=== PATIENT | female | born 1975 | race Caucasian/White ===

== ENCOUNTER 2017-03-03 15:16 | Inpatient (IN) | payer MEDICAID, OTHER ==
[~2017-03-03] VITALS: Ht 160 cm; Wt 93.0 kg
[2017-03-03 15:28] VITALS: Ht 160 cm; Wt 93.0 kg
[2017-03-03] MEDS ORDERED: ONDANSETRON (ODT) 4 MG TAB ODT STA (16:27)
--- NOTE | 2017-03-03 16:52 | ERD ---
ER Documentation Chief Complaint Date/Time DATE: 03/03/17 TIME: 16:51 Chief Complaint abdominal pain and diarrhea x 2 months HPI Patient is a 42-year-old female presents to the emergency department for concerns of intermittent abdominal pain and diarrhea 2 months. Patient states the pain is in her bilateral lower quadrants. Patient denies seeing any physicians for her pain. Patient also reports intermittent episodes of diarrhea. Patient states sometimes she has constipation however primarily she has diarrhea. Patient reports brown watery stools, no blood. Patient denies any fevers or chills. Patient denies any chest pain, shortness of breath, nausea, vomiting, loss consciousness or diaphoresis. ROS All systems reviewed and are negative except as per history of present illness. Allergies Allergies: Coded Allergies: No Known Allergy (Unverified , 03/03/17) PMhx/Soc Medical and Surgical Hx: pt denies Medical Hx, pt denies Surgical Hx Hx Alcohol Use: No Hx Substance Use: No Hx Tobacco Use: No Smoking Status: Never smoker Physical Exam Vitals Vital Signs Date Time Temp Pulse Resp B/P Pulse Ox O2 Delivery O2 Flow Rate FiO2 03/03/17 17:37 98.1 73 18 118/64 99 Room Air 03/03/17 15:28 98.6 101 18 116/59 99 Physical Exam Const: [] Head: Atraumatic Eyes: Normal Conjunctiva ENT: Normal External Ears, Nose and Mouth. Neck: Full range of motion..~ No meningismus. Resp: Clear to auscultation bilaterally Cardio: Regular rate and rhythm, no murmurs Abd: Soft, non tender, non distended. Normal bowel sounds Skin: No petechiae or rashes Back: No midline or flank tenderness Ext: No cyanosis, or edema Neur: Awake and alert Psych: Normal Mood and Affect Result Diagram: 03/03/17 1648 03/03/17 1648 Results 24 hrs Laboratory Tests Test 03/03/17 16:48 White Blood Count 10.310^3/ul Red Blood Count 3.4410^6/ul Hemoglobin 5.5g/dl Hematocrit 20.7% Mean Corpuscular Volume 60.2fl Mean Corpuscular Hemoglobin 16.0pg Mean Corpuscular Hemoglobin Concent 26.6g/dl Red Cell Distribution Width 21.9% Platelet Count 66377^3/UL Mean Platelet Volume 8.5fl Neutrophils % % Segmented Neutrophils % (Manual) 75% Lymphocytes % % Lymphocytes % (Manual) 18% Monocytes % % Monocytes % (Manual) 3% Eosinophils % % Eosinophils % (Manual) 3% Basophils % % Basophils % (Manual) 1% Nucleated Red Blood Cells % 0.4/100WBC Neutrophils # 10^3/ul Absolute Lymphocytes (Manual) 1.810^3/ul Lymphocytes # 10^3/ul Monocytes # 10^3/ul Absolute Monocytes (Manual) 0.310^3/ul Eosinophils # 10^3/ul Basophils # 10^3/ul Basophils # (Manual) 0.110^3/ul Nucleated Red Blood Cells # 10^3/ul Smudge Cells % 3% Thrombocytosis 10% Platelet Estimate INCREASED Polychromasia 1+ Hypochromasia 3+ Poikilocytosis 2+ Anisocytosis 3+ Microcytosis 3+ Urine Color YELLOW Urine Clarity CLEAR Urine pH 5.0 Urine Specific [place] 1.017 Urine Ketones NEGATIVEmg/dL Urine Nitrite NEGATIVEmg/dL Urine Bilirubin NEGATIVEmg/dL Urine Urobilinogen NEGATIVEmg/dL Urine Leukocyte Esterase TRACELeu/ul Urine Microscopic RBC 0/HPF Urine Microscopic WBC 1/HPF Urine Squamous Epithelial Cells FEW/HPF Urine Hemoglobin NEGATIVEmg/dL Urine Glucose NEGATIVEmg/dL Urine Total Protein NEGATIVEmg/dl Sodium Level 141mmol/L Potassium Level 4.5mmol/L Chloride Level 101mmol/L Carbon Dioxide Level 27mmol/L Anion Gap 18 Blood Urea Nitrogen 14mg/dl Creatinine 0.63mg/dl Glucose Level 109mg/dl Calcium Level 9.2mg/dl Total Bilirubin 0.0mg/dl Direct Bilirubin 0.00mg/dl Indirect Bilirubin 0.0mg/dl Aspartate Amino Transf (AST/SGOT) 22IU/L Alanine Aminotransferase (ALT/SGPT) 25IU/L Alkaline Phosphatase 93IU/L Total Protein 8.2g/dl Albumin 3.8g/dl Globulin 4.40g/dl Albumin/Globulin Ratio 0.86 Lipase 71U/L Current Medications Medications (Trade) Dose Ordered Sig/Reba Route PRN Reason Start Time Stop Time Status Last Admin Dose Admin Ondansetron HCl (Zofran Odt) 4 mg ONCE STAT ODT 03/03/17 16:27 03/03/17 16:29 DC 03/03/17 16:49 IV Flush 10 ml 10 ml STK-MED ONCE .ROUTE 03/03/17 17:54 03/03/17 17:55 DC 03/03/17 18:04 Sodium Chloride (NS) 100 ml @ ud STK-MED ONCE .ROUTE 03/03/17 17:54 03/03/17 17:55 DC 03/03/17 18:04 Iohexol 150 ml 150 ml STK-MED ONCE .ROUTE 03/03/17 17:54 03/03/17 17:55 DC 03/03/17 18:04 Sodium Chloride 250 ml @ 0 mls/hr Q0M ONCE IV 03/03/17 18:34 03/03/17 18:36 DC Sodium Chloride (NS) 1,000 ml @ 80 mls/hr [id number] IV 03/03/17 18:37 03/04/17 07:06 Ondansetron HCl (Zofran Inj) 4 mg BRIDGE ORDER PRN IV NAUSEA AND/OR VOMITING 03/03/17 19:00 03/04/17 18:59 Acetaminophen (Tylenol Tab) 650 mg ER BRIDGE PRN PO MILD PAIN/FEVER 03/03/17 19:00 03/04/17 18:59 Departure Patient Instructions: Treating Diarrhea Additional Instructions: Call your primary care doctor TOMORROW for an appointment during the next 1-2 days.See the doctor sooner or return here if your condition worsens before your appointment time. Follow-up with GI specialist for further management of her ongoing abdominal pain. He may need endoscopy or colonoscopy on an outpatient basis. ARNOLDO LUCAS PA-C Mar 03, 2017 16:52
[2017-03-03 16:59] LABS: ABNORMAL IP MESSAGE 1; HEMATOCRIT 20.7 % (37.0-47.0); MEAN CORPUSCULAR HGB CONC 26.6 g/dl (32.0-37.0); MEAN CORPUSCULAR VOLUME 60.2 fl (82.0-101.0); MEAN PLATELET VOLUME 8.5 fl (7.4-10.4); NUCLEATED RED BLOOD CELLS% 0.4 /100WBC (0.0-0.0); PLATELET COUNT 517 10^3/UL (140-415); RED BLOOD COUNT 3.44 10^6/ul (4.20-5.40); RED CELL DISTRIBUTION WIDTH 21.9 % (11.5-14.5)
[2017-03-03 17:11] LABS: POSITIVE DIFF @See below
[2017-03-03 17:13] LABS: WHITE BLOOD COUNT 10.3 10^3/ul (4.8-10.8)
[2017-03-03 17:19] LABS: ALBUMIN 3.8 g/dl (3.3-4.9); ALBUMIN/GLOBULIN RATIO 0.86; CALCIUM 9.2 mg/dl (8.4-10.2); CREATININE 0.63 mg/dl (0.44-1.00); POTASSIUM 4.5 mmol/L (3.5-5.1); TOTAL PROTEIN 8.2 g/dl (6.1-8.1)
[2017-03-03 17:41] LABS: ADD UMIC YES; UR ASCORBIC ACID NEGATIVE (NEGATIVE); UR BILIRUBIN (Dip) NEGATIVE (NEGATIVE); UR BLOOD (Dip) NEGATIVE (NEGATIVE); UR CLARITY CLEAR (CLEAR); UR COLOR YELLOW (YELLOW); UR GLUCOSE (Dip) NEGATIVE (NEGATIVE); UR KETONES (Dip) NEGATIVE (NEGATIVE); UR LEUKOCYTE ESTERASE (Dip) TRACE Leu/ul (NEGATIVE); UR NITRITE (Dip) NEGATIVE (NEGATIVE); UR RBC 0 /HPF (0-5); UR SPECIFIC GRAVITY (Dip) 1.017 (1.003-1.030); UR SQUAMOUS EPITHELIAL CELL FEW /HPF (FEW); UR TOTAL PROTEIN (Dip) NEGATIVE (NEGATIVE); UR UROBILINOGEN (Dip) NEGATIVE (NEGATIVE)
[2017-03-03] MEDS ORDERED: IOHEXOL 300MG/ML 150 ML BTL ONE (17:54)
[2017-03-03] MEDS ORDERED: SOD CHLORIDE 0.9% 100 ML ONE (17:54)
[2017-03-03 17:59] LABS: ANISOCYTOSIS 3+ (0-0); BASOPHILS % (M) 1 % (0-2); EOSINOPHILS % (M) 3 % (0-7); GIANT THROMBO% (M) 10 % (0-0); HYPOCHROMASIA 3+ (0-0); MICROCYTOSIS 3+ (0-0); MONOCYTES % (M) 3 % (0-11); PLATELET ESTIMATE INCREASED; POIKILOCYTOSIS 2+ (0-0); POLYCHROMASIA 1+ (0-0)
--- NOTE | 2017-03-03 18:23 | RADRPT ---
PROCEDURE: CT abdomen and pelvis with contrast. CLINICAL INDICATION: Abdominal pain and diarrhea. TECHNIQUE: CT scan of the abdomen and pelvis with contrast was performed after the uneventful intrav enous administration of 100 cc of Omnipaque-300. Coronal and sagittal reformatted images were obtain ed from the axial source images. The total exam CTDI equals 22.52 mGy and the total exam DLP equals 1221.91 mGy-cm. One or more of the following dose reduction techniques were used: - Automated exposure control. - Adjustment of the mA and/or kV according to patient size. - Use of iterative reconstruction technique. COMPARISON: None available. FINDINGS: Visualized lower thorax: The visualized lung bases are clear. The visualized heart is unremarkable. Hepatobiliary system and spleen: There is an indeterminate 3.4 cm hypodense lesion in segment 8 of the liver and 2.2 cm lesion at the junction of segment 7 and 8 within the liver. There is also an i ndeterminate 1.6 cm hypodense lesion in segment 6 of the liver. There is no intra or extrahepatic bi liary ductal dilatation. The gallbladder is unremarkable. The spleen is unremarkable. The pancreas i s unremarkable. Adrenal glands and genitourinary system: The adrenal glands are unremarkable. There are no renal ma sses or hydronephrosis. The urinary bladder is unremarkable. There is a simple appearing 5.3 cm rig ht adnexal cyst. The left adnexa and uterus are unremarkable. Gastrointestinal system: The stomach and small bowel are unremarkable. There is irregular wall thic kening of the entire rectum extending from the rectosigmoid junction to the anal verge. There is pe rirectal inflammatory change. There is a moderate of stool throughout the colon, suggestive of const ipation. The appendix is in the right lower quadrant, and is unremarkable. Peritoneum, vascular system, lymphatics: There is no free intraperitoneal air or free fluid. There is perirectal adenopathy. There is also bulky bilateral pelvic, inguinal, para-aortic, and periporta l adenopathy, consistent with metastatic disease. The aorta is nonaneurysmal. Musculoskeletal system: There is advanced facet arthropathy at L5-S1 with associated grade 1 paola listhesis of L5 on S1. There are no concerning osseous lesions. IMPRESSION: 1. Irregular wall thickening involving the entire rectum with extensive pelvic, inguinal, periaorti c, and periportal adenopathy, consistent with rectal neoplasm and metastatic disease. 2. Indeterminate hepatic lesions, the largest measuring 3.4 cm, highly concerning for metastatic di sease. these can be further characterize with multiphase CT scan or MRI with Eovist. 3. Simple appearing right ovarian cyst measuring 5.3 cm. 4. Moderate of stool throughout the colon, suggestive of constipation. These findings discussed with EARLENE Issa at 1817 hours on 03/03/2017. RPTAT: HLBP .Angelito Whatley MD, Date Time Electronically viewed and signed by .Angelito Whatley MD, on 03/03/2017 18:22 .P/
[2017-03-03] MEDS ORDERED: SOD CHLORIDE 0.9% 250 ML IV ONE (18:34)
[2017-03-03] MEDS ORDERED: SOD CHLORIDE 0.9% 1,000 ML IV SCH (18:37)
[2017-03-03] MEDS ORDERED: ONDANSETRON 4 MG INJ IV PRN ×3 (19:00→23:00)
[2017-03-03] MEDS ORDERED: ACETAMINOPHEN 325 MG TAB PO PRN (19:00)
--- NOTE | 2017-03-03 19:00 | ERA ---
ER Documentation Chief Complaint Date/Time DATE: 03/03/17 TIME: 18:58 Chief Complaint abdominal pain and diarrhea x 2 months HPI This is a 42-year-old female who presents to the emergency room for evaluation of abdominal cramping, diarrhea and generalized weakness. She states her diarrhea was bloody last month, however it has not been bloody recently. She does say she is abdominal cramping which she localizes to the lower portion of the abdomen. The patient states she is mildly nauseous but denies any active vomiting or chest pain at this time. She says she is feeling generally weak and worse with exertion. No relieving factors for her symptoms. ROS All systems reviewed and are negative except as per history of present illness. Allergies Allergies: Coded Allergies: No Known Allergy (Unverified , 03/03/17) PMhx/Soc Medical and Surgical Hx: pt denies Medical Hx, pt denies Surgical Hx Hx Alcohol Use: No Hx Substance Use: No Hx Tobacco Use: No Smoking Status: Never smoker Physical Exam Vitals Vital Signs Date Time Temp Pulse Resp B/P Pulse Ox O2 Delivery O2 Flow Rate FiO2 03/03/17 17:37 98.1 73 18 118/64 99 Room Air 03/03/17 15:28 98.6 101 18 116/59 99 Physical Exam INITIAL VITAL SIGNS: Reviewed by me GENERAL: The patient is well developed and appropriate for usual state of health in no apparent distress HEENT: Conjunctival pallor, pupils equal, round, and reactive to light. EOMI. There is no scleral icterus. NECK: C-spine is soft and supple, there is no meningismus. There is no cervical lymphadenopathy. LUNGS: Clear to auscultation bilaterally. There are no rales, wheezes or rhonchi. HEART: Regular rate and rhythm, no murmurs, clicks, rubs or gallops. ABDOMEN: Soft, non-tender, non-distended. There are bowel sounds in all four quadrants. No rebound or guarding. EXTREMITIES: There is no peripheral cyanosis or edema. No focal swelling or erythema. NEUROLOGICAL: The patient moves all four extremities with 5/5 strength. Cranial nerves II - XII are intact. Normal gait. Alert and oriented SKIN: Pale skin, there is no apparent rash or petechiae. Rectal exam: Palpable mass, brown stool, heme positive HEME/LYMPHATIC: There is no evidence of excessive bruising or lymphedema. PSYCHIATRIC: The patient does not appear anxious or depressed. Result Diagram: 03/03/17 1648 03/03/17 1648 Results 24 hrs Laboratory Tests Test 03/03/17 16:48 White Blood Count 10.310^3/ul Red Blood Count 3.4410^6/ul Hemoglobin 5.5g/dl Hematocrit 20.7% Mean Corpuscular Volume 60.2fl Mean Corpuscular Hemoglobin 16.0pg Mean Corpuscular Hemoglobin Concent 26.6g/dl Red Cell Distribution Width 21.9% Platelet Count 52715^3/UL Mean Platelet Volume 8.5fl Neutrophils % % Segmented Neutrophils % (Manual) 75% Lymphocytes % % Lymphocytes % (Manual) 18% Monocytes % % Monocytes % (Manual) 3% Eosinophils % % Eosinophils % (Manual) 3% Basophils % % Basophils % (Manual) 1% Nucleated Red Blood Cells % 0.4/100WBC Neutrophils # 10^3/ul Absolute Lymphocytes (Manual) 1.810^3/ul Lymphocytes # 10^3/ul Monocytes # 10^3/ul Absolute Monocytes (Manual) 0.310^3/ul Eosinophils # 10^3/ul Basophils # 10^3/ul Basophils # (Manual) 0.110^3/ul Nucleated Red Blood Cells # 10^3/ul Smudge Cells % 3% Thrombocytosis 10% Platelet Estimate INCREASED Polychromasia 1+ Hypochromasia 3+ Poikilocytosis 2+ Anisocytosis 3+ Microcytosis 3+ Urine Color YELLOW Urine Clarity CLEAR Urine pH 5.0 Urine Specific [place] 1.017 Urine Ketones NEGATIVEmg/dL Urine Nitrite NEGATIVEmg/dL Urine Bilirubin NEGATIVEmg/dL Urine Urobilinogen NEGATIVEmg/dL Urine Leukocyte Esterase TRACELeu/ul Urine Microscopic RBC 0/HPF Urine Microscopic WBC 1/HPF Urine Squamous Epithelial Cells FEW/HPF Urine Hemoglobin NEGATIVEmg/dL Urine Glucose NEGATIVEmg/dL Urine Total Protein NEGATIVEmg/dl Sodium Level 141mmol/L Potassium Level 4.5mmol/L Chloride Level 101mmol/L Carbon Dioxide Level 27mmol/L Anion Gap 18 Blood Urea Nitrogen 14mg/dl Creatinine 0.63mg/dl Glucose Level 109mg/dl Calcium Level 9.2mg/dl Total Bilirubin 0.0mg/dl Direct Bilirubin 0.00mg/dl Indirect Bilirubin 0.0mg/dl Aspartate Amino Transf (AST/SGOT) 22IU/L Alanine Aminotransferase (ALT/SGPT) 25IU/L Alkaline Phosphatase 93IU/L Total Protein 8.2g/dl Albumin 3.8g/dl Globulin 4.40g/dl Albumin/Globulin Ratio 0.86 Lipase 71U/L Current Medications Medications (Trade) Dose Ordered Sig/Reba Route PRN Reason Start Time Stop Time Status Last Admin Dose Admin Ondansetron HCl (Zofran Odt) 4 mg ONCE STAT ODT 03/03/17 16:27 03/03/17 16:29 DC 03/03/17 16:49 IV Flush 10 ml 10 ml STK-MED ONCE .ROUTE 03/03/17 17:54 03/03/17 17:55 DC 03/03/17 18:04 Sodium Chloride (NS) 100 ml @ ud STK-MED ONCE .ROUTE 03/03/17 17:54 03/03/17 17:55 DC 03/03/17 18:04 Iohexol 150 ml 150 ml STK-MED ONCE .ROUTE 03/03/17 17:54 03/03/17 17:55 DC 03/03/17 18:04 Sodium Chloride 250 ml @ 0 mls/hr Q0M ONCE IV 03/03/17 18:34 03/03/17 18:36 DC Sodium Chloride (NS) 1,000 ml @ 80 mls/hr [id number] IV 03/03/17 18:37 03/04/17 07:06 Ondansetron HCl (Zofran Inj) 4 mg BRIDGE ORDER PRN IV NAUSEA AND/OR VOMITING 03/03/17 19:00 03/04/17 18:59 Acetaminophen (Tylenol Tab) 650 mg ER BRIDGE PRN PO MILD PAIN/FEVER 03/03/17 19:00 03/04/17 18:59 Procedures/MDM EKG: Rate/Rhythm: [Normal Sinus Rhythm] QRS, ST, T-waves: [No changes consistent w/ acute ischemia] Impression: [No evidence of ischemia or arrhythmia] Chest X-ray 1V Interpreted by me: Soft Tissue: No acute abnormalities Bones: No acute abnormalities Mediastinum/Cardiac Silhouette/Lungs: [No acute abnormalities] CT abdomen pelvis with: 1. Irregular wall thickening involving the entire rectum with extensive pelvic, inguinal, periaortic, and periportal adenopathy, consistent with rectal neoplasm and metastatic disease. 2. Indeterminate hepatic lesions, the largest measuring 3.4 cm, highly concerning for metastatic disease. these can be further characterize with multiphase CT scan or MRI with Eovist. 3. Simple appearing right ovarian cyst measuring 5.3 cm. 4. Moderate of stool throughout the colon, suggestive of constipation. This is a 42-year-old female presents to the emergency room for evaluation of abdominal cramping and generalized weakness. When I evaluated this patient she appeared pale on my examination. I did obtain blood work and her hemoglobin came back at 5.5. She did state that she had some abdominal cramping and had diarrhea. I obtain a CT of the abdomen and pelvis to rule out any intra- peritoneal bleeding and CT of the abdomen and pelvis shows rectal neoplasm with metastatic disease. I have spoken to this patient in regards to her findings and she is aware of her CAT scan findings. She states that she has never been diagnosed with cancer. She states she has not seen a doctor in over 10 years. This patient was transfused 3 units of packed red blood cells in the emergency room. This patient had a rectal exam which showed brown stool which was speckled heme positive. I feel that she has been chronically losing blood through her GI tract. This patient will be placed in for admission at this time given her new diagnosis of metastatic cancer with GI bleed necessitating transfusion. Her blood pressure is stable with a mean arterial pressure greater than 65. No need for vasopressors or intensive care unit at this time. The patient will be placed on the telemetry floor Critical Care: Excluding all billable procedures Time: 42 minutes Treatments/Evaluations: Close monitoring and treatment of unstable vital signs, cardiorespiratory, and neurologic status, while maintaining tight balance of fluid, respiratory, and cardiac interventions. Departure Diagnosis: Primary Impression: GI bleed Additional Impressions: Severe anemia Metastatic cancer Condition: Serious DUSTIN BROWN Mar 03, 2017 19:00
[2017-03-03] MEDS: SOD CHLORIDE 0.9% 1,000 ML IV SCH (19:30)
--- NOTE | 2017-03-03 19:52 | RADRPT ---
PROCEDURE: XR Chest. CLINICAL INDICATION: Weakness. TECHNIQUE: Single frontal view of the chest was obtained COMPARISON: None FINDINGS: The heart and mediastinum are within normal limits. The lungs are clear. There is no pleural effusion or pneumothorax. IMPRESSION: No acute disease. RPTAT: UU Physician Manuel Date Time Electronically viewed and signed by Physician Manuel on 03/03/2017 19:52 RS/
[2017-03-03 20:30] VITALS: TEMP 98.5
[2017-03-03 20:50] VITALS: BP 120/88; PULSE 77; RESP 18
[2017-03-03 21:45] VITALS: BP 128/80; PULSE 79; RESP 18
[2017-03-03 22:04] VITALS: BP 127/88; RESP 22
[2017-03-03] MEDS: morphine 4 MG/ML VIAL IV PRN (22:34)
[2017-03-03 22:45] VITALS: BP 117/65; PULSE 85; RESP 19
[2017-03-03] MEDS ORDERED: morphine 4 MG/ML VIAL IV PRN (23:00)
[2017-03-03 23:45] VITALS: BP 120/57; PULSE 92; RESP 16
[2017-03-04] VITALS (11 sets, daily range): BP systolic 111–188; BP diastolic 55–69; PULSE 76–90; RESP 14–20
--- NOTE | 2017-03-04 05:19 | HP ---
Date/Time of Note Date/Time of Note DATE: 03/04/17 TIME: 04:55 Assessment/Plan VTE Prophylaxis VTE Prophylaxis Intervention: SCD's Lines/Catheters IV [facility] Assessment/Plan Assessment/Plan 1. Likely metastatic rectal/colon cancer to liver: this CT scan findings explain bloody stool, anemia and weight loss - will place a GI and an Oncology consult. - CT chest for metastatic work-up - pain mgmt 2. Lower GI Bleed and anemia: 2/2 above - cont blood transfusion - f/u Iron panel - see above for additional plan 3. Right Ovarian Cyst: 5.3 cm - need periodic surveillance ultra sound as out patient HPI/ROS Admit Date/Time Admit Date/Time Mar 03, 2017 at 18:38 Hx of Present Illness This is a 42 yo female with no significant medical hx who presented to ER c/o abd pain, bloody stool and weakness. symptoms started about 2 months ago. She lost about 30lbs, which is unintentional. When she presented to ER, she was found to be anemic with hgb of 5.5 and is receiving blood transfusion. CT abd/ pelvis showed Irregular wall thickening involving the entire rectum with extensive pelvic, inguinal, periaortic, and periportal adenopathy, consistent with rectal neoplasm and metastatic disease. Indeterminate hepatic lesions, the largest measuring 3.4 cm, highly concerning for metastatic disease. these can be further characterize with multiphase CT scan or MRI with Eovist. Simple appearing right ovarian cyst measuring 5.3 cm. Moderate of stool throughout the colon, suggestive of constipation. I have discussed with pt and her daughter about the findings and pt said she was prepared for a possibility of cancer because she was reading about her symptoms on the internet. her mother was dx'd with lymphoma in her 40s and her aunt with leukemia at age 13. Pt denied chest pain, SOB, fever or chills. . PMH/Family/Social Social History Smoking Status: Never smoker Exam/Review of Systems Vital Signs Vitals Vital Signs Date Time Temp Pulse Resp B/P Pulse Ox O2 Delivery O2 Flow Rate FiO2 03/04/17 04:07 98.5 76 14 122/68 98 Room Air Intake and Output 03/03/17 03/03/17 03/04/17 15:00 23:00 07:00 Intake Total 600 ml Balance 600 ml Exam Constitutional: alert, oriented, well developed Head: atraumatic, normocephalic Eyes: EOMI, PERRL Respiratory: clear to auscultation, normal air movement Cardiovascular: nl pulses, regular rate and rhythm, systolic murmur Gastrointestinal: soft, tender Extremities: normal pulses Labs Result Diagram: 03/03/17 1648 03/03/17 1648 Medications Medications Current Medications Sodium Chloride (NS) 1,000 ml @ 80 mls/hr [id number] IV ; Start 03/03/17 at 18:37; Stop 03/04/17 at 07:06 Ondansetron HCl (Zofran Inj) 4 mg Q6H PRN IV NAUSEA AND/OR VOMITING; Start 03/03 at 19:30 Morphine Sulfate 2 mg 2 mg Q4H PRN IV pain 7-10 Last administered on 03/03/17t 22:34; Admin Dose 2 MG; Start 03/03/17 at 19:30 Sodium Chloride 1,000 ml @ 80 mls/hr [id number] IV ; Start 03/03/17 at 19:30 Dextrose/Sodium Chloride (D5-1/2ns) 1,000 ml @ 100 mls/hr Q10H IV ; Start at 07:00 Morphine Sulfate (morphine) 3 mg Q4H PRN IV pain 7-10; Start 03/03/17 at 23:00 Ondansetron HCl (Zofran Inj) 4 mg Q6H PRN IV NAUSEA AND/OR VOMITING; Start 03/03 at 23:00 Pantoprazole (Protonix Iv) 40 mg BID@06,18 IV ; Start 03/04/17 at 06:00 ROCIO CARRIZALES MD Mar 04, 2017 05:07
[2017-03-04] MEDS: PANTOPRAZOLE 40 MG INJ IV SCH ×2 (06:10→18:11)
[2017-03-04] MEDS: DEXTROSE 5%-0.45% NACL 1,000 ML IV SCH ×3 (06:27→18:57)
[2017-03-04] MEDS: SOD CHLORIDE 0.9% 1,000 ML IV SCH ×2 (06:39→20:30)
[2017-03-04 07:40] LABS: ABNORMAL IP MESSAGE 1; BASOPHIL # 0.1 10^3/ul (0.0-0.1); BASOPHILS % 0.8 % (0.0-2.0); EOSINOPHILS # 0.6 10^3/ul (0.0-0.5); EOSINOPHILS % 6.2 % (0.0-7.0); HEMOGLOBIN 8.4 g/dl (12.0-16.0); LYMPHOCYTES # 1.7 10^3/ul (0.8-2.9); MEAN CORPUSCULAR HEMOGLOBIN 19.4 pg (29.0-33.0); MEAN PLATELET VOLUME 9.3 fl (7.4-10.4); MONOCYTES % 9.9 % (0.0-11.0); NEUTROPHIL # 6.9 10^3/ul (1.6-7.5); NEUTROPHILS % 66.8 % (39.0-77.0); NUCLEATED RED BLOOD CELLS% 0.3 /100WBC (0.0-0.0); PLATELET COUNT 465 10^3/UL (140-415); RED BLOOD COUNT 4.33 10^6/ul (4.20-5.40); RED CELL DISTRIBUTION WIDTH 26.8 % (11.5-14.5); WHITE BLOOD COUNT 10.3 10^3/ul (4.8-10.8)
[2017-03-04 07:43] LABS: POSITIVE DIFF @See below
[2017-03-04 08:09] LABS: IRON 33 ug/dl (35-150)
[2017-03-04 08:11] LABS: MAGNESIUM 1.8 mg/dl (1.7-2.5)
[2017-03-04 08:13] LABS: ALBUMIN 3.7 g/dl (3.3-4.9); ALBUMIN/GLOBULIN RATIO 0.86; BILIRUBIN,INDIRECT 0.4 mg/dl (0-1.1); BILIRUBIN,TOTAL 0.4 mg/dl (0.2-1.3); CALCIUM 9.4 mg/dl (8.4-10.2); CREATININE 0.58 mg/dl (0.44-1.00); POTASSIUM 4.3 mmol/L (3.5-5.1)
[2017-03-04 08:18] LABS: TOTAL IRON BINDING CAPACITY 452 ug/dl (241-421)
[2017-03-04 08:47] LABS: FERRITIN 3.9 ng/ml (6.2-137.0)
[2017-03-04] MEDS: morphine 4 MG/ML VIAL IV PRN ×3 (09:15→19:51)
[2017-03-04] MEDS ORDERED: IOHEXOL 300MG/ML 150 ML BTL ONE (09:25)
[2017-03-04] MEDS ORDERED: SOD CHLORIDE 0.9% 100 ML ONE (09:25)
[2017-03-04 13:15] LABS: CARCINOEMBRYONIC ANTIGEN 96.9 ng/ml (0.0-5.0)
[2017-03-04 13:24] LABS: CANCER ANTIGEN 19-9 > 1000.0 U/ml (0.0-37.0)
--- NOTE | 2017-03-04 13:24 | RADRPT ---
PROCEDURE: CT Chest with contrast. CLINICAL INDICATION: Rectal bleeding. Evaluate for metastases. TECHNIQUE: CT scan of the chest with contrast was performed following the uncomplicated intravenou s administration of 80 cc of Omnipaque-300. Coronal and sagittal reformatted images were obtained f rom the axial source images. Images were reviewed on a high-resolution PACS workstation. CTDIvol (mG y): 15.25; Total Exam DLP (mGy-cm): 606.80. One or more of the following dose reduction techniques were utilized: - Automated exposure control. - Adjustment of the mA and/or kV according to patient size. - Use of iterative reconstruction technique. COMPARISON: Chest x-ray 03/03/2017. CT abdomen/pelvis 03/03/2017. FINDINGS: Limited imaging of the lower neck is unremarkable. The heart is within the upper limits of normal in size to mildly enlarged. There is no pericardial effusion. There is no bulky mediastinal, hilar or axillary lymphadenopathy. There is a small cluste r of small AP window lymph nodes with the largest measuring 8 mm in short axis. Scattered few small mediastinal lymph nodes are present. Mild dilatation of the ascending aorta is observed measuring 4. 1 cm in greatest diameter, which is slightly accentuated by motion artifact. The pulmonary arteries are not enlarged. There is no pulmonary consolidation, pleural effusion or pulmonary nodule. The tracheobronchial yuri e is clear. Limited imaging of the upper abdomen demonstrates multiple hypo enhancing lesions throughout the demetrice er with the largest measuring approximately 3.6 cm within the medial segment of the left hepatic lob e. Enlarged retroperitoneal lymph nodes are present. Degenerative changes of the thoracic spine are present. Body wall soft tissues are unremarkable. IMPRESSION: No evidence of pulmonary metastases. No bulky intrathoracic lymphadenopathy. There is a small cluster of small AP window lymph nodes with the largest measuring approximately 8 mm in short axis. Attention on follow-up imaging. Hepatic metastases and retroperitoneal lymphadenopathy. Mild dilatation of the ascending aorta, which is mildly accentuated by motion artifact. RPTAT: HLST .Leeanna Wells MD, Date Time Electronically viewed and signed by .Leeanna Wells MD, on 03/04/2017 13:24 .T/
[2017-03-04] MEDS ORDERED: BISACODYL (EC) 5 MG TAB PO ONE (14:00)
--- NOTE | 2017-03-04 14:47 | CONS ---
Date/Time of Note Date/Time of Note DATE: 03/04/17 TIME: 14:34 Assessment/Plan Assessment/Plan Additional Assessment/Plan Assessment * Abdominal pain/hematochezia CT scan/abdomen Irregular wall thickening involving the entire rectum with extensive pelvic, inguinal, periaortic, and periportal adenopathy, consistent with rectal neoplasm and metastatic disease. Indeterminate hepatic lesions, the largest measuring 3.4 cm, highly concerning for metastatic disease. these can be further characterize with multiphase CT scan or MRI with Eovist. Simple appearing right ovarian cyst measuring 5.3 cm. Plan * Colonoscopy tomorrow risks and benefit discuss with patient and agreed with the planned procedure * pain control * monitor hemoglobin and hematocrit daily and transfuse per protocol * further orders will depend on clinical course Consultation Date/Type/Reason Admit Date/Time Mar 03, 2017 at 18:38 Date of Consultation: Mar 04, 2017 Type of Consultation: Gastroenterology Reason for Consultation hematochezia Referring Provider: DINO DAWN Hx of Present Illness 42 year old female with no known past medical history presented in the emergency room complaining of abdominal pain.Present condition apparently started 6 months ago on and off episode of diarrhea with no associated signs or symptoms.No consult done till 3 months prior to consult,she started loosing weight with associated vague abdominal pain ,with occasional hematochezia. Still no consult until 1 month prior to consult change in caliber of stool and hematochezia became frequent.1 day prior to consult ,patient experience severe lower abdominal pain with radiation to back ,hematochezia,body weakness hence consult.Workup revealed hemoglobin 5.5 transfused with 2 units of blood now 8.4 Iron 33,TIBC 452 CT scan showed . Irregular wall thickening involving the entire rectum with extensive pelvic, inguinal, periaortic, and periportal adenopathy, consistent with rectal neoplasm and metastatic disease. Indeterminate hepatic lesions, the largest measuring 3.4 cm, highly concerning for metastatic disease. these can be further characterize with multiphase CT scan or MRI with Eovist.. Simple appearing right ovarian cyst measuring 5.3 cm.. Moderate of stool throughout the colon, suggestive of constipation. Presently ,she still complains of lower abdominal pain,but passing gas and no evidenced of hematochezia. Constitutional: improved, no complaints Eyes: no complaints ENT: no complaints Respiratory: no complaints Cardiovascular: no complaints Gastrointestinal: blood, diarrhea, flatus, nausea, pain Genitourinary: no complaints Musculoskeletal: no complaints Skin: no complaints Neurologic: no complaints Endocrine: no complaints Lymphatic: no complaints Psychological: nl mood/affect, no complaints Immunologic: no complaints Past Medical History Medical History: no pertinent history Past Surgical History Past Surgical Hx: no surgical history Family History Significant Family History: no pertinent family hx Social History Smoking Status: Never smoker Exam/Review of Systems Vital Signs Vitals Vital Signs Date Time Temp Pulse Resp B/P Pulse Ox O2 Delivery O2 Flow Rate FiO2 03/04/17 08:00 98.1 80 19 131/66 99 03/04/17 04:35 Room Air Intake and Output 03/03/17 03/03/17 03/04/17 15:00 23:00 07:00 Intake Total 600 ml 1 ml Output Total 1000 ml Balance 600 ml -999 ml Exam Constitutional: alert, oriented, well developed Psych: nl mood/affect, no complaints Head: atraumatic, normocephalic Eyes: EOMI, PERRL, nl conjunctiva, nl lids, nl sclera ENMT: nl external ears & nose, nl lips & teeth, nl nasal mucosa & septum Neck: non-tender, supple Respiratory: clear to auscultation, normal air movement Cardiovascular: nl pulses, regular rate and rhythm Gastrointestinal: bowel sounds, distended, non-tender, soft Musculoskeletal: nl extremities to inspection, nl gait and stance Extremities: normal pulses Neurological: BOAT FUELER II-XII intact, nl mental status, nl speech, nl strength Skin: nl turgor, No rash or lesions Lymph: nl lymph nodes Results Result Diagram: 03/04/17 0713 03/04/17 0713 Results 24 hrs Laboratory Tests Test 03/03/17 16:48 03/04/17 07:13 03/04/17 07:14 03/04/17 11:08 White Blood Count 10.3 10.3 Red Blood Count 3.44 L 4.33 # Hemoglobin 5.5 *L 8.4 #L Hematocrit 20.7 L 29.0 #L Mean Corpuscular Volume 60.2 L 67.0 L Mean Corpuscular Hemoglobin 16.0 L 19.4 #L Mean Corpuscular Hemoglobin Concent 26.6 L 29.0 L Red Cell Distribution Width 21.9 H 26.8 #H Platelet Count 517 H 465 H Mean Platelet Volume 8.5 9.3 Neutrophils % 66.8 Segmented Neutrophils % (Manual) 75 Lymphocytes % 16.0 Lymphocytes % (Manual) 18 Monocytes % 9.9 Monocytes % (Manual) 3 Eosinophils % 6.2 Eosinophils % (Manual) 3 Basophils % 0.8 Basophils % (Manual) 1 Nucleated Red Blood Cells % 0.4 H 0.3 H Neutrophils # 6.9 Absolute Lymphocytes (Manual) 1.8 Lymphocytes # 1.7 Monocytes # 1.0 H Absolute Monocytes (Manual) 0.3 Eosinophils # 0.6 H Basophils # 0.1 Basophils # (Manual) 0.1 H Nucleated Red Blood Cells # 0.0 Smudge Cells % 3 H Thrombocytosis 10 H Platelet Estimate INCREASED Polychromasia 1+ Hypochromasia 3+ Poikilocytosis 2+ Anisocytosis 3+ Microcytosis 3+ Urine Color YELLOW Urine Clarity CLEAR Urine pH 5.0 Urine Specific [place] 1.017 Urine Ketones NEGATIVE Urine Nitrite NEGATIVE Urine Bilirubin NEGATIVE Urine Urobilinogen NEGATIVE Urine Leukocyte Esterase TRACE A Urine Microscopic RBC 0 Urine Microscopic WBC 1 Urine Squamous Epithelial Cells FEW Urine Hemoglobin NEGATIVE Urine Glucose NEGATIVE Urine Total Protein NEGATIVE Sodium Level 141 141 Potassium Level 4.5 4.3 Chloride Level 101 102 Carbon Dioxide Level 27 25 Anion Gap 18 H 18 H Blood Urea Nitrogen 14 15 Creatinine 0.63 0.58 Glucose Level 109 91 Calcium Level 9.2 9.4 Total Bilirubin 0.0 L 0.4 Direct Bilirubin 0.00 0.00 Indirect Bilirubin 0.0 0.4 Aspartate Amino Transf (AST/SGOT) 22 32 Alanine Aminotransferase (ALT/SGPT) 25 26 Alkaline Phosphatase 93 92 Total Protein 8.2 H 8.0 Albumin 3.8 3.7 Globulin 4.40 H 4.30 H Albumin/Globulin Ratio 0.86 0.86 Lipase 71 Phosphorus Level 5.0 H Magnesium Level 1.8 Iron Level 33 L Total Iron Binding Capacity 452 H Percent Iron Saturation 7 L Ferritin 3.9 L Lab Scanned Report BLOOD TRANSFUSION Alpha Fetoprotein 2.15 Carcinoembryonic Antigen 96.9 H CA 19-9 Antigen > 1000.0 H CA 125 Antigen 10.0 Medications Medications Current Medications Ondansetron HCl (Zofran Inj) 4 mg Q6H PRN IV NAUSEA AND/OR VOMITING; Start 03/03 at 19:30 Morphine Sulfate 2 mg 2 mg Q4H PRN IV pain 7-10 Last administered on 03/04/17 14:24; Admin Dose 2 MG; Start 03/03/17 at 19:30 Sodium Chloride 1,000 ml @ 80 mls/hr [id number] IV ; Start 03/03/17 at 19:30 Dextrose/Sodium Chloride (D5-1/2ns) 1,000 ml @ 100 mls/hr Q10H IV Last administered on 03/04/17 06:27; Admin Dose 100 MLS/HR; Start 03/04/17 at 07:00 Morphine Sulfate (morphine) 3 mg Q4H PRN IV pain 7-10; Start 03/03/17 at 23:00 Ondansetron HCl (Zofran Inj) 4 mg Q6H PRN IV NAUSEA AND/OR VOMITING; Start 03/03 at 23:00 Pantoprazole (Protonix Iv) 40 mg BID@06,18 IV Last administered on 03/04/17 06: 10; Admin Dose 40 MG; Start 03/04/17 at 06:00 Magnesium Citrate (Citroma) 300 ml ONCE ONCE PO ; Start 03/04/17 at 17:30; Stop 03/04/17 at 17:31 Polyethylene Glycol 119 gm 119 gm ONCE ONCE PO ; Start 03/04/17 at 18:30; Stop 03/04/17 at 18:31 Ferric Sodium Gluconate Complex/ Sodium Chloride (Ferrlecit/NS) 110 ml @ 100 mls/hr Q24H IVPB ; Start 03/04/17 at 15:30; Stop 03/06/17 at 16:35 JESSE GALAVIZ MD Mar 04, 2017 14:44
[2017-03-04] MEDS: SOD FERRIC GLUC COMPLX 125 MG in SOD CHLORIDE 0.9% 100 ML IVPB SCH (16:16)
[2017-03-04] MEDS ORDERED: MAGNESIUM CITRATE 300 ML BTL PO ONE (17:30)
[2017-03-04] MEDS ORDERED: POLYETHYLENE GLYCOL 3350 119 GM POWDER PO ONE (18:30)
--- NOTE | 2017-03-04 21:38 | RADRPT ---
Echocardiogram Report Patient Name: ANTOLIN MORELAND Gender: Female Date: 1975 Study Date: 04-Mar-2017 Heel Edge Inker Machine: Erin [facility] Location: [address] Ref. Physician: ROCIO CARRIZALES Quality: Adequate Procedures: Transthoracic echocardiogram with complete 2D, M-Mode, and doppler examination. Indications: Murmur. 2D/M Mode Doppler Measurement Value Normal Ranges Measurement Value Normal Ranges LVIDd 2D 4.7 3.5 - 5.6 cm ATTILA Vmax 1.1 cm2 LVIDs 2D 2.9 2.1 - 4.1 cm ATTILA VTI 1.0 cm2 FS 2D 38.0 % AV Mean Lex 2.9 m/sec LVPWd 2D 1.3 0.6 - 1.1 cm AV Mean PG 37.0 mmHg IVSd 2D 1.3 0.6 - 1.1 cm AV Peak Lex 3.9 m/sec IVS/LVPW 2D 1.0 AV Peak PG 61.0 mmHg AoR Diam 2D 2.9 2.0 - 3.7 cm AV VTI 100.0 cm LA/Ao 2D 1 0 - 1 AI Peak PG 29.0 mmHg EDV 2D 101.0 cm3 AI Peak Lex 2.7 m/sec ESV 2D 24.1 cm3 AI PHT 620.0 msec LA Dimen 2D 3.9 2.3 - 4.0 cm LVOT Peak Lex 1.2 m/sec LVOT Diam 2.1 cm LVOT Peak PG 6.0 mmHg LVOT Area 3.5 cm2 MV E Peak Lex 1.1 m/sec MV A Peak Lex 0.6 m/sec MV E/A 2.0 MV Decel Time 239 msec MV E/A 2.0 TR Peak Lex 3.0 m/sec TR Peak PG 35.0 mmHg RVSP 44.0 mmHg Findings Left Ventricle: Normal left ventricular systolic function. Normal left ventricular cavity size. Mild concentric left ventricular hypertrophy. Ejection fraction is visually estimated at 5560 %. Right Ventricle: Normal right ventricular size. Normal right ventricular systolic function. Left Atrium: Upper limit of normal left atrial size. Right Atrium: The right atrium is normal in size. Mitral Valve: Mitral valve leaflets appear mildly thickened. Mild mitral annular calcification. Trace mitral regurgitation. Aortic Valve: Moderate aortic stenosis. Aortic valve Max velocity 3.89 m/sec. Max PG 61.00 mmHg. Mean PG 37.00 mmHg. Aortic valve area 1.05 cm2. Aortic cusps appear moderately calcified. Mild to moderate aortic valve regurgitation. Tricuspid Valve: Normal appearance of the tricuspid valve. Estimated peak PA systolic pressure 44 mmHg. There is mild tricuspid regurgitation. Pulmonic Valve: Pulmonic valve not well visualized. There is trace pulmonic regurgitation. Pericardium: Normal pericardium with no significant pericardial effusion. Aorta: Normal aortic root. IVC: Normal size and normal respiratory collapse consistent with normal right atrial pressure. Conclusions 1.The left ventricle is normal in size and systolic function. 2.Estimated left ventricular ejection fraction of 55-60%. 3.Mild concentric left ventricular hypertrophy. 4.Moderate aortic stenosis. Mild to moderate aortic regurgitation. Electronically Signed By: Earl Hughes 04-Mar-2017 21:38:05 -0700 Patient Name: ANTOLIN MORELAND Study Date: 04-Mar-2017 [id number]
--- NOTE | 2017-03-04 22:55 | CONS ---
Date/Time of Note Date/Time of Note DATE: 03/04/17 TIME: 22:39 Assessment/Plan Assessment/Plan Chief Complaint/Hosp Course #Metastatic Ca - involving pelvic, inguinal, periaortic, and periportal adenopathy, consistent with rectal neoplasm and metastatic disease. also seen are questionable hepatic mets -f/u colonoscopy tomorrow -will need a biopsy before we can make definitive treatment decisions -if this is a primary colon or rectal malignancy, she will need 5fu based chemotherapy #Indeterminate Liver lesions -will order MRI with eovist to further evaluate these lesions #intermittent hematochezia -if the colonoscopy notes a friable or bleeding rectal lesion, will consult rad onc to evaluate role of radiation to control the bleeding #Iron deficiency anemia -will start Ferrlecit at this time #Ovarian cyst -continue to monitor. if this grows in size it can be removed at that time Problems: Consultation Date/Type/Reason Admit Date/Time Mar 03, 2017 at 18:38 Date of Consultation: Mar 04, 2017 Type of Consultation: oncology Reason for Consultation metastatic cancer, likely colon Referring Provider: STEPHANI LOPES Hx of Present Illness 42 year old female with no significant past medical history who presented in the emergency room complaining of abdominal pain that she sates started 6 months ago. This was associated with intermittent diarrhea, weight loss, weakness and occasional BRBPR. In the ER patient was found with severe microcytic anemia with a Hg 5.5 and MCV of 60. Pt has been transfused 3 units of PRBCs since admission. Pt is severely iron deficiency with a ferritin 3.4. CT A/P was done which revealed the following: Irregular wall thickening involving the entire rectum with extensive pelvic, inguinal, periaortic, and periportal adenopathy, consistent with rectal neoplasm and metastatic disease. Also seen were indeterminate hepatic lesions, the largest measuring 3.4 cm, highly concerning for metastatic disease. Given the concern for metastatic colon ca pt is scheduled for coloscopy tomorrow with GI. Constitutional: improved, no complaints Eyes: no complaints ENT: no complaints Respiratory: no complaints Cardiovascular: no complaints Gastrointestinal: blood, diarrhea, flatus, nausea, pain Genitourinary: no complaints Musculoskeletal: no complaints Skin: no complaints Neurologic: no complaints Endocrine: no complaints Lymphatic: no complaints Psychological: nl mood/affect, no complaints Immunologic: no complaints Past Medical History Medical History: no pertinent history Past Surgical History Past Surgical Hx: no surgical history Family History Significant Family History: no pertinent family hx Social History Alcohol Use: none Smoking Status: Never smoker Drug Use: none Exam/Review of Systems Vital Signs Vitals Vital Signs Date Time Temp Pulse Resp B/P Pulse Ox O2 Delivery O2 Flow Rate FiO2 03/04/17 20:11 98.1 78 18 119/58 95 03/04/17 04:35 Room Air Intake and Output 03/03/17 03/03/17 03/04/17 15:00 23:00 07:00 Intake Total 600 ml 1 ml Output Total 1000 ml Balance 600 ml -999 ml Exam Constitutional: alert Psych: nl mood/affect, no complaints Head: normocephalic Eyes: nl conjunctiva ENMT: nl external ears & nose Neck: non-tender, supple Respiratory: clear to auscultation Cardiovascular: regular rate and rhythm Gastrointestinal: soft Musculoskeletal: nl extremities to inspection Results Result Diagram: 03/04/17 0713 03/04/17 0713 Results 24 hrs Laboratory Tests Test 03/04/17 07:13 03/04/17 07:14 03/04/17 11:08 White Blood Count 10.3 Red Blood Count 4.33 # Hemoglobin 8.4 #L Hematocrit 29.0 #L Mean Corpuscular Volume 67.0 L Mean Corpuscular Hemoglobin 19.4 #L Mean Corpuscular Hemoglobin Concent 29.0 L Red Cell Distribution Width 26.8 #H Platelet Count 465 H Mean Platelet Volume 9.3 Neutrophils % 66.8 Lymphocytes % 16.0 Monocytes % 9.9 Eosinophils % 6.2 Basophils % 0.8 Nucleated Red Blood Cells % 0.3 H Neutrophils # 6.9 Lymphocytes # 1.7 Monocytes # 1.0 H Eosinophils # 0.6 H Basophils # 0.1 Nucleated Red Blood Cells # 0.0 Sodium Level 141 Potassium Level 4.3 Chloride Level 102 Carbon Dioxide Level 25 Anion Gap 18 H Blood Urea Nitrogen 15 Creatinine 0.58 Glucose Level 91 Calcium Level 9.4 Phosphorus Level 5.0 H Magnesium Level 1.8 Iron Level 33 L Total Iron Binding Capacity 452 H Percent Iron Saturation 7 L Ferritin 3.9 L Total Bilirubin 0.4 Direct Bilirubin 0.00 Indirect Bilirubin 0.4 Aspartate Amino Transf (AST/SGOT) 32 Alanine Aminotransferase (ALT/SGPT) 26 Alkaline Phosphatase 92 Total Protein 8.0 Albumin 3.7 Globulin 4.30 H Albumin/Globulin Ratio 0.86 Lab Scanned Report BLOOD TRANSFUSION Alpha Fetoprotein 2.15 Carcinoembryonic Antigen 96.9 H CA 19-9 Antigen > 1000.0 H CA 125 Antigen 10.0 Medications Medications Current Medications Ondansetron HCl (Zofran Inj) 4 mg Q6H PRN IV NAUSEA AND/OR VOMITING; Start 03/03 at 19:30 Morphine Sulfate 2 mg 2 mg Q4H PRN IV pain 7-10 Last administered on 03/04/17 19:51; Admin Dose 2 MG; Start 03/03/17 at 19:30 Sodium Chloride 1,000 ml @ 80 mls/hr [id number] IV ; Start 03/03/17 at 19:30 Dextrose/Sodium Chloride (D5-1/2ns) 1,000 ml @ 100 mls/hr Q10H IV Last administered on 03/04/17 18:57; Admin Dose 100 MLS/HR; Start 03/04/17 at 07:00 Morphine Sulfate (morphine) 3 mg Q4H PRN IV pain 7-10; Start 03/03/17 at 23:00 Ondansetron HCl (Zofran Inj) 4 mg Q6H PRN IV NAUSEA AND/OR VOMITING; Start 03/03 at 23:00 Pantoprazole 40 mg 40 mg BID@06,18 IV Last administered on 03/04/17 18:11; Admin Dose 40 MG; Start 03/04/17 at 06:00 Ferric Sodium Gluconate Complex/ Sodium Chloride (Ferrlecit/NS) 110 ml @ 100 mls/hr Q24H IVPB Last administered on 03/04/17 16:16; Admin Dose 100 MLS/HR; Start 03/04/17 at 15:30; Stop 03/06/17 at 16:35 ZHANNA LOPEZ M.D. Mar 04, 2017 22:53
[2017-03-05] VITALS (10 sets, daily range): BP systolic 98–130; BP diastolic 55–67; PULSE 74–78; RESP 14–28
[2017-03-05] MEDS: morphine 4 MG/ML VIAL IV PRN ×4 (01:59→20:01)
[2017-03-05 05:52] LABS: ABNORMAL IP MESSAGE 1; BASOPHIL # 0.1 10^3/ul (0.0-0.1); BASOPHILS % 0.5 % (0.0-2.0); EOSINOPHILS # 0.6 10^3/ul (0.0-0.5); HEMATOCRIT 28.4 % (37.0-47.0); HEMOGLOBIN 8.3 g/dl (12.0-16.0); LYMPHOCYTES # 1.4 10^3/ul (0.8-2.9); LYMPHOCYTES % 14.6 % (15.0-51.0); MEAN CORPUSCULAR HEMOGLOBIN 19.7 pg (29.0-33.0); MEAN CORPUSCULAR HGB CONC 29.2 g/dl (32.0-37.0); MEAN CORPUSCULAR VOLUME 67.3 fl (82.0-101.0); MEAN PLATELET VOLUME 9.7 fl (7.4-10.4); MONOCYTES % 10.1 % (0.0-11.0); NEUTROPHIL # 6.6 10^3/ul (1.6-7.5); NEUTROPHILS % 68.4 % (39.0-77.0); NUCLEATED RED BLOOD CELLS% 0.3 /100WBC (0.0-0.0); PLATELET COUNT 474 10^3/UL (140-415); RED BLOOD COUNT 4.22 10^6/ul (4.20-5.40); RED CELL DISTRIBUTION WIDTH 27.1 % (11.5-14.5); WHITE BLOOD COUNT 9.7 10^3/ul (4.8-10.8)
[2017-03-05] MEDS ORDERED: POLYETHYLENE GLYCOL 3350 119 GM POWDER PO ONE (06:00)
[2017-03-05 06:12] LABS: POSITIVE DIFF @See below
[2017-03-05] MEDS: PANTOPRAZOLE 40 MG INJ IV SCH ×2 (06:29→18:29)
[2017-03-05 06:33] LABS: CREATININE 0.6 mg/dl (0.44-1.00); POTASSIUM 4.3 mmol/L (3.5-5.1)
[2017-03-05] MEDS: DEXTROSE 5%-0.45% NACL 1,000 ML IV SCH ×2 (06:38→23:00)
[2017-03-05] MEDS ORDERED: BISACODYL (EC) 5 MG TAB PO ONE (08:00)
[2017-03-05] MEDS: SOD CHLORIDE 0.9% 1,000 ML IV SCH ×2 (09:00→21:30)
[2017-03-05] MEDS: SOD FERRIC GLUC COMPLX 125 MG in SOD CHLORIDE 0.9% 100 ML IVPB SCH (15:13)
--- NOTE | 2017-03-05 17:41 | OPR ---
Date/Time of Note Date/Time of Note DATE: 03/05/17 TIME: 17:37 Operative Report Preoperative Diagnosis Rectal mass Pelvic metastatic disease Postoperative Diagnosis Impression: * Large 20cm circumferential rectal mass. Biopsied * Poor preparation Plan: * Review pathology . Operation/Procedure Performed Colonoscopy + biopsies Surgeon: JESSE GALAVIZ MD Anesthesia: MAC Estimated Blood Loss: minimal Specimens Rectal mass Grafts/Implants None Complications: None JESSE GALAVIZ MD Mar 05, 2017 17:41
--- NOTE | 2017-03-05 18:04 | PN ---
Date/Time of Note Date/Time of Note DATE: 03/05/17 TIME: 18:00 Assessment/Plan VTE Prophylaxis VTE Prophylaxis Intervention: SCD's Lines/Catheters IV Catheter Type (from Nrs): Peripheral IV Assessment/Plan Chief Complaint/Hosp Course 1. Likely metastatic rectal/colon cancer to liver: this CT scan findings explain bloody stool, anemia and weight loss - GI and an Oncology consults appreciated, plan is for colonoscopy today - CT chest shows no metastases in the chest - pain mgmt 2. Lower GI Bleed and anemia: 2/2 above -Status post 3 units of blood -Iron panel suggest iron deficiency, continue Ferrlecit 3. Right Ovarian Cyst: 5.3 cm - need periodic surveillance ultra sound as out patient Prophylaxis: SCDs Problems: Subjective 24 Hr Interval Summary Constitutional: no complaints Exam/Review of Systems Vital Signs Vitals Vital Signs Date Time Temp Pulse Resp B/P Pulse Ox O2 Delivery O2 Flow Rate FiO2 03/05/17 17:45 98.2 77 14 98/55 98 Room Air Intake and Output 03/04/17 03/04/17 03/05/17 14:59 22:59 06:59 Intake Total 1510 ml 1800 ml Balance 1510 ml 1800 ml Exam Constitutional: alert, oriented Respiratory: clear to auscultation Cardiovascular: regular rate and rhythm Gastrointestinal: soft, No distended Musculoskeletal: nl extremities to inspection Results Result Diagram: 03/05/17 0455 03/05/17 0455 Results 24 hrs Laboratory Tests Test 03/05/17 04:55 White Blood Count 9.7 Red Blood Count 4.22 Hemoglobin 8.3 L Hematocrit 28.4 L Mean Corpuscular Volume 67.3 L Mean Corpuscular Hemoglobin 19.7 L Mean Corpuscular Hemoglobin Concent 29.2 L Red Cell Distribution Width 27.1 H Platelet Count 474 H Mean Platelet Volume 9.7 Neutrophils % 68.4 Lymphocytes % 14.6 L Monocytes % 10.1 Eosinophils % 6.0 Basophils % 0.5 Nucleated Red Blood Cells % 0.3 H Neutrophils # 6.6 Lymphocytes # 1.4 Monocytes # 1.0 H Eosinophils # 0.6 H Basophils # 0.1 Nucleated Red Blood Cells # 0.0 Sodium Level 141 Potassium Level 4.3 Chloride Level 102 Carbon Dioxide Level 27 Anion Gap 16 Blood Urea Nitrogen 15 Creatinine 0.60 Glucose Level 98 Calcium Level 9.0 Medications Medications Current Medications Ondansetron HCl (Zofran Inj) 4 mg Q6H PRN IV NAUSEA AND/OR VOMITING; Start 03/03 at 19:30 Morphine Sulfate 2 mg 2 mg Q4H PRN IV pain 7-10 Last administered on 03/05/17 13:02; Admin Dose 2 MG; Start 03/03/17 at 19:30 Sodium Chloride 1,000 ml @ 80 mls/hr [id number] IV ; Start 03/03/17 at 19:30 Dextrose/Sodium Chloride (D5-1/2ns) 1,000 ml @ 100 mls/hr Q10H IV Last administered on 03/05/17 06:38; Admin Dose 100 MLS/HR; Start 03/04/17 at 07:00 Morphine Sulfate (morphine) 3 mg Q4H PRN IV pain 7-10; Start 03/03/17 at 23:00 Ondansetron HCl (Zofran Inj) 4 mg Q6H PRN IV NAUSEA AND/OR VOMITING; Start 03/03 at 23:00 Pantoprazole 40 mg 40 mg BID@06,18 IV Last administered on 03/05/17 06:29; Admin Dose 40 MG; Start 03/04/17 at 06:00 Ferric Sodium Gluconate Complex/ Sodium Chloride (Ferrlecit/NS) 110 ml @ 100 mls/hr Q24H IVPB Last administered on 03/05/17 15:13; Admin Dose 100 MLS/HR; Start 03/04/17 at 15:30; Stop 03/06/17 at 16:35 STEPHANI LOPES Mar 05, 2017 18:03
[2017-03-06] MEDS: morphine 4 MG/ML VIAL IV PRN ×3 (00:22→10:00)
[2017-03-06 03:15] VITALS: BP 97/51; RESP 18
--- NOTE | 2017-03-06 04:23 | GILP ---
DATE OF PROCEDURE: 03/05/2017 ENDOSCOPIST: Amador Ferrer MD PROCEDURE: Colonoscopy with biopsy. PREMEDICATION: Monitored anesthesia care by anesthesiologist. INDICATION: A patient with evidence of metastatic pelvic disease, as well as possibly metastatic liver disease and what appears to be an infiltrative process in the rectum. TECHNIQUE: After informed consent with the patient understanding the procedure and potential risks and complications, as well as alternatives and after informed consent was obtained, the patient was placed in the left lateral decubitus position. Premedication was administered. Following this, digital rectal examination was performed, disclosing a very regular, clearly abnormal rectal exam with what appears to be a circumferential mass, which is multinodular and highly suspect for a malignancy. Following this, the Olympus colonoscope was introduced and we found the entire rectum, approximately 20 cm length, with circumferential mass, rock hard, superficially ulcerated, clearly malignant. Multiple biopsies were obtained. The instrument then went beyond 20 cm and the mucosa appears unremarkable. Unfortunately, the preparation is extremely poor and as we reached the splenic flexure and advanced the instrument in the transverse colon, we had to terminate the procedure because the preparation was severely compromised. The instrument was withdrawn. No additional abnormalities were noted. IMPRESSION: A large 20-cm of rectum involved with circumferential tumor, clearly malignant. Multiple biopsies obtained. Poor preparation precludes examination beyond the splenic flexure. PLAN: Pathology will be reviewed. The patient has already seen Oncology and will probably require neoadjuvant therapy or chemotherapy. Dictated By: Amador Ferrer MD /librado/checo /Document#: [id number]
[2017-03-06] MEDS: DEXTROSE 5%-0.45% NACL 1,000 ML IV SCH (04:28)
[2017-03-06 05:43] LABS: ABNORMAL IP MESSAGE 1; BASOPHIL # 0.1 10^3/ul (0.0-0.1); BASOPHILS % 0.5 % (0.0-2.0); EOSINOPHILS # 0.5 10^3/ul (0.0-0.5); EOSINOPHILS % 5.6 % (0.0-7.0); HEMATOCRIT 28.8 % (37.0-47.0); HEMOGLOBIN 8.3 g/dl (12.0-16.0); LYMPHOCYTES # 1.2 10^3/ul (0.8-2.9); LYMPHOCYTES % 12.6 % (15.0-51.0); MEAN CORPUSCULAR HEMOGLOBIN 19.4 pg (29.0-33.0); MEAN CORPUSCULAR HGB CONC 28.8 g/dl (32.0-37.0); MEAN CORPUSCULAR VOLUME 67.4 fl (82.0-101.0); MEAN PLATELET VOLUME 9.8 fl (7.4-10.4); MONOCYTE # 1.1 10^3/ul (0.3-0.9); MONOCYTES % 11.2 % (0.0-11.0); NEUTROPHIL # 6.6 10^3/ul (1.6-7.5); NEUTROPHILS % 69.9 % (39.0-77.0); PLATELET COUNT 474 10^3/UL (140-415); RED BLOOD COUNT 4.27 10^6/ul (4.20-5.40); RED CELL DISTRIBUTION WIDTH 27.9 % (11.5-14.5); WHITE BLOOD COUNT 9.4 10^3/ul (4.8-10.8)
[2017-03-06 05:46] LABS: POSITIVE DIFF @See below
[2017-03-06 05:56] LABS: INR 0.91; PROTIME 12.3 Sec (12.2-14.2)
[2017-03-06 05:58] LABS: CALCIUM 9.1 mg/dl (8.4-10.2); CREATININE 0.64 mg/dl (0.44-1.00); MAGNESIUM 2.2 mg/dl (1.7-2.5); POTASSIUM 4.2 mmol/L (3.5-5.1)
[2017-03-06] MEDS: PANTOPRAZOLE 40 MG INJ IV SCH (06:00)
[2017-03-06 08:28] VITALS: BP 102/55; RESP 18
[2017-03-06 09:10] LABS: URIC ACID 4.5 mg/dl (3.1-7.9)
[2017-03-06] MEDS: SOD CHLORIDE 0.9% 1,000 ML IV SCH (09:39)
[2017-03-06] MEDS ORDERED: morphine 2 MG INJ IV PRN (10:30)
--- NOTE | 2017-03-06 13:05 | PDOCDIS ---
Discharge Instructions CONDITION Patient Condition: Good HOME CARE INSTRUCTIONS: Diet Instructions: Reduced Calorie ACTIVITY: Activity Restrictions: No Restrictions FOLLOW UP/APPOINTMENTS Follow-up Plan FOLLOW UP WITH YOUR PRIMARY CARE PHYSICIAN IN 1-2 WEEKS, FOLLOW UP WITH DR ZHANNA VEGA IN 1-2 WEEKS FOR BIOPSY RESULTS STEPHANI LOPES Mar 06, 2017 13:05
[2017-03-06] MEDS ORDERED: DOCU-144 PO (13:06)
--- NOTE | 2017-03-06 13:16 | DS ---
Date/Time of Note Date/Time of Note DATE: 03/06/17 TIME: 13:07 Discharge Summary Admission/Discharge Info Admit Date/Time Mar 03, 2017 at 18:38 Discharge Date/Time March 06, 2017 Discharge Diagnosis 1. Likely metastatic rectal cancer to liver was colonoscopy that showed rectal rectal mass that appeared malignant -Biopsies been taken, patient follow-up with of oncology for review of pathology and initiation of treatment -CT abdomen showed likely rectal neoplasm and metastatic disease with hepatic lesions -CT chest shows no metastases in the chest -DC with Colace 2. Lower GI Bleed and anemia: 2/2 above -Status post 3 units of blood -Iron panel suggest iron deficiency, status post Ferrlecit 3. Right Ovarian Cyst: 5.3 cm - need periodic surveillance ultra sound as out patient Patient Condition: Good Hospital Course Patient is a 42 yo female with no significant medical hx who presented to ER c/ o abd pain, bloody stool and weakness. symptoms started about 2 months ago. She lost about 30lbs, which is unintentional. When she presented to ER, she was found to be anemic with hgb of 5.5 and is receiving blood transfusion. CT abd/ pelvis showed Irregular wall thickening involving the entire rectum with extensive pelvic, inguinal, periaortic, and periportal adenopathy, consistent with rectal neoplasm and metastatic disease. Indeterminate hepatic lesions, the largest measuring 3.4 cm, highly concerning for metastatic disease. She was seen by oncology and GI, patient had a colonoscopy that showed a mass highly suspicious for rectal cancer. Case was discussed with Dr. Sotelo of oncology patient was felt to be stable for DC the plans follow-up with Dr. Sotelo in clinic. On the day of discharge patient's vitals, labs and physical exam are stable she had no acute complaints and questions were answered. Home Meds Active Scripts Docusate Sodium* (Colace*) 100 Mg Capsule, 100 MG PO BID, #60 CAP Prov:STEPHANI LOPES 03/06/17 Primary Care Provider Care Physician No Primary Time spent on discharge: > 30 minutes STEPHANI LOPES Mar 06, 2017 13:15
[2017-03-06] MEDS ORDERED: NYST15CR28 TOP (14:12)
[2017-03-06] MEDS ORDERED: SOD FERRIC GLUC COMPLX 125 MG in SOD CHLORIDE 0.9% 100 ML IVPB SCH (16:00)
[2017-03-08 14:32] LABS: HEMOGLOBIN 5.5 g/dl (12.0-16.0)
== END 2017-03-06 15:16 | disposition home or self-care (01) | DRG 375 ==
LOC: FTE 15:16 → MS1 18:38
PROVIDERS: ADMIT Internal Medicine; ATTEND Internal Medicine
PROC: 30233N1 Transfusion of Nonautologous Red Blood Cells into Peripheral Vein, Percutaneous Approach (ICD-10-PCS; 2017-03-03)
PROC: 30233N1 Transfusion of Nonautologous Red Blood Cells into Peripheral Vein, Percutaneous Approach (ICD-10-PCS; 2017-03-04)
PROC: 0DBP8ZX Excision of Rectum, Via Natural or Artificial Opening Endoscopic, Diagnostic (ICD-10-PCS; principal; 2017-03-05 19:00)
DX: C20 Malignant neoplasm of rectum (principal); C78.7 Secondary malignant neoplasm of liver and intrahepatic bile duct; D62 Acute posthemorrhagic anemia; K92.2 Gastrointestinal hemorrhage, unspecified; N83.201 Unspecified ovarian cyst, right side; K59.00 Constipation, unspecified; D50.9 Iron deficiency anemia, unspecified
CPT/HCPCS: 36415; 36430; 71010; 71260; 74177; 80048; 80053; 81001; 82105; 82378; 82728; 83540; 83615; 83690; 83735; 84100; 84560; 85025; 85610; 86300; 86301; 86304; 86850; 86900; 86901; 86920; 88305; 93005; 93306; C9113; J2270; J2916; J7030; J7040; J7042; P9016; Q9967

== ENCOUNTER 2017-03-12 15:18 | Emergency (ER) | payer MEDICAID ==
[~2017-03-12] VITALS: Ht 165.1 cm; Wt 92.5 kg
[~2017-03-12 15:18] MED LIST: DOCU-144 PO; NYST15CR28 TOP
[2017-03-12 15:31] VITALS: Ht 165.1 cm; Wt 92.5 kg
[2017-03-12 16:28] LABS: ABNORMAL IP MESSAGE 1; BASOPHIL # 0.1 10^3/ul (0.0-0.1); BASOPHILS % 0.8 % (0.0-2.0); EOSINOPHILS # 0.8 10^3/ul (0.0-0.5); EOSINOPHILS % 8.1 % (0.0-7.0); HEMATOCRIT 30.5 % (37.0-47.0); HEMOGLOBIN 9.1 g/dl (12.0-16.0); LYMPHOCYTES # 1.2 10^3/ul (0.8-2.9); LYMPHOCYTES % 11.5 % (15.0-51.0); MEAN CORPUSCULAR HEMOGLOBIN 20.6 pg (29.0-33.0); MEAN CORPUSCULAR HGB CONC 29.8 g/dl (32.0-37.0); MEAN CORPUSCULAR VOLUME 69.2 fl (82.0-101.0); MEAN PLATELET VOLUME 9.2 fl (7.4-10.4); MONOCYTE # 0.7 10^3/ul (0.3-0.9); NEUTROPHIL # 7.4 10^3/ul (1.6-7.5); NEUTROPHILS % 72.2 % (39.0-77.0); PLATELET COUNT 459 10^3/UL (140-415); RED BLOOD COUNT 4.41 10^6/ul (4.20-5.40); WHITE BLOOD COUNT 10.3 10^3/ul (4.8-10.8)
[2017-03-12 16:29] LABS: ADD UMIC YES; UR ASCORBIC ACID 20 mg/dL (NEGATIVE); UR BILIRUBIN (Dip) NEGATIVE (NEGATIVE); UR BLOOD (Dip) 3+ mg/dL (NEGATIVE); UR CLARITY SLIGHTLY CLOUDY (CLEAR); UR COLOR YELLOW (YELLOW); UR GLUCOSE (Dip) NEGATIVE (NEGATIVE); UR KETONES (Dip) NEGATIVE (NEGATIVE); UR LEUKOCYTE ESTERASE (Dip) TRACE Leu/ul (NEGATIVE); UR NITRITE (Dip) NEGATIVE (NEGATIVE); UR RBC > 182 /HPF (0-5); UR SPECIFIC GRAVITY (Dip) 1.017 (1.003-1.030); UR TOTAL PROTEIN (Dip) 1+ mg/dl (NEGATIVE); UR UROBILINOGEN (Dip) 1+ mg/dL (NEGATIVE)
[2017-03-12 16:31] LABS: POSITIVE DIFF @See below
[2017-03-12 16:47] LABS: ALBUMIN 3.9 g/dl (3.3-4.9); ALBUMIN/GLOBULIN RATIO 0.86; BILIRUBIN,INDIRECT 0.1 mg/dl (0-1.1); BILIRUBIN,TOTAL 0.1 mg/dl (0.2-1.3); CALCIUM 9.4 mg/dl (8.4-10.2); CREATININE 0.58 mg/dl (0.44-1.00); POTASSIUM 4.9 mmol/L (3.5-5.1); TOTAL PROTEIN 8.4 g/dl (6.1-8.1)
[2017-03-12 17:36] LABS: INR 0.91; PROTIME 12.2 Sec (12.2-14.2)
[2017-03-12 17:37] LABS: PARTIAL THROMBOPLASTIN TIME 28.1 Sec (25.0-35.0)
--- NOTE | 2017-03-12 18:00 | ERD ---
ER Documentation Chief Complaint Date/Time DATE: 03/12/17 TIME: 17:58 Chief Complaint Complains of vag bleed x 3=2 days HPI This 42-year-old female presents with a significant history for recently diagnosis metastatic rectal cancer. She was transfused for hemoglobin of 9 here last week. She has had no bleeding since discharge. She has a small amount of bleeding over the last day as well as she started her menstrual period. She is concerned and was referred by her primary doctor for recheck of hemoglobin. She was transfused 3 units last week. She denies any fevers, vomiting, significant pain. She is having frequent soft bowel movements. She is using 4-7 pads per day but is on her menses as well. She is taking one iron per day ROS All systems reviewed and are negative except as per history of present illness. Medications Home Meds Active Scripts Nystatin* (Nystatin*) 15 Gm Cr, 1 APPLIC TOP BID, #1 TUB Prov:STEPHANI LOPES 03/06/17 Docusate Sodium* (Colace*) 100 Mg Capsule, 100 MG PO BID, #60 CAP Prov:STEPHANI LOPES 03/06/17 Allergies Allergies: Coded Allergies: No Known Allergy (Unverified , 03/03/17) PMhx/Soc History of Surgery: Yes (csection x24 years ago) Anesthesia Reaction: No Hx Neurological Disorder: No Hx Respiratory Disorders: No Hx Cardiac Disorders: No Hx Psychiatric Problems: No Hx Miscellaneous Medical Probl: Yes (recently diagnosed rectal cancer ) Hx Alcohol Use: No Hx Substance Use: No Hx Tobacco Use: No Smoking Status: Never smoker Physical Exam Vitals Vital Signs Date Time Temp Pulse Resp B/P Pulse Ox O2 Delivery O2 Flow Rate FiO2 03/12/17 15:31 98.3 92 20 213/63 98 Physical Exam Const: [] Letter, [id number]. Head: Atraumatic Eyes: Normal Conjunctiva ENT: Normal External Ears, Nose and Mouth. Neck: Full range of motion..~ No meningismus. Resp: Clear to auscultation bilaterally Cardio: Regular rate and rhythm, no murmurs Abd: Soft, non tender, non distended. Normal bowel sounds Skin: No petechiae or rashes Back: No midline or flank tenderness Ext: No cyanosis, or edema Neur: Awake and alert Psych: Normal Mood and Affect Result Diagram: 03/12/17 1610 03/12/17 1610 Results 24 hrs Laboratory Tests Test 03/12/17 16:10 White Blood Count 10.310^3/ul Red Blood Count 4.4110^6/ul Hemoglobin 9.1g/dl Hematocrit 30.5% Mean Corpuscular Volume 69.2fl Mean Corpuscular Hemoglobin 20.6pg Mean Corpuscular Hemoglobin Concent 29.8g/dl Red Cell Distribution Width 30.0% Platelet Count 30713^3/UL Mean Platelet Volume 9.2fl Neutrophils % 72.2% Lymphocytes % 11.5% Monocytes % 7.0% Eosinophils % 8.1% Basophils % 0.8% Nucleated Red Blood Cells % 0.0/100WBC Neutrophils # 7.410^3/ul Lymphocytes # 1.210^3/ul Monocytes # 0.710^3/ul Eosinophils # 0.810^3/ul Basophils # 0.110^3/ul Nucleated Red Blood Cells # 0.010^3/ul Prothrombin Time 12.2Sec Prothrombin Time Ratio 1.0 INR International Normalized Ratio 0.91 Activated Partial Thromboplast Time 28.1Sec Urine Color YELLOW Urine Clarity SLIGHTLY CLOUDY Urine pH 7.0 Urine Specific [place] 1.017 Urine Ketones NEGATIVEmg/dL Urine Nitrite NEGATIVEmg/dL Urine Bilirubin NEGATIVEmg/dL Urine Urobilinogen 1+mg/dL Urine Leukocyte Esterase TRACELeu/ul Urine Microscopic RBC > 182/HPF Urine Microscopic WBC 12/HPF Urine Hemoglobin 3+mg/dL Urine Glucose NEGATIVEmg/dL Urine Total Protein 1+mg/dl Sodium Level 141mmol/L Potassium Level 4.9mmol/L Chloride Level 99mmol/L Carbon Dioxide Level 29mmol/L Anion Gap 18 Blood Urea Nitrogen 15mg/dl Creatinine 0.58mg/dl Glucose Level 106mg/dl Calcium Level 9.4mg/dl Total Bilirubin 0.1mg/dl Direct Bilirubin 0.00mg/dl Indirect Bilirubin 0.1mg/dl Aspartate Amino Transf (AST/SGOT) 34IU/L Alanine Aminotransferase (ALT/SGPT) 27IU/L Alkaline Phosphatase 101IU/L Total Protein 8.4g/dl Albumin 3.9g/dl Globulin 4.50g/dl Albumin/Globulin Ratio 0.86 Procedures/MDM Hemoglobin is 9 1.1 today. Patient was stable and pleasant and amatory throughout the ED course. Patient presents with a history recently diagnosis metastatic rectal cancer without evidence of tachycardia, acute abdomen, sepsis , significant anemia requiring transfusion today or evidence of symptomatic anemia. Patient will be treated with instructions to continue iron 3 times a day and stool softeners. Patient is has follow-up with oncology should keep her appointments and recheck for any worsening symptoms or primary care doctor as directed. The patient was stable with no new complaints during the ER course. Clinically, there is no current evidence to suggest meningitis, sepsis, acute abdomen, pneumonia, acute coronary syndrome, pulmonary embolism, or any other emergent condition appearing to require further evaluation or hospitalization. The patient should certainly return for any new or worsening symptoms per the aftercare instructions. They should otherwise follow-up with her primary care doctor for reevaluation this week. Departure Diagnosis: Primary Impression: Rectal bleed Condition: Stable Patient Instructions: Rectal Bleed, Stable Additional Instructions: Hemoglobin 9 today. Continue stool softeners and iron and oncology follow-up. Recheck for new or worsening symptoms or primary care doctor. DIANA ARZATE MD Mar 12, 2017 18:00
[2017-03-12 18:07] VITALS: BP 156/67; PULSE 76; RESP 20; TEMP 97.9
== END 2017-03-12 18:08 | disposition home or self-care (01) ==
LOC: FTE 15:18
DX: K62.5 Hemorrhage of anus and rectum (principal); C21.8 Malignant neoplasm of overlapping sites of rectum, anus and anal canal
CPT/HCPCS: 36415; 80053; 81001; 85025; 85610; 85730; Z7502; 99283

== ENCOUNTER 2017-03-17 17:18 | Emergency (ER) | END 2017-03-17 18:08 | disposition home or self-care (01) | DX: C20 Malignant neoplasm of rectum (principal) ==

== ENCOUNTER 2017-03-23 22:56 | Inpatient (IN) | payer MEDICAID ==
[~2017-03-23] VITALS: Ht 162.6 cm; Wt 92.5 kg
[~2017-03-23 22:56] MED LIST changes: +HYDR-902 PO; +HYDR25SU23 PR; +HYDR26CR PR
[2017-03-23] MEDS ORDERED: morphine 4 MG/ML VIAL IV STA (23:31)
[2017-03-23] MEDS ORDERED: SOD CHLORIDE 0.9% 500 ML IV STA (23:31)
[2017-03-23] MEDS ORDERED: ONDANSETRON 4 MG INJ IV STA (23:31)
[2017-03-24 00:33] LABS: ABNORMAL IP MESSAGE 1; BASOPHIL # 0.1 10^3/ul (0.0-0.1); BASOPHILS % 0.6 % (0.0-2.0); EOSINOPHILS # 0.7 10^3/ul (0.0-0.5); EOSINOPHILS % 7.2 % (0.0-7.0); HEMATOCRIT 25.4 % (37.0-47.0); HEMOGLOBIN 7.4 g/dl (12.0-16.0); LYMPHOCYTES # 1.6 10^3/ul (0.8-2.9); LYMPHOCYTES % 15.8 % (15.0-51.0); MEAN CORPUSCULAR HEMOGLOBIN 21.3 pg (29.0-33.0); MEAN CORPUSCULAR HGB CONC 29.1 g/dl (32.0-37.0); MEAN CORPUSCULAR VOLUME 73.2 fl (82.0-101.0); MEAN PLATELET VOLUME 9.4 fl (7.4-10.4); MONOCYTE # 0.8 10^3/ul (0.3-0.9); MONOCYTES % 8.1 % (0.0-11.0); PLATELET COUNT 523 10^3/UL (140-415)
[2017-03-24 00:39] LABS: ADD UMIC YES; POSITIVE DIFF @See below; RED BLOOD COUNT 3.47 10^6/ul (4.20-5.40); UR ASCORBIC ACID 40 mg/dL (NEGATIVE); UR BILIRUBIN (Dip) NEGATIVE (NEGATIVE); UR BLOOD (Dip) NEGATIVE (NEGATIVE); UR CLARITY SLIGHTLY CLOUDY (CLEAR); UR COLOR YELLOW (YELLOW); UR GLUCOSE (Dip) NEGATIVE (NEGATIVE); UR KETONES (Dip) NEGATIVE (NEGATIVE); UR LEUKOCYTE ESTERASE (Dip) 3+ Leu/ul (NEGATIVE); UR MUCUS FEW /HPF (NONE SEEN); UR NITRITE (Dip) NEGATIVE (NEGATIVE); UR RBC 3 /HPF (0-5); UR SPECIFIC GRAVITY (Dip) 1.028 (1.003-1.030); UR SQUAMOUS EPITHELIAL CELL FEW /HPF (FEW); UR TOTAL PROTEIN (Dip) 1+ mg/dl (NEGATIVE); UR UROBILINOGEN (Dip) 1+ mg/dL (NEGATIVE)
[2017-03-24 00:49] LABS: INR 0.92; PARTIAL THROMBOPLASTIN TIME 27.6 Sec (25.0-35.0); PROTIME 12.4 Sec (12.2-14.2)
[2017-03-24 00:53] LABS: ALBUMIN 3.4 g/dl (3.3-4.9); ALBUMIN/GLOBULIN RATIO 0.85; CALCIUM 9.4 mg/dl (8.4-10.2); CREATININE 0.66 mg/dl (0.44-1.00); POTASSIUM 4.3 mmol/L (3.5-5.1); TOTAL PROTEIN 7.4 g/dl (6.1-8.1)
--- NOTE | 2017-03-24 01:22 | RADRPT ---
PROCEDURE: Portable chest x-ray. CLINICAL INDICATION: 42 years of age, female. Abdominal pain. TECHNIQUE: Portable AP view of the chest. COMPARISON: None available. FINDINGS: Cardiomediastinal contours are normal. Lungs are clear. Negative for pleural effusion or pneumothorax. No acute bony abnormality. IMPRESSION: Negative for evidence of acute chest process. RPTAT: HCTS Physician Stephanie Date Time Electronically viewed and signed by Mara Bates Physician on 03/24/2017 01:22 /
--- NOTE | 2017-03-24 01:22 | RADRPT ---
AMENDMENT: 04/03/2017 10:47:22 PM Jada Bates M.D One or more of the following dose reduction techniques were used: - Automated exposure control. - Adjustment of the mA and/or kV according to patient size. - Use of iterative reconstruction technique. PROCEDURE: CT ABDOMEN AND PELVIS WITHOUT CONTRAST: CLINICAL INDICATION: 42 years of age, female, abdominal pain . COMPARISON: None available. Previous MRI and CT scans of the abdomen are not available at this critical access hospital. TECHNIQUE: CT of the abdomen and pelvis was performed without intravenous contrast. Oral contrast wa s not administered prior to the examination. Coronal and sagittal reformatted images were obtained from the axial source images. Images were revi ewed on a high-resolution PACS workstation. Dose information: Based on a 32 cm phantom, the estimated radiation dose (CTDI vol mGy) for each ser ies in this exam is 21.6. The estimated cumulative dose (DLP mGy-cm) is 1400. FINDINGS: In the absence of intravenous contrast, the study constitutes a limited assessment of the solid orga ns, bowel and vessels. LUNG BASES: Calcifications of the aortic valve annulus. ABDOMEN/PELVIS: Liver: There are least of 3 masses in the right hepatic lobe that cannot be characterized without in travenous contrast. In this clinical setting they are concerning for metastases. The largest is in segment 8 and measures 4.4 cm (3/41). Gallbladder: Normal noncontrast appearance. Bile ducts: No intrahepatic or extrahepatic biliary duct dilatation. Spleen: Normal noncontrast appearance. Pancreas: Normal noncontrast appearance. Adrenal glands: Thickening of left adrenal gland without a discrete nodule. Right adrenal gland is normal. Kidneys and ureters: There is mild bilateral hydronephrosis and hydroureter. Zone of transition fro m dilated ureters to collapsed ureters is massive pelvic sidewall lymphadenopathy. Renal parenchyma is otherwise unremarkable. Negative for urinary calculi. Aorta and IVC: Aorta is normal caliber. Evaluation of patency of the veins is not possible. There is likely venous compression by the lymphadenopathy in the retroperitoneum and pelvis. Negative for evidence of lower leg edema Lymph nodes: There is massive lymphadenopathy in the retroperitoneum, bilateral pelvic sidewalls and bilateral groins in keeping with solange metastases. Sample lymph nodes are as follows: Aortocaval (/88): 4.6 cm AP diameter Right pelvic sidewall (3/138): 3.5 x 6.2 cm Left pelvic sidewall (3/141): 4.5 x 6.4 cm. Gastrointestinal tract: There is abnormal nodular circumferential mural thickening of the distal sig moid colon and rectum extending to the anus over a distance of 19 cm in keeping with colorectal canc er. There are numerous enlarged perirectal lymph nodes. Uterus is displaced anterior by the thick-w alled rectum with intervening fluid between the posterior wall of the uterus and the thick-walled re mine inspector-sigmoid colon. Moderate stool in the upstream colon. Stomach, small bowel and upstream colon ar e decompressed. Appendix: Normal Bladder: Bladder is displaced anterior and is contracted. Pelvic Organs: The uterus is a displaced anterior by the thick-walled rectosigmoid colon with fluid between the thickened bowel and posterior wall of the uterus. Peritoneal cavity: No free fluid or free intraperitoneal air. Abdominal wall: 1.2 cm nodule anterior abdominal wall above the umbilicus may represent a tumor impl ant () BONES: Musculoskeletal: Facet joint arthritis in lower lumbar spine and sacroiliac arthritis No suspicious bone lesions. IMPRESSION: Extensive nodular circumferential mural thickening of the distal sigmoid colon and rectum extending to the anus is in keeping with known colorectal cancer. There is anterior displacement of the uterus and bladder. Enlarged perirectal lymph nodes and massive retroperitoneal, pelvic sidewall and inguinal lymph node s are in keeping with solnage metastases. Liver masses are concerning for liver metastases. They are incompletely characterized on this nonco ntrast scan. 1.2 cm nodule anterior abdominal wall is concerning for a tumor implant. Bilateral ureteral obstruction with mild bilateral hydronephrosis and hydroureter due to mass effect by pelvic sidewall lymphadenopathy. Recommend correlation with renal function. The patient may be nefit from ureteral stent placement. Moderate colonic stool in keeping with constipation. Negative for evidence of mechanical bowel obst ruction. Evaluation of vein patency is not possible without intravenous contrast. Massive retroperitoneal an d pelvic sidewall lymphadenopathy potentially exerts mass effect upon the veins. If there is clinic al concern for DVT, recommend venous ultrasound. Negative for evidence of lower leg edema on CT. Critical results were discussed with Dr. Juarez by Dr. Jada Bates on March 24, 2017 at 1:15 A M. RPTAT: HCTS Mara Bates, Physician Date Time Electronically viewed and signed by Mara Bates, Physician on 04/03/2017 22:48 CS/
--- NOTE | 2017-03-24 02:42 | ERA ---
ER Documentation Chief Complaint Date/Time DATE: 03/24/17 TIME: 02:41 Chief Complaint mid abd pain x 2 days hx- colorectal cancer HPI 41-year-old female mid abdominal pain for 2 days. Patient has history of colorectal cancer. Patient comes in with increased abdominal pain and difficulty swallowing. Denies any fevers or chills. Denies any other current complaints. ROS All systems reviewed and are negative except as per history of present illness. Medications Home Meds Active Scripts Hydrocortisone* Rectal (Preparation H* Cream) 1% - 26 Gm Cream.gm., 1 APPLIC MN BID, #1 TUB Prov:KEMAL DAWN PA-C 03/17/17 Hydrocortisone Acetate (Anusol-Hc) 25 Mg Supp.rect, 1 SUPP MN BID Y for HEMORROID PAIN/ITCHING, #12 SUPP.RECT Prov:KEMAL DAWN PA-C 03/17/17 Hydrocodone/Acetaminophen ([place] 10-325 Tablet) 1 Each Tablet, 1 TAB PO Q6H Y for PAIN, #20 TAB Prov:KEMAL DAWN PA-C 03/17/17 Nystatin* (Nystatin*) 15 Gm Cr, 1 APPLIC TOP BID, #1 TUB Prov:STEPHANI LOPES 03/06/17 Docusate Sodium* (Colace*) 100 Mg Capsule, 100 MG PO BID, #60 CAP Prov:STEPHANI LOPES 03/06/17 Allergies Allergies: Coded Allergies: No Known Allergy (Unverified , 03/17/17) PMhx/Soc History of Surgery: Yes (csection x24 years ago) Anesthesia Reaction: No Hx Neurological Disorder: No Hx Respiratory Disorders: No Hx Cardiac Disorders: No Hx Psychiatric Problems: No Hx Miscellaneous Medical Probl: Yes (recently diagnosed rectal cancer ) Hx Alcohol Use: No Hx Substance Use: No Hx Tobacco Use: No Smoking Status: Never smoker Physical Exam Vitals Vital Signs Date Time Temp Pulse Resp B/P Pulse Ox O2 Delivery O2 Flow Rate FiO2 03/23/17 23:01 99.0 96 20 143/79 99 Physical Exam Const: [] Head: Atraumatic Eyes: Normal Conjunctiva ENT: Normal External Ears, Nose and Mouth. Neck: Full range of motion..~ No meningismus. Resp: Clear to auscultation bilaterally Cardio: Regular rate and rhythm, no murmurs Abd: Soft, non tender, non distended. Normal bowel sounds Skin: No petechiae or rashes Back: No midline or flank tenderness Ext: No cyanosis, or edema Neur: Awake and alert Psych: Normal Mood and Affect Result Diagram: 03/23/178 03/23/178 Results 24 hrs Laboratory Tests Test 03/23/17 23:48 White Blood Count 10.010^3/ul Red Blood Count 3.4710^6/ul Hemoglobin 7.4g/dl Hematocrit 25.4% Mean Corpuscular Volume 73.2fl Mean Corpuscular Hemoglobin 21.3pg Mean Corpuscular Hemoglobin Concent 29.1g/dl Red Cell Distribution Width % Platelet Count 53448^3/UL Mean Platelet Volume 9.4fl Neutrophils % 68.0% Lymphocytes % 15.8% Monocytes % 8.1% Eosinophils % 7.2% Basophils % 0.6% Nucleated Red Blood Cells % 0.0/100WBC Neutrophils # (Manual) 710^3/ul Lymphocytes # 1.610^3/ul Monocytes # 0.810^3/ul Eosinophils # 0.710^3/ul Basophils # 0.110^3/ul Nucleated Red Blood Cells # 0.010^3/ul Prothrombin Time 12.4Sec Prothrombin Time Ratio 1.0 INR International Normalized Ratio 0.92 Activated Partial Thromboplast Time 27.6Sec Urine Color YELLOW Urine Clarity SLIGHTLY CLOUDY Urine pH 5.0 Urine Specific [place] 1.028 Urine Ketones NEGATIVEmg/dL Urine Nitrite NEGATIVEmg/dL Urine Bilirubin NEGATIVEmg/dL Urine Urobilinogen 1+mg/dL Urine Leukocyte Esterase 3+[place]/ul Urine Microscopic RBC 3/HPF Urine Microscopic WBC 109/HPF Urine Squamous Epithelial Cells FEW/HPF Urine Mucus FEW/HPF Urine Hemoglobin NEGATIVEmg/dL Urine Glucose NEGATIVEmg/dL Urine Total Protein 1+mg/dl Sodium Level 141mmol/L Potassium Level 4.3mmol/L Chloride Level 99mmol/L Carbon Dioxide Level 28mmol/L Anion Gap 18 Blood Urea Nitrogen 19mg/dl Creatinine 0.66mg/dl Glucose Level 89mg/dl Calcium Level 9.4mg/dl Total Bilirubin 0.0mg/dl Direct Bilirubin 0.00mg/dl Indirect Bilirubin 0.0mg/dl Aspartate Amino Transf (AST/SGOT) 31IU/L Alanine Aminotransferase (ALT/SGPT) 21IU/L Alkaline Phosphatase 93IU/L Total Protein 7.4g/dl Albumin 3.4g/dl Globulin 4.00g/dl Albumin/Globulin Ratio 0.85 Lipase 70U/L Current Medications Medications (Trade) Dose Ordered Sig/Reba Route PRN Reason Start Time Stop Time Status Last Admin Dose Admin Sodium Chloride (NS) 500 ml @ 500 mls/hr Q1H STAT IV 03/23/17 23:31 03/24/17 00:30 DC 03/23/17 23:58 Morphine Sulfate (morphine) 4 mg ONCE STAT IV 03/23/17 23:31 03/23/17 23:36 DC 03/23/17 23:58 Ondansetron HCl (Zofran Inj) 4 mg ONCE STAT IV 03/23/17 23:31 03/23/17 23:36 DC 03/23/17 23:58 Procedures/MDM Medical decision-makin-year-old who comes in essentially for complaint of increased abdominal pain. Given history of cancer patient will be admitted for the evaluation and management to hospitalist Departure Diagnosis: Primary Impression: Abdominal pain Qualified Code: R10.84 - Generalized abdominal pain Condition: Stable ROCIO WALLACE Mar 24, 2017 02:42
[2017-03-24] MEDS ORDERED: HYDROmorphONE 1 MG/ML SYG IV STA (02:50)
[2017-03-24 03:41] VITALS: TEMP 98.6
--- NOTE | 2017-03-24 04:15 | HP ---
Date/Time of Note Date/Time of Note DATE: 03/24/17 TIME: 04:08 Assessment/Plan VTE Prophylaxis VTE Prophylaxis Intervention: SCD's (2/2 chronic rectal bleeding ) Assessment/Plan Assessment/Plan 1. intractable rectal pain 2/2 #2 2. 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 Anemia 2/2 chronic blood loss from #2 4. Bilateral obstructive hydronephrosis PLAN: admit for pain control Oncology review to plan for treatment and answer questions Urology consult for recommendations, radiology recommends possible stents Possible blood transfusion Supportive care and stool softeners Plan of care discussed in detail with patient Prophylaxis: PPI / SCDs HPI/ROS Admit Date/Time Admit Date/Time 03/24/17 Hx of Present Illness Ms. Guadalupe is a 42-year-old female who was recently diagnosed at this facility with metastatic rectal cancer and is scheduled to see an oncologist next week to begin treatment. She had about came to the emergency room today because since she was discharged has been having on ending rectal pain. She has been seeing the emergency room once and sent back home on pain medicine but the pain continues to require despite using pain medicine at home. Also concerning is extremely foul-smelling that is coming from her rectum and the patient would really prefer to begin treatment sooner than later. She had pain is currently relieved by medications given in the ER as well as Upon the floor, but she also has a lot of questions about her diagnosis and what to expect during treatment she denies fever, denies shortness of breath. She has been having some lethargy, and she has been having occasional bleeding from her stool. She has had no constipation and she reports that her stool has remained soft. ROS 12 point review if systems was done and pertinent findings are as noted. PMH/Family/Social Past Surgical History Past Surgical Hx: no surgical history Social History Smoking Status: Never smoker Exam/Review of Systems Vital Signs Vitals Vital Signs Date Time Temp Pulse Resp B/P Pulse Ox O2 Delivery O2 Flow Rate FiO2 03/24/17 03:41 98.6 81 14 127/63 99 Room Air Exam Exam GENERAL: Patient is alert, oriented x 3, Currently in no apparent distress 2/2 medication; does not appear acutely or chronically ill. Patient is able to sit up unassisted.Patient makes good eye contact, is conversant, interactive, coherent. Patient appears calm and comfortable and is able to follow commands. HEENT: Oropharynx is clear. There is no carotid bruit, no masses. Patient's pupils are equal, round and reactive to light bilaterally. Extraocular motions are intact. There is no scleral icterus. There is no facial asymmetry. NECK: Supple. LUNGS: Clear to auscultation bilaterally with good air entry. No Wheezes or crackles. HEART: S1, S2. No murmur, gallops or rubs. Regular rate and rhythm. ABDOMEN: Soft, nontender. Normoactive bowel sounds. There are no stigmata of chronic liver disease. BACK: no costovertebral angle tenderness. GENITOURINARY: Deferred. EXTREMITIES: No edema. There is no cyanosis, clubbing. There are 2+ pulses bilaterally distally. NEUROLOGIC: The patient has no lateralizing signs. Cranial nerves II-XII are intact. SKIN: Otherwise, unremarkable. Labs Result Diagram: 03/23/17 2348 03/23/17 2348 Procedures Procedures Laboratory Tests Test 03/23/17 23:48 White Blood Count 10.010^3/ul Red Blood Count 3.4710^6/ul Hemoglobin 7.4g/dl Hematocrit 25.4% Mean Corpuscular Volume 73.2fl Mean Corpuscular Hemoglobin 21.3pg Mean Corpuscular Hemoglobin Concent 29.1g/dl Red Cell Distribution Width % Platelet Count 77781^3/UL Mean Platelet Volume 9.4fl Neutrophils % 68.0% Lymphocytes % 15.8% Monocytes % 8.1% Eosinophils % 7.2% Basophils % 0.6% Nucleated Red Blood Cells % 0.0/100WBC Neutrophils # (Manual) 710^3/ul Lymphocytes # 1.610^3/ul Monocytes # 0.810^3/ul Eosinophils # 0.710^3/ul Basophils # 0.110^3/ul Nucleated Red Blood Cells # 0.010^3/ul Prothrombin Time 12.4Sec Prothrombin Time Ratio 1.0 INR International Normalized Ratio 0.92 Activated Partial Thromboplast Time 27.6Sec Urine Color YELLOW Urine Clarity SLIGHTLY CLOUDY Urine pH 5.0 Urine Specific [place] 1.028 Urine Ketones NEGATIVEmg/dL Urine Nitrite NEGATIVEmg/dL Urine Bilirubin NEGATIVEmg/dL Urine Urobilinogen 1+mg/dL Urine Leukocyte Esterase 3+Yuniel/ul Urine Microscopic RBC 3/HPF Urine Microscopic WBC 109/HPF Urine Squamous Epithelial Cells FEW/HPF Urine Mucus FEW/HPF Urine Hemoglobin NEGATIVEmg/dL Urine Glucose NEGATIVEmg/dL Urine Total Protein 1+mg/dl Sodium Level 141mmol/L Potassium Level 4.3mmol/L Chloride Level 99mmol/L Carbon Dioxide Level 28mmol/L Anion Gap 18 Blood Urea Nitrogen 19mg/dl Creatinine 0.66mg/dl Glucose Level 89mg/dl Calcium Level 9.4mg/dl Total Bilirubin 0.0mg/dl Direct Bilirubin 0.00mg/dl Indirect Bilirubin 0.0mg/dl Aspartate Amino Transf (AST/SGOT) 31IU/L Alanine Aminotransferase (ALT/SGPT) 21IU/L Alkaline Phosphatase 93IU/L Total Protein 7.4g/dl Albumin 3.4g/dl Globulin 4.00g/dl Albumin/Globulin Ratio 0.85 Lipase 70U/L Current Medications Medications (Trade) Dose Ordered Sig/Reba Route PRN Reason Start Time Stop Time Status Last Admin Dose Admin Sodium Chloride (NS) 500 ml @ 500 mls/hr Q1H STAT IV 03/23/17 23:31 03/24/17 00:30 DC 03/23/17 23:58 500 MLS/HR Morphine Sulfate (morphine) 4 mg ONCE STAT IV 03/23/17 23:31 03/23/17 23:36 DC 03/23/17 23:58 4 MG Ondansetron HCl (Zofran Inj) 4 mg ONCE STAT IV 03/23/17 23:31 03/23/17 23:36 DC 03/23/17 23:58 4 MG Hydromorphone HCl (Dilaudid) 1 mg ONCE STAT IV 03/24/17 02:50 03/24/17 02:51 DC 03/24/17 02:55 1 MG PROCEDURE: CT ABDOMEN AND PELVIS WITHOUT CONTRAST: CLINICAL INDICATION: 42 years of age, female, abdominal pain . COMPARISON: None available. Previous MRI and CT scans of the abdomen are not available at this time. TECHNIQUE: CT of the abdomen and pelvis was performed without intravenous contrast. Oral contrast was not administered prior to the examination. Coronal and sagittal reformatted images were obtained from the axial source images. Images were reviewed on a high-resolution PACS workstation. Dose information: Based on a 32 cm phantom, the estimated radiation dose (CTDI vol mGy) for each series in this exam is 21.6. The estimated cumulative dose ( DLP mGy-cm) is 1400. FINDINGS: In the absence of intravenous contrast, the study constitutes a limited assessment of the solid organs, bowel and vessels. LUNG BASES: Calcifications of the aortic valve annulus. ABDOMEN/PELVIS: Liver: There are least of 3 masses in the right hepatic lobe that cannot be characterized without intravenous contrast. In this clinical setting they are concerning for metastases. The largest is in segment 8 and measures 4.4 cm (3/ 41). Gallbladder: Normal noncontrast appearance. Bile ducts: No intrahepatic or extrahepatic biliary duct dilatation. Spleen: Normal noncontrast appearance. Pancreas: Normal noncontrast appearance. Adrenal glands: Thickening of left adrenal gland without a discrete nodule. Right adrenal gland is normal. Kidneys and ureters: There is mild bilateral hydronephrosis and hydroureter. Zone of transition from dilated ureters to collapsed ureters is massive pelvic sidewall lymphadenopathy. Renal parenchyma is otherwise unremarkable. Negative for urinary calculi. Aorta and IVC: Aorta is normal caliber. Evaluation of patency of the veins is not possible. There is likely venous compression by the lymphadenopathy in the retroperitoneum and pelvis. Negative for evidence of lower leg edema Lymph nodes: There is massive lymphadenopathy in the retroperitoneum, bilateral pelvic sidewalls and bilateral groins in keeping with solange metastases. Sample lymph nodes are as follows: Aortocaval (): 4.6 cm AP diameter Right pelvic sidewall (3/138): 3.5 x 6.2 cm Left pelvic sidewall (3/141): 4.5 x 6.4 cm. Gastrointestinal tract: There is abnormal nodular circumferential mural thickening of the distal sigmoid colon and rectum extending to the anus over a distance of 19 cm in keeping with colorectal cancer. There are numerous enlarged perirectal lymph nodes. Uterus is displaced anterior by the thick- walled rectum with intervening fluid between the posterior wall of the uterus and the thick-walled recto-sigmoid colon. Moderate stool in the upstream colon. Stomach, small bowel and upstream colon are decompressed. Appendix: Normal Bladder: Bladder is displaced anterior and is contracted. Pelvic Organs: The uterus is a displaced anterior by the thick-walled rectosigmoid colon with fluid between the thickened bowel and posterior wall of the uterus. Peritoneal cavity: No free fluid or free intraperitoneal air. Abdominal wall: 1.2 cm nodule anterior abdominal wall above the umbilicus may represent a tumor implant (3/103) BONES: Musculoskeletal: Facet joint arthritis in lower lumbar spine and sacroiliac arthritis No suspicious bone lesions. IMPRESSION: Extensive nodular circumferential mural thickening of the distal sigmoid colon and rectum extending to the anus is in keeping with known colorectal cancer. There is anterior displacement of the uterus and bladder. Enlarged perirectal lymph nodes and massive retroperitoneal, pelvic sidewall and inguinal lymph nodes are in keeping with solange metastases. Liver masses are concerning for liver metastases. They are incompletely characterized on this noncontrast scan. 1.2 cm nodule anterior abdominal wall is concerning for a tumor implant. Bilateral ureteral obstruction with mild bilateral hydronephrosis and hydroureter due to mass effect by pelvic sidewall lymphadenopathy. Recommend correlation with renal function. The patient may benefit from ureteral stent placement. Moderate colonic stool in keeping with constipation. Negative for evidence of mechanical bowel obstruction. Evaluation of vein patency is not possible without intravenous contrast. Massive retroperitoneal and pelvic sidewall lymphadenopathy potentially exerts mass effect upon the veins. If there is clinical concern for DVT, recommend venous ultrasound. Negative for evidence of lower leg edema on CT. RPTAT: HCTS Physician Stephanie Date Time Electronically viewed and signed by Physician Stephanie on 03/24/2017 01: 21 PAULINE VAUGHN Mar 24, 2017 04:15
[2017-03-24 04:37] VITALS: Ht 162.6 cm; Wt 92.5 kg
[2017-03-24 04:38] VITALS: BP 91/46; PULSE 86; RESP 19
[2017-03-24] MEDS: HYDROCODONE/APAP (10/325) TAB PO PRN ×3 (05:17→20:36)
[2017-03-24] MEDS ORDERED: SOD CHLORIDE 0.9% 1,000 ML IV SCH (07:00)
[2017-03-24 08:08] VITALS: BP 99/55; RESP 18
[2017-03-24] MEDS: HYDROCORTISONE PR SCH ×2 (09:00→13:37)
[2017-03-24] MEDS: DOCUSATE SODIUM 100 MG CAP PO SCH ×2 (09:42→21:55)
[2017-03-24] MEDS: PANTOPRAZOLE (EC) 40 MG TAB PO SCH (09:42)
[2017-03-24] MEDS: CAPECITABINE 500 MG TAB PO SCH ×2 (12:54→21:55)
[2017-03-24] MEDS: SOD FERRIC GLUC COMPLX 125 MG in SOD CHLORIDE 0.9% 100 ML IVPB SCH (12:55)
[2017-03-24] MEDS: HYDROmorphONE 0.2 MG/ML PCA IV SCH (12:57)
[2017-03-24 13:37] VITALS: BP 110/55; RESP 18
--- NOTE | 2017-03-24 14:06 | RADRPT ---
PROCEDURE: MRI Abdomen without and with contrast. CLINICAL INDICATION: Liver lesions on CT TECHNIQUE: MRI of the abdomen was performed. Patient was examined both before and following the u ncomplicated intravenous injection of 10 cc of Eovist IV contrast. Images were reviewed on a [employer] PACS workstation. COMPARISON: CT, 03/24/2017 FINDINGS: At least 3 liver lesions are identified, with largest measuring 4.0 cm, similar in appearance to rec ent prior CT - these demonstrate restricted diffusion, as well as non-enhancement with Eovist contra st, and are compatible with hepatic metastases. Portal and hepatic veins remain patent. Gallbladde r and biliary tree are unremarkable. No gallstone or choledocholithiasis is identified. Pancreas, spleen and adrenal glands are unremarkable. There is mild bilateral hydroureteronephrosis. The stom ach is grossly unremarkable. Diffusion restricted lymphadenopathy is identified in the periaortic retroperitoneum and vanna hepat is, further consistent with metastatic disease - largest lymph node measures 3.7 x 3.0 cm in the aor tocaval region. There is no abdominal aortic aneurysm or dissection. No bowel obstruction, abscess or ascites is seen. Urinary bladder is partially visualized, and appears significantly distended, concerning for urinary retention. The surrounding osseous structures are grossly unremarkable. IMPRESSION: 1. Multiple hepatic metastases are noted, corresponding to abnormality described on prior CT, as di scussed above. 2. Metastatic lymphadenopathy is identified within the periaortic retroperitoneum and vanna hepatis . 3. There is mild bilateral hydroureteronephrosis - obstructive pelvic mass is not excluded. 4. Urinary bladder is partially visualized and grossly appears distended, concerning for urinary re tention. RPTAT: EE .Donnell Drake MD, Date Time Electronically viewed and signed by .Donnell Drake MD, on 03/24/2017 14:06 .R/
[2017-03-24] MEDS: METHADONE (1 MG/ML 5 ML PO UD SYG) PO SCH ×2 (15:00→22:12)
[2017-03-24 20:13] VITALS: BP 97/57; RESP 20
--- NOTE | 2017-03-24 23:51 | CONS ---
Date/Time of Note Date/Time of Note DATE: 03/24/17 TIME: 23:48 Assessment/Plan Assessment/Plan Chief Complaint/Hosp Course #Metastatic rectal ca Ca - - CT reveals: 1.Extensive nodular circumferential mural thickening of the distal sigmoid colon and rectum extending to the anus is in keeping with known colorectal cancer. There is anterior displacement of the uterus and bladder. 2.Enlarged perirectal lymph nodes and massive retroperitoneal, pelvic sidewall and inguinal lymph nodes are in keeping with solange metastases. 3.Liver masses 4.1.2 cm nodule anterior abdominal wall is concerning for a tumor implant. 5. Bilateral ureteral obstruction with mild bilateral hydronephrosis and hydroureter due to mass effect by pelvic sidewall lymphadenopathy. -given large extent of disease, will start chemotherapy in the hospital with Xeloda 1500mg BID. order has been written -pt understands that her disease is stage 4 and although not curable , controllable at this time with chemotherapy #Rectal mass causing pain and bleeding -consult placed for radiation oncology -plan for concurrent chemotherapy and radiation to help shrink the symptomatic tumor # Hydronephrosis -at this time, Creatinine is normal and patient is urinating. -if there are any signs of renal dysfunction , will consult urology for stent placement #Indeterminate Liver lesions -MRI with eovist was done which confirms liver metastasis #iron deficiency anemia - 2/2 GI bleed -cont IV iron at this time #Ovarian cyst -continue to monitor. if this grows in size it can be removed at that time Problems: (1) Iron deficiency anemia Qualifiers: Qualified Code: D50.0 - Iron deficiency anemia due to chronic blood loss (2) Rectal pain Status: Chronic (3) Hydronephrosis Status: Chronic Qualifiers: Qualified Code: Q62.0 - Hydronephrosis with ureteropelvic junction (UPJ) obstruction (4) Rectal bleed Status: Chronic (5) Rectal cancer Status: Acute Consultation Date/Type/Reason Admit Date/Time 03/24/17 Date of Consultation: Mar 24, 2017 Type of Consultation: Oncology Reason for Consultation metastatic rectal cancer Referring Provider: PAULINE VAUGHN Hx of Present Illness 42 year old female with no significant past medical history who originally presented to [facility] at the beginning of the month with abdominal pain that she sates started 6 months ago. This was associated with intermittent diarrhea, weight loss, weakness and occasional BRBPR. In the ER patient was found with severe microcytic anemia with a Hg 5.5 and MCV of 60. Pt has been transfused 3 units of PRBCs since admission. Pt is severely iron deficiency with a ferritin 3.4. CT A/P was done which revealed the following: Irregular wall thickening involving the entire rectum with extensive pelvic, inguinal, periaortic, and periportal adenopathy, consistent with rectal neoplasm and metastatic disease. Also seen were indeterminate hepatic lesions, the largest measuring 3.4 cm, highly concerning for metastatic disease. Pt underwent Colonoscopy that revealed : Rectal mass, biopsies: -- Poorly-differentiated adenocarcinoma with ulceration associated and acute fibrinoneutrophilic exudate. Patient was to follow up as an out patient to initiate chmeotherapy, but she presents with intractable abdominal pain and bleeding from the rectum. She states she is having anal discharge. Constitutional: poor po ENT: no complaints Respiratory: no complaints Cardiovascular: no complaints Gastrointestinal: blood, decreased appetite, pain, passing stool Genitourinary: no complaints Musculoskeletal: back pain, bone/joint pain Psychological: anxiety, depression Past Medical History none Past Surgical History recent colonoscopy with bx Family History Significant Family History: no pertinent family hx, other (mother with lymphoma , grandmother with cervical cancer) Social History Alcohol Use: none Smoking Status: Former smoker Exam/Review of Systems Vital Signs Vitals Vital Signs Date Time Temp Pulse Resp B/P Pulse Ox O2 Delivery O2 Flow Rate FiO2 03/24/17 21:00 18 03/24/17 20:13 98.3 61 97/57 98 03/24/17 04:38 Room Air Exam Constitutional: alert, oriented Psych: no complaints Head: normocephalic ENMT: nl external ears & nose Neck: non-tender, supple Respiratory: clear to auscultation Cardiovascular: regular rate and rhythm Musculoskeletal: nl extremities to inspection Results Result Diagram: 03/23/17 2348 03/23/17 2348 Medications Medications Current Medications Acetaminophen/ Hydrocodone Bitart ([place] (10/325)) 1 tab Q6H PRN PO PAIN LEVEL 7-10 Last administered on 03/24/17 20:36; Admin Dose 1 TAB; Start 03/24/17 at 04:30 Hydrocortisone (Procto-Ahmet) 1 applic BID CO Last administered on 03/24/17 13: 37; Admin Dose 1 APPLIC; Start 03/24/17 at 09:00 Docusate Sodium (Colace) 100 mg BID PO Last administered on 03/24/17 21:55; Admin Dose 100 MG; Start 03/24/17 at 09:00 Pantoprazole 40 mg 40 mg DAILY@06 PO Last administered on 03/24/17 09:42; Admin Dose 40 MG; Start 03/24/17 at 06:45 Ferric Sodium Gluconate Complex/ Sodium Chloride (Ferrlecit/NS) 110 ml @ 110 mls/hr Q24H IVPB Last administered on 03/24/17 12:55; Admin Dose 110 MLS/HR; Start 03/24/17 at 11:00; Stop 03/28/17 at 11:59 Capecitabine (Xeloda) 1,500 mg BID PO Last administered on 03/24/17 21:55; Admin Dose 1,500 MG; Start 03/24/17 at 11:00 Hydromorphone HCl (Dilaudid SALESMAN/OWNER) 0.2 MG/HR CONTINUOUS RATE ... Q4PCA IV Last administered on 03/24/17 12:57; Admin Dose 6 MG; Start 03/24/17 at 11:00 Methadone HCl (Methadone Liq) 1 mg Q8 PO Last administered on 03/24/17 22:12; Admin Dose 1 MG; Start 03/24/17 at 14:00 ZHANNA LOPEZ M.D. Mar 24, 2017 23:50
[2017-03-25] MEDS: HYDROCODONE/APAP (10/325) TAB PO PRN ×2 (03:15→09:03)
[2017-03-25 05:37] LABS: ABNORMAL IP MESSAGE 1; BASOPHIL # 0.1 10^3/ul (0.0-0.1); BASOPHILS % 0.8 % (0.0-2.0); EOSINOPHILS # 0.7 10^3/ul (0.0-0.5); EOSINOPHILS % 8.4 % (0.0-7.0); HEMATOCRIT 24.9 % (37.0-47.0); LYMPHOCYTES # 1.2 10^3/ul (0.8-2.9); LYMPHOCYTES % 14.2 % (15.0-51.0); MEAN CORPUSCULAR HGB CONC 29.7 g/dl (32.0-37.0); MEAN CORPUSCULAR VOLUME 74.1 fl (82.0-101.0); MEAN PLATELET VOLUME 9.1 fl (7.4-10.4); MONOCYTE # 0.8 10^3/ul (0.3-0.9); MONOCYTES % 9.6 % (0.0-11.0); NEUTROPHILS % 66.7 % (39.0-77.0); PLATELET COUNT 457 10^3/UL (140-415); RED BLOOD COUNT 3.36 10^6/ul (4.20-5.40); WHITE BLOOD COUNT 8.6 10^3/ul (4.8-10.8)
[2017-03-25] MEDS: METHADONE (1 MG/ML 5 ML PO UD SYG) PO SCH ×3 (05:50→21:53)
[2017-03-25] MEDS: PANTOPRAZOLE (EC) 40 MG TAB PO SCH (05:50)
[2017-03-25 05:57] LABS: HEMOGLOBIN 7.4 g/dl (12.0-16.0); POSITIVE DIFF @See below
[2017-03-25 06:06] LABS: CALCIUM 9.2 mg/dl (8.4-10.2); CREATININE 0.63 mg/dl (0.44-1.00); MAGNESIUM 1.8 mg/dl (1.7-2.5); POTASSIUM 4.3 mmol/L (3.5-5.1)
[2017-03-25 07:37] VITALS: BP 112/64; RESP 17
[2017-03-25] MEDS: DOCUSATE SODIUM 100 MG CAP PO SCH ×2 (09:00→21:00)
[2017-03-25] MEDS: CAPECITABINE 500 MG TAB PO SCH ×2 (09:02→21:47)
[2017-03-25] MEDS: HYDROCORTISONE PR SCH ×2 (09:03→21:55)
[2017-03-25] MEDS: SOD FERRIC GLUC COMPLX 125 MG in SOD CHLORIDE 0.9% 100 ML IVPB SCH (12:05)
--- NOTE | 2017-03-25 13:25 | PN ---
Date/Time of Note Date/Time of Note DATE: 03/25/17 TIME: 13:17 Assessment/Plan VTE Prophylaxis VTE Prophylaxis Intervention: SCD's Lines/Catheters IV Catheter Type (from Nrsg): Peripheral IV Urinary Cath still in place: No Assessment/Plan Assessment/Plan 1. intractable rectal pain due to rectal cancer, pain management 2. Metastatic rectal adenocarcinoma with hepatic and lymphatic mets, on Xeloda , follow up with oncology and radiation oncology 3. Anemia 2/2 chronic blood loss from #2, on iv iron, follow up with H/H 4. Bilateral obstructive hydronephrosis, follow up with urology 5. UTI, rocephin 6. DVT prophylaxis: SCD's Subjective 24 Hr Interval Summary Free Text/Dictation pain is better controlled no fever, no urinary symptoms, no nausea or vomiting Exam/Review of Systems Vital Signs Vitals Vital Signs Date Time Temp Pulse Resp B/P Pulse Ox O2 Delivery O2 Flow Rate FiO2 03/25/17 07:37 98.1 90 17 112/64 98 03/24/17 04:38 Room Air Intake and Output 03/24/17 03/24/17 03/25/17 14:59 22:59 06:59 Intake Total 1800 ml 620 ml Balance 1800 ml 620 ml Exam Constitutional: alert, oriented, well developed Psych: nl mood/affect, no complaints Head: atraumatic, normocephalic Eyes: EOMI, nl conjunctiva, nl lids ENMT: nl external ears & nose, nl lips & teeth, nl nasal mucosa & septum Neck: non-tender, supple Respiratory: clear to auscultation, normal air movement, No congested cough, No crackles/rales, No diminished breath sounds, No intercostal retraction, No labored breathing, No other, No respirations, No tactile fremitus, No wheezing Cardiovascular: nl pulses, regular rate and rhythm, No S3, No S4, No bruits, No diastolic murmur, No edema, No gallop, No irregular rhythm, No jugular venous distention (JVD), No murmurs/extra sounds, No other, No rub, No systolic murmur Gastrointestinal: nl liver, spleen, non-tender, soft, No ascites, No bowel sounds, No distended, No firm, No hepatomegaly, No mass , No other, No rebound or guarding, No splenomegaly, No surgical scars, No tender Musculoskeletal: nl extremities to inspection Extremities: normal pulses, No calf tenderness, No clubbing, No cyanosis, No edema, No other, No palpable cord, No pitting pedal edema, No tenderness Neurological: 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, nl mental status, nl speech, nl strength Skin: nl turgor Results Result Diagram: 03/25/17 0452 03/25/17 0452 Results 24 hrs Laboratory Tests Test 03/25/17 04:52 White Blood Count 8.6 Red Blood Count 3.36 L Hemoglobin 7.4 L Hematocrit 24.9 L Mean Corpuscular Volume 74.1 L Mean Corpuscular Hemoglobin 22.0 L Mean Corpuscular Hemoglobin Concent 29.7 L Red Cell Distribution Width Platelet Count 457 H Mean Platelet Volume 9.1 Neutrophils % 66.7 Lymphocytes % 14.2 L Monocytes % 9.6 Eosinophils % 8.4 H Basophils % 0.8 Nucleated Red Blood Cells % 0.0 Neutrophils # (Manual) 6 Lymphocytes # 1.2 Monocytes # 0.8 Eosinophils # 0.7 H Basophils # 0.1 Nucleated Red Blood Cells # 0.0 Sodium Level 137 Potassium Level 4.3 Chloride Level 103 Carbon Dioxide Level 28 Anion Gap 10 # Blood Urea Nitrogen 14 Creatinine 0.63 Glucose Level 82 Calcium Level 9.2 Magnesium Level 1.8 Medications Medications Current Medications Acetaminophen/ Hydrocodone Bitart ([place] (10/325)) 1 tab Q6H PRN PO PAIN LEVEL 7-10 Last administered on 03/25/17 09:03; Admin Dose 1 TAB; Start 03/24/17 at 04:30 Hydrocortisone (Procto-Ahmet) 1 applic BID NH Last administered on 03/25/17 09: 03; Admin Dose 1 APPLIC; Start 03/24/17 at 09:00 Docusate Sodium (Colace) 100 mg BID PO Last administered on 03/24/17 21:55; Admin Dose 100 MG; Start 03/24/17 at 09:00 Pantoprazole 40 mg 40 mg DAILY@06 PO Last administered on 03/25/17 05:50; Admin Dose 40 MG; Start 03/24/17 at 06:45 Ferric Sodium Gluconate Complex/ Sodium Chloride (Ferrlecit/NS) 110 ml @ 110 mls/hr Q24H IVPB Last administered on 03/25/17 12:05; Admin Dose 110 MLS/HR; Start 03/24/17 at 11:00; Stop 03/28/17 at 11:59 Capecitabine (Xeloda) 1,500 mg BID PO Last administered on 03/25/17 09:02; Admin Dose 1,500 MG; Start 03/24/17 at 11:00 Hydromorphone HCl (Dilaudid HR BUSINESS PARTNER) 0.2 MG/HR CONTINUOUS RATE ... Q4PCA IV Last administered on 03/24/17 12:57; Admin Dose 6 MG; Start 03/24/17 at 11:00 Methadone HCl (Methadone Liq) 1 mg Q8 PO Last administered on 03/25/17 05:50; Admin Dose 1 MG; Start 03/24/17 at 14:00 PRISCILLA SANTOS MD Mar 25, 2017 13:25
[2017-03-25 14:00] VITALS: BP 119/72; RESP 18
[2017-03-25] MEDS: CEFTRIAXONE 1 GM/50 ML (PMX) 50 ML IVPB SCH (15:02)
--- NOTE | 2017-03-25 20:06 | CONS ---
Date/Time of Note Date/Time of Note DATE: 03/25/17 TIME: 20:00 Assessment/Plan Assessment/Plan Additional Assessment/Plan Assessment/Plan Patient has severe lower pelvic pain bilaterally. She is extremely uncomfortable at this time writhing in bed. I reassured her that we will control her pain I will start her off the DIE CAST PATTERNMAKER which was begun on March 24 after my initial evaluation of her. As an outpatient she was only taking Vicodin and was admitted with pain [id number]. DIE CAST PATTERNMAKER will be begun tonight I will withhold the use of methadone although patient may require that prior to discharge secondary to severity of her pain. Consultation Date/Type/Reason Admit Date/Time 03/24/17 Hx of Present Illness 42-year-old female with history of rectal cancer scheduled to have chemotherapy and radiation treatments by Dr. Sotelo. I was asked to evaluate patient for pain [id number]. As an outpatient she was taking Vicodin without control of her pain. Denies any other history of opioid use. States her pain is always in her pelvis she does not have peaks and troughs it is continual pain, does not radiate to bilateral lower extremities or back. A gnawing type of discomfort which is rated 10/10 not alleviated with current pain control medication. Denies systemic symptoms only pain [id number]. Other diagnosis bilateral obstructive hydronephrosis secondary to tumor anemia secondary to underlying diagnosis. Psychological: nl mood/affect, no complaints Past Surgical History Past Surgical Hx: no surgical history Social History Smoking Status: Former smoker Exam/Review of Systems Vital Signs Vitals Vital Signs Date Time Temp Pulse Resp B/P Pulse Ox O2 Delivery O2 Flow Rate FiO2 03/25/17 14:00 98.4 91 18 119/72 91 03/24/17 04:38 Room Air Intake and Output 03/24/17 03/24/17 03/25/17 15:00 23:00 07:00 Intake Total 1800 ml 620 ml Balance 1800 ml 620 ml Exam Constitutional: alert, distress, oriented, well developed Psych: anxiety ENMT: nl external ears & nose, nl lips & teeth, nl nasal mucosa & septum Neck: non-tender, supple Respiratory: clear to auscultation, normal air movement Cardiovascular: nl pulses, regular rate and rhythm, No S3, No S4, No bruits, No diastolic murmur, No edema, No gallop, No irregular rhythm, No jugular venous distention (JVD), No murmurs/extra sounds, No other, No rub, No systolic murmur Gastrointestinal: tender (Bilateral lower quadrant pain without rebound or peritoneal signs) Neurological: DISPATCHER ELECTRIC POWER II-XII intact, nl mental status, nl speech, nl strength, No DTR's symmetric, No confused, No focal weakness, No lethargic, No numbness , No other, No reflexes, No unresponsive Results Result Diagram: 03/25/1745103/25/17451 Results 24 hrs Laboratory Tests Test 03/25/17 04:52 White Blood Count 8.6 Red Blood Count 3.36 L Hemoglobin 7.4 L Hematocrit 24.9 L Mean Corpuscular Volume 74.1 L Mean Corpuscular Hemoglobin 22.0 L Mean Corpuscular Hemoglobin Concent 29.7 L Red Cell Distribution Width Platelet Count 457 H Mean Platelet Volume 9.1 Neutrophils % 66.7 Lymphocytes % 14.2 L Monocytes % 9.6 Eosinophils % 8.4 H Basophils % 0.8 Nucleated Red Blood Cells % 0.0 Neutrophils # (Manual) 6 Lymphocytes # 1.2 Monocytes # 0.8 Eosinophils # 0.7 H Basophils # 0.1 Nucleated Red Blood Cells # 0.0 Sodium Level 137 Potassium Level 4.3 Chloride Level 103 Carbon Dioxide Level 28 Anion Gap 10 # Blood Urea Nitrogen 14 Creatinine 0.63 Glucose Level 82 Calcium Level 9.2 Magnesium Level 1.8 Medications Medications Current Medications Acetaminophen/ Hydrocodone Bitart ([place] (10/325)) 1 tab Q6H PRN PO PAIN LEVEL 7-10 Last administered on 03/25/17 09:03; Admin Dose 1 TAB; Start 03/24/17 at 04:30 Hydrocortisone (Procto-Ahmet) 1 applic BID [place] Last administered on 03/25/17 09: 03; Admin Dose 1 APPLIC; Start 03/24/17 at 09:00 Docusate Sodium (Colace) 100 mg BID PO Last administered on 03/24/17 21:55; Admin Dose 100 MG; Start 03/24/17 at 09:00 Pantoprazole 40 mg 40 mg DAILY@06 PO Last administered on 03/25/17 05:50; Admin Dose 40 MG; Start 03/24/17 at 06:45 Ferric Sodium Gluconate Complex/ Sodium Chloride (Ferrlecit/NS) 110 ml @ 110 mls/hr Q24H IVPB Last administered on 03/25/17 12:05; Admin Dose 110 MLS/HR; Start 03/24/17 at 11:00; Stop 03/28/17 at 11:59 Capecitabine (Xeloda) 1,500 mg BID PO Last administered on 03/25/17 09:02; Admin Dose 1,500 MG; Start 03/24/17 at 11:00 Hydromorphone HCl (Dilaudid DIE CAST PATTERNMAKER) 0.2 MG/HR CONTINUOUS RATE ... Q4PCA IV Last administered on 03/24/17 12:57; Admin Dose 6 MG; Start 03/24/17 at 11:00 Methadone HCl 1 mg 1 mg Q8 PO Last administered on 03/25/17 15:02; Admin Dose 1 MG; Start 03/24/17 at 14:00 Ceftriaxone Sodium (Rocephin) 50 ml @ 100 mls/hr Q24H IVPB Last administered on 03/25/17 15:02; Admin Dose 100 MLS/HR; Start 03/25/17 at 14:00 TREVOR CHIRINOS Mar 25, 2017 20:06
[2017-03-25 21:17] VITALS: BP 99/49; RESP 20
--- NOTE | 2017-03-25 22:37 | CONS ---
Date/Time of Note Date/Time of Note DATE: 03/25/17 TIME: 22:35 Assessment/Plan Assessment/Plan Chief Complaint/Hosp Course #Metastatic rectal ca Ca - - CT reveals: 1.Extensive nodular circumferential mural thickening of the distal sigmoid colon and rectum extending to the anus is in keeping with known colorectal cancer. There is anterior displacement of the uterus and bladder. 2.Enlarged perirectal lymph nodes and massive retroperitoneal, pelvic sidewall and inguinal lymph nodes are in keeping with solange metastases. 3.Liver masses 4.1.2 cm nodule anterior abdominal wall is concerning for a tumor implant. 5. Bilateral ureteral obstruction with mild bilateral hydronephrosis and hydroureter due to mass effect by pelvic sidewall lymphadenopathy. -given large extent of disease, will start chemotherapy in the hospital with Xeloda 1500mg BID. pt has started the medication -pt understands that her disease is stage 4 and although not curable , controllable at this time with chemotherapy #Rectal mass causing pain and bleeding -pt to get simulated and planned to start XRT. she will be transferred as an inpatient to start treatment -she is to continue Xeloda on days of radiation -plan for concurrent chemotherapy and radiation to help shrink the symptomatic tumor # Hydronephrosis -at this time, Creatinine is normal and patient is urinating. -if there are any signs of renal dysfunction , will consult urology for stent placement #Indeterminate Liver lesions -MRI with eovist was done which confirms liver metastasis #iron deficiency anemia - 2/2 GI bleed -cont IV iron at this time #Ovarian cyst -continue to monitor. if this grows in size it can be removed at that time Problems: Consultation Date/Type/Reason Admit Date/Time Mar 24, 2017 at 04:09 Initial Consult Date 03/24/17 Type of Consultation: Oncology Reason for Consultation metastatic rectal cancer Referring Provider: PAULINE VAUGHN 24 HR Interval Summary Free Text/Dictation pt started Xeloda yesterday and thus far is tolerating her medication well Exam/Review of Systems Vital Signs Vitals Vital Signs Date Time Temp Pulse Resp B/P Pulse Ox O2 Delivery O2 Flow Rate FiO2 03/25/17 21:17 98.6 94 20 99/49 99 03/24/17 04:38 Room Air Intake and Output 03/24/17 03/24/17 03/25/17 15:00 23:00 07:00 Intake Total 1800 ml 620 ml Balance 1800 ml 620 ml Exam Constitutional: alert, oriented Psych: no complaints Head: normocephalic Eyes: nl conjunctiva ENMT: nl external ears & nose Neck: non-tender, supple Respiratory: clear to auscultation Cardiovascular: regular rate and rhythm Gastrointestinal: soft Results Result Diagram: 03/25/17 0452 03/25/17 0452 Results 24 hrs Laboratory Tests Test 03/25/17 04:52 White Blood Count 8.6 Red Blood Count 3.36 L Hemoglobin 7.4 L Hematocrit 24.9 L Mean Corpuscular Volume 74.1 L Mean Corpuscular Hemoglobin 22.0 L Mean Corpuscular Hemoglobin Concent 29.7 L Red Cell Distribution Width Platelet Count 457 H Mean Platelet Volume 9.1 Neutrophils % 66.7 Lymphocytes % 14.2 L Monocytes % 9.6 Eosinophils % 8.4 H Basophils % 0.8 Nucleated Red Blood Cells % 0.0 Neutrophils # (Manual) 6 Lymphocytes # 1.2 Monocytes # 0.8 Eosinophils # 0.7 H Basophils # 0.1 Nucleated Red Blood Cells # 0.0 Sodium Level 137 Potassium Level 4.3 Chloride Level 103 Carbon Dioxide Level 28 Anion Gap 10 # Blood Urea Nitrogen 14 Creatinine 0.63 Glucose Level 82 Calcium Level 9.2 Magnesium Level 1.8 Medications Medications Current Medications Hydrocortisone (Procto-Ahmet) 1 applic BID [place] Last administered on 03/25/17 21: 55; Admin Dose 1 APPLIC; Start 03/24/17 at 09:00 Docusate Sodium (Colace) 100 mg BID PO Last administered on 03/24/17 21:55; Admin Dose 100 MG; Start 03/24/17 at 09:00 Pantoprazole 40 mg 40 mg DAILY@06 PO Last administered on 03/25/17 05:50; Admin Dose 40 MG; Start 03/24/17 at 06:45 Ferric Sodium Gluconate Complex/ Sodium Chloride (Ferrlecit/NS) 110 ml @ 110 mls/hr Q24H IVPB Last administered on 03/25/17 12:05; Admin Dose 110 MLS/HR; Start 03/24/17 at 11:00; Stop 03/28/17 at 11:59 Capecitabine (Xeloda) 1,500 mg BID PO Last administered on 03/25/17 21:47; Admin Dose 1,500 MG; Start 03/24/17 at 11:00 Hydromorphone HCl (Dilaudid LOGISTICS INTERN) 0.2 MG/HR CONTINUOUS RATE ... Q4PCA IV Last administered on 03/24/17 12:57; Admin Dose 6 MG; Start 03/24/17 at 11:00 Methadone HCl 1 mg 1 mg Q8 PO Last administered on 03/25/17 21:53; Admin Dose 1 MG; Start 03/24/17 at 14:00 Ceftriaxone Sodium (Rocephin) 50 ml @ 100 mls/hr Q24H IVPB Last administered on 03/25/17 15:02; Admin Dose 100 MLS/HR; Start 03/25/17 at 14:00 ZHANNA LOPEZ M.D. Mar 25, 2017 22:37
[2017-03-26] MEDS: HYDROmorphONE 0.2 MG/ML PCA IV SCH (02:45)
[2017-03-26 04:19] VITALS: BP 97/53; RESP 20
[2017-03-26 05:39] LABS: CALCIUM 9.3 mg/dl (8.4-10.2); CREATININE 0.64 mg/dl (0.44-1.00)
[2017-03-26] MEDS: PANTOPRAZOLE (EC) 40 MG TAB PO SCH (06:28)
[2017-03-26] MEDS: METHADONE (1 MG/ML 5 ML PO UD SYG) PO SCH ×3 (06:29→21:17)
[2017-03-26] MEDS: DOCUSATE SODIUM 100 MG CAP PO SCH ×2 (09:00→21:00)
[2017-03-26 09:40] LABS: ABNORMAL IP MESSAGE 1; BASOPHIL # 0.1 10^3/ul (0.0-0.1); BASOPHILS % 0.5 % (0.0-2.0); EOSINOPHILS # 0.7 10^3/ul (0.0-0.5); HEMATOCRIT 27.2 % (37.0-47.0); HEMOGLOBIN 7.6 g/dl (12.0-16.0); MEAN CORPUSCULAR HEMOGLOBIN 22.1 pg (29.0-33.0); MEAN CORPUSCULAR HGB CONC 27.9 g/dl (32.0-37.0); MEAN CORPUSCULAR VOLUME 79.1 fl (82.0-101.0); MEAN PLATELET VOLUME 8.5 fl (7.4-10.4); MONOCYTE # 0.8 10^3/ul (0.3-0.9); MONOCYTES % 8.2 % (0.0-11.0); NEUTROPHILS % 73.1 % (39.0-77.0); PLATELET COUNT 434 10^3/UL (140-415); RED BLOOD COUNT 3.44 10^6/ul (4.20-5.40); WHITE BLOOD COUNT 9.4 10^3/ul (4.8-10.8)
--- NOTE | 2017-03-26 10:07 | CONS ---
Date/Time of Note Date/Time of Note DATE: 03/26/17 TIME: 10:05 Assessment/Plan Assessment/Plan Chief Complaint/Hosp Course #Metastatic rectal ca Ca - - CT reveals: 1.Extensive nodular circumferential mural thickening of the distal sigmoid colon and rectum extending to the anus is in keeping with known colorectal cancer. There is anterior displacement of the uterus and bladder. 2.Enlarged perirectal lymph nodes and massive retroperitoneal, pelvic sidewall and inguinal lymph nodes are in keeping with solange metastases. 3.Liver masses 4.1.2 cm nodule anterior abdominal wall is concerning for a tumor implant. 5. Bilateral ureteral obstruction with mild bilateral hydronephrosis and hydroureter due to mass effect by pelvic sidewall lymphadenopathy. -given large extent of disease, pt was started on chemotherapy in the hospital with Xeloda 1500mg BID. pt is tolerating medication well -pt understands that her disease is stage 4 and although not curable , controllable at this time with chemotherapy #Rectal mass causing pain and bleeding -pt got simulated and planned to start XRT. to start today -she is to continue Xeloda on days of radiation -plan for concurrent chemotherapy and radiation to help shrink the symptomatic tumor # Hydronephrosis -at this time, Creatinine is normal and patient is urinating. -if there are any signs of renal dysfunction , will consult urology for stent placement #Indeterminate Liver lesions -MRI with eovist was done which confirms liver metastasis #iron deficiency anemia - 2/2 GI bleed -cont IV iron at this time #Ovarian cyst -continue to monitor. if this grows in size it can be removed at that time Problems: Consultation Date/Type/Reason Admit Date/Time Mar 24, 2017 at 04:09 Initial Consult Date 03/24/17 Type of Consultation: Oncology Reason for Consultation rectal ca Referring Provider: PAULINE VAUGHN 24 HR Interval Summary Free Text/Dictation states pain and bleeding have improved Exam/Review of Systems Vital Signs Vitals Vital Signs Date Time Temp Pulse Resp B/P Pulse Ox O2 Delivery O2 Flow Rate FiO2 03/26/17 04:19 98.9 72 20 97/53 94 03/24/17 04:38 Room Air Intake and Output 03/25/17 03/25/17 03/26/17 15:00 23:00 07:00 Intake Total 1150 ml 400 ml Balance 1150 ml 400 ml Exam Constitutional: alert, oriented Psych: no complaints Head: atraumatic, normocephalic Eyes: nl conjunctiva ENMT: nl external ears & nose Neck: non-tender, supple Respiratory: clear to auscultation Cardiovascular: regular rate and rhythm Gastrointestinal: soft Musculoskeletal: nl extremities to inspection, nl gait and stance Extremities: normal pulses Results Result Diagram: 03/26/17 0439 03/26/17 0439 Results 24 hrs Laboratory Tests Test 03/26/17 04:39 White Blood Count 9.4 Red Blood Count 3.44 L Hemoglobin 7.6 L Hematocrit 27.2 L Mean Corpuscular Volume 79.1 L Mean Corpuscular Hemoglobin 22.1 L Mean Corpuscular Hemoglobin Concent 27.9 L Red Cell Distribution Width Platelet Count 434 H Mean Platelet Volume 8.5 Neutrophils % 73.1 Lymphocytes % 11.0 L Monocytes % 8.2 Eosinophils % 7.0 Basophils % 0.5 Nucleated Red Blood Cells % 0.0 Neutrophils # (Manual) 6.9 Lymphocytes # 1.0 Monocytes # 0.8 Eosinophils # 0.7 H Basophils # 0.1 Nucleated Red Blood Cells # 0.0 Sodium Level 136 Potassium Level 4.0 Chloride Level 98 Carbon Dioxide Level 26 Anion Gap 16 Blood Urea Nitrogen 13 Creatinine 0.64 Glucose Level 136 # Calcium Level 9.3 Medications Medications Current Medications Hydrocortisone (Procto-Ahmet) 1 applic BID [place] Last administered on 03/25/17 21: 55; Admin Dose 1 APPLIC; Start 03/24/17 at 09:00 Docusate Sodium (Colace) 100 mg BID PO Last administered on 03/24/17 21:55; Admin Dose 100 MG; Start 03/24/17 at 09:00 Pantoprazole 40 mg 40 mg DAILY@06 PO Last administered on 03/26/17 06:28; Admin Dose 40 MG; Start 03/24/17 at 06:45 Ferric Sodium Gluconate Complex/ Sodium Chloride (Ferrlecit/NS) 110 ml @ 110 mls/hr Q24H IVPB Last administered on 03/25/17 12:05; Admin Dose 110 MLS/HR; Start 03/24/17 at 11:00; Stop 03/28/17 at 11:59 Capecitabine (Xeloda) 1,500 mg BID PO Last administered on 03/25/17 21:47; Admin Dose 1,500 MG; Start 03/24/17 at 11:00 Hydromorphone HCl (Dilaudid DIRECTOR VETERINARY) 0.2 MG/HR CONTINUOUS RATE ... Q4PCA IV Last administered on 03/26/17 02:45; Admin Dose 6 MG; Start 03/24/17 at 11:00 Methadone HCl 1 mg 1 mg Q8 PO Last administered on 03/26/17 06:29; Admin Dose 1 MG; Start 03/24/17 at 14:00 Ceftriaxone Sodium (Rocephin) 50 ml @ 100 mls/hr Q24H IVPB Last administered on 03/25/17 15:02; Admin Dose 100 MLS/HR; Start 03/25/17 at 14:00 ZHANNA LOPEZ M.D. Mar 26, 2017 10:06
[2017-03-26] MEDS: CAPECITABINE 500 MG TAB PO SCH ×2 (10:51→20:34)
[2017-03-26] MEDS: SOD FERRIC GLUC COMPLX 125 MG in SOD CHLORIDE 0.9% 100 ML IVPB SCH (13:30)
[2017-03-26] MEDS: HYDROCORTISONE PR SCH ×2 (13:43→21:17)
[2017-03-26 14:00] VITALS: BP 101/54; RESP 19
--- NOTE | 2017-03-26 15:06 | PN ---
Date/Time of Note Date/Time of Note DATE: 03/26/17 TIME: 15:05 Assessment/Plan VTE Prophylaxis VTE Prophylaxis Intervention: SCD's Lines/Catheters IV Catheter Type (from Nrsg): Peripheral IV Urinary Cath still in place: No Assessment/Plan Assessment/Plan 1. intractable rectal pain due to rectal cancer, pain management 2. Metastatic rectal adenocarcinoma with hepatic and lymphatic mets, on Xeloda , follow up with oncology and radiation oncology 3. Anemia 2/2 chronic blood loss from #2, on iv iron, follow up with H/H 4. Bilateral obstructive hydronephrosis, follow up with urology 5. UTI, rocephin 6. DVT prophylaxis: SCD's Subjective 24 Hr Interval Summary Free Text/Dictation pain is controlled with GAS STATION MANAGER Exam/Review of Systems Vital Signs Vitals Vital Signs Date Time Temp Pulse Resp B/P Pulse Ox O2 Delivery O2 Flow Rate FiO2 03/26/17 04:19 98.9 72 20 97/53 94 03/24/17 04:38 Room Air Intake and Output 03/25/17 03/25/17 03/26/17 15:00 23:00 07:00 Intake Total 1150 ml 400 ml Balance 1150 ml 400 ml Exam Constitutional: alert, oriented, well developed Psych: nl mood/affect, no complaints Head: atraumatic, normocephalic Eyes: EOMI, nl conjunctiva, nl lids ENMT: nl external ears & nose, nl lips & teeth, nl nasal mucosa & septum Neck: non-tender, supple Respiratory: clear to auscultation, normal air movement, No congested cough, No crackles/rales, No diminished breath sounds, No intercostal retraction, No labored breathing, No other, No respirations, No tactile fremitus, No wheezing Cardiovascular: nl pulses, regular rate and rhythm, No S3, No S4, No bruits, No diastolic murmur, No edema, No gallop, No irregular rhythm, No jugular venous distention (JVD), No murmurs/extra sounds, No other, No rub, No systolic murmur Gastrointestinal: nl liver, spleen, non-tender, soft, No ascites, No bowel sounds, No distended, No firm, No hepatomegaly, No mass , No other, No rebound or guarding, No splenomegaly, No surgical scars, No tender Musculoskeletal: nl extremities to inspection Extremities: normal pulses, No calf tenderness, No clubbing, No cyanosis, No edema, No other, No palpable cord, No pitting pedal edema, No tenderness Neurological: AIRCRAFT INSTRUMENT REPAIRER II-XII intact, nl mental status, nl speech, nl strength Skin: nl turgor Lymph: nl lymph nodes Results Result Diagram: 03/26/17 0439 03/26/179 Results 24 hrs Laboratory Tests Test 03/26/17 04:39 White Blood Count 9.4 Red Blood Count 3.44 L Hemoglobin 7.6 L Hematocrit 27.2 L Mean Corpuscular Volume 79.1 L Mean Corpuscular Hemoglobin 22.1 L Mean Corpuscular Hemoglobin Concent 27.9 L Red Cell Distribution Width Platelet Count 434 H Mean Platelet Volume 8.5 Neutrophils % 73.1 Lymphocytes % 11.0 L Monocytes % 8.2 Eosinophils % 7.0 Basophils % 0.5 Nucleated Red Blood Cells % 0.0 Neutrophils # (Manual) 6.9 Lymphocytes # 1.0 Monocytes # 0.8 Eosinophils # 0.7 H Basophils # 0.1 Nucleated Red Blood Cells # 0.0 Sodium Level 136 Potassium Level 4.0 Chloride Level 98 Carbon Dioxide Level 26 Anion Gap 16 Blood Urea Nitrogen 13 Creatinine 0.64 Glucose Level 136 # Calcium Level 9.3 Medications Medications Current Medications Hydrocortisone (Procto-Ahmet) 1 applic BID [place] Last administered on 03/26/17 13: 43; Admin Dose 1 APPLIC; Start 03/24/17 at 09:00 Docusate Sodium (Colace) 100 mg BID PO Last administered on 03/24/17 21:55; Admin Dose 100 MG; Start 03/24/17 at 09:00 Pantoprazole 40 mg 40 mg DAILY@06 PO Last administered on 03/26/17 06:28; Admin Dose 40 MG; Start 03/24/17 at 06:45 Ferric Sodium Gluconate Complex/ Sodium Chloride (Ferrlecit/NS) 110 ml @ 110 mls/hr Q24H IVPB Last administered on 03/26/17 13:30; Admin Dose 110 MLS/HR; Start 03/24/17 at 11:00; Stop 03/28/17 at 11:59 Capecitabine (Xeloda) 1,500 mg BID PO Last administered on 03/26/17 10:51; Admin Dose 1,500 MG; Start 03/24/17 at 11:00 Hydromorphone HCl (Dilaudid GAS STATION MANAGER) 0.2 MG/HR CONTINUOUS RATE ... Q4PCA IV Last administered on 03/26/17 02:45; Admin Dose 6 MG; Start 03/24/17 at 11:00 Methadone HCl 1 mg 1 mg Q8 PO Last administered on 03/26/17 06:29; Admin Dose 1 MG; Start 03/24/17 at 14:00 Ceftriaxone Sodium (Rocephin) 50 ml @ 100 mls/hr Q24H IVPB Last administered on 03/25/17 15:02; Admin Dose 100 MLS/HR; Start 03/25/17 at 14:00 PRISCILLA SANTOS MD Mar 26, 2017 15:06
[2017-03-26] MEDS: CEFTRIAXONE 1 GM/50 ML (PMX) 50 ML IVPB SCH (16:55)
[2017-03-26] MEDS ORDERED: HYDROCODONE/APAP (10/325) TAB PO ONE (20:30)
[2017-03-26 21:32] VITALS: BP 102/66; PULSE 92; RESP 18
[2017-03-27 02:00] VITALS: BP 97/51; PULSE 80; RESP 18
[2017-03-27] MEDS: HYDROmorphONE 0.2 MG/ML PCA IV SCH ×2 (03:45→23:45)
[2017-03-27] MEDS: PANTOPRAZOLE (EC) 40 MG TAB PO SCH (06:00)
[2017-03-27] MEDS: METHADONE (1 MG/ML 5 ML PO UD SYG) PO SCH ×3 (06:00→21:22)
[2017-03-27 07:00] VITALS: BP 112/59; RESP 18
[2017-03-27] MEDS: CAPECITABINE 500 MG TAB PO SCH ×2 (08:40→20:31)
[2017-03-27] MEDS: DOCUSATE SODIUM 100 MG CAP PO SCH ×2 (08:41→20:31)
[2017-03-27] MEDS: HYDROCORTISONE PR SCH ×2 (08:42→20:28)
[2017-03-27] MEDS ORDERED: POLYETHYLENE GLYCOL 17 GM PACKET PO SCH (09:00)
--- NOTE | 2017-03-27 09:00 | PN ---
Date/Time of Note Date/Time of Note DATE: 03/27/17 TIME: 08:55 Assessment/Plan VTE Prophylaxis VTE Prophylaxis Intervention: SCD's Lines/Catheters [facility] Peripheral IV Urinary Cath still in place: No Assessment/Plan Problems: (1) Abnormal finding on urinalysis Status: Acute Comment: She was placed on antibiotics although we do not have cultures. If need to go ahead and repeat the urine analysis and urine culture to make sure we do not have any surprises. (2) Iron deficiency anemia Status: Chronic Comment: She is receiving iron parenterally to reconstitute. I expect that this will actually do relatively well. Qualifiers: Iron deficiency anemia type: chronic blood loss Qualified Code: D50.0 - Iron deficiency anemia due to chronic blood loss (3) Rectal adenocarcinoma metastatic to intra-abdominal lymph node Status: Chronic Comment: In diagnosis she is on chemotherapy will start radiation therapy shortly. This is a somewhat poor prognosis but hopefully we can give her some palliation relief of her symptoms. Please note she is at risk for multiple complications. Please note that given the rectal bleeding I am not using anticoagulant therapy in her yet (4) Rectal adenocarcinoma metastatic to intrapelvic lymph node Status: Chronic Comment: As above (5) Rectal adenocarcinoma metastatic to liver Status: Chronic Comment: As above (6) Hydronephrosis Status: Chronic Comment: Hopefully with the treatment this will self resolve otherwise we can have to do interventions Qualifiers: Hydronephrosis type: with ureteropelvic junction obstruction Qualified Code : Q62.0 - Hydronephrosis with ureteropelvic junction (UPJ) obstruction (7) Rectal bleed Status: Chronic Comment: As noted above. Subjective 24 Hr Interval Summary Free Text/Dictation Unfortunate 42-year-old female with widely metastatic bulky rectal adenocarcinoma. She reports that her pain control is at roughly 6 out of 10 with oral methadone a very low-dose; continuous COMPLIANCE MGR with bolus. Chemotherapy has been started oral Xeloda and she will start on radiation therapy in 48 hours. I have an expectation that with the radiation therapy she will have improvement but will take many weeks to achieve. In the meantime she has local obstruction and is at risk for blood clots. We will just our therapeutics to try and protect. In addition I am going to minimally raise the dosage on the methadone to see if it will assist her. Respiratory: no complaints Cardiovascular: no complaints Gastrointestinal: pain Exam/Review of Systems Vital Signs Vitals Vital Signs Date Time Temp Pulse Resp B/P Pulse Ox O2 Delivery O2 Flow Rate FiO2 03/27/17 07:00 98.4 80 18 112/59 99 03/27/17 02:00 Room Air Intake and Output 03/26/17 03/26/17 03/27/17 15:00 23:00 07:00 Intake Total 1440 ml 50 ml 500 ml Output Total 1100 ml Balance 340 ml 50 ml 500 ml Exam Constitutional: alert, oriented Neck: non-tender, supple Respiratory: clear to auscultation, normal air movement Cardiovascular: nl pulses, regular rate and rhythm Gastrointestinal: other (Liver is modestly enlarged with a modestly irregular texture there is a lymph node near the umbilicus), soft Results Result Diagram: 03/26/179 03/26/179 Medications Medications Current Medications Hydrocortisone (Procto-Ahmet) 1 applic BID [place] Last administered on 03/27/17 08: 42; Admin Dose 1 APPLIC; Start 03/24/17 at 09:00 Docusate Sodium (Colace) 100 mg BID PO Last administered on 03/24/17 21:55; Admin Dose 100 MG; Start 03/24/17 at 09:00 Pantoprazole 40 mg 40 mg DAILY@06 PO Last administered on 03/27/17 06:00; Admin Dose 40 MG; Start 03/24/17 at 06:45 Ferric Sodium Gluconate Complex/ Sodium Chloride (Ferrlecit/NS) 110 ml @ 110 mls/hr Q24H IVPB Last administered on 03/26/17 13:30; Admin Dose 110 MLS/HR; Start 03/24/17 at 11:00; Stop 03/28/17 at 11:59 Capecitabine (Xeloda) 1,500 mg BID PO Last administered on 03/27/17 08:40; Admin Dose 1,500 MG; Start 03/24/17 at 11:00 Hydromorphone HCl (Dilaudid COMPLIANCE MGR) 0.2 MG/HR CONTINUOUS RATE ... Q4PCA IV Last administered on 03/27/17 03:45; Admin Dose 6 MG; Start 03/24/17 at 11:00 Methadone HCl 1 mg 1 mg Q8 PO Last administered on 8/26/17at 06:00; Admin Dose 1 MG; Start 03/24/17 at 14:00 Ceftriaxone Sodium (Rocephin) 50 ml @ 100 mls/hr Q24H IVPB Last administered on 03/26/17t 16:55; Admin Dose 100 MLS/HR; Start 03/25/17 at 14:00 Simethicone (Mylicon) 80 mg Q6H PRN PO DISTENSION/GAS/BLOATING; Start 03/27/17 at 06:00 CLEMENTE DANIELS MD Mar 27, 2017 09:00
[2017-03-27] MEDS ORDERED: POLYETHYLENE GLYCOL 17 GM PACKET PO PRN (10:00)
[2017-03-27 10:41] LABS: ABNORMAL IP MESSAGE 1; BASOPHIL # 0.1 10^3/ul (0.0-0.1); BASOPHILS % 0.9 % (0.0-2.0); EOSINOPHILS # 0.8 10^3/ul (0.0-0.5); EOSINOPHILS % 7.9 % (0.0-7.0); HEMATOCRIT 27.3 % (37.0-47.0); HEMOGLOBIN 7.8 g/dl (12.0-16.0); LYMPHOCYTES # 1.2 10^3/ul (0.8-2.9); LYMPHOCYTES % 11.2 % (15.0-51.0); MEAN CORPUSCULAR HEMOGLOBIN 21.7 pg (29.0-33.0); MEAN CORPUSCULAR HGB CONC 28.6 g/dl (32.0-37.0); MEAN CORPUSCULAR VOLUME 75.8 fl (82.0-101.0); MONOCYTES % 9.1 % (0.0-11.0); NEUTROPHILS % 70.2 % (39.0-77.0); PLATELET COUNT 464 10^3/UL (140-415); WHITE BLOOD COUNT 10.6 10^3/ul (4.8-10.8)
[2017-03-27] MEDS: SOD FERRIC GLUC COMPLX 125 MG in SOD CHLORIDE 0.9% 100 ML IVPB SCH (10:57)
[2017-03-27 11:05] LABS: CALCIUM 9.4 mg/dl (8.4-10.2); CREATININE 0.71 mg/dl (0.44-1.00); POTASSIUM 4.3 mmol/L (3.5-5.1)
[2017-03-27 12:37] LABS: ADD UMIC YES; UR ASCORBIC ACID NEGATIVE (NEGATIVE); UR BACTERIA FEW /HPF (NONE SEEN); UR BILIRUBIN (Dip) NEGATIVE (NEGATIVE); UR BLOOD (Dip) NEGATIVE (NEGATIVE); UR CLARITY SLIGHTLY CLOUDY (CLEAR); UR COLOR YELLOW (YELLOW); UR GLUCOSE (Dip) NEGATIVE (NEGATIVE); UR KETONES (Dip) NEGATIVE (NEGATIVE); UR LEUKOCYTE ESTERASE (Dip) 2+ Leu/ul (NEGATIVE); UR NITRITE (Dip) NEGATIVE (NEGATIVE); UR RBC 2 /HPF (0-5); UR SPECIFIC GRAVITY (Dip) 1.009 (1.003-1.030); UR SQUAMOUS EPITHELIAL CELL FEW /HPF (FEW); UR TOTAL PROTEIN (Dip) NEGATIVE (NEGATIVE); UR UROBILINOGEN (Dip) NEGATIVE (NEGATIVE)
[2017-03-27] MEDS: CEFTRIAXONE 1 GM/50 ML (PMX) 50 ML IVPB SCH (13:23)
[2017-03-27 14:00] VITALS: BP 112/59; RESP 20
--- NOTE | 2017-03-27 14:10 | CONS ---
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 NARRATIVE: The patient is a 42-year-old woman, who presented to medical attention with a 6-month history of progressive abdominal and pelvic pain. This was associated with intermittent diarrhea, weight loss, generalized weakness and occasional hematochezia. She also has since developed severe, intractable rectal pain and tenderness with changes in stool caliber. She was initially evaluated in the emergency department at [facility] in early March and was noted to have a severe microcytic anemia with a hemoglobin of 5.5. She was transfused with 3 units of packed red blood cells. A CT abdomen and pelvis was performed on March 03, 2017, which described irregular wall thickening involving the entire rectum from the rectosigmoid junction to the anal verge. There was perirectal inflammatory change. There was perirectal adenopathy and bulky bilateral pelvic, inguinal, periaortic and periportal adenopathy. There was an indeterminate 3.5-cm lesion in segment 8 of the liver and a 2.2-cm lesion at the junction of segment 7 and 8 within the liver. A third indeterminate 16-mm lesion was observed in segment 6. There were no adrenal or lung lesions. A CT of the chest was performed on 03/04/2017 and showed no evidence to suggest intrathoracic lymphadenopathy or pulmonary metastases. On March 05, 2017, performed a colonoscopy with biopsy. JARRELL at the time disclosed an abnormal rectal exam with a circumferential mass, which was multinodular. Endoscopic examination found the entire rectum, approximately 20 cm in length, with circumferential mass, rock-like superficial ulceration. Biopsies were taken and pathology consistent with poorly differentiated adenocarcinoma. The patient was initially discharged home but has since been admitted repeatedly with complaints of progressive pelvic and anorectal pain. On her most recent admission, repeat CT imaging of the abdomen and pelvis without contrast describes 3 masses in the right hepatic lobe, the largest now measuring 4.5 cm in segment 8. There was thickening of the left adrenal gland. There was mild bilateral hydronephrosis and hydroureter with a zone of transition from dilated ureters to collapsed ureters located in massive pelvic sidewall lymphadenopathy. There was likely venous compression by the lymphadenopathy in the retroperitoneum and pelvis. There was massive lymphadenopathy in the retroperitoneum, bilateral pelvic sidewalls and bilateral groins with index lesions, including a 4.5-cm aortocaval node, a 3.5 x 6-cm right pelvic sidewall, lymph node aggregate in a 4.5 x 6.5-cm left pelvic sidewall aggregate. There was abnormal nodular circumferential mural thickening in the distal sigmoid colon and rectum extending to the anus over a distance of nearly 20 cm along with numerous enlarged perirectal lymph nodes. The uterus was displaced anterior by the thick-walled rectum. The bladder was displaced anteriorly and was contracted. There was a 12-mm nodule along the anterior abdominal wall above the umbilicus, possibly representing a tumor implant as well. An MRI of the abdomen on March 24 confirmed multiple hepatic metastases with the largest lesion measuring 4 cm. This study confirmed mild bilateral hydroureteronephrosis as well as diffusion- restricted lymphadenopathy in the periaortic, retroperitoneal and vanna hepatis regions. The patient has noticed some changes to her urination with some hesitancy and needing to strain. There is no dysuria, hematuria or incontinence. She denies any new vaginal bleeding or discharge. PAST MEDICAL HISTORY: Anemia, bilateral hydronephrosis, ovarian cyst. SURGICAL HISTORY: Noncontributory. ALLERGIES TO MEDICATIONS: None. CURRENT MEDICATIONS: Morphine sulfate and Dilaudid p.r.n. SOCIAL HISTORY: She denies any significant tobacco or alcohol use. FAMILY HISTORY: No family history of colorectal cancer. REVIEW OF SYSTEMS: GENERAL: Denies fevers, chills or sweats but does admit to fatigue and anorexia. NEUROLOGIC: No headache, seizure, syncope, extremity weakness or numbness. EARS, NOSE AND THROAT: No unconscious seizure, hoarseness or xerostomia. RESPIRATORY: No shortness of breath, cough, hemoptysis or wheezing. CARDIOVASCULAR: No chest pain, palpitations, heart attacks or strokes or extremity swelling. GASTROINTESTINAL: Anorexia, nausea. No vomiting. Abdominopelvic pain. Change in bowel habits and rectal bleeding. GENITOURINARY: No dysuria, hematuria or incontinent. ENDOCRINE: No diabetes or thyroid disease. SKIN: No history of lupus, scleroderma or shingles. MUSCULOSKELETAL: No new back, rib or shoulder pain. PHYSICAL EXAMINATION: GENERAL: A well-developed female in some mild discomfort, especially when seated. HEENT: Normocephalic, atraumatic. Sclerae anicteric. NODES: No palpable cervical or supraclavicular or axillary adenopathy. Fullness of the bilateral groins identified. LUNGS: Clear without wheezes. ABDOMEN: Soft and with vague mild generalized tenderness. No rebound, guarding, rigidity. EXTREMITIES: No cyanosis or edema. GYNECOLOGICAL AND RECTAL: Examination deferred. IMPRESSION: The patient is a 42-year-old female, who has been diagnosed with extensive colorectal carcinoma with radiographic evidence of extensive lymphadenopathy and metastatic disease to the liver, underwent biopsy. PLAN: The patient is going to be started on Xeloda while an inpatient. She is referred by Dr. Marshall to get to the radiation therapy for palliative purposes and in hopes of establishing control of pelvic disease. I agree that the radiation therapy could be utilized to help with local regional control. Goals of therapy would be to decrease bleeding, pelvic pain and perhaps even compression on the ureters and resulting hydronephrosis. At the same time, care must be taken to respect the volume of tissue irradiated as I do not want to significantly affect the patient's bone marrow and impact the delivery of the necessary systemic therapy in the future. Thus, I anticipate treating the pelvis and the bilateral groins over 4 weeks with some hypofractionation. I would anticipate a biologic of 50 to 55 Gy to maximize control in a patient, who may or may not be a surgical candidate in the future. The nature, risks and benefits of treatment were reviewed. Side effects were discussed. Questions were answered. This included but was not limited to a discussion of potential for fatigue, skin reaction, nausea, vomiting, cramping, diarrhea, irritative voiding symptoms, dysuria, hematuria, urinary incontinence, ovarian failure, vaginal dryness, fibrosis and stenosis and lymphedema. All questions were answered. She does wish to proceed. She will be scheduled for a CT simulation with treatment to start next week concurrent with oral chemotherapy. Dictated By: Sj Jeffery MD /librado/catia /Document#: [id number]
[2017-03-27 20:18] VITALS: BP 110/57; RESP 20
[2017-03-28 02:56] VITALS: BP 109/61; RESP 19
[2017-03-28] MEDS: HYDROCORTISONE PR SCH ×2 (05:42→21:42)
[2017-03-28] MEDS: PANTOPRAZOLE (EC) 40 MG TAB PO SCH (06:04)
[2017-03-28] MEDS: METHADONE (1 MG/ML 5 ML PO UD SYG) PO SCH ×3 (06:05→21:42)
[2017-03-28 07:59] VITALS: BP 107/60; RESP 20
--- NOTE | 2017-03-28 08:51 | PN ---
Date/Time of Note Date/Time of Note DATE: 03/28/17 TIME: 08:48 Assessment/Plan VTE Prophylaxis VTE Prophylaxis Intervention: SCD's Lines/Catheters IV [facility]ter Type (from [facility]): Peripheral IV Urinary Cath still in place: No Assessment/Plan Problems: (1) Abnormal finding on urinalysis Status: Acute Comment: With antibiotics she is received her urinalysis is normalized nicely. Final culture is pending. This should do well and should not pose an impediment for discharge planning (2) Rectal adenocarcinoma metastatic to liver Status: Chronic Comment: She is tolerating the Xeloda. She is scheduled to start her radiation therapy tomorrow. These see the consultation from the radiation oncologist. We need to start making plans for her disposition to either home receiving therapeutics or to an ECF receiving therapeutics. (3) Rectal adenocarcinoma metastatic to intrapelvic lymph node Status: Chronic Comment: As above (4) Rectal adenocarcinoma metastatic to intra-abdominal lymph node Status: Chronic Comment: As above. (5) Iron deficiency anemia Status: Chronic Comment: Anemia is improving with the usage of the parenteral iron. Please note while she is receiving radiation therapy she might need Epogen. I will defer this off to the oncologist Qualifiers: Iron deficiency anemia type: chronic blood loss Qualified Code: D50.0 - Iron deficiency anemia due to chronic blood loss (6) Abdominal pain Status: Acute Comment: Good response the usage of the oral methadone. Dosage has been adjusted so this should be an easy transition to outpatient Qualifiers: Abdominal location: generalized Qualified Code: R10.84 - Generalized abdominal pain Subjective 24 Hr Interval Summary Free Text/Dictation She reports that she is doing okay. She reports her pain is under better control than yesterday. He is gone from a 6 out of 10 for pain to 3 out of 10 for pain Constitutional: no complaints (No fever chills or sweats) Respiratory: no complaints Cardiovascular: no complaints Gastrointestinal: pain Genitourinary: no complaints Exam/Review of Systems Vital Signs Vitals Vital Signs Date Time Temp Pulse Resp B/P Pulse Ox O2 Delivery O2 Flow Rate FiO2 03/28/17 07:59 98.4 89 20 107/60 98 03/27/17 02:00 Room Air Intake and Output 03/27/17 03/27/17 03/28/17 15:00 23:00 07:00 Intake Total 160 ml 1300 ml Balance 160 ml 1300 ml Exam Ambulating in room with IV pole Constitutional: alert, oriented Neck: non-tender, supple Respiratory: clear to auscultation, normal air movement Cardiovascular: nl pulses, regular rate and rhythm Gastrointestinal: soft, tender (Tenderness) Results Result Diagram: 03/27/17 1015 03/27/17 1015 Results 24 hrs Laboratory Tests Test 03/27/17 10:15 03/27/17 10:30 White Blood Count 10.6 Red Blood Count 3.60 L Hemoglobin 7.8 L Hematocrit 27.3 L Mean Corpuscular Volume 75.8 L Mean Corpuscular Hemoglobin 21.7 L Mean Corpuscular Hemoglobin Concent 28.6 L Red Cell Distribution Width Platelet Count 464 H Mean Platelet Volume 9.0 Neutrophils % 70.2 Lymphocytes % 11.2 L Monocytes % 9.1 Eosinophils % 7.9 H Basophils % 0.9 Nucleated Red Blood Cells % 0.0 Neutrophils # (Manual) 7.4 Lymphocytes # 1.2 Monocytes # 1.0 H Eosinophils # 0.8 H Basophils # 0.1 Nucleated Red Blood Cells # 0.0 Sodium Level 141 Potassium Level 4.3 Chloride Level 99 Carbon Dioxide Level 29 Anion Gap 17 H Blood Urea Nitrogen 12 Creatinine 0.71 Glucose Level 140 Calcium Level 9.4 Urine Color YELLOW Urine Clarity SLIGHTLY CLOUDY A Urine pH 5.0 Urine Specific [place] 1.009 Urine Ketones NEGATIVE Urine Nitrite NEGATIVE Urine Bilirubin NEGATIVE Urine Urobilinogen NEGATIVE Urine Leukocyte Esterase 2+ H Urine Microscopic RBC 2 Urine Microscopic WBC 6 H Urine Squamous Epithelial Cells FEW Urine Bacteria FEW A Urine Hemoglobin NEGATIVE Urine Glucose NEGATIVE Urine Total Protein NEGATIVE Medications Medications Current Medications Hydrocortisone (Procto-Ahmet) 1 applic BID [place] Last administered on 03/28/17 05: 42; Admin Dose 1 APPLIC; Start 03/24/17 at 09:00 Docusate Sodium (Colace) 100 mg BID PO Last administered on 03/24/17 21:55; Admin Dose 100 MG; Start 03/24/17 at 09:00 Pantoprazole 40 mg 40 mg DAILY@06 PO Last administered on 03/28/17 06:04; Admin Dose 40 MG; Start 03/24/17 at 06:45 Ferric Sodium Gluconate Complex/ Sodium Chloride (Ferrlecit/NS) 110 ml @ 110 mls/hr Q24H IVPB Last administered on 03/27/17 10:57; Admin Dose 110 MLS/HR; Start 03/24/17 at 11:00; Stop 03/28/17 at 11:59 Capecitabine (Xeloda) 1,500 mg BID PO Last administered on 03/27/17 20:31; Admin Dose 1,500 MG; Start 03/24/17 at 11:00 Hydromorphone HCl 0.2 MG/HR CONTINUOUS RATE ... Q4PCA IV Last administered on 23:45; Admin Dose 6 MG; Start 03/24/17 at 11:00 Ceftriaxone Sodium (Rocephin) 50 ml @ 100 mls/hr Q24H IVPB Last administered on 03/27/17 13:23; Admin Dose 100 MLS/HR; Start 03/25/17 at 14:00 Simethicone (Mylicon) 80 mg Q6H PRN PO DISTENSION/GAS/BLOATING; Start 03/27/17 at 06:00 Methadone HCl (Methadone Liq) 3 mg Q8 PO Last administered on 03/28/17 06:05; Admin Dose 3 MG; Start 03/27/17 at 14:00 Polyethylene Glycol (Miralax) 17 gm DAILY PRN PO CONSTIPATION; Start 03/27/17 at 10:00 CLEMENTE DANIELS MD Mar 28, 2017 08:51
[2017-03-28] MEDS: DOCUSATE SODIUM 100 MG CAP PO SCH ×2 (09:00→21:00)
[2017-03-28] MEDS: CAPECITABINE 500 MG TAB PO SCH ×2 (09:15→20:50)
[2017-03-28] MEDS: SOD FERRIC GLUC COMPLX 125 MG in SOD CHLORIDE 0.9% 100 ML IVPB SCH (12:26)
[2017-03-28] MEDS: CEFTRIAXONE 1 GM/50 ML (PMX) 50 ML IVPB SCH (14:51)
[2017-03-28 15:27] VITALS: BP 100/56; RESP 20
[2017-03-28 19:10] VITALS: BP 114/55; RESP 18
[2017-03-28] MEDS: HYDROmorphONE 0.2 MG/ML PCA IV SCH (20:50)
[2017-03-29 02:10] VITALS: BP 102/56; RESP 17
[2017-03-29] MEDS: METHADONE (1 MG/ML 5 ML PO UD SYG) PO SCH ×3 (05:14→21:15)
[2017-03-29] MEDS: PANTOPRAZOLE (EC) 40 MG TAB PO SCH (05:14)
[2017-03-29 07:57] VITALS: BP 97/49; RESP 19
[2017-03-29] MEDS: DOCUSATE SODIUM 100 MG CAP PO SCH ×2 (08:05→21:00)
[2017-03-29 10:42] LABS: ADD UMIC NO; UR ASCORBIC ACID NEGATIVE (NEGATIVE); UR BILIRUBIN (Dip) NEGATIVE (NEGATIVE); UR BLOOD (Dip) NEGATIVE (NEGATIVE); UR CLARITY CLEAR (CLEAR); UR COLOR YELLOW (YELLOW); UR GLUCOSE (Dip) NEGATIVE (NEGATIVE); UR KETONES (Dip) NEGATIVE (NEGATIVE); UR LEUKOCYTE ESTERASE (Dip) NEGATIVE Leu/ul (NEGATIVE); UR NITRITE (Dip) NEGATIVE (NEGATIVE); UR SPECIFIC GRAVITY (Dip) 1.009 (1.003-1.030); UR TOTAL PROTEIN (Dip) NEGATIVE (NEGATIVE); UR UROBILINOGEN (Dip) NEGATIVE (NEGATIVE)
[2017-03-29] MEDS: HYDROCORTISONE PR SCH ×2 (11:23→21:15)
[2017-03-29] MEDS: CAPECITABINE 500 MG TAB PO SCH ×3 (11:23→22:12)
--- NOTE | 2017-03-29 13:31 | PN ---
Date/Time of Note Date/Time of Note DATE: 03/29/17 TIME: 13:27 Assessment/Plan VTE Prophylaxis VTE Prophylaxis Intervention: SCD's Lines/Catheters IV C[facility]ter Type (from [facility] Peripheral IV Urinary Cath still in place: No Assessment/Plan Chief Complaint/Hosp Course Assessment and plan 1. Rectal adenocarcinoma with metastasis to liver/intrapelvic lymph node/intra- abdominal lymph node. Patient followed by oncologist. On Xeloda medication. Tentative plan for radiation therapy today. Continue with pain management. 2. Suspect UTI. Improving on antibiotics. Monitor for now. 3. Iron deficiency anemia. Continue with iron supplement. 4. Abdominal pain secondary to #1. Pain management physician following. Continue with analgesics. 5. Bilateral hydronephrosis. Renal function appears stabilized at this time. Plan for urology consultation should renal function worsen and patient unable to void 6. Liver mass. Continuing chemotherapy. Continue with oncologist recommendations Disposition and plan: Tentative plan for radiation therapy today. We will follow-up. Anticipate discharge within the next 24 hours medically stable and cleared by consultants Discussed plan of care with Dr. Martinez Problems: Subjective 24 Hr Interval Summary Free Text/Dictation Patient resting at this time. With this reported abdominal pain. Exam/Review of Systems Vital Signs Vitals Vital Signs Date Time Temp Pulse Resp B/P Pulse Ox O2 Delivery O2 Flow Rate FiO2 03/29/17 07:57 98.0 72 19 97/49 98 03/27/17 02:00 Room Air Intake and Output 03/28/17 03/28/17 03/29/17 15:00 23:00 07:00 Intake Total 850 ml 950 ml Output Total 650 ml Balance 850 ml 300 ml Exam Constitutional: alert, obese, oriented Psych: nl mood/affect Head: normocephalic Eyes: nl conjunctiva Respiratory: clear to auscultation, normal air movement Cardiovascular: regular rate and rhythm Gastrointestinal: soft, tender Musculoskeletal: nl extremities to inspection (Minimally) Extremities: normal pulses Neurological: PLUMBING INSTALLER II-XII intact, nl mental status, nl speech Results Result Diagram: 03/27/17 1015 03/27/17 1015 Results 24 hrs Laboratory Tests Test 03/29/17 09:15 Urine Color YELLOW Urine Clarity CLEAR Urine pH 6.0 Urine Specific [place] 1.009 Urine Ketones NEGATIVE Urine Nitrite NEGATIVE Urine Bilirubin NEGATIVE Urine Urobilinogen NEGATIVE Urine Leukocyte Esterase NEGATIVE Urine Hemoglobin NEGATIVE Urine Glucose NEGATIVE Urine Total Protein NEGATIVE Medications Medications Current Medications Hydrocortisone (Procto-Ahmet) 1 applic BID [place] Last administered on 03/29/17 11: 23; Admin Dose 1 APPLIC; Start 03/24/17 at 09:00 Docusate Sodium (Colace) 100 mg BID PO Last administered on 03/24/17 21:55; Admin Dose 100 MG; Start 03/24/17 at 09:00 Pantoprazole (Protonix Tab) 40 mg DAILY@06 PO Last administered on 03/29/17 05 :14; Admin Dose 40 MG; Start 03/24/17 at 06:45 Capecitabine (Xeloda) 1,500 mg BID PO Last administered on 03/29/17 11:23; Admin Dose 1,500 MG; Start 03/24/17 at 11:00 Hydromorphone HCl 0.2 MG/HR CONTINUOUS RATE ... Q4PCA IV Last administered on 20:50; Admin Dose 6 MG; Start 03/24/17 at 11:00 Ceftriaxone Sodium (Rocephin) 50 ml @ 100 mls/hr Q24H IVPB Last administered on 03/28/17 14:51; Admin Dose 100 MLS/HR; Start 03/25/17 at 14:00 Simethicone (Mylicon) 80 mg Q6H PRN PO DISTENSION/GAS/BLOATING; Start 03/27/17 at 06:00 Polyethylene Glycol (Miralax) 17 gm DAILY PRN PO CONSTIPATION; Start 03/27/17 at 10:00 Methadone HCl (Methadone Liq) 5 mg Q8 PO Last administered on 03/29/17 05:14; Admin Dose 5 MG; Start 03/28/17 at 14:00 MASTER CARY Mar 29, 2017 13:31
[2017-03-29] MEDS: CEFTRIAXONE 1 GM/50 ML (PMX) 50 ML IVPB SCH (14:31)
[2017-03-29 15:14] VITALS: BP 105/61; RESP 16
[2017-03-29] MEDS: HYDROmorphONE 0.2 MG/ML PCA IV SCH (17:50)
--- NOTE | 2017-03-29 22:25 | CONS ---
Date/Time of Note Date/Time of Note DATE: 03/29/17 TIME: 22:21 Assessment/Plan Assessment/Plan Chief Complaint/Hosp Course #Metastatic rectal ca Ca - - CT reveals: 1.Extensive nodular circumferential mural thickening of the distal sigmoid colon and rectum extending to the anus is in keeping with known colorectal cancer. There is anterior displacement of the uterus and bladder. 2.Enlarged perirectal lymph nodes and massive retroperitoneal, pelvic sidewall and inguinal lymph nodes are in keeping with solange metastases. 3.Liver masses 4.1.2 cm nodule anterior abdominal wall is concerning for a tumor implant. 5. Bilateral ureteral obstruction with mild bilateral hydronephrosis and hydroureter due to mass effect by pelvic sidewall lymphadenopathy. -given large extent of disease, pt was started on chemotherapy in the hospital with Xeloda 1500mg BID. pt is tolerating medication well -pt understands that her disease is stage 4 and although not curable , controllable at this time with chemotherapy -appreciate rad onc recs to deliver 50 to 55 Gy over a 4 week period to treat the pelvis and bilateral groin lymph nodes #Rectal mass causing pain and bleeding -pt got simulated and has started XRT. will continue -she is to continue Xeloda on days of radiation -plan for concurrent chemotherapy and radiation to help shrink the symptomatic tumor # Hydronephrosis -at this time, Creatinine is normal and patient is urinating. -if there are any signs of renal dysfunction , will consult urology for stent placement #Indeterminate Liver lesions -MRI with eovist was done which confirms liver metastasis #iron deficiency anemia - 2/2 GI bleed -cont IV iron at this time #Ovarian cyst -continue to monitor. if this grows in size it can be removed at that time Problems: (1) Rectal cancer Status: Acute (2) Hydronephrosis Status: Chronic Qualifiers: Hydronephrosis type: with ureteropelvic junction obstruction Qualified Code : Q62.0 - Hydronephrosis with ureteropelvic junction (UPJ) obstruction (3) Iron deficiency anemia Status: Chronic Qualifiers: Iron deficiency anemia type: chronic blood loss Qualified Code: D50.0 - Iron deficiency anemia due to chronic blood loss (4) Rectal adenocarcinoma metastatic to intra-abdominal lymph node Status: Chronic (5) Rectal adenocarcinoma metastatic to liver Status: Chronic Consultation Date/Type/Reason Admit Date/Time Mar 24, 2017 at 04:09 Initial Consult Date 03/24/17 Type of Consultation: Oncology Referring Provider: PAULINE VAUGHN 24 HR Interval Summary Free Text/Dictation pt continues to tolerate chemotherapy and radiation. Her methadone was increased to 5 mg TID. pt was feeling bladder pain which she says has since improved Exam/Review of Systems Vital Signs Vitals Vital Signs Date Time Temp Pulse Resp B/P Pulse Ox O2 Delivery O2 Flow Rate FiO2 03/29/17 15:14 98.0 91 16 105/61 99 03/27/17 02:00 Room Air Intake and Output 03/28/17 03/28/17 03/29/17 15:00 23:00 07:00 Intake Total 850 ml 950 ml Output Total 650 ml Balance 850 ml 300 ml Exam Constitutional: alert, oriented Psych: no complaints Head: normocephalic Eyes: nl conjunctiva ENMT: nl external ears & nose Neck: supple Respiratory: clear to auscultation Cardiovascular: regular rate and rhythm Gastrointestinal: soft Musculoskeletal: nl extremities to inspection, nl gait and stance Extremities: normal pulses Skin: nl turgor Results Result Diagram: 03/27/17 1015 03/27/17 1015 Results 24 hrs Laboratory Tests Test 03/29/17 09:15 Urine Color YELLOW Urine Clarity CLEAR Urine pH 6.0 Urine Specific [place] 1.009 Urine Ketones NEGATIVE Urine Nitrite NEGATIVE Urine Bilirubin NEGATIVE Urine Urobilinogen NEGATIVE Urine Leukocyte Esterase NEGATIVE Urine Hemoglobin NEGATIVE Urine Glucose NEGATIVE Urine Total Protein NEGATIVE Medications Medications Current Medications Hydrocortisone (Procto-Ahmet) [address] Last administered on 03/29/17 21: 15; Admin Dose 1 APPLIC; Start 03/24/17 at 09:00 Docusate Sodium (Colace) 100 mg BID PO Last administered on 03/24/17 21:55; Admin Dose 100 MG; Start 03/24/17 at 09:00 Pantoprazole (Protonix Tab) 40 mg DAILY@06 PO Last administered on 03/29/17 05 :14; Admin Dose 40 MG; Start 03/24/17 at 06:45 Capecitabine (Xeloda) 1,500 mg BID PO Last administered on 03/29/17 22:12; Admin Dose 1,500 MG; Start 03/24/17 at 11:00 Hydromorphone HCl 0.2 MG/HR CONTINUOUS RATE ... Q4PCA IV Last administered on 17:50; Admin Dose 6 MG; Start 03/24/17 at 11:00 Ceftriaxone Sodium (Rocephin) 50 ml @ 100 mls/hr Q24H IVPB Last administered on 03/29/17 14:31; Admin Dose 100 MLS/HR; Start 03/25/17 at 14:00 Simethicone (Mylicon) 80 mg Q6H PRN PO DISTENSION/GAS/BLOATING; Start 03/27/17 at 06:00 Polyethylene Glycol (Miralax) 17 gm DAILY PRN PO CONSTIPATION; Start 03/27/17 at 10:00 Methadone HCl (Methadone Liq) 5 mg Q8 PO Last administered on 03/29/17 21:15; Admin Dose 5 MG; Start 03/28/17 at 14:00 ZHANNA LOPEZ M.D. Mar 29, 2017 22:25
[2017-03-30] MEDS: PANTOPRAZOLE (EC) 40 MG TAB PO SCH (05:25)
[2017-03-30] MEDS: METHADONE (1 MG/ML 5 ML PO UD SYG) PO SCH ×3 (05:25→22:59)
[2017-03-30] MEDS: DOCUSATE SODIUM 100 MG CAP PO SCH ×3 (08:08→21:24)
[2017-03-30] MEDS: HYDROCORTISONE PR SCH (08:09)
[2017-03-30] MEDS: CAPECITABINE 500 MG TAB PO SCH ×2 (08:14→21:33)
[2017-03-30 08:23] VITALS: BP 108/62; PULSE 88; RESP 20
[2017-03-30 13:00] VITALS: BP 132/75; RESP 20
--- NOTE | 2017-03-30 14:47 | PN ---
Date/Time of Note Date/Time of Note DATE: 03/30/17 TIME: 14:45 Assessment/Plan VTE Prophylaxis VTE Prophylaxis Intervention: SCD's Lines/Catheters IV Catheter Type (from [facility]): Peripheral IV Urinary Cath still in place: No Assessment/Plan Chief Complaint/Hosp Course Assessment and plan 1. Rectal adenocarcinoma with metastasis to liver/intrapelvic lymph node/intra- abdominal lymph node. Patient followed by oncologist. On Xeloda medication. Plan for radiation therapy today 2. Suspect UTI. Improving on antibiotics. Monitor for now. 3. Iron deficiency anemia. Continue with iron supplement. stable 4. Abdominal pain secondary to #1. Pain management physician following. Continue with analgesics. 5. Bilateral hydronephrosis. Renal function appears stabilized at this time. Plan for urology consultation should renal function worsen and patient unable to void. stable 6. Liver mass. Continuing chemotherapy. Continue with oncologist recommendations Disposition and plan: continue with radiation therapy. d/c when cleared by consultants Discussed plan of care with Dr. Martinez Problems: Subjective 24 Hr Interval Summary Free Text/Dictation Patient for radiation therapy Exam/Review of Systems Vital Signs Vitals Vital Signs Date Time Temp Pulse Resp B/P Pulse Ox O2 Delivery O2 Flow Rate FiO2 03/30/17 13:00 97.4 97 20 132/75 100 03/30/17 08:23 Room Air Intake and Output 03/29/17 03/29/17 03/30/17 15:00 23:00 07:00 Intake Total 750 ml 900 ml Output Total 850 ml Balance 750 ml 50 ml Exam Patient for radiation therapy Results Result Diagram: 03/27/17 1015 03/27/17 1015 Medications Medications Current Medications Hydrocortisone (Procto-Ahmet) 1 applic BID [place] Last administered on 03/30/17 08: 09; Admin Dose 1 APPLIC; Start 03/24/17 at 09:00 Docusate Sodium (Colace) 100 mg BID PO Last administered on 03/30/17 08:08; Admin Dose 100 MG; Start 03/24/17 at 09:00 Pantoprazole (Protonix Tab) 40 mg DAILY@06 PO Last administered on 03/30/17 05 :25; Admin Dose 40 MG; Start 03/24/17 at 06:45 Capecitabine (Xeloda) 1,500 mg BID PO Last administered on 03/30/17 08:14; Admin Dose 1,500 MG; Start 03/24/17 at 11:00 Hydromorphone HCl 0.2 MG/HR CONTINUOUS RATE ... Q4PCA IV Last administered on 17:50; Admin Dose 6 MG; Start 03/24/17 at 11:00 Ceftriaxone Sodium (Rocephin) 50 ml @ 100 mls/hr Q24H IVPB Last administered on 03/29/17 14:31; Admin Dose 100 MLS/HR; Start 03/25/17 at 14:00 Simethicone (Mylicon) 80 mg Q6H PRN PO DISTENSION/GAS/BLOATING; Start 03/27/17 at 06:00 Polyethylene Glycol (Miralax) 17 gm DAILY PRN PO CONSTIPATION; Start 03/27/17 at 10:00 Methadone HCl (Methadone Liq) 5 mg Q8 PO Last administered on 03/30/17 05:25; Admin Dose 5 MG; Start 03/28/17 at 14:00 MASTER CARY Mar 30, 2017 14:47
[2017-03-30] MEDS: CEFTRIAXONE 1 GM/50 ML (PMX) 50 ML IVPB SCH (15:46)
[2017-03-30] MEDS ORDERED: CAPE500T13 PO (16:41)
[2017-03-30] MEDS ORDERED: METH5SOL3 PO (16:41)
[2017-03-30] MEDS ORDERED: FER325 PO (16:42)
--- NOTE | 2017-03-30 16:45 | PDOCDIS ---
Discharge Instructions DIAGNOSIS Discharge Diagnosis 1. Rectal adenocarcinoma with metastasis to liver/intrapelvic lymph node/intra- abdominal lymph node. 2. Suspect UTI. 3. Iron deficiency anemia. 4. Abdominal pain secondary to #1. 5. Bilateral hydronephrosis. 6. Liver mass. Continuing CONDITION Patient Condition: Stable FOLLOW UP/APPOINTMENTS Follow-up Plan 1. follow up with Dr. Nay Marshall in one week 2. Follow up with Sj George in one week MASTER CARY Mar 30, 2017 16:45 2. Follow up with Sj George in one week MASTER CARY Mar 30, 2017 16:45
[2017-03-30 19:30] VITALS: BP 110/58; RESP 19
[2017-03-30] MEDS: HYDROCORTISONE 2.5% 30 GM RECT CR PR SCH (21:00)
[2017-03-31] MEDS: PANTOPRAZOLE (EC) 40 MG TAB PO SCH (05:41)
[2017-03-31] MEDS: METHADONE (1 MG/ML 5 ML PO UD SYG) PO SCH ×2 (05:42→14:20)
[2017-03-31] MEDS: DOCUSATE SODIUM 100 MG CAP PO SCH ×3 (08:08→20:43)
[2017-03-31] MEDS: CAPECITABINE 500 MG TAB PO SCH ×2 (08:12→20:37)
[2017-03-31 08:19] VITALS: BP 99/57; RESP 18
[2017-03-31] MEDS: HYDROmorphONE 2 MG TAB PO PRN ×2 (09:18→20:41)
[2017-03-31] MEDS: HYDROCORTISONE 2.5% 30 GM RECT CR PR SCH (09:51)
[2017-03-31] MEDS: CEFTRIAXONE 1 GM/50 ML (PMX) 50 ML IVPB SCH (13:19)
[2017-03-31 14:00] VITALS: BP 120/70; RESP 18
--- NOTE | 2017-03-31 16:47 | DS ---
Date/Time of Note Date/Time of Note DATE: 03/31/17 TIME: 16:42 Discharge Summary Admission/Discharge Info Admit Date/Time Mar 24, 2017 at 04:09 Discharge Date/Time Discharge Diagnosis 1. Rectal adenocarcinoma with metastasis to liver/intrapelvic lymph node/intra- abdominal lymph node. 2. Suspect UTI. 3. Iron deficiency anemia. 4. Abdominal pain secondary to #1. 5. Bilateral hydronephrosis. 6. Liver mass. Continuing Patient Condition: Stable Consults 1. Dr. Nay Marshall 2. Dr. Sj George 3. Dr. Marcus [facility] Course This is a 42-year-old female with recent history of metastatic rectal cancer who came to [facility] due to reports of rectal pain. Patient was initially seen in the emergency room and sent home on pain medications but despite use of analgesics she persisted with pain. She was admitted to [facility] for further evaluation. Patient was again seen by oncologist for further management of this issue. She was noted with adenocarcinoma from the rectum with metastasis to the liver/intrapelvic lymph node/intra-abdominal lymph node. She was started on Xeloda medication and provided with appropriate analgesics per painter and grader cork. She was also seen by radiation oncologist and did have radiation therapy as well. During the course of stay she did improve. We did get better pain management as well with the help of pain industrial management teacher. She was otherwise optimized medically with antibiotics for her UTI and iron supplement for iron deficiency. She was noted with bilateral hydronephrosis from CT imaging but her renal function did appear normalized and she was able to void. There was plan for a urologist consultation should patient have issue with this. She did also have noted liver mass and for this she was provided with chemotherapy. During the course of stay she did improve. The plan of care was discussed with the patient and patient did verbalize her understanding. On the day of discharge patient was in stable condition Discussed plan of care with Dr. Martinez [facility] Active Scripts Ferrous Sulfate* (Ferrous Sulfate*) 325 Mg Tabec, 325 MG PO BID for 30 Days, TAB Prov:MASTER CARY 03/30/17 Methadone Hcl* (Methadone*) 5 Mg/5 Ml Solution, 5 MG PO Q8, #50 Prov:MASTER CARY 03/30/17 Capecitabine (Capecitabine) 500 Mg Tablet, 1500 MG PO BID for 30 Days, TAB Prov:MASTER CARY 03/30/17 Hydrocortisone Acetate (Anusol-Hc) 25 Mg Supp.rect, 1 SUPP IN BID Y for HEMORROID PAIN/ITCHING, #12 SUPP.RECT Prov:KEMAL DAWN PA-C 03/17/17 Docusate Sodium* (Colace*) 100 Mg Capsule, 100 MG PO BID, #60 CAP Prov:STEPHANI MARTINEZ 03/06/17 Discontinued Scripts Hydrocortisone* Rectal (Preparation H* Cream) 1% - 26 Gm Cream.gm., 1 APPLIC IN BID, #1 TUB Prov:KEMAL DAWN PA-C 03/17/17 Hydrocodone/Acetaminophen ([place] 10-325 Tablet) 1 Each Tablet, 1 TAB PO Q6H Y for PAIN, #20 TAB Prov:KEMAL DAWN PA-C 03/17/17 Nystatin* (Nystatin*) 15 Gm Cr, 1 APPLIC TOP BID, #1 TUB Prov:STEPHANI MARTINEZ 03/06/17 Follow-up Plan CONDITION Patient Condition: Stable FOLLOW UP/APPOINTMENTS Follow-up Plan 1. follow up with Dr. Nay Marshall in one week 2. Follow up with Sj George in one week Primary Care Provider Care Physician No Primary Time spent on discharge: > 30 minutes MASTER CARY Mar 31, 2017 16:47
--- NOTE | 2017-03-31 17:01 | CONS ---
Date/Time of Note Date/Time of Note DATE: 03/31/17 TIME: 17:00 Assessment/Plan Assessment/Plan Additional Assessment/Plan She is scheduled to go home today on methadone and Dilaudid. Follow-up with oncology. Consultation Date/Type/Reason Admit Date/Time Mar 24, 2017 at 04:09 Initial Consult Date 03/24/17 Type of Consultation: Pain management Referring Provider: PAULINE VAUGHN 24 HR Interval Summary Free Text/Dictation Assessment/Plan Patient has severe lower pelvic pain bilaterally. She is extremely uncomfortable at this time writhing in bed. I reassured her that we will control her pain I will start her off the RACING BOARD MARKER which was begun on March 24 after my initial evaluation of her. As an outpatient she was only taking Vicodin and was admitted with pain [id number]. RACING BOARD MARKER will be begun tonight I will withhold the use of methadone although patient may require that prior to discharge secondary to severity of her pain. Exam/Review of Systems Vital Signs Vitals Vital Signs Date Time Temp Pulse Resp B/P Pulse Ox O2 Delivery O2 Flow Rate FiO2 03/31/17 08:19 97.8 72 18 99/57 98 03/30/17 08:23 Room Air Intake and Output 03/30/17 03/30/17 03/31/17 15:00 23:00 07:00 Intake Total 2450 ml 480 ml Balance 2450 ml 480 ml Results Result Diagram: 03/27/17 1015 03/27/17 1015 Medications Medications Current Medications Docusate Sodium (Colace) 100 mg BID PO Last administered on 03/30/17 08:08; Admin Dose 100 MG; Start 03/24/17 at 09:00 Pantoprazole (Protonix Tab) 40 mg DAILY@06 PO Last administered on 03/31/17 05 :41; Admin Dose 40 MG; Start 03/24/17 at 06:45 Capecitabine (Xeloda) 1,500 mg BID PO Last administered on 03/31/17 08:12; Admin Dose 1,500 MG; Start 03/24/17 at 11:00 Hydromorphone HCl 0.2 MG/HR CONTINUOUS RATE ... Q4PCA IV Last administered on 17:50; Admin Dose 6 MG; Start 03/24/17 at 11:00; Status Future Hold Ceftriaxone Sodium (Rocephin) 50 ml @ 100 mls/hr Q24H IVPB Last administered on 03/30/17 15:46; Admin Dose 100 MLS/HR; Start 03/25/17 at 14:00 Simethicone (Mylicon) 80 mg Q6H PRN PO DISTENSION/GAS/BLOATING Last administered on 03/31/17 14:24; Admin Dose 80 MG; Start 03/27/17 at 06:00 Polyethylene Glycol (Miralax) 17 gm DAILY PRN PO CONSTIPATION; Start 03/27/17 at 10:00 Methadone HCl (Methadone Liq) 5 mg Q8 PO Last administered on 03/31/17 14:20; Admin Dose 5 MG; Start 03/28/17 at 14:00 Hydrocortisone (Proctozone-Hc) 1 applic BID MI Last administered on 03/31/17 09:51; Admin Dose 1 APPLIC; Start 03/30/17 at 21:00 Hydromorphone HCl (Dilaudid) 2 mg Q4H PRN PO PAIN Last administered on 09:18; Admin Dose 2 MG; Start 03/31/17 at 09:00 TREVOR CHIRINOS Mar 31, 2017 17:01
[2017-03-31 20:25] VITALS: BP 136/61; RESP 18
== END 2017-03-31 21:45 | disposition home or self-care (01) | DRG 375 ==
LOC: E/R 22:56 → MS1 03-24 04:09
PROVIDERS: ADMIT Family Medicine; ATTEND Family Medicine
DX: C19 Malignant neoplasm of rectosigmoid junction (principal); C78.7 Secondary malignant neoplasm of liver and intrahepatic bile duct; C77.2 Secondary and unspecified malignant neoplasm of intra-abdominal lymph nodes; C79.89 Secondary malignant neoplasm of other specified sites; N13.0 Hydronephrosis with ureteropelvic junction obstruction; R13.10 Dysphagia, unspecified; K62.5 Hemorrhage of anus and rectum; N39.0 Urinary tract infection, site not specified; G89.3 Neoplasm related pain (acute) (chronic); D50.0 Iron deficiency anemia secondary to blood loss (chronic); K59.00 Constipation, unspecified; N83.209 Unspecified ovarian cyst, unspecified side; Z51.5 Encounter for palliative care
CPT/HCPCS: 36415; 71010; 74176; 74182; 77014; 77334; 77412; 80048; 80053; 81001; 81003; 83690; 83735; 85025; 85610; 85730; 87081; 87086; 96374; 96375; J0696; J1170; J2916; J7030; J7040

== ENCOUNTER 2017-04-25 22:42 | Emergency (ER) | payer MEDICAID ==
[~2017-04-25] VITALS: Ht 157.5 cm; Wt 91.5 kg
[~2017-04-25 22:42] MED LIST changes: +CAPE500T13 PO; +FER325 PO; -HYDR-902 PO; -HYDR26CR PR; +METH5SOL3 PO; -NYST15CR28 TOP
[2017-04-25 22:52] VITALS: Ht 157.5 cm; Wt 91.5 kg
[2017-04-26] MEDS ORDERED: FLUC150T17 PO (01:55)
[2017-04-26] MEDS ORDERED: CLOT30CR24 TOP (01:55)
--- NOTE | 2017-04-26 02:33 | ERD ---
ER Documentation Chief Complaint Date/Time DATE: 04/26/17 TIME: 02:30 Chief Complaint irritation/swelling rectal area x 2 days HPI 42-year-old female presents here in emergency department for skin irritation redness and some swelling noted in the rectal area and the lower abdominal folds. Patient has been complaining of itching. Patient noticed some serous fluid coming out from it. Patient denies any fever or chills. Patient denies any open wounds. ROS All systems reviewed and are negative except as per history of present illness. Medications Home Meds Active Scripts Fluconazole* (Diflucan*) 150 Mg Tablet, 150 MG PO ONCE, #1 TAB Prov:PARESH HERNANDEZ OFFSET PRESS OPERATOR 04/26/17 Clotrimazole* (Clotrimazole* AF) 1% - 30 Gm Cream.gm., 1 APPLIC TOP BID for 7 Days, TUB Prov:PARESH HERNANDEZ OFFSET PRESS OPERATOR 04/26/17 Ferrous Sulfate* (Ferrous Sulfate*) 325 Mg Tabec, 325 MG PO BID for 30 Days, TAB Prov:MASTER CARY 03/30/17 Methadone Hcl* (Methadone*) 5 Mg/5 Ml Solution, 5 MG PO Q8, #50 Prov:MASTER CARY 03/30/17 Capecitabine (Capecitabine) 500 Mg Tablet, 1500 MG PO BID for 30 Days, TAB Prov:MASTER CARY 03/30/17 Hydrocortisone Acetate (Anusol-Hc) 25 Mg Supp.rect, 1 SUPP SD BID Y for HEMORROID PAIN/ITCHING, #12 SUPP.RECT Prov:KEMAL DAWN PA-C 03/17/17 Docusate Sodium* (Colace*) 100 Mg Capsule, 100 MG PO BID, #60 CAP Prov:STEPHANI LOPES 03/06/17 Allergies Allergies: Coded Allergies: No Known Allergy (Unverified , 04/25/17) PMhx/Soc History of Surgery: Yes ( (24 years ago)) Anesthesia Reaction: No Hx Neurological Disorder: No Hx Respiratory Disorders: No Hx Cardiac Disorders: No Hx Psychiatric Problems: No Hx Miscellaneous Medical Probl: Yes (Rectal cancer) Hx Alcohol Use: No Hx Substance Use: Yes Hx Tobacco Use: No Smoking Status: Never smoker FmHx Family History: No coronary disease, No diabetes, No other Physical Exam Vitals Vital Signs Date Time Temp Pulse Resp B/P Pulse Ox O2 Delivery O2 Flow Rate FiO2 04/25/17 22:52 99.1 95 20 113/65 100 Physical Exam GENERAL: The patient is well developed and appropriate for usual state of health, in no apparent distress. CHEST: Clear to auscultation bilaterally. There are no rales, wheezes or rhonchi. HEART: Regular rate and rhythm. No murmurs, clicks, rubs or gallops. No S3 or S4. ABDOMEN: Soft, nontender and nondistended. Good bowel sounds. No rebound or guarding. No gross peritonitis. No gross organomegaly or masses. No Ng sign or McBurney point tenderness. BACK: No midline or flank tenderness. EXTREMITIES: Equal pulses bilaterally. There is no peripheral clubbing, cyanosis or edema. No focal swelling or erythema. Full range of motion. Grossly neurovascularly intact. NEURO: Alert and oriented. Cranial nerves 2-12 intact. Motor strength in all 4 extremities with 5/5 strength. Sensation grossly intact. Normal speech and gait. SKIN: Noted erythema with macerated skin noted in the skin folds of the lower abdominal area and the bev-anal area, fluctuance noted, no induration noted, no discharge noted. There is no apparent petechia. The skin is warm and dry. HEMATOLOGIC AND LYMPHATIC: There is no evidence of excessive bruising or lymphedema. No gross cervical, axillary, or inguinal lymphadenopathy. Procedures/MDM Medical decision making: Patient symptoms most likely with Tessa intertrigo. No symptoms of any cellulitis, abscess. No purulent discharge noted. No rectal abscesses noted. No pilonidal cyst abscess noted. No symptoms of any sepsis at this time. Patient appears once hemodynamically stable. Prescription was given for Diflucan, clotrimazole 1% cream, is advised to follow -up with primary care doctor in 2 days for recheck, patient was advised to return to emergency department for any worsening symptoms. Disposition: Home. Stable Departure Diagnosis: Primary Impression: Candidal intertrigo Condition: Stable Patient Instructions: Tessa Skin Infection (Adult) PARESH HERNANDEZ NP Apr 26, 2017 02:33
== END 2017-04-26 02:28 | disposition home or self-care (01) ==
LOC: FTE 22:42
DX: B37.2 Candidiasis of skin and nail (principal); Z85.048 Personal history of other malignant neoplasm of rectum, rectosigmoid junction, and anus
CPT/HCPCS: 99283

== ENCOUNTER 2017-05-05 15:35 | Emergency (ER) | END 2017-05-05 20:01 | disposition home or self-care (01) | DX: L03.317 Cellulitis of buttock (principal); T21.05XA Burn of unspecified degree of buttock, initial encounter; X19.XXXA Contact with other heat and hot substances, initial encounter; Y92.9 Unspecified place or not applicable; Z85.048 Personal history of other malignant neoplasm of rectum, rectosigmoid junction, and anus | CPT/HCPCS: 81003; 87086; Z7502; Z7610 ==

== ENCOUNTER 2017-05-13 15:16 | Emergency (ER) | payer MEDICAID ==
[~2017-05-13] VITALS: Ht 157.5 cm; Wt 92.0 kg
[~2017-05-13 15:16] MED LIST changes: +CEPH-443 PO; +CLOT30CR24 TOP; +FLUC150T17 PO; +LIDO40SO8 MM; +TRAM50TA2 PO
[2017-05-13 15:19] VITALS: Ht 157.5 cm; Wt 92.0 kg
[2017-05-13 16:18] LABS: URINE BLOOD (Dip) POC 2+ (NEGATIVE)
[2017-05-13] MEDS ORDERED: KETOROLAC 30 MG INJ IV STA (16:31)
[2017-05-13] MEDS ORDERED: SOD CHLORIDE 0.9% 1,000 ML IV ONE (16:34)
[2017-05-13 16:58] LABS: ADD UMIC YES; UR ASCORBIC ACID NEGATIVE (NEGATIVE); UR BACTERIA FEW /HPF (NONE SEEN); UR BILIRUBIN (Dip) NEGATIVE (NEGATIVE); UR BLOOD (Dip) 3+ mg/dL (NEGATIVE); UR CLARITY SLIGHTLY CLOUDY (CLEAR); UR COLOR YELLOW (YELLOW); UR GLUCOSE (Dip) NEGATIVE (NEGATIVE); UR KETONES (Dip) NEGATIVE (NEGATIVE); UR LEUKOCYTE ESTERASE (Dip) 2+ Leu/ul (NEGATIVE); UR NITRITE (Dip) NEGATIVE (NEGATIVE); UR RBC > 182 /HPF (0-5); UR SQUAMOUS EPITHELIAL CELL FEW /HPF (FEW); UR TOTAL PROTEIN (Dip) 1+ mg/dl (NEGATIVE); UR UROBILINOGEN (Dip) NEGATIVE (NEGATIVE)
[2017-05-13] MEDS ORDERED: VANCOMYCIN 1 GM (PMX) 250 ML IVPB SCH (17:00)
[2017-05-13 17:16] LABS: ABNORMAL IP MESSAGE 1; BASOPHILS % 0.5 % (0.0-2.0); EOSINOPHILS # 0.2 10^3/ul (0.0-0.5); EOSINOPHILS % 2.6 % (0.0-7.0); HEMATOCRIT 31.1 % (37.0-47.0); HEMOGLOBIN 10.2 g/dl (12.0-16.0); LYMPHOCYTES # 0.4 10^3/ul (0.8-2.9); LYMPHOCYTES % 6.6 % (15.0-51.0); MEAN CORPUSCULAR HEMOGLOBIN 29.9 pg (29.0-33.0); MEAN CORPUSCULAR HGB CONC 32.8 g/dl (32.0-37.0); MEAN CORPUSCULAR VOLUME 91.2 fl (82.0-101.0); MEAN PLATELET VOLUME 8.9 fl (7.4-10.4); MONOCYTE # 0.7 10^3/ul (0.3-0.9); MONOCYTES % 11.7 % (0.0-11.0); NEUTROPHIL # 4.5 10^3/ul (1.6-7.5); NEUTROPHILS % 78.3 % (39.0-77.0); PLATELET COUNT 258 10^3/UL (140-415); RED BLOOD COUNT 3.41 10^6/ul (4.20-5.40); RED CELL DISTRIBUTION WIDTH 25.5 % (11.5-14.5); WHITE BLOOD COUNT 5.8 10^3/ul (4.8-10.8)
[2017-05-13 17:25] LABS: POSITIVE DIFF @See below
[2017-05-13 17:45] LABS: ALBUMIN 3.7 g/dl (3.3-4.9); ALBUMIN/GLOBULIN RATIO 0.86; CALCIUM 9.7 mg/dl (8.4-10.2); CREATININE 0.61 mg/dl (0.44-1.00); POTASSIUM 4.1 mmol/L (3.5-5.1)
[2017-05-13] MEDS ORDERED: PHEN-538 PO (18:35)
[2017-05-13] MEDS ORDERED: LEVO500T72 PO (18:35)
--- NOTE | 2017-05-13 18:40 | ERD ---
ER Documentation Chief Complaint Date/Time DATE: 05/13/17 TIME: 18:36 Chief Complaint painful urination, rectal pain HPI This 42-year-old female presents with dysuria intermittently for the last 2 weeks. She was seen by me approximately 1 week ago and diagnosed with UTI. Urine cultures grew out corynebacterium species colony count 50-60,000. With multidrug resistance. Patient complains of persistent dysuria. Patient also has rectal burning. History is significant for radiation treatment for rectal cancer approximately 2 weeks ago. She denies fevers, vomiting or abdominal pain , patient recently saw her oncologist who confirms many of her symptoms likely due to radiation burn. Patient remains with dysuria despite antibiotics primary reason for her visit. ROS All systems reviewed and are negative except as per history of present illness. Medications Home Meds Active Scripts Phenazopyridine Hcl* (Pyridium*) 200 Mg Tab, 200 MG PO TID Y for URINARY PAIN, # 15 TAB Prov:DIANA ARZATE MD 05/13/17 Levofloxacin* (Levaquin*) 500 Mg Tablet, 500 MG PO DAILY for 7 Days, TAB Prov:DIANA ARZATE MD 05/13/17 Lidocaine 4% Topical (Lidocaine HCl) 4%-50 Ml Soln, 1 APPLIC MM QID for PAIN for 7 Days, BOT Prov:DIANA ARZATE MD 05/05/17 Tramadol HCl (Tramadol HCl) 50 Mg Tablet, 50 MG PO Q4 Y for PAIN, #18 TAB Prov:DIANA ARZATE MD 05/05/17 Cephalexin* (Keflex*) 500 Mg Capsule, 500 MG PO QID for 7 Days, CAP Prov:DIANA ARZATE MD 05/05/17 Fluconazole* (Diflucan*) 150 Mg Tablet, 150 MG PO ONCE, #1 TAB Prov:PARESH HERNANDEZ NP 04/26/17 Clotrimazole* (Clotrimazole* AF) 1% - 30 Gm Cream.gm., 1 APPLIC TOP BID for 7 Days, TUB Prov:PARESH HERNANDEZ NP 04/26/17 Ferrous Sulfate* (Ferrous Sulfate*) 325 Mg Tabec, 325 MG PO BID for 30 Days, TAB Prov:MASTER CARY 03/30/17 Methadone Hcl* (Methadone*) 5 Mg/5 Ml Solution, 5 MG PO Q8, #50 Prov:MASTER CARY 03/30/17 Capecitabine (Capecitabine) 500 Mg Tablet, 1500 MG PO BID for 30 Days, TAB Prov:MASTER CARY 03/30/17 Hydrocortisone Acetate (Anusol-Hc) 25 Mg Supp.rect, 1 SUPP OR BID Y for HEMORROID PAIN/ITCHING, #12 SUPP.RECT Prov:KEMAL DAWN PA-C 03/17/17 Docusate Sodium* (Colace*) 100 Mg Capsule, 100 MG PO BID, #60 CAP Prov:STEPHANI LOPES 03/06/17 Allergies Allergies: Coded Allergies: No Known Allergy (Unverified , 04/25/17) PMhx/Soc History of Surgery: Yes ( (24 years ago)) Anesthesia Reaction: No Hx Neurological Disorder: No Hx Respiratory Disorders: No Hx Cardiac Disorders: No Hx Psychiatric Problems: No Hx Miscellaneous Medical Probl: Yes (Rectal cancer) Hx Alcohol Use: No Hx Substance Use: No Hx Tobacco Use: No Smoking Status: Never smoker Physical Exam Vitals Vital Signs Date Time Temp Pulse Resp B/P Pulse Ox O2 Delivery O2 Flow Rate FiO2 05/13/17 15:19 98.6 80 19 118/69 100 Physical Exam Const: [], [id number]. Head: Atraumatic Eyes: Normal Conjunctiva ENT: Normal External Ears, Nose and Mouth. Neck: Full range of motion..~ No meningismus. Resp: Clear to auscultation bilaterally Cardio: Regular rate and rhythm, no murmurs Abd: Soft, non tender, non distended. Normal bowel sounds Skin: No petechiae or rashes. Radiation marie in the pelvic area improved from previous visit without Back: No midline or flank tenderness Ext: No cyanosis, or edema Neur: Awake and alert Psych: Normal Mood and Affect Result Diagram: 05/13/17 1655 05/13/17 1655 Results 24 hrs Laboratory Tests Test 05/13/17 16:18 05/13/17 16:26 05/13/17 16:55 Urine Color YELLOW Urine Clarity SLIGHTLY CLOUDY Urine pH 7.0 Urine Specific Bertrand 1.020 Urine Ketones NEGATIVEmg/dL Urine Nitrite NEGATIVEmg/dL Urine Bilirubin NEGATIVEmg/dL Urine Urobilinogen NEGATIVEmg/dL Urine Leukocyte Esterase 2+Yuniel/ul Urine Microscopic RBC > 182/HPF Urine Microscopic WBC 56/HPF Urine Squamous Epithelial Cells FEW/HPF Urine Bacteria FEW/HPF Urine Hemoglobin 3+mg/dL Urine Glucose NEGATIVEmg/dL Urine Total Protein 1+mg/dl Bedside Urine pH (LAB) 7.0 Bedside Urine Protein (LAB) 1+ Bedside Urine Glucose (UA) Negative Bedside Urine Ketones (LAB) Negative Bedside Urine Blood 2+ Bedside Urine Nitrite (LAB) Negative Bedside Urine Leukocyte Esterase (L 2+ White Blood Count 5.810^3/ul Red Blood Count 3.4110^6/ul Hemoglobin 10.2g/dl Hematocrit 31.1% Mean Corpuscular Volume 91.2fl Mean Corpuscular Hemoglobin 29.9pg Mean Corpuscular Hemoglobin Concent 32.8g/dl Red Cell Distribution Width 25.5% Platelet Count 57099^3/UL Mean Platelet Volume 8.9fl Neutrophils % 78.3% Lymphocytes % 6.6% Monocytes % 11.7% Eosinophils % 2.6% Basophils % 0.5% Nucleated Red Blood Cells % 0.0/100WBC Neutrophils # 4.510^3/ul Lymphocytes # 0.410^3/ul Monocytes # 0.710^3/ul Eosinophils # 0.210^3/ul Basophils # 0.010^3/ul Nucleated Red Blood Cells # 0.010^3/ul Sodium Level 138mmol/L Potassium Level 4.1mmol/L Chloride Level 105mmol/L Carbon Dioxide Level 27mmol/L Anion Gap 10 Blood Urea Nitrogen 18mg/dl Creatinine 0.61mg/dl Glucose Level 85mg/dl Calcium Level 9.7mg/dl Total Bilirubin 0.0mg/dl Direct Bilirubin 0.00mg/dl Indirect Bilirubin 0.0mg/dl Aspartate Amino Transf (AST/SGOT) 23IU/L Alanine Aminotransferase (ALT/SGPT) 22IU/L Alkaline Phosphatase 86IU/L Total Protein 8.0g/dl Albumin 3.7g/dl Globulin 4.30g/dl Albumin/Globulin Ratio 0.86 Lipase 62U/L Current Medications Medications (Trade) Dose Ordered Sig/Reba Route PRN Reason Start Time Stop Time Status Last Admin Dose Admin Ketorolac Tromethamine 30 mg 30 mg ONCE STAT IV 05/13/17 16:31 05/13/17 16:34 DC 10/12/17 17:11 Sodium Chloride 1,000 ml @ 0 mls/hr Q0M ONCE IV 05/13/17 16:34 05/13/17 16:36 DC 05/13/17 17:11 Vancomycin HCl (Vancocin) 250 ml @ 125 mls/hr ONCE IVPB 05/13/17 17:00 05/13/17 18:59 05/13/17 17:11 Procedures/MDM CBC shows normal white blood count. Hemoglobin is 10. CMP showed no acute abnormalities. Urine shows mostly red blood cells with less white blood cells. She was given vancomycin 1 g IV as the only medication to which the most recent culture is sensitive. Patient presents with dysuria of uncertain etiology. Patient presents with radiation marie to her genital rectal area. The marie are improving. She may have contamination of her recent culture as corynebacterium is an unusual bacteria FOR urinary tract infection.. Patient will be treated with Levaquin, urology follow-up for persistent symptoms. She was given Pyridium as well. There is no signs or symptoms of sepsis, pyelonephritis, abdominal pain. The patient was stable with no new complaints during the ER course. Clinically, there is no current evidence to suggest meningitis, sepsis, acute abdomen, pneumonia, acute coronary syndrome, pulmonary embolism, or any other emergent condition appearing to require further evaluation or hospitalization. The patient should certainly return for any new or worsening symptoms per the aftercare instructions. They should otherwise follow-up with her primary care doctor for reevaluation this week. Departure Diagnosis: Primary Impression: Genitourinary symptoms Condition: Stable Patient Instructions: Dysuria, Uncertain Cause (Adult), Urinary Retention, Female Referrals: JONATHAN MACHADO MDF,PREMA Headley MD Additional Instructions: We will retreat for urine infection. Pain may be from radiation of vaginal area. Additional urine culture pending. Recommend follow-up with urologist for persistent recurrent symptoms. Fevers, vomiting, new or worsening symptoms. Laboratory work blood work normal today. No significant findings of infection on urine but urine for sent for culture. DIANA ARZATE MD May 13, 2017 18:40
[2017-05-13] MEDS ORDERED: HYDR-906 PO (18:57)
[2017-05-13] MEDS ORDERED: LIDO40SO8 MM (18:57)
[2017-05-13 19:30] VITALS: BP 101/57; PULSE 97; RESP 20
== END 2017-05-13 19:32 | disposition home or self-care (01) ==
LOC: FTE 15:16
DX: R30.0 Dysuria (principal); K62.89 Other specified diseases of anus and rectum; C20 Malignant neoplasm of rectum
CPT/HCPCS: 36415; 80053; 81001; 83690; 85025; 87086; 96374; 96375; J1885; J3370; J7030; Z7502; 81003

== ENCOUNTER 2017-05-28 13:23 | Emergency (ER) | payer MEDICAID ==
[~2017-05-28] VITALS: Wt 91.5 kg
[~2017-05-28 13:23] MED LIST changes: +HYDR-906 PO; +LEVO500T72 PO; +PHEN-538 PO
[2017-05-28] MEDS ORDERED: CAPE500T11 PO (19:15)
[2017-05-28] MEDS ORDERED: HYDR-906 PO (19:15)
[2017-05-28] MEDS ORDERED: IBUP200C11 PO (19:18)
[2017-05-28] MEDS ORDERED: morphine 10 MG INJ IV ONE (19:30)
--- NOTE | 2017-05-28 20:56 | RADRPT ---
PROCEDURE: XR Ankle. CLINICAL INDICATION: Right ankle pain TECHNIQUE: 3 views of the right ankle were performed. COMPARISON: None. FINDINGS: There is an acute obliquely oriented moderately displaced distal fibular fracture at the level of th e mortise. There is a small fracture at the tip of the medial malleolus. There is also a small proba ble acute avulsion fracture at the posterior malleolus. There are large posterior plantar calcaneal enthesophyte. There is significant bimalleolar soft tissue swelling, greatest laterally. IMPRESSION: 1. Acute mild to moderately displaced obliquely oriented distal fibular fracture extending to the le demian of the mortise. 2. Small likely acute fracture fragments at the tip of the medial malleolus and posterior malleolus. 3. Extensive calcaneal enthesopathy. 4. Significant bimalleolar soft tissue swelling, greatest laterally. RPTAT: UU .Amrit Arreguin MD, MD Date Time Electronically viewed and signed by .Amrit Arreguin MD, on 05/28/2017 20:56 .K/
[2017-05-28] MEDS ORDERED: LIDOCAINE 2% JELLY 30 ML TOP SCH (21:00)
--- NOTE | 2017-05-28 21:41 | ERD ---
ER Documentation Chief Complaint Chief Complaint rectal pain x3 days, hx rectal ca HPI This 42-year-old female presents for rectal and lower posterior abdominal pain for the last 3 days. Has rectal bleeding which is described as moderate. She has a history of colorectal cancer. Occasional sharp chest pain in midsternum. Denies shortness of breath. Denies nausea ROS All systems reviewed and are negative except as per history of present illness. Medications Home Meds Active Scripts Levofloxacin* (Levaquin*) 750 Mg Tablet, 750 MG PO DAILY for 5 Days, TAB Prov:CLEMENTE DOMINGUEZ DO 05/29/17 Naproxen* (Naproxen*) 500 Mg Tablet, 500 MG PO BID Y for PAIN, #20 TAB Prov:CLEMENTE DOMINGUEZ DO 05/29/17 Hydrocodone/Acetaminophen ([place] 10-325 Tablet) 1 Each Tablet, 1 EACH PO Q6, # 35 TAB Prov:CLEMENTE DOMINGUEZ DO 05/29/17 Reported Medications Ibuprofen* (Advil*) 200 Mg Capsule, 600 MG PO Q6H Y for PAIN, CAP 05/28/17 Hydrocodone/Acetaminophen ([place] 5-325 Tablet) 1 Each Tablet, 1 EACH PO Q6H, TAB 05/28/17 Capecitabine* (Xeloda*) 500 Mg Tablet, 1500 MG PO BID, TAB 05/28/17 Discontinued Scripts Lidocaine 4% Topical (Lidocaine HCl) 4%-50 Ml Soln, 1 APPLIC MM QID for 7 Days, BOT Prov:DIANA ARZATE MD 05/13/17 Hydrocodone/Acetaminophen ([place] 5-325 Tablet) 1 Each Tablet, 1 TAB PO Q6H Y for PAIN, #15 TAB Prov:DIANA ARZATE MD 05/13/17 Phenazopyridine Hcl* (Pyridium*) 200 Mg Tab, 200 MG PO TID Y for URINARY PAIN, # 15 TAB Prov:DIANA ARZATE MD 05/13/17 Levofloxacin* (Levaquin*) 500 Mg Tablet, 500 MG PO DAILY for 7 Days, TAB Prov:DIANA ARZATE MD 05/13/17 Lidocaine 4% Topical (Lidocaine HCl) 4%-50 Ml Soln, 1 APPLIC MM QID for PAIN for 7 Days, BOT Prov:DIANA ARZATE MD 05/05/17 Tramadol HCl (Tramadol HCl) 50 Mg Tablet, 50 MG PO Q4 Y for PAIN, #18 TAB Prov:DIANA ARZATE MD 05/05/17 Cephalexin* (Keflex*) 500 Mg Capsule, 500 MG PO QID for 7 Days, CAP Prov:DIANA ARZATE MD 05/05/17 Fluconazole* (Diflucan*) 150 Mg Tablet, 150 MG PO ONCE, #1 TAB Prov:PARESH HERNANDEZ NP 04/26/17 Clotrimazole* (Clotrimazole* AF) 1% - 30 Gm Cream.gm., 1 APPLIC TOP BID for 7 Days, TUB Prov:PARESH HERNANDEZ NP 04/26/17 Ferrous Sulfate* (Ferrous Sulfate*) 325 Mg Tabec, 325 MG PO BID for 30 Days, TAB Prov:MASTER CARY 03/30/17 Methadone Hcl* (Methadone*) 5 Mg/5 Ml Solution, 5 MG PO Q8, #50 Prov:MASTER CARY 03/30/17 Capecitabine (Capecitabine) 500 Mg Tablet, 1500 MG PO BID for 30 Days, TAB Prov:MASTER CARY 03/30/17 Hydrocortisone Acetate (Anusol-Hc) 25 Mg Supp.rect, 1 SUPP AR BID Y for HEMORROID PAIN/ITCHING, #12 SUPP.RECT Prov:KEMAL DAWN PA-C 03/17/17 Docusate Sodium* (Colace*) 100 Mg Capsule, 100 MG PO BID, #60 CAP Prov:STEPHANI LOPES 03/06/17 Allergies Allergies: Coded Allergies: No Known Allergy (Unverified , 05/28/17) PMhx/Soc History of Surgery: Yes ( (24 years ago)) Anesthesia Reaction: No Hx Neurological Disorder: No Hx Respiratory Disorders: No Hx Cardiac Disorders: No Hx Psychiatric Problems: No Hx Miscellaneous Medical Probl: Yes (Rectal cancer) Hx Alcohol Use: No Hx Substance Use: No Hx Tobacco Use: No Smoking Status: Never smoker Physical Exam Vitals Vital Signs Date Time Temp Pulse Resp B/P Pulse Ox O2 Delivery O2 Flow Rate FiO2 05/28/17 23:59 71 18 103/71 100 Room Air 05/28/17 22:00 69 20 122/71 99 Room Air 05/28/17 20:00 59 20 124/59 99 Room Air 05/28/17 13:30 98.7 85 20 130/58 99 Physical Exam Const: [] Mild distress, appears uncomfortable Head: Atraumatic Eyes: Normal Conjunctiva ENT: Normal External Ears, Nose and Mouth. Neck: Full range of motion..~ No meningismus. Resp: Clear to auscultation bilaterally Cardio: Regular rate and rhythm, no murmurs Abd: Soft, very mild generalized lower abdominal tenderness, non distended. Normal bowel sounds external rectal exam with no obvious hemorrhoids. Skin: No petechiae or rashes Back: No midline or flank tenderness Ext: No cyanosis, or edema Neur: Awake and alert and oriented 3, no focal deficits Psych: Normal Mood and Affect Result Diagram: 05/28/17175405/28/171754 Results 24 hrs Laboratory Tests Test 05/28/17 17:37 05/28/17 17:55 Urine Color YELLOW Urine Clarity SLIGHTLY CLOUDY Urine pH 5.0 Urine Specific [place] 1.029 Urine Ketones NEGATIVEmg/dL Urine Nitrite NEGATIVEmg/dL Urine Bilirubin NEGATIVEmg/dL Urine Urobilinogen NEGATIVEmg/dL Urine Leukocyte Esterase 2+Yuniel/ul Urine Microscopic RBC 4/HPF Urine Microscopic WBC 26/HPF Urine Squamous Epithelial Cells FEW/HPF Urine Bacteria FEW/HPF Urine Mucus FEW/HPF Urine Hemoglobin NEGATIVEmg/dL Urine Glucose NEGATIVEmg/dL Urine Total Protein 1+mg/dl White Blood Count 5.110^3/ul Red Blood Count 3.4310^6/ul Hemoglobin 10.4g/dl Hematocrit 32.1% Mean Corpuscular Volume 93.6fl Mean Corpuscular Hemoglobin 30.3pg Mean Corpuscular Hemoglobin Concent 32.4g/dl Red Cell Distribution Width 21.5% Platelet Count 69522^3/UL Mean Platelet Volume 8.8fl Neutrophils % 79.5% Lymphocytes % 5.9% Monocytes % 11.0% Eosinophils % 2.6% Basophils % 0.4% Nucleated Red Blood Cells % 0.0/100WBC Neutrophils # 4.110^3/ul Lymphocytes # 0.310^3/ul Monocytes # 0.610^3/ul Eosinophils # 0.110^3/ul Basophils # 0.010^3/ul Nucleated Red Blood Cells # 0.010^3/ul Prothrombin Time 13.3Sec Prothrombin Time Ratio 1.0 INR International Normalized Ratio 1.01 Activated Partial Thromboplast Time 28.5Sec Sodium Level 145mmol/L Potassium Level 4.1mmol/L Chloride Level 106mmol/L Carbon Dioxide Level 27mmol/L Anion Gap 16 Blood Urea Nitrogen 17mg/dl Creatinine 0.63mg/dl Glucose Level 117mg/dl Calcium Level 9.6mg/dl Total Bilirubin 0.3mg/dl Direct Bilirubin 0.00mg/dl Indirect Bilirubin 0.3mg/dl Aspartate Amino Transf (AST/SGOT) 17IU/L Alanine Aminotransferase (ALT/SGPT) 26IU/L Alkaline Phosphatase 84IU/L Troponin I < 0.012ng/ml Total Protein 8.2g/dl Albumin 4.6g/dl Globulin 3.60g/dl Albumin/Globulin Ratio 1.27 Current Medications Medications (Trade) Dose Ordered Sig/Reba Route PRN Reason Start Time Stop Time Status Last Admin Dose Admin Lidocaine (Xylocaine) 1 applic TID TOP 05/28/17 21:00 05/29/17 00:29 DC 05/28/17 20:05 Morphine Sulfate (morphine) 6 mg ONCE ONCE IV 05/28/17 19:30 05/28/17 19:31 DC 05/28/17 19:24 Morphine Sulfate (morphine) 4 mg ONCE ONCE IV 05/29/17 00:06 05/29/17 00:07 DC 05/29/17 00:22 Lidocaine (Xylocaine 2% Jelly) 1 applic TID TOP 05/29/17 09:00 Procedures/MDM Mild rectal bleeding that is stable to colorectal cancer.. Also ankle fracture with fibular fracture as well as avulsion fractures of the malleoli. Also has a probable UTI. I looked up the previous culture the patient had and she had a pansensitive Pseudomonas UTI on 1011. Further discussion with the patient she stated the bleeding was only when she wipes and has on the tissue. She does not have any spontaneous rectal bleeding. Also says that she was told this would be normal symptom of her colorectal cancer by her physicians. She mostly wanted pain control but she does not have. She was given 4 mg of morphine which helped with the pain greatly. Going to discharge her with additional narcotic pain medication as well as tube of lidocaine jelly that she was given in the ER. States she was trying to get lidocaine jelly of her prescription for a long time but pharmacies are always out of it. Discharging her with Levaquin for her UTI as well as [place] and naproxen EKG interpretation: Normal sinus rhythm rate of 76, normal axis, normal intervals, no ST or T-wave changes concerning for acute ischemia. Left ankle x-ray interpretation: Distal fibular fracture as well as medial malleolus and posterior malleolus avulsion fractures. Departure Diagnosis: Primary Impression: Normocytic anemia Additional Impressions: UTI (urinary tract infection) Rectal pain Ankle fracture, left Condition: CLEMENTE Blake DO May 28, 2017 21:41
--- NOTE | 2017-05-28 21:48 | RADRPT ---
PROCEDURE: CT Abdomen and Pelvis without contrast CLINICAL INDICATION: Rectal bleeding and low abdominal pain, history of rectal carcinoma TECHNIQUE: Transaxial images were obtained through the abdomen and pelvis on a multi-slice scanner without the intravenous contrast administration. A minimal amount of oral contrast had previously b een given. Sagittal and coronal re-formations were subsequently reconstructed. One or more of the following dose reduction techniques were used: - Automated exposure control. - Adjustment of the mA and/or kV according to patient size. - Use of iterative reconstruction technique. Radiation dose: CTDIvol = 21.94 mGy; DLP = 1180.79 mGy-cm. COMPARISON: 03/24/2017 FINDINGS: Lung bases: The visualized lung bases appear unremarkable. Liver: The liver remains normal in size. A 0.5 cm hypodensity is seen within the superior central ri ght lobe of the liver with the several hypodensities seen on the previous study no longer evident. Gallbladder: The wall is not thickened. No radiopaque stones are identified. Bile ducts: The intra and extrahepatic bile ducts are normal in caliber. Pancreas: Appears normal with no mass or inflammation evident. Spleen: Normal in size with no focal lesion. Adrenals: Normal with no mass identified. Kidneys, ureters and bladder: The kidneys are normal in size and there is no mass, pathological calc ification, or hydronephrosis evident. There is no perinephric stranding. The ureters are normal in c aliber and no ureteroliths are identified. The bladder appears unremarkable. Reproductive organs: The uterus is retroverted and lobulated anteriorly suspicious for a small fibro id. There is stranding seen in the fat about the left ovary. No adnexal mass is otherwise evident. Stomach and bowel: The stomach is now quite distended with food debris mixed with contrast. The smal l bowel pattern is unremarkable. There are a few colonic diverticuli. There is decreased concentric thickening of the rectum and decreased perirectal stranding over the previous. The perirectal nodes have decreased in size and L on the order of 6-7 mm. There is no evidence of bowel obstruction. Appendix: A normal vermiform appendix is evident. Peritoneum: No free intraperitoneal fluid or air is identified. Aorta: Normal in caliber with no aneurysmal dilatation. IVC: Unremarkable. Lymph nodes: There has been a considerable decrease in size to the retroperitoneal nodes when compar ed to the previous study with a nodes now measuring approximately 1.2 cm in maximal diameter at the level of the mid poles of the kidneys. The large internal and external iliac nodes seen previously h ave greatly decreased in size. The inguinal nodes have considerably decreased in size with a right i nguinal node now measuring a maximum of 1.1 cm in short diameter and a left inguinal node now measur ing 10 mm in maximal diameter. Osseous structures: The osseous elements appear intact with moderate degenerative changes. IMPRESSION: 1. When compared to the previous CT of 03/24/2017, there is been significant improvement with regar ds to the concentric thickening of the rectal wall which also appears to extend less proximally. The re is slightly decreased stranding within the perirectal fat and there is been considerable decrease in size to the perirectal lymph nodes, the internal and external iliac chain lymph nodes, the bilat eral inguinal, and the retroperitoneal lymph nodes. The stomach is now quite distended with food willow ris makes with contrast but there is no evidence of bowel obstruction. A normal vermiform appendix i s evident. 2. The multiple areas of decreased attenuation seen within the liver suspicious for hepatic metastas es have decreased except for a 1.5 cm hypodensity seen within the central superior right lobe. 3. There is no longer free intraperitoneal fluid and no free air is evident. 4. Retroverted uterus with an anterior fibroid again noted. 5. Degenerative spine changes are again noted. Physician Ayanna Date Time Electronically viewed and signed by Physician Ayanna on 05/28/2017 21:48 /
[2017-05-28 23:59] VITALS: BP 103/71; PULSE 71; RESP 18
[2017-05-29] MEDS ORDERED: morphine 4 MG/ML VIAL IV ONE (00:06)
[2017-05-29] MEDS ORDERED: HYDR-902 PO (00:39)
[2017-05-29] MEDS ORDERED: NAPR-688 PO (00:39)
[2017-05-29] MEDS ORDERED: LEVO750T25 PO (00:42)
[2017-05-29] MEDS ORDERED: LIDOCAINE 2% JELLY 5 ML TOP SCH (09:00)
== END 2017-05-29 00:50 | disposition home or self-care (01) ==
LOC: E/R 13:23
DX: D64.9 Anemia, unspecified (principal); S82.402A Unspecified fracture of shaft of left fibula, initial encounter for closed fracture; N39.0 Urinary tract infection, site not specified; S82.832A Other fracture of upper and lower end of left fibula, initial encounter for closed fracture; R07.9 Chest pain, unspecified; X58.XXXA Exposure to other specified factors, initial encounter; Y92.9 Unspecified place or not applicable; Z85.048 Personal history of other malignant neoplasm of rectum, rectosigmoid junction, and anus
CPT/HCPCS: 29515; 73610; 74176; 80053; 81001; 84484; 85025; 85610; 85730; 86850; 86900; 86901; 93005; J2270; Z7610; 96374; 96376

== ENCOUNTER 2017-06-18 09:53 | Emergency (ER) | payer MEDICAID ==
[~2017-06-18] VITALS: Ht 157.5 cm; Wt 93.4 kg
[~2017-06-18 09:53] MED LIST changes: +CAPE500T11 PO; -CAPE500T13 PO; -CEPH-443 PO; -CLOT30CR24 TOP; -DOCU-144 PO; -FER325 PO; -FLUC150T17 PO; +HYDR-902 PO; -HYDR25SU23 PR; +IBUP200C11 PO; -LEVO500T72 PO; +LEVO750T25 PO; -LIDO40SO8 MM; -METH5SOL3 PO; +NAPR-688 PO; -PHEN-538 PO; -TRAM50TA2 PO
[2017-06-18 09:59] VITALS: Ht 157.5 cm; Wt 93.4 kg
[2017-06-18] MEDS ORDERED: ONDANSETRON (ODT) 4 MG TAB ODT STA (10:15)
[2017-06-18] MEDS ORDERED: HYDR-902 PO (10:17)
[2017-06-18] MEDS ORDERED: LIDO40SO8 MM (10:17)
[2017-06-18] MEDS ORDERED: HYDROCODONE/APAP (10/325) TAB PO ONE (10:30)
[2017-06-18 10:53] VITALS: BP 120/68; PULSE 76; RESP 18; TEMP 98.2
--- NOTE | 2017-06-18 13:48 | ERD ---
ER Documentation Chief Complaint Chief Complaint Complains of abdominal and rectal pain Hx of Colorectal CA HPI Patient is a 42-year-old female with colorectal cancer presents with abdominal pain and rectal pain. The patient says that pain radiates down the right leg. The patient has nausea but no vomiting. She tried Excedrin for her pain. She ran out of her hydrocodone 4 days ago. The pain started 2 days ago. The pain was worse today. Upon review of old medical records this is the patient's ninth visit to the ER since March 2017. She does not have a primary doctor or a pain management doctor. ROS All systems reviewed and are negative except as per history of present illness. Medications Home Meds Active Scripts Lidocaine 4% Topical (Lidocaine HCl) 4%-50 Ml Soln, 1 APPLIC MM DAILY, #1 BOT Prov:CARMINE FLEMING MD 06/18/17 Hydrocodone/Acetaminophen ([place] 10-325 Tablet) 1 Each Tablet, 1 TAB PO Q6H Y for PAIN, #12 TAB Prov:CARMINE FLEMING MD 06/18/17 Levofloxacin* (Levaquin*) 750 Mg Tablet, 750 MG PO DAILY for 5 Days, TAB Prov:CLEMENTE DOMINGUEZ DO 05/29/17 Naproxen* (Naproxen*) 500 Mg Tablet, 500 MG PO BID Y for PAIN, #20 TAB Prov:CLEMENTE DOMINGUEZ DO 05/29/17 Hydrocodone/Acetaminophen ([place] 10-325 Tablet) 1 Each Tablet, 1 EACH PO Q6, # 35 TAB Prov:CLEMENTE DOMINGUEZ DO 05/29/17 Reported Medications Ibuprofen* (Advil*) 200 Mg Capsule, 600 MG PO Q6H Y for PAIN, CAP 05/28/17 Hydrocodone/Acetaminophen ([place] 5-325 Tablet) 1 Each Tablet, 1 EACH PO Q6H, TAB 05/28/17 Capecitabine* (Xeloda*) 500 Mg Tablet, 1500 MG PO BID, TAB 05/28/17 Allergies Allergies: Coded Allergies: No Known Allergy (Unverified , 05/28/17) PMhx/Soc History of Surgery: Yes ( (24 years ago)) Anesthesia Reaction: No Hx Neurological Disorder: No Hx Respiratory Disorders: No Hx Cardiac Disorders: No Hx Psychiatric Problems: No Hx Miscellaneous Medical Probl: Yes (Rectal cancer s/p chemo and radiation.) Hx Alcohol Use: No Hx Substance Use: No Hx Tobacco Use: No Smoking Status: Never smoker FmHx Family History: diabetes Physical Exam Vitals Vital Signs Date Time Temp Pulse Resp B/P Pulse Ox O2 Delivery O2 Flow Rate FiO2 06/18/17 10:53 98.2 76 18 120/68 99 Room Air 06/18/17 09:59 98.6 79 20 115/61 99 Physical Exam Const: Mild distress secondary to pain Head: Atraumatic Eyes: Normal Conjunctiva ENT: Normal External Ears, Nose and Mouth. Neck: Full range of motion..~ No meningismus. Resp: Clear to auscultation bilaterally Cardio: Regular rate and rhythm, no murmurs Abd: Soft, non tender, non distended. Normal bowel sounds Skin: No petechiae or rashes Back: No midline or flank tenderness Ext: No cyanosis, or edema Neur: Awake and alert Psych: Normal Mood and Affect Results 24 hrs Current Medications Medications (Trade) Dose Ordered Sig/Reba Route PRN Reason Start Time Stop Time Status Last Admin Dose Admin Acetaminophen/ Hydrocodone Bitart ([place] (10/325)) 1 tab ONCE ONCE PO 06/18/17 10:30 06/18/17 10:31 DC 06/18/17 10:23 Ondansetron HCl (Zofran Odt) 4 mg ONCE STAT ODT 06/18/17 10:15 06/18/17 10:16 DC 06/18/17 10:23 Procedures/MDM Patient is a 42-year-old female presents with acute on chronic abdominal pain. The patient will be given a dose of [place] here in the emergency department and a short course of [place] to go home with. I told her that I would give her 12 tablets and she said "last time he gave me 35 tablets". I believe there may be an element of drug-seeking behavior here however she does have a history of cancer and therefore I will treat her pain. She will need close follow-up with the primary doctor as well as a pain management doctor and I provided her with information for the local clinics and Dr. Neal from pain management. She can return for any worsening symptoms. I do not believe she requires further workup or admission the hospital at this time. Departure Diagnosis: Primary Impression: Abdominal pain Abdominal location: generalized Qualified Code: R10.84 - Generalized abdominal pain Additional Impression: Rectal pain Condition: Fair Patient Instructions: Abdominal Pain Referrals: [facility] () Usted se yanes hecho un examen mdico de control que le indica que no est en allen condicin que requiera tratamiento urgente en el Departamento de Emergencia. Un estudio ms profundo y el tratamiento de sinclair condicin pueden esperar sin ningn riesgo hasta que usted sea atendida/o en el consultorio de sinclair mdico o allen cl alfonso. Es responsabilidad suya arreglar allen tyler para el seguimiento del gildardo. MANEJO DE CONDICIONES NO URGENTES EN EL FUTURO 1) Si usted tiene un mdico de atencin primaria: Usted debera llamar a sinclair mdico de atencin primaria antes de venir al departamento de emergencia. Despus de las horas de consultorio, sinclair doctor o sinclair asociado/a est disponible por telfono. El mdico o enfermero de ryan en el servicio telefnico puede asesorarle por abhinav medio para atender el problema, o gildardo contrario se puede programar allen tyler. 2) Si usted no tiene un mdico de atencin primaria: Llame al mdico o clnica de referencia que aparece abajo william las horas de consultorio para hacer allen tyler para que le vean. CLINICAS: [facility] [phone] [facility] [phone] [address] [facility]. [facility] [phone] [facility]. [facility] [phone] [facility]. [place] [phone] [facility]. [phone] [address] Additional Instructions: Specialist:ted tiene allen condicin mdica que requiere que didi a un especialista dentro de los prximos 1-2 lai.POR FAVOR,CON SINCLAIR SEGUIMIENTO DE PRIMARIA PHSICIAN refferal. SI USTED NO TIENE UN MDICO GENERAL Y / O USTED NO PUEDE PAGAR mona a un mdico,los siguientes galloway RECURSOS sido suministrado a usted. ES SINCLAIR RESPONSABILIDAD PARA SER VISTOS POR EL ESPECIALISTA: CARMINE FLEMING MD Jun 18, 2017 13:48
== END 2017-06-18 10:55 | disposition home or self-care (01) ==
LOC: E/R 09:53
DX: K62.89 Other specified diseases of anus and rectum (principal); R10.84 Generalized abdominal pain; Z85.038 Personal history of other malignant neoplasm of large intestine
CPT/HCPCS: Z7502; Z7610; 99283

== ENCOUNTER 2017-06-24 11:12 | Emergency (ER) | payer MEDICAID ==
[~2017-06-24] VITALS: Wt 94.9 kg
[~2017-06-24 11:12] MED LIST changes: +LIDO40SO8 MM
[2017-06-24 11:16] VITALS: Wt 94.9 kg
[2017-06-24] MEDS ORDERED: ONDANSETRON 4 MG INJ IM STA (11:35)
--- NOTE | 2017-06-24 11:41 | ERD ---
ER Documentation Chief Complaint Chief Complaint RECTAL PAIN DX COLON/RECTAL CA, OFF CHEMO 3 WEEKS AGO,RB,BODY ACHES HPI 42-year-old woman complains of rectal pain similar previous episode she has a history of rectal carcinoma status post chemotherapy and radiation therapy. She is requesting a prescription for Lynch. She denies blood per rectum, no fevers or chills, no chest pain or shortness of breath, no recent weight loss. ROS All systems reviewed and are negative except as per history of present illness. Medications Home Meds Active Scripts Ondansetron Hcl* (Zofran*) 4 Mg Tablet, 4 MG PO Q8H Y for NAUSEA AND/OR VOMITING , #12 TAB Prov:DINO TONEY MD 06/24/17 Hydrocodone/Acetaminophen ([place] 10-325 Tablet) 1 Each Tablet, 1 TAB PO Q6H Y for PAIN, #12 TAB Prov:DINO TONEY MD 06/24/17 Reported Medications Capecitabine* (Xeloda*) 500 Mg Tablet, 1500 MG PO BID, TAB 05/28/17 Discontinued Reported Medications Ibuprofen* (Advil*) 200 Mg Capsule, 600 MG PO Q6H Y for PAIN, CAP 05/28/17 Hydrocodone/Acetaminophen ([place] 5-325 Tablet) 1 Each Tablet, 1 EACH PO Q6H, TAB 05/28/17 Discontinued Scripts Lidocaine 4% Topical (Lidocaine HCl) 4%-50 Ml Soln, 1 APPLIC MM DAILY, #1 BOT Prov:CARMINE FLEMING MD 06/18/17 Hydrocodone/Acetaminophen ([place] 10-325 Tablet) 1 Each Tablet, 1 TAB PO Q6H Y for PAIN, #12 TAB Prov:CARMINE FLEMING MD 06/18/17 Levofloxacin* (Levaquin*) 750 Mg Tablet, 750 MG PO DAILY for 5 Days, TAB Prov:CLEMENTE DOMINGUEZ DO 05/29/17 Naproxen* (Naproxen*) 500 Mg Tablet, 500 MG PO BID Y for PAIN, #20 TAB Prov:CLEMENTE DOMIGNUEZ DO 05/29/17 Hydrocodone/Acetaminophen ([place] 10-325 Tablet) 1 Each Tablet, 1 EACH PO Q6, # 35 TAB Prov:CLEMENTE DOMINGUEZ DO 05/29/17 Allergies Allergies: Coded Allergies: No Known Allergy (Unverified , 06/24/17) PMhx/Soc Hypertension, obesity, rectal carcinoma status post chemo and radiation therapy , chronic pain syndrome History of Surgery: Yes ( (24 years ago)) Anesthesia Reaction: No Hx Neurological Disorder: No Hx Respiratory Disorders: No Hx Cardiac Disorders: No Hx Psychiatric Problems: No Hx Miscellaneous Medical Probl: Yes (Rectal cancer s/p chemo and radiation.) Hx Alcohol Use: No Hx Substance Use: No Hx Tobacco Use: No FmHx Family History: No diabetes Physical Exam Vitals Vital Signs Date Time Temp Pulse Resp B/P Pulse Ox O2 Delivery O2 Flow Rate FiO2 06/24/17 12:30 78 18 108/67 99 Room Air 06/24/17 11:16 98.1 67 18 114/65 99 Physical Exam GENERAL: Well-developed, well-nourished, well-hydrated, mild discomfort, appears anxious, afebrile HEENT: Moist mucous membranes, pink conjunctiva, no cervical spine tenderness or step-off deformities, no goiter, no jaundice or icterus, extraocular movements intact without pain. NEURO: Alert and oriented 3, cranial nerves II through XII intact bilaterally, pupils equal round reactive to light, no focal deficits or facial asymmetry, sensation intact distally Strength 5/5 in upper and lower extremities bilaterally CARDIAC: Regular rate and rhythm, no murmurs rubs or gallops LUNGS: Clear bilaterally no wheezing crackles or stridor ABDOMEN: Soft nontender, no guarding, no rigidity, no rebound, no psoas sign no obturator sign. SKIN: Warm and dry to touch, no abrasions, contusions, or hematomas, no lacerations, no ecchymosis, no target lesions, and without ulcers EXTREMITIES: No clubbing cyanosis or edema, calves are bilaterally symmetrical, no Homans sign, no popliteal cord sign. Distal pulses equal and bilateral PSYCH: Anxious, tearful Results 24 hrs Current Medications Medications (Trade) Dose Ordered Sig/Reba Route PRN Reason Start Time Stop Time Status Last Admin Dose Admin Acetaminophen/ Hydrocodone Bitart ([place] (10/325)) 1 tab ONCE ONCE PO 06/24/17 12:00 06/24/17 12:01 DC 06/24/17 11:42 Ondansetron HCl (Zofran Inj) 4 mg ONCE STAT IM 06/24/17 11:35 06/24/17 11:36 DC Procedures/MDM I administered Lynch 1 tablet p.o. and Zofran 4 mg IM [address] scan of the abdomen and pelvis performed about 1 month ago revealed: IMPRESSION: 1. When compared to the previous CT of 03/24/2017, there is been significant improvement with regards to the concentric thickening of the rectal wall which also appears to extend less proximally. There is slightly decreased stranding within the perirectal fat and there is been considerable decrease in size to the perirectal lymph nodes, the internal and external iliac chain lymph nodes, the bilateral inguinal, and the retroperitoneal lymph nodes. The stomach is now quite distended with food debris makes with contrast but there is no evidence of bowel obstruction. A normal vermiform appendix is evident. 2. The multiple areas of decreased attenuation seen within the liver suspicious for hepatic metastases have decreased except for a 1.5 cm hypodensity seen within the central superior right lobe. 3. There is no longer free intraperitoneal fluid and no free air is evident. 4. Retroverted uterus with an anterior fibroid again noted. 5. Degenerative spine changes are again noted. Patient's pain resolved and I recommended she follow-up with her PMD and heme/ oncology physician for continued outpatient management and opioid prescription refills Differential diagnoses considered, included but not limited to acute coronary syndrome, pulmonary embolism, aortic dissection, abdominal aortic aneurysm, sepsis, stroke, meningitis, encephalitis, pneumonia, appendicitis, cholecystitis , bowel obstruction, pyelonephritis, nephrolithiasis, cystitis, as well as metabolic, hematologic, and electrolyte abnormalities. As well as abscess, cellulitis, fractures, and dislocations. Patient feels much better at this time, and vital signs are normal, symptoms have improved. I did give strict instructions to return to the ED if symptoms continue or worsen, patient will otherwise follow-up with primary care physician. Patient understood instructions and agreed to plan. Disclaimer: Inadvertent spelling and grammatical errors are likely due to EHR/ dictation software use and do not reflect on the overall quality of patient care. Also, please note that the electronic time recorded on this note does not necessarily reflect the actual time of the patient encounter. Departure Diagnosis: Primary Impression: Rectal cancer Additional Impression: Rectal pain Condition: Good DINO TONEY MD Jun 24, 2017 11:41
[2017-06-24] MEDS ORDERED: ONDA4TAB8 PO (11:53)
[2017-06-24] MEDS ORDERED: HYDR-902 PO (11:53)
[2017-06-24] MEDS ORDERED: HYDROCODONE/APAP (10/325) TAB PO ONE (12:00)
[2017-06-24 12:30] VITALS: BP 108/67; PULSE 78; RESP 18
== END 2017-06-24 12:30 | disposition home or self-care (01) ==
LOC: E/R 11:12
DX: C20 Malignant neoplasm of rectum (principal); I10 Essential (primary) hypertension; E66.9 Obesity, unspecified
CPT/HCPCS: J2405; Z7502; Z7610

== ENCOUNTER 2017-07-16 13:59 | Emergency (ER) | payer SELFPAY ==
[~2017-07-16] VITALS: Ht 157.5 cm; Wt 94.2 kg
[~2017-07-16 13:59] MED LIST changes: -HYDR-906 PO; -IBUP200C11 PO; -LEVO750T25 PO; -LIDO40SO8 MM; -NAPR-688 PO; +ONDA4TAB8 PO
[2017-07-16 14:03] VITALS: Ht 157.5 cm; Wt 94.2 kg
== END 2017-07-16 16:22 | disposition left against medical advice (07) ==
LOC: FTE 13:59
DX: Z53.21 Procedure and treatment not carried out due to patient leaving prior to being seen by health care provider (principal)

== ENCOUNTER 2018-07-27 16:48 | Inpatient (IN) | payer OTHER ==
[~2018-07-27] VITALS: Ht 160 cm; Wt 103.8 kg
[~2018-07-27 16:48] MED LIST changes: -CAPE500T11 PO; +CAPE500T17 PO; +HYDR-3980 PO; -HYDR-902 PO
[2018-07-27] MEDS ORDERED: morphine 4 MG/ML VIAL IV STA (20:54)
[2018-07-27] MEDS ORDERED: SOD CHLORIDE 0.9% 500 ML IV STA (20:54)
[2018-07-27] MEDS ORDERED: ONDANSETRON 4 MG INJ IV STA (20:54)
[2018-07-27] MEDS ORDERED: CAPE500T17 PO (21:28)
[2018-07-27] MEDS ORDERED: SOD CHLORIDE 0.9% 1,000 ML IV ONE (22:00)
[2018-07-28] VITALS (21 sets, daily range): BP systolic 77–133; BP diastolic 37–62; PULSE 107–126; RESP 18–33; Ht 160 cm; Wt 103.8 kg
[2018-07-28] MEDS ORDERED: SOD CHLORIDE 0.9% 1,000 ML IV ONE ×2 (01:00→07:30)
[2018-07-28] MEDS ORDERED: ALBUMIN HUMAN 25% 100 ML IV ONE (01:00)
--- NOTE | 2018-07-28 01:13 | HP ---
Date/Time of Note Date/Time of Note DATE: 07/28/18 TIME: 01:13 Assessment/Plan VTE Prophylaxis SCD applied (from Nsg): Yes Pharmacological prophylaxis: NA/contraindicated Pharm contraindication: low risk/ambulating Lines/Catheters IV Catheter Type (from Nrsg): Saline Lock Assessment/Plan Hospital Course This is a 43-year-old female being admitted to the telemetry floor for: #1 rectal pain : CT of the abdomen pelvis shows:Distended fluid filled colon with transition distal rectum in patient with history of rectal cancer. Question recurrence versus stricture. No evidence of metastatic disease. At the current time we will keep the patient n.p.o., IV fluid hydration with normal saline. Will obtain stool studies and send for culture. Will consult hematology and GI for further treatment strategy and recommendations. We will also check tumor markers.check stool occult blood. #2 diarrhea: Again we will check for stool studies, C. difficile. #3 Hx of Metastatic Rectal CA: being treated as an outpatient. Currently on xeloda, which i will hold at the current time until seen and evaluated by Dr. Marshall of oncology. #4 acute kidney injury: Likely prerenal secondary to gastrointestinal losses from diarrhea. Patient's creatinine is 1.77 which is increased from previous creatinine of 0.63 from 2017. Will provide IV fluid hydration with normal sali ne. Will monitor renal function. #5 DVT GI prophylaxis: SCDs, Protonix Further treatment strategy will be implemented as per the clinical course. Result Diagram: 07/27/18212907/27/182129 Results 24hrs Laboratory Tests Test 07/27/18 21:30 White Blood Count 10.7 # Red Blood Count 5.23 # Hemoglobin 17.4 #H Hematocrit 53.0 #H Mean Corpuscular Volume 101.3 H Mean Corpuscular Hemoglobin 33.3 H Mean Corpuscular Hemoglobin Concent 32.8 Red Cell Distribution Width 13.8 # Platelet Count 369 Mean Platelet Volume 10.3 Immature Granulocytes % 0.400 Neutrophils % Segmented Neutrophils % (Manual) 43 Band Neutrophils % (Manual) 38 H Lymphocytes % Lymphocytes % (Manual) 1 L Monocytes % Monocytes % (Manual) 16 H Eosinophils % Basophils % Basophils % (Manual) 1 Metamyelocytes % (manual) 1 H Nucleated Red Blood Cells % 0.3 H Immature Granulocytes # 0.040 H Neutrophils # Neutrophils # (Manual) 5.0 Band Neutrophils # 4.0 H Lymphocytes (Manual) 0.1 L Lymphocytes # Monocytes # Monocytes # (Manual) 1.7 H Eosinophils # Basophils # Basophils # (Manual) 0.1 H Metamyelocytes # 0.1 H Nucleated Red Blood Cells # Platelet Estimate NORMAL Polychromasia 1+ Sodium Level 140 Potassium Level 5.6 H Chloride Level 102 Carbon Dioxide Level 18 L Anion Gap 20 H Blood Urea Nitrogen 36 H Creatinine 1.17 H Est Glomerular Filtrat Rate mL/min 50 L Glucose Level 230 H Calcium Level 10.3 H Total Bilirubin 0.6 Direct Bilirubin 0.00 Indirect Bilirubin 0.6 Aspartate Amino Transf (AST/SGOT) 48 H Alanine Aminotransferase (ALT/SGPT) 9 L Alkaline Phosphatase 131 H Total Protein 8.8 H Albumin 4.9 Globulin 3.90 H Albumin/Globulin Ratio 1.25 Lipase 88 Serum HCG, Qualitative NEGATIVE HPI/ROS Admit Date/Time Admit Date/Time Hx of Present Illness Chief complaint: Abdominal pain, diarrhea This is a 43-year-old female with a history of colorectal CA who presents with abdominal pain. Patient reports that she has abdominal pain times 1 day. She also reports that she had diarrhea and has noticed some blood as well. She denies any fevers. She does have a history of colorectal cancer in her oncologist is . She is currently receiving treatment for the cancer with xeloda. Allergies: NKDA Medications:xeloda ROS Const: As per HPI Eyes : No pain discharge or redness or change in visual acuity ENT: No pain, sore throat, congestion, congestion, dysphagia or discharge Respiratory: No shortness of breath, cough, sputum, wheezing, or pleuritic pain Cardiovascular: No chest pain, palpitation, PND, or edema GI : As per HPI Genitourinary: No dysuria, hematuria, flank pain , discharge or CVA tenderness Musculoskeletal: No joint pain, back pain, neck pain, restricted range of motion in neck or joints Skin: No rash, bruising or hives Neuro: No headache, dizziness, syncope, seizure, focal weakness Endocrine: No polyuria, polydipsia, temperature intolerance Psych: No hallucination, depression, anxiety or suicidal ideation Additional Comments PROCEDURE: CT abdomen and pelvis without contrast. CLINICAL INDICATION: Abdominal Pain rectal cancer. TECHNIQUE: CT scan of the abdomen and pelvis without contrast was performed and is reconstructed at 2.5 mm contiguous axial intervals from the dome of the diaphragm to the inferior pubic rami.. The patient was scanned without intrav enous contrast. Sagittal and coronal reformatted images were obtained from the axial source images. The calculated radiation dose measures 1390 mGy centimeters. The CTDI measures 22 mGy. Individualized dose optimization technique was used for the performance of this exam. This included 1. Automated exposure control. 2. Adjustment of the mA and / or kV according to the patient's size. 3. Use of iterative reconstructed technique. COMPARISON: CT abdomen pelvis May 28, 2017 FINDINGS: The lung bases are clear of any infiltrate or nodule. No effusion is seen. The liver is of normal size, contour and attenuation with no mass or ductal dilatation. No gallstones are visualized. No splenic, adrenal or pancreatic abnormalities present. Kidneys are of normal size and contour. No hydronephrosis, calculus or masses seen. Ureters are of normal course and caliber with no stone. No bladder mass or stone is present. Uterus appears normal. No adnexal mass is seen. There is no aneurysm. No adenopathy is present. There is moderate to severe fluid-filled distension of the colon and rectum. Right colon measures 9 10 cm in maximum transverse diameter. The transition is in the distal rectum immediately proximal to the anal verge where there is a questionable concentric mass. This may represent local recurrence or a stricture in this patient with history of treated rectal cancer. Small bowel loops are not distended. The appendix is normal. No phlegmon, ascites or pneumoperitoneum is visualized. The osseous structures are intact. IMPRESSION: Distended fluid filled colon with transition distal rectum in patient with history of rectal cancer. Question recurrence versus stricture. No evidence of metastatic disease. .aRul Albrecht MD, MD Date Time Electronically viewed and signed by .Raul Albrecht MD, MD on 07/27/2018 23:18 .A/ CC: ROCIO WALLACE [id number] PMH/Family/Social Past Medical History History of colon cancer Medications Current Medications Sodium Chloride 1,000 ml @ 1,000 mls/hr Q1H ONCE IV ; Start 07/28/18 at 01:00; Stop 07/28/18 at 01:59 Albumin Human 100 ml @ 100 mls/hr ONCE ONCE IV ; Start 07/28/18 at 01:00; Stop 07/28/18 at 01:59 Coded Allergies: No Known Allergy (Unverified , 07/27/18) Past Surgical History x1 Family History Significant Family History: no pertinent family hx, other Social History Alcohol Use: none Smoking Status: Never smoker Drug Use: none Exam/Review of Systems Vital Signs Vitals Vital Signs Date Temp Pulse Resp B/P (MAP) Pulse Ox O2 O2 Flow FiO2 Time Delivery Rate 07/27/18 97.0 95 26 102/69 98 17:11 (80) Exam Exam General: Patient currently lying in bed complaining of mild abdominal pain HEENT: Atraumatic, normocephalic. The pupils are equal, round and reactive. Extraocular motor are intact Neck: Supple with full range of motion. No rigidity or meningismus Chest: Nontender Lungs: Clear to auscultation bilaterally no crackles rales or wheezing Heart: Normal S1-S2, Regular rhythm and rate. No murmur, S3, or S4 Abdomen: Soft, diffuse tenderness to palpation across the abdomen. Bowel sounds are present. No guarding no rebound tenderness , No masses or o rganomegaly. No costovertebral temporal angle mass Extremities: Normal to inspection, no edema no cyanosis Neurologic: Normal mental status, speech normal, cranial nerves II through XII are intact, motor and sensory are intact Additional Comments PROCEDURE: CT abdomen and pelvis without contrast. CLINICAL INDICATION: Abdominal Pain rectal cancer. TECHNIQUE: CT scan of the abdomen and pelvis without contrast was performed and is reconstructed at 2.5 mm contiguous axial intervals from the dome of the diaphragm to the inferior pubic rami.. The patient was scanned without intravenous contrast. Sagittal and coronal reformatted images were obtained from the axial source images. The calculated radiation dose measures 1390 mGy centimeters. The CTDI measures 22 mGy. Individualized dose optimization technique was used for the performance of this exam. This included 1. Automated exposure control. 2. Adjustment of the mA and / or kV according to the patient's size. 3. Use of iterative reconstructed technique. COMPARISON: CT abdomen pelvis May 28, 2017 FINDINGS: The lung bases are clear of any infiltrate or nodule. No effusion is seen. The liver is of normal size, contour and attenuation with no mass or ductal dilatation. No gallstones are visualized. No splenic, adrenal or pancreatic abnormalities present. Kidneys are of normal size and contour. No hydronephrosis, calculus or masses seen. Ureters are of normal course and caliber with no stone. No bladder mass or stone is present. Uterus appears normal. No adnexal mass is seen. There is no aneurysm. No adenopathy is present. There is moderate to severe fluid-filled distension of the colon and rectum. Right colon measures 9 10 cm in maximum transverse diameter. The transition is in the distal rectum immediately proximal to the anal verge where there is a questionable concentric mass. This may represent local recurrence or a stricture in this patient with history of treated rectal cancer. Small bowel loops are not distended. The appendix is normal. No phlegmon, ascites or pneumoperitoneum is visualized. The osseous structures are intact. IMPRESSION: Distended fluid filled colon with transition distal rectum in patient with history of rectal cancer. Question recurrence versus stricture. No evidence of metastatic disease. .Raul Albrecht MD, MD Date Time Electronically viewed and signed by .Raul Albrecht MD, on 07/27/2018 23:18 .A/ CC: ROCIO WALLACE [id number] PROCEDURE: Chest. CLINICAL INDICATION: Preop evaluation. TECHNIQUE: Single frontal view of the chest was obtained. COMPARISON: 03/24/2017. FINDINGS: The cardiac silhouette is within normal limits. The aortic arch is unrem arkable. There is no focal consolidation, vascular congestion or pleural effusion. There is no pneumothorax. IMPRESSION: No evidence for active cardiopulmonary disease. .Drake Dockery MD, MD Date Time Electronically viewed and signed by .Drake Dockery MD, on 07/28/2018 02:17 .T/ CC: CAMRYN PRICE [id number] CAMRYN PRICE Jul 28, 2018 01:13
[2018-07-28] MEDS ORDERED: morphine 2 MG INJ IV PRN (01:30)
[2018-07-28] MEDS ORDERED: NACL 0.9% 3 ML SYG IV SCH (01:30)
--- NOTE | 2018-07-28 02:25 | ERD ---
ER Documentation Chief Complaint Chief Complaint mid AP, NVD since AM. hx colorectal CA on oral chemo. diaphoretic, pale. ROS All systems reviewed and are negative except as per history of present illness. Medications Home Meds Reported Medications Capecitabine* (Xeloda*) 500 Mg Tablet, 1500 MG PO BID, TBS 07/27/18 Discontinued Reported Medications Capecitabine* (Xeloda*) 500 Mg Tablet, 1500 MG PO BID, TAB 05/28/17 Discontinued Scripts Ondansetron Hcl* (Zofran*) 4 Mg Tablet, 4 MG PO Q8H PRN for NAUSEA AND/OR VOMITING, #12 TAB Prov:DINO TONEY MD 06/24/17 Hydrocodone/Acetaminophen ([place] 10-325 Tablet) 1 Each Tablet, 1 TAB PO Q6H PRN for PAIN, #12 TAB Prov:DINO TONEY MD 06/24/17 Allergies Allergies: Coded Allergies: No Known Allergy (Unverified , 07/27/18) PMhx/Soc History of Surgery: Yes ( (24 years ago), RECTAL MASS RESECTION) Anesthesia Reaction: No Hx Neurological Disorder: No Hx Respiratory Disorders: No Hx Cardiac Disorders: No Hx Psychiatric Problems: No Hx Miscellaneous Medical Probl: Yes (Rectal cancer s/p chemo and radiation.) Hx Alcohol Use: Yes Hx Substance Use: No Hx Tobacco Use: No Smoking Status: Never smoker Physical Exam Vitals Vital Signs Date Temp Pulse Resp B/P (MAP) Pulse Ox O2 O2 Flow FiO2 Time Delivery Rate 07/28/18 97.0 100 26 108/84 96 Room Air 01:40 (92) 07/27/18 97.0 95 26 102/69 98 17:11 (80) Physical Exam Const: No acute distress Head: Atraumatic Eyes: Normal Conjunctiva ENT: Normal External Ears, Nose and Mouth. Neck: Full range of motion. No meningismus. Resp: Clear to auscultation bilaterally Cardio: Regular rate and rhythm, no murmurs Abd: Soft, non tender, non distended. Normal bowel sounds Skin: No petechiae or rashes Back: No midline or flank tenderness Ext: No cyanosis, or edema Neur: Awake and alert Psych: Normal Mood and Affect Result Diagram: 07/27/18212907/27/182129 Results 24 hrs Laboratory Tests Test 07/27/18 21:30 White Blood Count 10.7 10^3/ul Red Blood Count 5.23 10^6/ul Hemoglobin 17.4 g/dl Hematocrit 53.0 % Mean Corpuscular Volume 101.3 fl Mean Corpuscular Hemoglobin 33.3 pg Mean Corpuscular Hemoglobin Concent 32.8 g/dl Red Cell Distribution Width 13.8 % Platelet Count 369 10^3/UL Mean Platelet Volume 10.3 fl Immature Granulocytes % 0.400 % Neutrophils % % Segmented Neutrophils % (Manual) 43 % Band Neutrophils % (Manual) 38 % Lymphocytes % % Lymphocytes % (Manual) 1 % Monocytes % % Monocytes % (Manual) 16 % Eosinophils % % Basophils % % Basophils % (Manual) 1 % Metamyelocytes % (manual) 1 % Nucleated Red Blood Cells % 0.3 /100WBC Immature Granulocytes # 0.040 10^3/ul Neutrophils # 10^3/ul Neutrophils # (Manual) 5.0 10^3/ul Band Neutrophils # 4.0 10^3/ul Lymphocytes (Manual) 0.1 10^3/ul Lymphocytes # 10^3/ul Monocytes # 10^3/ul Monocytes # (Manual) 1.7 10^3/ul Eosinophils # 10^3/ul Basophils # 10^3/ul Basophils # (Manual) 0.1 10^3/ul Metamyelocytes # 0.1 10^3/ul Nucleated Red Blood Cells # 10^3/ul Platelet Estimate NORMAL Polychromasia 1+ Sodium Level 140 mmol/L Potassium Level 5.6 mmol/L Chloride Level 102 mmol/L Carbon Dioxide Level 18 mmol/L Anion Gap 20 Blood Urea Nitrogen 36 mg/dl Creatinine 1.17 mg/dl Est Glomerular Filtrat Rate mL/min 50 mL/min Glucose Level 230 mg/dl Calcium Level 10.3 mg/dl Total Bilirubin 0.6 mg/dl Direct Bilirubin 0.00 mg/dl Indirect Bilirubin 0.6 mg/dl Aspartate Amino Transf (AST/SGOT) 48 IU/L Alanine Aminotransferase (ALT/SGPT) 9 IU/L Alkaline Phosphatase 131 IU/L Total Protein 8.8 g/dl Albumin 4.9 g/dl Globulin 3.90 g/dl Albumin/Globulin Ratio 1.25 Lipase 88 U/L Serum HCG, Qualitative NEGATIVE Current Medications Medications Dose Sig/Reba Start Time Status Last (Trade) Ordered Route PRN Stop Time Admin Dose Reason Admin Sodium 500 ml @ Q1H STAT 07/27/18 DC 07/27/18 Chloride 500 mls/hr IV 20:54 21:46 07/27/18 21:53 Morphine 4 mg ONCE STAT 07/27/18 DC Sulfate IV 20:54 (morphine) 07/27/18 20:55 Ondansetron 4 mg ONCE STAT 07/27/18 DC 07/27/18 HCl (Zofran IV 20:54 21:46 Inj) 07/27/18 20:55 Sodium 1,000 ml @ Q1H ONCE 07/27/18 DC 07/27/18 Chloride 1,000 mls/hr IV 22:00 21:46 07/27/18 22:59 Sodium 1,000 ml @ Q1H ONCE 07/28/18 DC 07/28/18 Chloride 1,000 mls/hr IV 01:00 01:26 07/28/18 01:59 Albumin 100 ml @ ONCE ONCE 07/28/18 DC 07/28/18 Human 100 mls/hr IV 01:00 02:18 07/28/18 01:59 IV Flush 3 ml PER 07/28/18 (NS 3 ml) PROTOCOL IV 01:30 Ondansetron 4 mg Q6H PRN 07/28/18 HCl (Zofran IV NAUSEA 01:30 Inj) AND/OR VOMITING 650 mg Q6H PRN 07/28/18 Acetaminophen PO PAIN 01:30 (Tylenol LEVEL 1-3 OR Tab) FEVER Morphine 2 mg Q4H PRN 07/28/18 Sulfate IV PAIN 01:30 (morphine) LEVEL 7-10 40 mg DAILY@06 07/28/18 Pantoprazole PO 06:00 (Protonix Tab) Enoxaparin 40 mg DAILY SC 07/28/18 Sodium 09:00 (Lovenox) Sodium 1,000 ml @ [id number] IV 07/28/18 Chloride 75 mls/hr 01:30 Procedures/MDM Medical decision making: Patient comes in with abdominal pain nausea vomiting and diarrhea. Patient has history of colorectal cancer on oral chemo. Given that she continues to have hypotension and dehydration and is on chemotherapy, I feel the patient to be admitted for the evaluation diagnosis. Dr. Yu made aware Departure Diagnosis: Primary Impression: Abdominal pain Abdominal location: unspecified location Qualified Codes: R10.9 - Unspecified abdominal pain Condition: Serious ROCIO WALLACE Jul 28, 2018 02:25
[2018-07-28] MEDS: SOD CHLORIDE 0.9% 1,000 ML IV SCH ×3 (03:19→19:52)
[2018-07-28] MEDS ORDERED: PANTOPRAZOLE (EC) 40 MG TAB PO SCH (06:00)
--- NOTE | 2018-07-28 08:49 | PN ---
Date/Time of Note Date/Time of Note DATE: 07/28/18 TIME: 08:49 Assessment/Plan VTE Prophylaxis SCD applied (from Nsg): Yes Pharmacological prophylaxis: other Lines/Catheters IV Catheter Type (from Nrsg): Saline Lock Urinary Cath still in place: No Assessment/Plan Assessment/Plan 1. Acute abdominal pain with diarrhea - Most likely gastroenteritis in etiology given occurred after eating tamales - Will provide supportive care and stool studies sent - If studies negative, will start Imodium for relief 2. Acute dehydration due to diarrhea - Will continue IVF and monitor for improvement 3. Hypercalcemia - malignancy vs dehydration - denies any neurological symptoms 4. DANYELL, mild - most likely prerenal secondary to GI losses - continue IVF for hydration and avoid nephrotoxic agents 5. Rectal pain with history of metastatic rectal cancer - follow with Oncology at [facility] but seen by Dr. morris in the past - Oncology consulted for recommendations - CT results noted which shows possible recurrence vs stricture 6. Diarrhea - stool studies sent 7. Abdominal distension - Progressively increasing this am and will place NG tube for decompression 8. Disposition - Continue current treatment in telemetry and await recommendations from consultants. Result Diagram: 07/27/18212907/27/182129 Results 24hrs Laboratory Tests Test 07/27/18 21:30 07/28/18 06:04 White Blood Count 10.7 # Red Blood Count 5.23 # Hemoglobin 17.4 #H Hematocrit 53.0 #H Mean Corpuscular Volume 101.3 H Mean Corpuscular Hemoglobin 33.3 H Mean Corpuscular Hemoglobin Concent 32.8 Red Cell Distribution Width 13.8 # Platelet Count 369 Mean Platelet Volume 10.3 Immature Granulocytes % 0.400 Neutrophils % Segmented Neutrophils % (Manual) 43 Band Neutrophils % (Manual) 38 H Lymphocytes % Lymphocytes % (Manual) 1 L Monocytes % Monocytes % (Manual) 16 H Eosinophils % Basophils % Basophils % (Manual) 1 Metamyelocytes % (manual) 1 H Nucleated Red Blood Cells % 0.3 H Immature Granulocytes # 0.040 H Neutrophils # Neutrophils # (Manual) 5.0 Band Neutrophils # 4.0 H Lymphocytes (Manual) 0.1 L Lymphocytes # Monocytes # Monocytes # (Manual) 1.7 H Eosinophils # Basophils # Basophils # (Manual) 0.1 H Metamyelocytes # 0.1 H Nucleated Red Blood Cells # Platelet Estimate NORMAL Polychromasia 1+ Sodium Level 140 Potassium Level 5.6 H Chloride Level 102 Carbon Dioxide Level 18 L Anion Gap 20 H Blood Urea Nitrogen 36 H Creatinine 1.17 H Est Glomerular Filtrat Rate mL/min 50 L Glucose Level 230 H Calcium Level 10.3 H Total Bilirubin 0.6 Direct Bilirubin 0.00 Indirect Bilirubin 0.6 Aspartate Amino Transf (AST/SGOT) 48 H Alanine Aminotransferase (ALT/SGPT) 9 L Alkaline Phosphatase 131 H Total Protein 8.8 H Albumin 4.9 Globulin 3.90 H Albumin/Globulin Ratio 1.25 Lipase 88 Serum HCG, Qualitative NEGATIVE Alpha Fetoprotein 2.18 Carcinoembryonic Antigen 17.7 H CA 19-9 Antigen 37.6 H CA 125 Antigen 11.0 Subjective 24 Hr Interval Summary Free Text/Dictation Patient states shes still having bloating, diarrhea, and abdominal pain for the past day. She states she ate tamales made by family members prior to experiencing these symptoms. She follows with Oncology at [facility] since insurance changes. Requesting water at this time. Exam/Review of Systems Vital Signs Vitals Vital Signs Date Temp Pulse Resp B/P (MAP) Pulse Ox O2 O2 Flow FiO2 Time Delivery Rate 07/28/18 107 08:00 07/28/18 98.7 18 82/55 (64) 95 07:09 07/28/18 Room Air 01:40 Intake and Output 07/27/18 07/27/18 07/28/18 1515:00 23:00 07:00 IntakeIntake Total 2850 ml BalanceBalance 2850 ml Exam General: Patient currently lying in bed, mild distress secondary to abdominal pain Neck: Supple Chest: Nontender Lungs: Clear to auscultation bilaterally no crackles rales or wheezing Heart: Normal S1-S2, Regular rhythm and rate. No murmur, S3, or S4 Abdomen: Soft, diffuse tenderness to palpation across the abdomen. Distended and tympanic, No guarding no rebound tenderness Extremities: Normal to inspection, no edema no cyanosis Medications Medications Current Medications IV Flush (NS 3 ml) 3 ml PER PROTOCOL IV ; Start 07/28/18 at 01:30 Ondansetron HCl (Zofran Inj) 4 mg Q6H PRN IV NAUSEA AND/OR VOMITING; Start 07/28/18 at 01:30 Acetaminophen (Tylenol Tab) 650 mg Q6H PRN PO PAIN LEVEL 1-3 OR FEVER; Start 07/28/18 at 01:30 Morphine Sulfate (morphine) 2 mg Q4H PRN IV PAIN LEVEL 7-10; Start 07/28/18 at 01:30 Pantoprazole (Protonix Tab) 40 mg DAILY@06 PO Last administered on 07/28/18at 05:13; Admin Dose 40 MG; Start 07/28/18 at 06:00 Enoxaparin Sodium (Lovenox) 40 mg DAILY SC ; Start 07/28/18 at 09:00 Sodium Chloride 1,000 ml @ 125 mls/hr Q8H IV Last administered on 07/28/18at 03:19; Admin Dose 75 MLS/HR; Start 07/28/18 at 01:30 AHYLEE MERLOS MD Jul 28, 2018 08:49
[2018-07-28] MEDS: ENOXAPARIN 40 MG/0.4 ML SYG SC SCH (09:00)
[2018-07-28] MEDS ORDERED: SOD CHLORIDE 0.9% 500 ML IV ONE (12:30)
--- NOTE | 2018-07-28 13:34 | CONS ---
Date/Time of Note Date/Time of Note DATE: 07/28/18 TIME: 13:09 Assessment/Plan Assessment/Plan Hospital Course #Metastatic rectal ca - dx 03/2017 -Initially pt has known nodular circumferential mural thickening of the distal sigmoid colon and rectum extending to the anus, abdominal wall tumor implants, liver masses as well as bilateral ureteral obstruction with bilateral hydronephrosis. -pt has since completed concurrent chemotherapy with radiation with 50 to 55 Gy over a 4 week period to treat the pelvis and bilateral groin lymph nodes. She has also completed 4 cycles of Xelox and has been on single agent Xeloda since -pt will need to hold Xeloda while in house but will continue as an out patient #Rectal mass vs stricture -will need GI consult and colonoscopy for further evaluation #Diarrhea -will send stool studies -continue IV hydration #Ovarian cyst -continue to monitor. if this grows in size it can be removed at that time A total of 40 minutes of [id number] time was spent speaking with the patient, of which greater than 50% was spent in counseling and coordination of care and a detailed question and answer session. Result Diagram: 07/27/18212907/27/182129 Results 24hrs Laboratory Tests Test 07/27/18 21:30 07/28/18 06:04 White Blood Count 10.7 # Red Blood Count 5.23 # Hemoglobin 17.4 #H Hematocrit 53.0 #H Mean Corpuscular Volume 101.3 H Mean Corpuscular Hemoglobin 33.3 H Mean Corpuscular Hemoglobin Concent 32.8 Red Cell Distribution Width 13.8 # Platelet Count 369 Mean Platelet Volume 10.3 Immature Granulocytes % 0.400 Neutrophils % Segmented Neutrophils % (Manual) 43 Band Neutrophils % (Manual) 38 H Lymphocytes % Lymphocytes % (Manual) 1 L Monocytes % Monocytes % (Manual) 16 H Eosinophils % Basophils % Basophils % (Manual) 1 Metamyelocytes % (manual) 1 H Nucleated Red Blood Cells % 0.3 H Immature Granulocytes # 0.040 H Neutrophils # Neutrophils # (Manual) 5.0 Band Neutrophils # 4.0 H Lymphocytes (Manual) 0.1 L Lymphocytes # Monocytes # Monocytes # (Manual) 1.7 H Eosinophils # Basophils # Basophils # (Manual) 0.1 H Metamyelocytes # 0.1 H Nucleated Red Blood Cells # Platelet Estimate NORMAL Polychromasia 1+ Sodium Level 140 Potassium Level 5.6 H Chloride Level 102 Carbon Dioxide Level 18 L Anion Gap 20 H Blood Urea Nitrogen 36 H Creatinine 1.17 H Est Glomerular Filtrat Rate mL/min 50 L Glucose Level 230 H Calcium Level 10.3 H Total Bilirubin 0.6 Direct Bilirubin 0.00 Indirect Bilirubin 0.6 Aspartate Amino Transf (AST/SGOT) 48 H Alanine Aminotransferase (ALT/SGPT) 9 L Alkaline Phosphatase 131 H Total Protein 8.8 H Albumin 4.9 Globulin 3.90 H Albumin/Globulin Ratio 1.25 Lipase 88 Serum HCG, Qualitative NEGATIVE Alpha Fetoprotein 2.18 Carcinoembryonic Antigen 17.7 H CA 19-9 Antigen 37.6 H CA 125 Antigen 11.0 Vitamin B12 Level < 159 L Folate 15.3 Consultation Date/Type/Reason Admit Date/Time Jul Date of Consultation: Jul 28, 2018 Type of Consult oncology Reason for Consultation metastatic rectal cancer Requesting Provider: CAMRYN PRICE Hx of Present Illness 03/2017: Presented [facility] at the beginning of the month with abdominal pain and BRBPR that she sates started 6 months ago. Hg 5.5 and MCV of 60 and ferritin 3.4 03/05/17: Pt underwent Colonoscopy that revealed the entire rectum, approximately 20 cm in length, with circumferential mass, rock-like superficial ulceration. B: Rectal mass, biopsies: -- Poorly-differentiated adenocarcinoma with ulceration associated and acute fibrinoneutrophilic exudate 03/24/17: CT A/P was done which revealed the following: Irregular wall thickening involving the entire rectum with extensive pelvic, inguinal, periaortic, and periportal adenopathy, consistent with rectal neoplasm and metastatic disease. Also seen were indeterminate hepatic lesions, the largest measuring 3.4 cm, highly concerning for metastatic disease. 03/26/17: pt was started on adjuvant Xeloda and Radiation 05/02/17: Pt completed her radiation . Patient states she no longer has bleeding from the rectum but she does state that her stools are more pencil like and are slowly getting thicker. She does complain of pain in the rectum especially with bowel movements 05/24/[address] with great improvement in her disease 06/02/17: received cycle 1 of Xelox 12/07/17 pt received her 4th dose of Xelox. oxaliplatin was held after this chem otherapy given the grade 3 neuropathy 01/11/[address] there has been interval decrease in size of periaortic and retroperitoneal LAD as well as decrease in size of pelvic side wall and perirectal LAD. rectal wall thickening has decreased 01/21/18 was the last time pt was seen in our office 07/28/18 pt admitted for abdominal pain and diarrhea. States she continues to take single agent Xeloda 3 tabs po BID 14 days on [address] A/P was done which revealed :Distended fluid filled colon with transition distal rectum in patient with history of rectal cancer. Question recurrence versus stricture. No evidence of metastatic disease. Constitutional: chills, diaphoresis, poor po Eyes: no complaints ENT: no complaints Respiratory: no complaints Cardiovascular: no complaints Gastrointestinal: no complaints, decreased appetite, diarrhea, passing stool Genitourinary: no complaints Musculoskeletal: bone/joint pain Neurologic: no complaints Endocrine: no complaints Past Medical History Anemia h/o bilateral hydronephrosis ovarian cyst. Medications Current Medications IV Flush (NS 3 ml) 3 ml PER PROTOCOL IV ; Start 07/28/18 at 01:30 Ondansetron HCl (Zofran Inj) 4 mg Q6H PRN IV NAUSEA AND/OR VOMITING; Start at 01:30 Acetaminophen (Tylenol Tab) 650 mg Q6H PRN PO PAIN LEVEL 1-3 OR FEVER; Start 07/28/18 at 01:30 Pantoprazole (Protonix Tab) 40 mg DAILY@06 PO Last administered on 07/28/18at 05:13; Admin Dose 40 MG; Start 07/28/18 at 06:00 Enoxaparin Sodium (Lovenox) 40 mg DAILY SC ; Start 07/28/18 at 09:00 Sodium Chloride 1,000 ml @ 125 mls/hr Q8H IV Last administered on 07/28/18at 03:19; Admin Dose 75 MLS/HR; Start 07/28/18 at 01:30 Morphine Sulfate (morphine) 2 mg Q3H PRN IV PAIN LEVEL 7-10; Start 07/28/18 at 10:30 Simethicone (Mylicon) 80 mg Q6H PRN PO DISTENSION/GAS/BLOATING; Start 07/28/18 at 10:30 Sodium Chloride 500 ml @ 500 mls/hr Q1H ONCE IV ; Start 07/28/18 at 12:30; Stop 07/28/18 at 13:29 Allergies: Coded Allergies: No Known Allergy (Unverified , 07/27/18) Family History Significant Family History: no pertinent family hx Social History Alcohol Use: none Smoking Status: Never smoker Drug Use: none Exam/Review of Systems Vital Signs Vitals Vital Signs Date Temp Pulse Resp B/P (MAP) Pulse Ox O2 O2 Flow FiO2 Time Delivery Rate 07/28/18 122 12:00 07/28/18 96/52 (67) 11:36 07/28/18 97.9 20 97 11:29 07/28/18 Room Air 01:40 Intake and Output 07/27/18 07/27/18 07/28/18 1515:00 23:00 07:00 IntakeIntake Total 2850 ml BalanceBalance 2850 ml Exam Constitutional: alert, oriented, distress, frail Psych: anxiety Head: normocephalic Eyes: nl conjunctiva ENMT: nl external ears & nose Neck: supple Respiratory: clear to auscultation Cardiovascular: regular rate and rhythm Gastrointestinal: bowel sounds, distended Musculoskeletal: nl extremities to inspection Extremities: normal pulses Medications Medications Current Medications IV Flush (NS 3 ml) 3 ml PER PROTOCOL IV ; Start 07/28/18 at 01:30 Ondansetron HCl (Zofran Inj) 4 mg Q6H PRN IV NAUSEA AND/OR VOMITING; Start at 01:30 Acetaminophen (Tylenol Tab) 650 mg Q6H PRN PO PAIN LEVEL 1-3 OR FEVER; Start 07/28/18 at 01:30 Pantoprazole (Protonix Tab) 40 mg DAILY@06 PO Last administered on 07/28/18at 05:13; Admin Dose 40 MG; Start 07/28/18 at 06:00 Enoxaparin Sodium (Lovenox) 40 mg DAILY SC ; Start 07/28/18 at 09:00 Sodium Chloride 1,000 ml @ 125 mls/hr Q8H IV Last administered on 07/28/18at 03:19; Admin Dose 75 MLS/HR; Start 07/28/18 at 01:30 Morphine Sulfate (morphine) 2 mg Q3H PRN IV PAIN LEVEL 7-10; Start 07/28/18 at 10:30 Simethicone (Mylicon) 80 mg Q6H PRN PO DISTENSION/GAS/BLOATING; Start 07/28/18 at 10:30 Sodium Chloride 500 ml @ 500 mls/hr Q1H ONCE IV ; Start 07/28/18 at 12:30; Stop 07/28/18 at 13:29 ZHANNA LOPEZ M.D. Jul 28, 2018 13:19
--- NOTE | 2018-07-28 14:43 | CONS ---
Date/Time of Note Date/Time of Note DATE: 07/28/18 TIME: 14:16 Assessment/Plan Assessment/Plan Hospital Course Summary Assessment and Plan: Assessment: History of rectal ca- dx 2017 -s/p Chemo/radiation Nausea/vomiting -Reported coffee-ground emesis -Bright red emesis- after eating jello? Abdominal pain Diarrhea Plan: Stool studies pending Pt with large amount of emesis and after NGT placed- will order KUB to r/o obstruction if neg will attempt to prep for colonoscopy Pt with coffee ground emesis after NGT insertion and bright red emesis- although pt did eat jello, she also c/o upper abd pain Plan for EGD/colonoscopy tomorrow however if unable to tolerate prep- will consider sigmoidoscopy and possible HYPAQUE enema Endoscopy - risks/benefits/alternatives/indications of procedure and sedation/anesthesia discussed with patient who states understanding and gives informed consent to proceed. Patient seen in collaboration with Dr. galaviz Result Diagram: 07/27/18212907/27/182129 Results 24hrs Laboratory Tests Test 07/27/18 21:30 07/28/18 06:04 07/28/18 12:20 White Blood Count 10.7 # Red Blood Count 5.23 # Hemoglobin 17.4 #H Hematocrit 53.0 #H Mean Corpuscular Volume 101.3 H Mean Corpuscular Hemoglobin 33.3 H Mean Corpuscular 32.8 Hemoglobin Concent Red Cell Distribution Width 13.8 # Platelet Count 369 Mean Platelet Volume 10.3 Immature Granulocytes % 0.400 Neutrophils % Segmented Neutrophils % (Manual) 43 Band Neutrophils % (Manual) 38 H Lymphocytes % Lymphocytes % (Manual) 1 L Monocytes % Monocytes % (Manual) 16 H Eosinophils % Basophils % Basophils % (Manual) 1 Metamyelocytes % (manual) 1 H Nucleated Red Blood Cells % 0.3 H Immature Granulocytes # 0.040 H Neutrophils # Neutrophils # (Manual) 5.0 Band Neutrophils # 4.0 H Lymphocytes (Manual) 0.1 L Lymphocytes # Monocytes # Monocytes # (Manual) 1.7 H Eosinophils # Basophils # Basophils # (Manual) 0.1 H Metamyelocytes # 0.1 H Nucleated Red Blood Cells # Platelet Estimate NORMAL Polychromasia 1+ Sodium Level 140 Potassium Level 5.6 H Chloride Level 102 Carbon Dioxide Level 18 L Anion Gap 20 H Blood Urea Nitrogen 36 H Creatinine 1.17 H Est Glomerular Filtrat 50 L Rate mL/min Glucose Level 230 H Calcium Level 10.3 H Total Bilirubin 0.6 Direct Bilirubin 0.00 Indirect Bilirubin 0.6 Aspartate Amino 48 H Transf (AST/SGOT) Alanine 9 L Aminotransferase (ALT/SGPT) Alkaline Phosphatase 131 H Total Protein 8.8 H Albumin 4.9 Globulin 3.90 H Albumin/Globulin Ratio 1.25 Lipase 88 Serum HCG, Qualitative NEGATIVE Alpha Fetoprotein 2.18 Carcinoembryonic Antigen 17.7 H CA 19-9 Antigen 37.6 H CA 125 Antigen 11.0 Vitamin B12 Level < 159 L Folate 15.3 Stool Occult Blood POSITIVE CC: JESSE GALAVIZ MD ; Consultation Date/Type/Reason Admit Date/Time Jul Date of Consultation: Jul 28, 2018 Type of Consult GI Reason for Consultation Abdominal pain/diarrhea Hx of Present Illness This is a 43-year-old female past medical history of rectal cancer dx 2017, status post radiation chemotherapy who presented to the ED with c/o abdominal pain and profuse diarrhea. Pt does not know if blood was seen on her stool, Stool for OB positive. Hgb on admission 17.4., Ct abd/pelvis without contrast, Impression; Distended fluid filled colon with transition distal rectum in patient with history of rectal cancer. Question recurrence versus stricture. A time evaluation patient being transferred to ICU for hypotension she currently complains of upper abdominal pain, a NG tube with abdominal decompression . Nurse reported coffee-ground emesis as well as bright red emesis, although patient did eat Jell-O earlier today. Patient continues to have diarrhea curr ently stool studies are pending discussed results of CT scan with current presentation we will plan for EGD/colonoscopy tomorrow. Review of Systems: A 12 system, review was conducted and is negative except as noted in the HPI or here. Past Medical History Medications Current Medications IV Flush (NS 3 ml) 3 ml PER PROTOCOL IV ; Start 07/28/18 at 01:30 Ondansetron HCl (Zofran Inj) 4 mg Q6H PRN IV NAUSEA AND/OR VOMITING; Start 07/28/18 at 01:30 Acetaminophen (Tylenol Tab) 650 mg Q6H PRN PO PAIN LEVEL 1-3 OR FEVER; Start 07/28/18 at 01:30 Pantoprazole (Protonix Tab) 40 mg DAILY@06 PO Last administered on 07/28/18at 05:13; Admin Dose 40 MG; Start 07/28/18 at 06:00 Enoxaparin Sodium (Lovenox) 40 mg DAILY SC ; Start 07/28/18 at 09:00 Sodium Chloride 1,000 ml @ 125 mls/hr Q8H IV Last administered on 07/28/18at 03:19; Admin Dose 75 MLS/HR; Start 07/28/18 at 01:30 Morphine Sulfate (morphine) 2 mg Q3H PRN IV PAIN LEVEL 7-10; Start 07/28/18 at 10:30 Simethicone (Mylicon) 80 mg Q6H PRN PO DISTENSION/GAS/BLOATING; Start 07/28/18 at 10:30 Allergies: Coded Allergies: No Known Allergy (Unverified , 07/27/18) Social History Alcohol Use: none Smoking Status: Never smoker Drug Use: none Exam/Review of Systems Vital Signs Vitals Vital Signs Date Temp Pulse Resp B/P (MAP) Pulse Ox O2 O2 Flow FiO2 Time Delivery Rate 07/28/18 122 12:00 07/28/18 96/52 (67) 11:36 07/28/18 97.9 20 97 11:29 07/28/18 Room Air 01:40 Intake and Output 07/27/18 07/27/18 07/28/18 1515:00 23:00 07:00 IntakeIntake Total 2850 ml BalanceBalance 2850 ml Exam PHYSICAL EXAMINATION: GENERAL: Alert & oriented x 3 SKIN: No lesions EYES: Pupils equal reactive to light, no discharge. EARS/NOSE AND THROAT: Ears normal, nose normal, oropharynx normal, NGT in place. NECK: Supple, no masses CHEST: Inspection within normal limits. CARDIOVASCULAR: Heart: Regular rate and rhythm RESPIRATORY: Lungs clear to auscultation GASTROINTESTINAL AND LIVER: Abdomen: Soft, generalized abd pain, currently worse pain to upper abd, no hernias, no masses, no organomegaly, no ascites, no guarding, no rebound tenderness, normoactive bowel sounds. Rectal: Deferred. GENITOURINARY: Not examined EXTREMITIES: No cyanosis, clubbing or edema. Medications Medications Current Medications IV Flush (NS 3 ml) 3 ml PER PROTOCOL IV ; Start 07/28/18 at 01:30 Ondansetron HCl (Zofran Inj) 4 mg Q6H PRN IV NAUSEA AND/OR VOMITING; Start 07/28/18 at 01:30 Acetaminophen (Tylenol Tab) 650 mg Q6H PRN PO PAIN LEVEL 1-3 OR FEVER; Start 07/28/18 at 01:30 Pantoprazole (Protonix Tab) 40 mg DAILY@06 PO Last administered on 07/28/18at 05:13; Admin Dose 40 MG; Start 07/28/18 at 06:00 Enoxaparin Sodium (Lovenox) 40 mg DAILY SC ; Start 07/28/18 at 09:00 Sodium Chloride 1,000 ml @ 125 mls/hr Q8H IV Last administered on 07/28/18at 03:19; Admin Dose 75 MLS/HR; Start 07/28/18 at 01:30 Morphine Sulfate (morphine) 2 mg Q3H PRN IV PAIN LEVEL 7-10; Start 07/28/18 at 10:30 Simethicone (Mylicon) 80 mg Q6H PRN PO DISTENSION/GAS/BLOATING; Start 07/28/18 at 10:30 KOFFI MCGRATH Jul 28, 2018 14:26
[2018-07-28] MEDS: morphine 4 MG/ML VIAL IV PRN (23:38)
[2018-07-29] VITALS (22 sets, daily range): BP systolic 99–163; BP diastolic 46–83; PULSE 113–122; RESP 19–29
[2018-07-29] MEDS: SOD CHLORIDE 0.9% 1,000 ML IV SCH ×4 (03:58→22:51)
[2018-07-29] MEDS: PANTOPRAZOLE 40 MG INJ IV SCH (06:33)
[2018-07-29] MEDS ORDERED: NA POLYST SULFON 15 GM/60 ML BTL PR ONE (07:30)
[2018-07-29] MEDS ORDERED: NA POLYST SULFON 15 GM/60 ML BTL NGT ONE (09:00)
--- NOTE | 2018-07-29 09:03 | PN ---
Date/Time of Note Date/Time of Note DATE: 07/29/18 TIME: 08:56 Assessment/Plan VTE Prophylaxis Risk score (from Ns)>0 risk: 3 SCD applied (from Nsg): Yes Pharmacological prophylaxis: other (scds) Lines/Catheters IV Catheter Type (from Nrsg): Peripheral IV Urinary Cath still in place: No Assessment/Plan Hospital Course Summary Assessment and Plan: Assessment: History of rectal ca- dx 2017 -s/p Chemo/radiation Nausea/vomiting -Reported coffee-ground emesis -Bright red emesis- after eating jello? Abdominal pain Diarrhea Hyperkalemia Plan: Stool studies pending\ NPO except ice chips until 1000- then strict NPO Plan for EGD/flex sig today KUB shows ileus vs intermittent/partial small bowel obstruction-bowel x-ray shows obstructive pattern therefore we have changed the colonoscopy to a flex sigmoidoscopy today we will give x1 enema prior to procedure. Endoscopy - risks/benefits/alternatives/indications of procedure and sedation/anesthesia discussed with patient who states understanding and gives informed consent to proceed. Patient seen in collaboration with Dr. choi Subjective: Course reviewed with nursing staff Patient interviewed and examined All labs, imaging and other results reviewed The patient continues to have diarrhea She states she feels better today, asking for something to drink. Discussed ok to have ice chips for the next 1 But must maintain NPO for procedures today. PHYSICAL EXAMINATION: GENERAL: Alert & oriented x 3 SKIN: No lesions EYES: Pupils equal reactive to light, no discharge. EARS/NOSE AND THROAT: Ears normal, nose normal, oropharynx normal, NGT in place. NECK: Supple, no masses CHEST: Inspection within normal limits. CARDIOVASCULAR: Heart: Regular rate and rhythm RESPIRATORY: Lungs clear to auscultation GASTROINTESTINAL AND LIVER: Abdomen: Soft, generalized abd pain, currently worse pain to upper abd, no hernias, no masses, no organomegaly, no ascites, no guarding, no rebound tenderness, normoactive bowel sounds. Rectal: Deferred. GENITOURINARY: Not examined EXTREMITIES: No cyanosis, clubbing or edema. Result Diagram: 07/29/18 0428 07/29/18 0428 Results 24hrs Laboratory Tests Test 07/28/18 12:20 07/29/18 04:28 Stool Occult Blood POSITIVE White Blood Count 6.7 # Red Blood Count 4.09 #L Hemoglobin 13.6 # Hematocrit 41.6 # Mean Corpuscular Volume 101.7 H Mean Corpuscular Hemoglobin 33.3 H Mean Corpuscular Hemoglobin Concent 32.7 Red Cell Distribution Width 14.4 Platelet Count 286 # Mean Platelet Volume 11.1 H Immature Granulocytes % 1.900 H Neutrophils % Segmented Neutrophils % (Manual) 10 L Band Neutrophils % (Manual) 61 H Lymphocytes % Lymphocytes % (Manual) 6 L Monocytes % Monocytes % (Manual) 16 H Eosinophils % Eosinophils % (Manual) 1 Basophils % Metamyelocytes % (manual) 2 H Myelocytes % (Manual) 4 H Nucleated Red Blood Cells % 0.0 Immature Granulocytes # 0.130 H Neutrophils # Neutrophils # (Manual) 0.9 L Band Neutrophils # 4.0 H Lymphocytes (Manual) 0.4 L Lymphocytes # Monocytes # Monocytes # (Manual) 1.0 H Eosinophils # Basophils # Metamyelocytes # 0.1 H Myelocytes # 0.2 H Nucleated Red Blood Cells # Platelet Estimate NORMAL Giant Platelets 1 H Polychromasia 1+ Poikilocytosis 2+ Spherocytes 1+ Sodium Level 138 Potassium Level 5.6 H Chloride Level 105 Carbon Dioxide Level 14 L Anion Gap 19 H Blood Urea Nitrogen 72 #H Creatinine 2.39 #H Est Glomerular Filtrat Rate mL/min 22 L Glucose Level 124 # Hemoglobin A1c 5.3 Calcium Level 8.5 Magnesium Level 2.5 Total Bilirubin 0.4 Direct Bilirubin 0.00 Indirect Bilirubin 0.4 Aspartate Amino Transf (AST/SGOT) 90 H Alanine Aminotransferase (ALT/SGPT) 42 Alkaline Phosphatase 73 Total Protein 6.6 # Albumin 3.5 # Globulin 3.10 Albumin/Globulin Ratio 1.12 Triglycerides Level 184 H Cholesterol Level 114 LDL Cholesterol, Calculated 37 HDL Cholesterol 40 Cholesterol/HDL Ratio 2.8 Thyroid Stimulating Hormone (TSH) 0.562 Exam/Review of Systems Vital Signs Vitals Vital Signs Date Temp Pulse Resp B/P (MAP) Pulse Ox O2 O2 Flow FiO2 Time Delivery Rate 07/29/18 113 04:00 07/29/18 23 94 03:00 07/29/18 122/52 Nasal 02:00 (75) Cannula 07/29/18 98.5 00:00 07/28/18 1.0 18:00 Intake and Output 07/28/18 07/28/18 07/29/18 1515:00 23:00 07:00 IntakeIntake Total 2700 ml 1240 ml 875 ml BalanceBalance 2700 ml 1240 ml 875 ml Medications Medications Current Medications IV Flush (NS 3 ml) 3 ml PER PROTOCOL IV ; Start 07/28/18 at 01:30 Ondansetron HCl (Zofran Inj) 4 mg Q6H PRN IV NAUSEA AND/OR VOMITING; Start 07/28/18 at 01:30 Acetaminophen (Tylenol Tab) 650 mg Q6H PRN PO PAIN LEVEL 1-3 OR FEVER; Start 07/28/18 at 01:30 Enoxaparin Sodium (Lovenox) 40 mg DAILY SC ; Start 07/28/18 at 09:00 Sodium Chloride 1,000 ml @ 125 mls/hr Q8H IV Last administered on 07/29/18at 03:58; Admin Dose 125 MLS/HR; Start 07/28/18 at 01:30 Morphine Sulfate (morphine) 2 mg Q3H PRN IV PAIN LEVEL 7-10 Last administered on 07/28/18at 23:38; Admin Dose 2 MG; Start 07/28/18 at 10:30 Simethicone (Mylicon) 80 mg Q6H PRN PO DISTENSION/GAS/BLOATING; Start 07/28/18 at 10:30 Pantoprazole (Protonix Iv) 40 mg DAILY@06 IV Last administered on 07/29/18at 06:33; Admin Dose 40 MG; Start 07/29/18 at 06:00 Sodium Polystyrene Sulfonate (Kayexalate) 15 gm ONCE ONCE NGT ; Start 07/29/18 at 09:00; Stop 07/29/18 at 09:01 KOFFI MCGRATH Jul 29, 2018 09:03
[2018-07-29] MEDS: ENOXAPARIN 40 MG/0.4 ML SYG SC SCH (09:14)
[2018-07-29] MEDS ORDERED: METOCLOPRAMIDE 10 MG INJ IV SCH (14:00)
--- NOTE | 2018-07-29 15:45 | PN ---
Date/Time of Note Date/Time of Note DATE: 07/29/18 TIME: 15:43 Assessment/Plan VTE Prophylaxis Risk score (from Ns)>0 risk: 3 SCD applied (from Ns): Yes Pharmacological prophylaxis: NA/contraindicated Pharm contraindication: surgical contra Lines/Catheters IV Catheter Type (from Nrsg): Peripheral IV Urinary Cath still in place: No Assessment/Plan Assessment/Plan 1. Acute abdominal pain secondary to ileus vs obstruction - More relief after NG tube placed. EDG/flex sig planned for today to evaluate recurrent mass vs stricture - GI on board and appreciate recommendations 2. Acute diarrhea - stool sent for cultures and negative for Cdiff or bacteria 3. Acute dehydration due to diarrhea- resolving - hgb normalized and Ca levels normal as well 4. DANYELL - given persistence of diarrhea, renal function worsened this am. Will continue with IVF and if still continues to worsen, will consult Nephrology. - most likely prerenal secondary to GI losses - continue IVF for hydration and avoid nephrotoxic agents 5. Rectal pain with history of metastatic rectal cancer - Oncology consultation appreciated - CT results noted which shows possible recurrence vs stricture which will be evaluated by Flex sig today 6. hyperkalemia - K improving after Kayexalate given 7. Disposition - Plans for EGD and flex sigmoidoscopy today - Continue monitoring in ICU and if remains hemodynamically stable follow procedures, can be downgraded to telemetry >35 minutes of critical care time spent with patient. Result Diagram: 07/29/18 0428 07/29/18 1157 Results 24hrs Laboratory Tests Test 07/29/18 04:28 07/29/18 11:57 White Blood Count 6.7 # Red Blood Count 4.09 #L Hemoglobin 13.6 # Hematocrit 41.6 # Mean Corpuscular Volume 101.7 H Mean Corpuscular Hemoglobin 33.3 H Mean Corpuscular Hemoglobin Concent 32.7 Red Cell Distribution Width 14.4 Platelet Count 286 # Mean Platelet Volume 11.1 H Immature Granulocytes % 1.900 H Neutrophils % Segmented Neutrophils % (Manual) 10 L Band Neutrophils % (Manual) 61 H Lymphocytes % Lymphocytes % (Manual) 6 L Monocytes % Monocytes % (Manual) 16 H Eosinophils % Eosinophils % (Manual) 1 Basophils % Metamyelocytes % (manual) 2 H Myelocytes % (Manual) 4 H Nucleated Red Blood Cells % 0.0 Immature Granulocytes # 0.130 H Neutrophils # Neutrophils # (Manual) 0.9 L Band Neutrophils # 4.0 H Lymphocytes (Manual) 0.4 L Lymphocytes # Monocytes # Monocytes # (Manual) 1.0 H Eosinophils # Basophils # Metamyelocytes # 0.1 H Myelocytes # 0.2 H Nucleated Red Blood Cells # Platelet Estimate NORMAL Giant Platelets 1 H Polychromasia 1+ Poikilocytosis 2+ Spherocytes 1+ Sodium Level 138 Potassium Level 5.6 H 5.0 Chloride Level 105 Carbon Dioxide Level 14 L Anion Gap 19 H Blood Urea Nitrogen 72 #H Creatinine 2.39 #H Est Glomerular Filtrat Rate mL/min 22 L Glucose Level 124 # Hemoglobin A1c 5.3 Calcium Level 8.5 Magnesium Level 2.5 Total Bilirubin 0.4 Direct Bilirubin 0.00 Indirect Bilirubin 0.4 Aspartate Amino Transf (AST/SGOT) 90 H Alanine Aminotransferase (ALT/SGPT) 42 Alkaline Phosphatase 73 Total Protein 6.6 # Albumin 3.5 # Globulin 3.10 Albumin/Globulin Ratio 1.12 Triglycerides Level 184 H Cholesterol Level 114 LDL Cholesterol, Calculated 37 HDL Cholesterol 40 Cholesterol/HDL Ratio 2.8 Thyroid Stimulating Hormone (TSH) 0.562 Subjective 24 Hr Interval Summary Free Text/Dictation Patient feeling better this am and denies any abdominal pain. Still tachycardic but denies any chest discomfort. Persists with diarrhea but no nausea or vomiting. Plans for flex sigmoidoscopy and possible EGD today. Exam/Review of Systems Vital Signs Vitals Vital Signs Date Temp Pulse Resp B/P (MAP) Pulse Ox O2 O2 Flow FiO2 Time Delivery Rate 07/29/18 119 19 129/60 98 Nasal 11:00 (83) Cannula 07/29/18 98.8 08:00 07/28/18 1.0 18:00 Intake and Output 07/28/18 07/28/18 07/29/18 1515:00 23:00 07:00 IntakeIntake Total 2700 ml 1240 ml 1000 ml BalanceBalance 2700 ml 1240 ml 1000 ml Exam General: Patient currently lying in bed, no acute distress. fatigued Neck: Supple Chest: Nontender Lungs: Clear to auscultation bilaterally no crackles rales or wheezing Heart: Normal S1-S2, Regular rhythm. tachycardia. No murmur, S3, or S4 Abdomen: Soft, nontender to palpation across the abdomen. diminished bowel sounds, No guarding no rebound tenderness Extremities: Normal to inspection, no edema no cyanosis Medications Medications Current Medications IV Flush (NS 3 ml) 3 ml PER PROTOCOL IV ; Start 07/28/18 at 01:30 Ondansetron HCl (Zofran Inj) 4 mg Q6H PRN IV NAUSEA AND/OR VOMITING; Start 07/28/18 at 01:30 Acetaminophen (Tylenol Tab) 650 mg Q6H PRN PO PAIN LEVEL 1-3 OR FEVER; Start 07/28/18 at 01:30 Enoxaparin Sodium (Lovenox) 40 mg DAILY SC Last administered on 07/29/18at 09:14; Admin Dose 40 MG; Start 07/28/18 at 09:00 Sodium Chloride 1,000 ml @ 125 mls/hr Q8H IV Last administered on 07/29/18at 13:13; Admin Dose 125 MLS/HR; Start 07/28/18 at 01:30 Morphine Sulfate (morphine) 2 mg Q3H PRN IV PAIN LEVEL 7-10 Last administered on 07/28/18at 23:38; Admin Dose 2 MG; Start 07/28/18 at 10:30 Simethicone (Mylicon) 80 mg Q6H PRN PO DISTENSION/GAS/BLOATING; Start 07/28/18 at 10:30 Pantoprazole (Protonix Iv) 40 mg DAILY@06 IV Last administered on 07/29/18at 06:33; Admin Dose 40 MG; Start 07/29/18 at 06:00 Metoclopramide HCl (Reglan) 10 mg Q8 IV Last administered on 07/29/18at 14:25; Admin Dose 10 MG; Start 07/29/18 at 14:00 HAYLEE MERLOS MD Jul 29, 2018 15:45
--- NOTE | 2018-07-29 16:20 | PREAC ---
Date/Time of Note Date/Time of Note DATE: 07/29/18 TIME: 16:20 Anesthesia Eval and Record Evaluation Time Pre-Procedure Interview DATE: 07/29/18 TIME: 16:20 Age 43 Sex female NPO: 8 hrs Meds Reported Medications Capecitabine* (Xeloda*) 500 Mg Tablet, 1500 MG PO BID, TBS 07/27/18 Discontinued Reported Medications Capecitabine* (Xeloda*) 500 Mg Tablet, 1500 MG PO BID, TAB 05/28/17 Discontinued Scripts Ondansetron Hcl* (Zofran*) 4 Mg Tablet, 4 MG PO Q8H PRN for NAUSEA AND/OR VOMITING, #12 TAB Prov:DINO TONEY MD 06/24/17 Hydrocodone/Acetaminophen ([place] 10-325 Tablet) 1 Each Tablet, 1 TAB PO Q6H PRN for PAIN, #12 TAB Prov:DINO TONEY MD 06/24/17 Current Medications IV Flush (NS 3 ml) 3 ml PER PROTOCOL IV ; Start 07/28/18 at 01:30 Ondansetron HCl (Zofran Inj) 4 mg Q6H PRN IV NAUSEA AND/OR VOMITING; Start at 01:30 Acetaminophen (Tylenol Tab) 650 mg Q6H PRN PO PAIN LEVEL 1-3 OR FEVER; Start 07/28/18 at 01:30 Enoxaparin Sodium (Lovenox) 40 mg DAILY SC Last administered on 07/29/18at 09:14; Admin Dose 40 MG; Start 07/28/18 at 09:00 Sodium Chloride 1,000 ml @ 125 mls/hr Q8H IV Last administered on 07/29/18at 13:13; Admin Dose 125 MLS/HR; Start 07/28/18 at 01:30 Morphine Sulfate (morphine) 2 mg Q3H PRN IV PAIN LEVEL 7-10 Last administered on 07/28/18at 23:38; Admin Dose 2 MG; Start 07/28/18 at 10:30 Simethicone (Mylicon) 80 mg Q6H PRN PO DISTENSION/GAS/BLOATING; Start 07/28/18 at 10:30 Pantoprazole (Protonix Iv) 40 mg DAILY@06 IV Last administered on 07/29/18at 06:33; Admin Dose 40 MG; Start 07/29/18 at 06:00 Metoclopramide HCl (Reglan) 10 mg Q8 IV Last administered on 07/29/18at 14:25; Admin Dose 10 MG; Start 07/29/18 at 14:00 Metoclopramide HCl (Reglan) 10 mg Q6 IV ; Start 07/29/18 at 18:00; Status UNV Allergies Coded Allergies: No Known Allergy (Unverified , 07/27/18) Labs/Studies Result Diagram: 07/29/18 0428 07/29/18 1157 Laboratory Tests 07/29/18 04:28 07/29/18 11:57 Pre-procedure Exam Last vitals Vital Signs Date Temp Pulse Resp B/P (MAP) Pulse Ox O2 O2 Flow FiO2 Time Delivery Rate 07/29/18 115 12:00 07/29/18 19 129/60 98 Nasal 11:00 (83) Cannula 07/29/18 98.8 08:00 07/28/18 1.0 18:00 Pre-operative Attestations Prior to commencing anesthesia and surgery, the patient was re-evaluated, there was verification of: *The patient's identity *The results of appropriate recent lab work and preoperative vital signs *The above evaluation not changing prior to induction *Anesthetic plan, risk benefits, alternative and complications discussed with patient/family; questions answered; patient/family understands, accepts and wishes to proceed. SHANNON DAWN MD Jul 29, 2018 16:20
--- NOTE | 2018-07-29 16:49 | CONS ---
Date/Time of Note Date/Time of Note DATE: 07/29/18 TIME: 16:49 Assessment/Plan Assessment/Plan Assessment/Plan #Metastatic rectal ca - dx 03/2017 -Initially pt has known nodular circumferential mural thickening of the dista l sigmoid colon and rectum extending to the anus, abdominal wall tumor implants, liver masses as well as bilateral ureteral obstruction with bilateral hydronephrosis. -pt has since completed concurrent chemotherapy with radiation with 50 to 55 Gy over a 4 week period to treat the pelvis and bilateral groin lymph nodes. She has also completed 4 cycles of Xelox and has been on single agent Xeloda since -pt will need to hold Xeloda while in house but will continue as an out patient #Rectal mass vs stricture -will need GI consult and colonoscopy for further evaluation #Diarrhea -will send stool studies -continue IV hydration #Ovarian cyst -continue to monitor. if this grows in size it can be removed at that time A total of 40 minutes of [id number] time was spent speaking with the patient, of which greater than 50% was spent in counseling and coordination of care and a detailed question and answer session. Patient is seen in collaboration with Dr Marshall. Result Diagram: 07/29/18 0428 07/29/18 1157 Results 24hrs Laboratory Tests Test 07/29/18 04:28 07/29/18 11:57 White Blood Count 6.7 # Red Blood Count 4.09 #L Hemoglobin 13.6 # Hematocrit 41.6 # Mean Corpuscular Volume 101.7 H Mean Corpuscular Hemoglobin 33.3 H Mean Corpuscular Hemoglobin Concent 32.7 Red Cell Distribution Width 14.4 Platelet Count 286 # Mean Platelet Volume 11.1 H Immature Granulocytes % 1.900 H Neutrophils % Segmented Neutrophils % (Manual) 10 L Band Neutrophils % (Manual) 61 H Lymphocytes % Lymphocytes % (Manual) 6 L Monocytes % Monocytes % (Manual) 16 H Eosinophils % Eosinophils % (Manual) 1 Basophils % Metamyelocytes % (manual) 2 H Myelocytes % (Manual) 4 H Nucleated Red Blood Cells % 0.0 Immature Granulocytes # 0.130 H Neutrophils # Neutrophils # (Manual) 0.9 L Band Neutrophils # 4.0 H Lymphocytes (Manual) 0.4 L Lymphocytes # Monocytes # Monocytes # (Manual) 1.0 H Eosinophils # Basophils # Metamyelocytes # 0.1 H Myelocytes # 0.2 H Nucleated Red Blood Cells # Platelet Estimate NORMAL Giant Platelets 1 H Polychromasia 1+ Poikilocytosis 2+ Spherocytes 1+ Sodium Level 138 Potassium Level 5.6 H 5.0 Chloride Level 105 Carbon Dioxide Level 14 L Anion Gap 19 H Blood Urea Nitrogen 72 #H Creatinine 2.39 #H Est Glomerular Filtrat Rate mL/min 22 L Glucose Level 124 # Hemoglobin A1c 5.3 Calcium Level 8.5 Magnesium Level 2.5 Total Bilirubin 0.4 Direct Bilirubin 0.00 Indirect Bilirubin 0.4 Aspartate Amino Transf (AST/SGOT) 90 H Alanine Aminotransferase (ALT/SGPT) 42 Alkaline Phosphatase 73 Total Protein 6.6 # Albumin 3.5 # Globulin 3.10 Albumin/Globulin Ratio 1.12 Triglycerides Level 184 H Cholesterol Level 114 LDL Cholesterol, Calculated 37 HDL Cholesterol 40 Cholesterol/HDL Ratio 2.8 Thyroid Stimulating Hormone (TSH) 0.562 Consultation Date/Type/Reason Admit Date/Time Jul 28, 2018 at 00:46 Initial Consult Date 07/28/18 Type of Consult ONCOLOGY Requesting Provider: CAMRYN PRICE 24 HR Interval Summary Free Text/Dictation -Has EGD and Simoidoscopy today - no new issues reported Constitutional: requiring IVF, requiring O2 Exam/Review of Systems Vital Signs Vitals Vital Signs Date Temp Pulse Resp B/P (MAP) Pulse Ox O2 O2 Flow FiO2 Time Delivery Rate 07/29/18 115 12:00 07/29/18 19 129/60 98 Nasal 11:00 (83) Cannula 07/29/18 98.8 08:00 07/28/18 1.0 18:00 Intake and Output 07/28/18 07/28/18 07/29/18 1515:00 23:00 07:00 IntakeIntake Total 2700 ml 1240 ml 1000 ml BalanceBalance 2700 ml 1240 ml 1000 ml Exam Constitutional: alert, well developed Psych: nl mood/affect Head: normocephalic, atraumatic Eyes: EOMI ENMT: nl external ears & nose Neck: non-tender Cardiovascular: nl pulses, other (SS1S2) Gastrointestinal: soft, non-tender, bowel sounds Musculoskeletal: nl extremities to inspection Medications Medications Current Medications IV Flush (NS 3 ml) 3 ml PER PROTOCOL IV ; Start 07/28/18 at 01:30 Ondansetron HCl (Zofran Inj) 4 mg Q6H PRN IV NAUSEA AND/OR VOMITING; Start 07/28/18 at 01:30 Acetaminophen (Tylenol Tab) 650 mg Q6H PRN PO PAIN LEVEL 1-3 OR FEVER; Start 07/28/18 at 01:30 Enoxaparin Sodium (Lovenox) 40 mg DAILY SC Last administered on 07/29/18at 09:14; Admin Dose 40 MG; Start 07/28/18 at 09:00 Sodium Chloride 1,000 ml @ 125 mls/hr Q8H IV Last administered on 07/29/18at 13:13; Admin Dose 125 MLS/HR; Start 07/28/18 at 01:30 Morphine Sulfate (morphine) 2 mg Q3H PRN IV PAIN LEVEL 7-10 Last administered on 07/28/18at 23:38; Admin Dose 2 MG; Start 07/28/18 at 10:30 Simethicone (Mylicon) 80 mg Q6H PRN PO DISTENSION/GAS/BLOATING; Start 07/28/18 at 10:30 Pantoprazole (Protonix Iv) 40 mg DAILY@06 IV Last administered on 07/29/18at 06:33; Admin Dose 40 MG; Start 07/29/18 at 06:00 Metoclopramide HCl (Reglan) 10 mg Q8 IV Last administered on 07/29/18at 14:25; Admin Dose 10 MG; Start 07/29/18 at 14:00 Metoclopramide HCl (Reglan) 10 mg Q6 IV ; Start 07/29/18 at 18:00; Status DUC HAMMOND Jul 29, 2018 16:49
[2018-07-29] MEDS: METOCLOPRAMIDE 10 MG INJ IV SCH (18:23)
[2018-07-29] MEDS: PHENOL 1.4% SOLN 180 ML BTL MT PRN ×2 (19:58→22:27)
[2018-07-30] VITALS (21 sets, daily range): BP systolic 137–168; BP diastolic 59–82; PULSE 91–121; RESP 16–28
[2018-07-30] MEDS: morphine 4 MG/ML VIAL IV PRN ×3 (02:14→23:11)
[2018-07-30] MEDS: PHENOL 1.4% SOLN 180 ML BTL MT PRN ×5 (04:25→23:13)
[2018-07-30] MEDS: METOCLOPRAMIDE 10 MG INJ IV SCH ×4 (06:01→18:32)
[2018-07-30] MEDS: PANTOPRAZOLE 40 MG INJ IV SCH ×3 (06:01→20:22)
--- NOTE | 2018-07-30 08:44 | PN ---
Date/Time of Note Date/Time of Note DATE: 07/30/18 TIME: 08:44 Assessment/Plan VTE Prophylaxis Risk score (from Ns)>0 risk: 3 SCD applied (from Ns): Yes Pharmacological prophylaxis: NA/contraindicated Pharm contraindication: bleeding Lines/Catheters IV [facility]from [facility] Peripheral IV Urinary Cath still in place: No Assessment/Plan Assessment/Plan 1. Acute abdominal pain secondary to ileus vs obstruction- improving - Abd xray shows ileus vs SBO - Colonoscopy performed yesterday showed no mass. colon ulcerations appreciated and bx obtained - NG tube still in place - GI on board and appreciate recommendations 2. Acute diarrhea- improving - stool culture results noted 3. Acute dehydration due to diarrhea- resolving - hgb normalized and Ca levels normal as well 4. DANYELL- improving - Cr improving and will continue to monitor for improvement - most likely prerenal secondary to GI losses - continue IVF for hydration and avoid nephrotoxic agents 5. Rectal pain with history of metastatic rectal cancer - Oncology consultation appreciated - CT results noted 6. Severe gastritis - seen on EGD performed 07/29 - started on Reglan and PPI increased to BID 7. Hypertension - will add amlodipine and adjust as needed 8. Disposition - Stable for downgrade to Telemetry - Continue on NG tube until output lessens. Will repeat barium swallow in a couple days to reevaluate ileus vs partial SBO prior to feeding >30 minutes of critical care time spent with patient Result Diagram: 07/30/18 0424 07/30/18 0424 Results 24hrs Laboratory Tests Test 07/29/18 11:57 07/30/18 04:24 Potassium Level 5.0 4.1 White Blood Count 6.5 Red Blood Count 3.38 L Hemoglobin 11.1 L Hematocrit 33.7 L Mean Corpuscular Volume 99.7 Mean Corpuscular Hemoglobin 32.8 Mean Corpuscular Hemoglobin Concent 32.9 Red Cell Distribution Width 14.8 H Platelet Count 241 Mean Platelet Volume 10.5 H Immature Granulocytes % 4.400 H Neutrophils % Segmented Neutrophils % (Manual) 54 Band Neutrophils % (Manual) 22 H Lymphocytes % Lymphocytes % (Manual) 6 L Reactive Lymphocytes % (Manual) 1 H Monocytes % Monocytes % (Manual) 14 H Eosinophils % Basophils % Basophils % (Manual) 1 Metamyelocytes % (manual) 2 H Nucleated Red Blood Cells % 0.8 H Immature Granulocytes # 0.290 H Neutrophils # Neutrophils # (Manual) 3.6 Band Neutrophils # 1.4 H Lymphocytes (Manual) 0.3 L Lymphocytes # Reactive Lymphocytes # 0.0 Monocytes # Monocytes # (Manual) 0.9 Eosinophils # Basophils # Basophils # (Manual) 0.0 Metamyelocytes # 0.1 H Nucleated Red Blood Cells # Dohle Bodies 1+ Platelet Estimate NORMAL Polychromasia 2+ Poikilocytosis 1+ Anisocytosis 1+ Ovalocytes 1+ Sodium Level 136 Chloride Level 108 Carbon Dioxide Level 19 L Anion Gap 9 # Blood Urea Nitrogen 68 H Creatinine 1.45 H Glucose Level 121 Calcium Level 8.8 Phosphorus Level 4.3 Magnesium Level 2.6 H Albumin 3.2 L Subjective 24 Hr Interval Summary Free Text/Dictation Patient still with discomfort in throat due to NG tube. Denies any pain in abdominal area, chest pain or shortness of breath. Exam/Review of Systems Vital Signs Vitals Vital Signs Date Temp Pulse Resp B/P (MAP) Pulse Ox O2 O2 Flow FiO2 Time Delivery Rate 07/30/18 115 19 147/82 97 06:00 (103) 07/30/18 98.7 04:00 07/30/18 Nasal 03:00 Cannula 07/28/18 1.0 18:00 Intake and Output 07/29/18 07/29/18 07/30/18 1515:00 23:00 07:00 IntakeIntake Total 1150 ml 875 ml 875 ml OutputOutput Total 500 ml BalanceBalance 1150 ml 375 ml 875 ml Exam General: Patient currently lying in bed, no acute distress. fatigued. NG tube in place with coffee brown fluid Neck: Supple Chest: Nontender Lungs: Clear to auscultation bilaterally no crackles rales or wheezing Heart: Normal S1-S2, Regular rhythm. tachycardia. No murmur, S3, or S4 Abdomen: Soft, nontender to palpation across the abdomen. diminished bowel sounds, No guarding no rebound tenderness Extremities: Normal to inspection, no edema no cyanosis Medications Medications Current Medications IV Flush (NS 3 ml) 3 ml PER PROTOCOL IV ; Start 07/28/18 at 01:30 Ondansetron HCl (Zofran Inj) 4 mg Q6H PRN IV NAUSEA AND/OR VOMITING; Start 07/28/18 at 01:30 Acetaminophen (Tylenol Tab) 650 mg Q6H PRN PO PAIN LEVEL 1-3 OR FEVER; Start 07/28/18 at 01:30 Enoxaparin Sodium (Lovenox) 40 mg DAILY SC Last administered on 07/29/18at 09:14; Admin Dose 40 MG; Start 07/28/18 at 09:00 Sodium Chloride 1,000 ml @ 125 mls/hr Q8H IV Last administered on 07/29/18 22:51; Admin Dose 125 MLS/HR; Start 07/28/18 at 01:30 Morphine Sulfate (morphine) 2 mg Q3H PRN IV PAIN LEVEL 7-10 Last administered on 07/30/18 02:14; Admin Dose 2 MG; Start 07/28/18 at 10:30 Simethicone (Mylicon) 80 mg Q6H PRN PO DISTENSION/GAS/BLOATING; Start 07/28/18 at 10:30 Pantoprazole (Protonix Iv) 40 mg DAILY@06 IV Last administered on 07/30/18 06:01; Admin Dose 40 MG; Start 07/29/18 at 06:00 Metoclopramide HCl (Reglan) 10 mg Q6 IV Last administered on 07/30/18 06:01; Admin Dose 10 MG; Start 07/29/18 at 19:00 Phenol (Chloraseptic Throat [place]) 2 spray Q2H PRN MT SORE THROAT Last admin istered on 07/30/18 07:19; Admin Dose 2 SPRAY; Start 07/29/18 at 19:00 HAYLEE MERLOS MD Jul 30, 2018 08:44
[2018-07-30] MEDS ORDERED: METOPROLOL 5 MG INJ IV PRN (09:30)
[2018-07-30] MEDS: DEXTROSE 5%-0.45% NACL 1,000 ML IV SCH ×2 (09:34→19:48)
[2018-07-30] MEDS: METOPROLOL 5 MG INJ IV PRN ×2 (09:35→18:47)
[2018-07-30] MEDS: ENOXAPARIN 40 MG/0.4 ML SYG SC SCH (09:36)
--- NOTE | 2018-07-30 09:53 | PN ---
Date/Time of Note Date/Time of Note DATE: 07/30/18 TIME: 09:45 Assessment/Plan VTE Prophylaxis Risk score (from Ns)>0 risk: 3 SCD applied (from Ns): Yes Pharmacological prophylaxis: other (scds) Lines/Catheters IV C[facility]ter Type (from [facility]): Peripheral IV Urinary Cath still in place: No Assessment/Plan Hospital Course Summary Assessment and Plan: Assessment: History of rectal ca- dx 2017 -s/p Chemo/radiation Colonoscopy 07/29/18 Rectal stricture neoplasm versus radiation injury Estimated lumen 10 mm, biopsies obtained Unable to advance beyond area of stricture Nausea/vomiting -Reported coffee-ground emesis -Bright red emesis- after eating jello? EGD 07/29/18 Severe erosive distal esophagitis Retained material in the stomach consistent with gastroparesis Moderate gastritis Abdominal pain Diarrhea Hyperkalemia Plan: Stool studies- CDIFF neg, stool cx- coliform NPO except ice chips Plan for EGD/flex sig today Reglan 10 mg increased to q6hr PPI BID Await bx results NGT to LIS Patient seen in collaboration with Dr. Ferrer/[place] Subjective: Course reviewed with nursing staff Patient interviewed and examined All labs, imaging and other results reviewed Discussed results of EGD/flex sigmoidoscopy Pt asking for ice chips- ok to continues- NGT in place LIS with moderate/large output Shw does c/o some discomfort from NGT- discussed with patient importance of keeping NGT in place. PHYSICAL EXAMINATION: GENERAL: Alert & oriented x 3 SKIN: No lesions EYES: Pupils equal reactive to light, no discharge. EARS/NOSE AND THROAT: Ears normal, nose normal, oropharynx normal, NGT in place. NECK: Supple, no masses CHEST: Inspection within normal limits. CARDIOVASCULAR: Heart: Regular rate and rhythm RESPIRATORY: Lungs clear to auscultation GASTROINTESTINAL AND LIVER: Abdomen: Generalized abd discomfort-improved, cur rently worse pain to upper abd, distended, soft, no hernias, no masses, no organomegaly, no ascites, no guarding, no rebound tenderness, normoactive bowel sounds. Rectal: Deferred. GENITOURINARY: Not examined EXTREMITIES: No cyanosis, clubbing or edema. Result Diagram: 07/30/18 0424 07/30/18 0424 Results 24hrs Laboratory Tests Test 07/29/18 11:57 07/30/18 04:24 Potassium Level 5.0 4.1 White Blood Count 6.5 Red Blood Count 3.38 L Hemoglobin 11.1 L Hematocrit 33.7 L Mean Corpuscular Volume 99.7 Mean Corpuscular Hemoglobin 32.8 Mean Corpuscular Hemoglobin Concent 32.9 Red Cell Distribution Width 14.8 H Platelet Count 241 Mean Platelet Volume 10.5 H Immature Granulocytes % 4.400 H Neutrophils % Segmented Neutrophils % (Manual) 54 Band Neutrophils % (Manual) 22 H Lymphocytes % Lymphocytes % (Manual) 6 L Reactive Lymphocytes % (Manual) 1 H Monocytes % Monocytes % (Manual) 14 H Eosinophils % Basophils % Basophils % (Manual) 1 Metamyelocytes % (manual) 2 H Nucleated Red Blood Cells % 0.8 H Immature Granulocytes # 0.290 H Neutrophils # Neutrophils # (Manual) 3.6 Band Neutrophils # 1.4 H Lymphocytes (Manual) 0.3 L Lymphocytes # Reactive Lymphocytes # 0.0 Monocytes # Monocytes # (Manual) 0.9 Eosinophils # Basophils # Basophils # (Manual) 0.0 Metamyelocytes # 0.1 H Nucleated Red Blood Cells # Dohle Bodies 1+ Platelet Estimate NORMAL Polychromasia 2+ Poikilocytosis 1+ Anisocytosis 1+ Ovalocytes 1+ Sodium Level 136 Chloride Level 108 Carbon Dioxide Level 19 L Anion Gap 9 # Blood Urea Nitrogen 68 H Creatinine 1.45 H Glucose Level 121 Calcium Level 8.8 Phosphorus Level 4.3 Magnesium Level 2.6 H Albumin 3.2 L Exam/Review of Systems Vital Signs Vitals Vital Signs Date Temp Pulse Resp B/P (MAP) Pulse Ox O2 O2 Flow FiO2 Time Delivery Rate 07/30/18 115 19 147/82 97 06:00 (103) 07/30/18 98.7 04:00 07/30/18 Nasal 03:00 Cannula 07/28/18 1.0 18:00 Intake and Output 07/29/18 07/29/18 07/30/18 1414:59 22:59 06:59 IntakeIntake Total 1150 ml 1000 ml 875 ml OutputOutput Total 500 ml BalanceBalance 1150 ml 500 ml 875 ml Medications Medications Current Medications IV Flush (NS 3 ml) 3 ml PER PROTOCOL IV ; Start 07/28/18 at 01:30 Ondansetron HCl (Zofran Inj) 4 mg Q6H PRN IV NAUSEA AND/OR VOMITING; Start 07/28/18 at 01:30 Acetaminophen (Tylenol Tab) 650 mg Q6H PRN PO PAIN LEVEL 1-3 OR FEVER; Start 07/28/18 at 01:30 Enoxaparin Sodium (Lovenox) 40 mg DAILY SC Last administered on 07/30/18 09:36; Admin Dose 40 MG; Start 07/28/18 at 09:00 Morphine Sulfate (morphine) 2 mg Q3H PRN IV PAIN LEVEL 7-10 Last administered on 07/30/18at 02:14; Admin Dose 2 MG; Start 07/28/18 at 10:30 Simethicone (Mylicon) 80 mg Q6H PRN PO DISTENSION/GAS/BLOATING; Start 07/28/18 at 10:30 Metoclopramide HCl (Reglan) 10 mg Q6 IV Last administered on 07/30/18 06:01; Admin Dose 10 MG; Start 07/29/18 at 19:00 Phenol (Chloraseptic Throat [place]) 2 spray Q2H PRN MT SORE THROAT Last a dministered on 07/30/18 07:19; Admin Dose 2 SPRAY; Start 07/29/18 at 19:00 Pantoprazole (Protonix Iv) 40 mg BID IV Last administered on 07/30/18 09:34; Admin Dose 40 MG; Start 07/30/18 at 09:00 Metoprolol Tartrate (Lopressor) 5 mg Q4H PRN IV HR>100 Last administered on 07/30/18 09:35; Admin Dose 5 MG; Start 07/30/18 at 09:00 Dextrose/Sodium Chloride 1,000 ml @ 100 mls/hr Q10H IV Last administered on 07/30/18 09:34; Admin Dose 100 MLS/HR; Start 07/30/18 at 09:00 Metoprolol Tartrate (Lopressor) 5 mg Q4 PRN IV HR >100; Start 07/30/18 at 09:30; Status UNV Amlodipine Besylate (Norvasc) 5 mg DAILY NGT ; Start 07/30/18 at 09:30 KOFFI MCGRATH Jul 30, 2018 09:53
[2018-07-30] MEDS: AMLODIPINE 5 MG TAB NGT SCH (10:33)
[2018-07-30] MEDS: ACETAMINOPHEN 325 MG TAB PO PRN ×2 (12:40→18:32)
--- NOTE | 2018-07-30 15:39 | CONS ---
Date/Time of Note Date/Time of Note DATE: 07/30/18 TIME: 15:21 Assessment/Plan Assessment/Plan Assessment/Plan #Metastatic rectal ca - dx 03/2017 -Initially pt has known nodular circumferential mural thickening of the dista l sigmoid colon and rectum extending to the anus, abdominal wall tumor implants, liver masses as well as bilateral ureteral obstruction with bilateral hydronephrosis. -pt has since completed concurrent chemotherapy with radiation with 50 to 55 Gy over a 4 week period to treat the pelvis and bilateral groin lymph nodes. 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 if this grows in size it can be removed at that time # Acute Kidney Injury; possibly D/T dehydration/ renal hypoperfusion - BUN/Cr trended down today - management per PMD # Acute Hyperkalemia- resolved A total of 40 minutes of [id number] time was spent speaking with the patient/ family of which greater than 50% was spent in counseling and coordination of care and a detailed question and answer session. Patient is seen in collaboration with Dr Marshall. Result Diagram: 07/30/18 0424 07/30/18 0424 Results 24hrs Laboratory Tests Test 07/30/18 04:24 White Blood Count 6.5 Red Blood Count 3.38 L Hemoglobin 11.1 L Hematocrit 33.7 L Mean Corpuscular Volume 99.7 Mean Corpuscular Hemoglobin 32.8 Mean Corpuscular Hemoglobin Concent 32.9 Red Cell Distribution Width 14.8 H Platelet Count 241 Mean Platelet Volume 10.5 H Immature Granulocytes % 4.400 H Neutrophils % Segmented Neutrophils % (Manual) 54 Band Neutrophils % (Manual) 22 H Lymphocytes % Lymphocytes % (Manual) 6 L Reactive Lymphocytes % (Manual) 1 H Monocytes % Monocytes % (Manual) 14 H Eosinophils % Basophils % Basophils % (Manual) 1 Metamyelocytes % (manual) 2 H Nucleated Red Blood Cells % 0.8 H Immature Granulocytes # 0.290 H Neutrophils # Neutrophils # (Manual) 3.6 Band Neutrophils # 1.4 H Lymphocytes (Manual) 0.3 L Lymphocytes # Reactive Lymphocytes # 0.0 Monocytes # Monocytes # (Manual) 0.9 Eosinophils # Basophils # Basophils # (Manual) 0.0 Metamyelocytes # 0.1 H Nucleated Red Blood Cells # Dohle Bodies 1+ Platelet Estimate NORMAL Polychromasia 2+ Poikilocytosis 1+ Anisocytosis 1+ Ovalocytes 1+ Sodium Level 136 Potassium Level 4.1 Chloride Level 108 Carbon Dioxide Level 19 L Anion Gap 9 # Blood Urea Nitrogen 68 H Creatinine 1.45 H Glucose Level 121 Calcium Level 8.8 Phosphorus Level 4.3 Magnesium Level 2.6 H Albumin 3.2 L Consultation Date/Type/Reason Admit Date/Time Jul 28, 2018 at 00:46 Initial Consult Date 07/28/18 Type of Consult ONCOLOGY Reason for Consultation RECTAL CANCER Requesting Provider: CAMRYN PRICE 24 HR Interval Summary Free Text/Dictation - feels better; denies any nausea/vomitting - no new issues reported overnight per staff Constitutional: requiring IVF Detailed Summary Eyes: no complaints ENT: no complaints Respiratory: no complaints Cardiovascular: no complaints Gastrointestinal: no complaints Genitourinary: no complaints Musculoskeletal: no complaints Skin: no complaints Neurologic: no complaints Endocrine: no complaints Lymphatic: no complaints Exam/Review of Systems Vital Signs Vitals Vital Signs Date Temp Pulse Resp B/P (MAP) Pulse Ox O2 O2 Flow FiO2 Time Delivery Rate 07/30/18 101 12:00 07/30/18 98.9 16 149/72 97 Room Air 12:00 (97) 07/28/18 1.0 18:00 Intake and Output 07/29/18 07/29/18 07/30/18 1515:00 23:00 07:00 IntakeIntake Total 1150 ml 875 ml 875 ml OutputOutput Total 500 ml BalanceBalance 1150 ml 375 ml 875 ml Exam Constitutional: alert, well developed Psych: nl mood/affect Head: atraumatic Eyes: nl conjunctiva, EOMI, nl lids, nl sclera ENMT: nl external ears & nose Neck: non-tender Respiratory: clear to auscultation (bilaterally) Cardiovascular: nl pulses, other (s1s2) Gastrointestinal: soft, non-tender, other (Ngt intact- on low intermittent suction; drainig coffee ground drainage) Musculoskeletal: nl extremities to inspection Extremities: normal pulses Neurological: nl mental status, nl speech Skin: nl turgor Lymph: nontender Medications Medications Current Medications IV Flush (NS 3 ml) 3 ml PER PROTOCOL IV ; Start 07/28/18 at 01:30 Ondansetron HCl (Zofran Inj) 4 mg Q6H PRN IV NAUSEA AND/OR VOMITING; Start 07/28/18 at 01:30 Acetaminophen (Tylenol Tab) 650 mg Q6H PRN PO PAIN LEVEL 1-3 OR FEVER Last administered on 07/30/18 12:40; Admin Dose 650 MG; Start 07/28/18 at 01:30 Enoxaparin Sodium (Lovenox) 40 mg DAILY SC Last administered on 07/30/18 09:36; Admin Dose 40 MG; Start 07/28/18 at 09:00 Morphine Sulfate (morphine) 2 mg Q3H PRN IV PAIN LEVEL 7-10 Last administered on 07/30/18 02:14; Admin Dose 2 MG; Start 07/28/18 at 10:30 Simethicone (Mylicon) 80 mg Q6H PRN PO DISTENSION/GAS/BLOATING; Start 07/28/18 at 10:30 Metoclopramide HCl (Reglan) 10 mg Q6 IV Last administered on 07/30/18 12:36; Admin Dose 10 MG; Start 07/29/18 at 19:00 Phenol (Chloraseptic Throat [place]) 2 spray Q2H PRN MT SORE THROAT Last administered on 07/30/18 07:19; Admin Dose 2 SPRAY; Start 07/29/18 at 19:00 Pantoprazole (Protonix Iv) 40 mg BID IV Last administered on 07/30/18 09:34; Admin Dose 40 MG; Start 07/30/18 at 09:00 Metoprolol Tartrate (Lopressor) 5 mg Q4H PRN IV HR>100 Last administered on 07/30/18 09:35; Admin Dose 5 MG; Start 07/30/18 at 09:00 Dextrose/Sodium Chloride 1,000 ml @ 100 mls/hr Q10H IV Last administered on 07/30/18at 09:34; Admin Dose 100 MLS/HR; Start 07/30/18 at 09:00 Metoprolol Tartrate (Lopressor) 5 mg Q4H PRN IV HR >100; Start 07/30/18 at 09:30 Amlodipine Besylate (Norvasc) 5 mg DAILY NGT Last administered on 07/30/18at 10:33; Admin Dose 5 MG; Start 07/30/18 at 09:30 DUC SEGAL Jul 30, 2018 15:32
[2018-07-31] VITALS (11 sets, daily range): BP systolic 106–132; BP diastolic 62–78; PULSE 101–116; RESP 18–19
[2018-07-31] MEDS: METOCLOPRAMIDE 10 MG INJ IV SCH ×5 (00:09→23:32)
[2018-07-31] MEDS: PHENOL 1.4% SOLN 180 ML BTL MT PRN ×4 (01:26→20:55)
[2018-07-31] MEDS: DEXTROSE 5%-0.45% NACL 1,000 ML IV SCH ×3 (02:28→17:30)
[2018-07-31] MEDS: morphine 4 MG/ML VIAL IV PRN ×3 (02:32→13:19)
[2018-07-31] MEDS: METOPROLOL 5 MG INJ IV PRN (04:31)
--- NOTE | 2018-07-31 08:27 | PN ---
Date/Time of Note Date/Time of Note DATE: 07/31/18 TIME: 08:27 Assessment/Plan VTE Prophylaxis Risk score (from Ns)>0 risk: 6 SCD applied (from Ns): Yes Pharmacological prophylaxis: NA/contraindicated Pharm contraindication: bleeding Lines/Catheters IV Catheter Type (from Nrs): Peripheral IV Urinary Cath still in place: No Assessment/Plan Assessment/Plan 1. Acute abdominal pain secondary to ileus vs obstruction- improving - patient not passing gas or having BM. Discussed once passing gas will repeat SBFT to reassess ileus vs partial obstruction prior to removal of NG tube - Initial abd xray shows ileus vs SBO - Colonoscopy performed 07.29 showed no mass. colon ulcerations appreciated and bx obtained - NG tube still in place - GI on board and appreciate recommendations 2. Acute diarrhea- resolve - stool culture results noted 3. Acute dehydration due to diarrhea- resolving 4. DANYELL- resolved - Cr returned to baseline - most likely prerenal secondary to GI losses - continue IVF while NPO 5. Rectal pain with history of metastatic rectal cancer - Oncology consultation appreciated - CT results noted 6. Severe gastritis - seen on EGD performed 07/29 - started on Reglan and PPI increased to BID 7. Hypertension - Bp controlled 8. Disposition - Once passing gas can repeat SBFT to reassess ileus vs partial SBO. Continue NG tube for now Result Diagram: 07/31/18 0457 07/31/18 0457 Results 24hrs Laboratory Tests Test 07/31/18 04:57 07/31/18 08:12 White Blood Count 5.9 Red Blood Count 3.18 L Hemoglobin 10.4 L Hematocrit 30.5 L Mean Corpuscular Volume 95.9 Mean Corpuscular Hemoglobin 32.7 Mean Corpuscular Hemoglobin Concent 34.1 Red Cell Distribution Width 14.7 H Platelet Count 231 Mean Platelet Volume 10.3 Immature Granulocytes % 5.400 H Neutrophils % Lymphocytes % Monocytes % Eosinophils % Basophils % Nucleated Red Blood Cells % 2.2 H Immature Granulocytes # 0.320 H Neutrophils # Lymphocytes # Monocytes # Eosinophils # Basophils # Nucleated Red Blood Cells # Sodium Level 142 Potassium Level 3.5 Chloride Level 113 H Carbon Dioxide Level 23 Anion Gap 6 Blood Urea Nitrogen 26 #H Creatinine 0.73 Glucose Level 131 Calcium Level 8.9 Phosphorus Level 2.2 #L Magnesium Level 2.7 H Albumin 3.0 L Lab Scanned Report REFERENCE LAB Subjective 24 Hr Interval Summary Free Text/Dictation Patient states shes feeling better but still having throat discomfort due to NG tube. Still with large amount of output but patient is also taking in ice chips. Denies passing gas and discussed once passing gas or has BM will reassess ileus vs partial SBO. Exam/Review of Systems Vital Signs Vitals Vital Signs Date Temp Pulse Resp B/P (MAP) Pulse Ox O2 O2 Flow FiO2 Time Delivery Rate 07/31/18 98.2 101 19 121/71 99 04:08 (88) 07/30/18 Room Air 20:00 07/28/18 1.0 18:00 Intake and Output 07/30/18 07/30/18 07/31/18 1515:00 23:00 07:00 IntakeIntake Total 675 ml 700 ml 600 ml OutputOutput Total 500 ml 800 ml BalanceBalance 675 ml 200 ml -200 ml Exam General: Patient currently lying in bed, no acute distress. fatigued. NG tube in place Neck: Supple Chest: Nontender Lungs: Clear to auscultation bilaterally no crackles rales or wheezing Heart: Normal S1-S2, Regular rhythm. tachycardia. No murmur, S3, or S4 Abdomen: Soft, nontender to palpation across the abdomen. diminished bowel sounds, No guarding no rebound tenderness Extremities: Normal to inspection, no edema no cyanosis Medications Medications Current Medications IV Flush (NS 3 ml) 3 ml PER PROTOCOL IV ; Start 07/28/18 at 01:30 Ondansetron HCl (Zofran Inj) 4 mg Q6H PRN IV NAUSEA AND/OR VOMITING; Start 07/28/18 at 01:30 Acetaminophen (Tylenol Tab) 650 mg Q6H PRN PO PAIN LEVEL 1-3 OR FEVER Last administered on 07/30/18at 18:32; Admin Dose 650 MG; Start 07/28/18 at 01:30 Enoxaparin Sodium (Lovenox) 40 mg DAILY SC Last administered on 07/30/18at 09:36; Admin Dose 40 MG; Start 07/28/18 at 09:00 Morphine Sulfate (morphine) 2 mg Q3H PRN IV PAIN LEVEL 7-10 Last administered on 07/31/18at 02:32; Admin Dose 2 MG; Start 07/28/18 at 10:30 Simethicone (Mylicon) 80 mg Q6H PRN PO DISTENSION/GAS/BLOATING; Start 07/28/18 at 10:30 Metoclopramide HCl (Reglan) 10 mg Q6 IV Last administered on 07/31/18at 05:05; Admin Dose 10 MG; Start 07/29/18 at 19:00 Phenol (Chloraseptic Throat [place]) 2 spray Q2H PRN MT SORE THROAT Last adminis tered on 07/31/18 04:37; Admin Dose 2 SPRAY; Start 07/29/18 at 19:00 Pantoprazole (Protonix Iv) 40 mg BID IV Last administered on 07/30/18 20:22; Admin Dose 40 MG; Start 07/30/18 at 09:00 Metoprolol Tartrate (Lopressor) 5 mg Q4H PRN IV HR>100 Last administered on 07/31/18 04:31; Admin Dose 5 MG; Start 07/30/18 at 09:00 Dextrose/Sodium Chloride 1,000 ml @ 100 mls/hr Q10H IV Last administered on 07/31/18 02:28; Admin Dose 100 MLS/HR; Start 07/30/18 at 09:00 Metoprolol Tartrate (Lopressor) 5 mg Q4H PRN IV HR >100; Start 07/30/18 at 09:30 Amlodipine Besylate (Norvasc) 5 mg DAILY NGT Last administered on 07/30/18at 10:33; Admin Dose 5 MG; Start 07/30/18 at 09:30 HAYLEE MERLOS MD Jul 31, 2018 08:27
[2018-07-31] MEDS: PANTOPRAZOLE 40 MG INJ IV SCH ×2 (08:31→20:54)
[2018-07-31] MEDS: AMLODIPINE 5 MG TAB NGT SCH (08:32)
[2018-07-31] MEDS: ENOXAPARIN 40 MG/0.4 ML SYG SC SCH (08:47)
[2018-07-31] MEDS ORDERED: POTASSIUM PHOSPHATE 30 MM in SOD CHLORIDE 0.9% 250 ML IVPB ONE (10:00)
--- NOTE | 2018-07-31 12:45 | PN ---
Date/Time of Note Date/Time of Note DATE: 07/31/18 TIME: 12:40 Assessment/Plan VTE Prophylaxis Risk score (from Ns)>0 risk: 8 SCD applied (from Ns): Yes Pharmacological prophylaxis: other (scds) Lines/Catheters IV [facility] ([facility] Peripheral IV Urinary Cath still in place: No Assessment/Plan Hospital Course Summary Assessment and Plan: Assessment: History of rectal ca- dx 2017 -s/p Chemo/radiation Colonoscopy 07/29/18 Rectal stricture neoplasm versus radiation injury Estimated lumen 10 mm, biopsies obtained Unable to advance beyond area of stricture Nausea/vomiting -Reported coffee-ground emesis -Bright red emesis- after eating jello? EGD 07/29/18 Severe erosive distal esophagitis Retained material in the stomach consistent with gastroparesis Moderate gastritis Abdominal pain Bowel obstruction Diarrhea Hyperkalemia- resolved Plan: Continue current regimen Await bx results NGT to LIS Monitor labs Patient seen in collaboration with Dr. Ferrer/[place] Subjective: Course reviewed with nursing staff Patient interviewed and examined All labs, imaging and other results reviewed Patient resting in bed, transferred out of ICU to [facility] Appears more comfortable, NGT continue to have sig out-put She denies passing gas as of yet, encourage ambulation as tolerated PHYSICAL EXAMINATION: GENERAL: Alert & oriented x 3 SKIN: No lesions EYES: Pupils equal reactive to light, no discharge. EARS/NOSE AND THROAT: Ears normal, nose normal, oropharynx normal, NGT in place. NECK: Supple, no masses CHEST: Inspection within normal limits. CARDIOVASCULAR: Heart: Regular rate and rhythm RESPIRATORY: Lungs clear to auscultation GASTROINTESTINAL AND LIVER: Abdomen: Generalized abd discomfort-improved, currently worse pain to upper abd, distended, soft, no hernias, no masses, no organomegaly, no ascites, no guarding, no rebound tenderness, absent upper quadrants, hypo LLQ, RLQ bowel sounds. Rectal: Deferred. GENITOURINARY: Not examined EXTREMITIES: No cyanosis, clubbing or edema. Result Diagram: 07/31/18 0457 07/31/18 0457 Results 24hrs Laboratory Tests Test 07/31/18 04:57 07/31/18 08:12 White Blood Count 5.9 Red Blood Count 3.18 L Hemoglobin 10.4 L Hematocrit 30.5 L Mean Corpuscular Volume 95.9 Mean Corpuscular Hemoglobin 32.7 Mean Corpuscular Hemoglobin Concent 34.1 Red Cell Distribution Width 14.7 H Platelet Count 231 Mean Platelet Volume 10.3 Immature Granulocytes % 5.400 H Neutrophils % Segmented Neutrophils % (Manual) 37 L Band Neutrophils % (Manual) 9 H Lymphocytes % Lymphocytes % (Manual) 15 Monocytes % Monocytes % (Manual) 30 H Eosinophils % Eosinophils % (Manual) 1 Basophils % Metamyelocytes % (manual) 2 H Myelocytes % (Manual) 4 H Promyelocytes % (Manual) 2 H Nucleated Red Blood Cells % 3 H Immature Granulocytes # 0.320 H Neutrophils # Neutrophils # (Manual) 2.2 Band Neutrophils # 0.5 Lymphocytes (Manual) 0.8 Lymphocytes # Monocytes # Monocytes # (Manual) 1.7 H Eosinophils # Basophils # Metamyelocytes # 0.1 H Myelocytes # 0.2 H Promyelocytes # 0.1 H Nucleated Red Blood Cells # Platelet Estimate NORMAL Polychromasia 1+ Anisocytosis 1+ Sodium Level 142 Potassium Level 3.5 Chloride Level 113 H Carbon Dioxide Level 23 Anion Gap 6 Blood Urea Nitrogen 26 #H Creatinine 0.73 Glucose Level 131 Calcium Level 8.9 Phosphorus Level 2.2 #L Magnesium Level 2.7 H Albumin 3.0 L Lab Scanned Report REFERENCE LAB Exam/Review of Systems Vital Signs Vitals Vital Signs Date Temp Pulse Resp B/P (MAP) Pulse Ox O2 O2 Flow FiO2 Time Delivery Rate 07/31/18 98.5 111 18 126/67 94 11:13 (86) 07/30/18 Room Air 20:00 07/28/18 1.0 18:00 Intake and Output 07/30/18 07/30/18 07/31/18 1515:00 23:00 07:00 IntakeIntake Total 675 ml 700 ml 600 ml OutputOutput Total 500 ml 800 ml BalanceBalance 675 ml 200 ml -200 ml Medications Medications Current Medications IV Flush (NS 3 ml) 3 ml PER PROTOCOL IV ; Start 07/28/18 at 01:30 Ondansetron HCl (Zofran Inj) 4 mg Q6H PRN IV NAUSEA AND/OR VOMITING; Start 07/28/18 at 01:30 Acetaminophen (Tylenol Tab) 650 mg Q6H PRN PO PAIN LEVEL 1-3 OR FEVER Last administered on 07/30/18at 18:32; Admin Dose 650 MG; Start 07/28/18 at 01:30 Enoxaparin Sodium (Lovenox) 40 mg DAILY SC Last administered on 07/31/18 08:47; Admin Dose 40 MG; Start 07/28/18 at 09:00 Morphine Sulfate (morphine) 2 mg Q3H PRN IV PAIN LEVEL 7-10 Last administered on 07/31/18 08:44; Admin Dose 2 MG; Start 07/28/18 at 10:30 Simethicone (Mylicon) 80 mg Q6H PRN PO DISTENSION/GAS/BLOATING; Start 07/28/18 at 10:30 Metoclopramide HCl (Reglan) 10 mg Q6 IV Last administered on 07/31/18 11:06; Admin Dose 10 MG; Start 07/29/18 at 19:00 Phenol (Chloraseptic Throat [place]) 2 spray Q2H PRN MT SORE THROAT Last administered on 07/31/18 11:06; Admin Dose 2 SPRAY; Start 07/29/18 at 19:00 Pantoprazole (Protonix Iv) 40 mg BID IV Last administered on 07/31/18 08:31; Admin Dose 40 MG; Start 07/30/18 at 09:00 Metoprolol Tartrate (Lopressor) 5 mg Q4H PRN IV HR>100 Last administered on 07/31/18 04:31; Admin Dose 5 MG; Start 07/30/18 at 09:00 Dextrose/Sodium Chloride 1,000 ml @ 100 mls/hr Q10H IV Last administered on 07/31/18 02:28; Admin Dose 100 MLS/HR; Start 07/30/18 at 09:00 Metoprolol Tartrate (Lopressor) 5 mg Q4H PRN IV HR >100; Start 07/30/18 at 09:30 Amlodipine Besylate (Norvasc) 5 mg DAILY NGT Last administered on 07/31/18 08:32; Admin Dose 5 MG; Start 07/30/18 at 09:30 Potassium Phosphate 30 mm/ Sodium Chloride 260 ml @ 65 mls/hr ONCE ONCE IVPB Last administered on 07/31/18 10:00; Admin Dose 65 MLS/HR; Start 07/31/18 at 10:00; Stop 07/31/18 at 13:59 KOFFI MCGRATH Jul 31, 2018 12:45
--- NOTE | 2018-07-31 16:29 | CONS ---
Date/Time of Note Date/Time of Note DATE: 07/31/18 TIME: 16:29 Assessment/Plan Assessment/Plan Assessment/Plan #Metastatic rectal ca - dx 03/2017 -Initially pt has known nodular circumferential mural thickening of the dista l sigmoid colon and rectum extending to the anus, abdominal wall tumor implants, liver masses as well as bilateral ureteral obstruction with bilateral hydronephrosis. -pt has since completed concurrent chemotherapy with radiation with 50 to 55 Gy over a 4 week period to treat the pelvis and bilateral groin lymph nodes. 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 if this grows in size it can be removed at that time # Acute Kidney Injury; possibly D/T dehydration/ renal hypoperfusion - BUN/Cr trended down today - management per PMD # Acute Hyperkalemia- resolved A total of 40 minutes of [id number] time was spent speaking with the patient/ family of which greater than 50% was spent in counseling and coordination of care and a detailed question and answer session. Patient is seen in collaboration with Dr Marshall. Result Diagram: 07/31/18 0457 07/31/18 0457 Results 24hrs Laboratory Tests Test 07/31/18 04:57 07/31/18 08:12 White Blood Count 5.9 Red Blood Count 3.18 L Hemoglobin 10.4 L Hematocrit 30.5 L Mean Corpuscular Volume 95.9 Mean Corpuscular Hemoglobin 32.7 Mean Corpuscular Hemoglobin Concent 34.1 Red Cell Distribution Width 14.7 H Platelet Count 231 Mean Platelet Volume 10.3 Immature Granulocytes % 5.400 H Neutrophils % Segmented Neutrophils % (Manual) 37 L Band Neutrophils % (Manual) 9 H Lymphocytes % Lymphocytes % (Manual) 15 Monocytes % Monocytes % (Manual) 30 H Eosinophils % Eosinophils % (Manual) 1 Basophils % Metamyelocytes % (manual) 2 H Myelocytes % (Manual) 4 H Promyelocytes % (Manual) 2 H Nucleated Red Blood Cells % 3 H Immature Granulocytes # 0.320 H Neutrophils # Neutrophils # (Manual) 2.2 Band Neutrophils # 0.5 Lymphocytes (Manual) 0.8 Lymphocytes # Monocytes # Monocytes # (Manual) 1.7 H Eosinophils # Basophils # Metamyelocytes # 0.1 H Myelocytes # 0.2 H Promyelocytes # 0.1 H Nucleated Red Blood Cells # Platelet Estimate NORMAL Polychromasia 1+ Anisocytosis 1+ Sodium Level 142 Potassium Level 3.5 Chloride Level 113 H Carbon Dioxide Level 23 Anion Gap 6 Blood Urea Nitrogen 26 #H Creatinine 0.73 Glucose Level 131 Calcium Level 8.9 Phosphorus Level 2.2 #L Magnesium Level 2.7 H Albumin 3.0 L Lab Scanned Report REFERENCE LAB Consultation Date/Type/Reason Admit Date/Time Jul 28, 2018 at 00:46 Initial Consult Date 07/28/18 Type of Consult ONCOLOGY Reason for Consultation Rectal cancer Requesting Provider: CAMRYN PRICE 24 HR Interval Summary Free Text/Dictation - ot transferred from ICU - feels better - NGT connected to low intermittent suction - No rectal bleeding reported - 07/29/18- SP EGD/Colonoscopy- pending biopsy - no new issues reported last night Constitutional: requiring IVF Detailed Summary Eyes: no complaints ENT: no complaints Respiratory: no complaints Cardiovascular: no complaints Gastrointestinal: no complaints Genitourinary: no complaints Musculoskeletal: no complaints Skin: no complaints Neurologic: no complaints Exam/Review of Systems Vital Signs Vitals Vital Signs Date Temp Pulse Resp B/P (MAP) Pulse Ox O2 O2 Flow FiO2 Time Delivery Rate 07/31/18 98.3 114 18 132/68 91 15:25 (89) 07/30/18 Room Air 20:00 07/28/18 1.0 18:00 Intake and Output 07/30/18 07/30/18 07/31/18 1515:00 23:00 07:00 IntakeIntake Total 675 ml 700 ml 600 ml OutputOutput Total 500 ml 800 ml BalanceBalance 675 ml 200 ml -200 ml Exam Constitutional: alert, well developed Psych: nl mood/affect Head: atraumatic Eyes: nl conjunctiva, EOMI, nl lids, nl sclera ENMT: nl external ears & nose Neck: non-tender Respiratory: diminished breath sounds (bilaterally) Cardiovascular: nl pulses, other (s1s2) Gastrointestinal: soft, non-tender Musculoskeletal: nl extremities to inspection Extremities: normal pulses Neurological: nl mental status, nl speech Skin: nl turgor Lymph: nontender Medications Medications Current Medications IV Flush (NS 3 ml) 3 ml PER PROTOCOL IV ; Start 07/28/18 at 01:30 Ondansetron HCl (Zofran Inj) 4 mg Q6H PRN IV NAUSEA AND/OR VOMITING; Start 07/28/18 at 01:30 Acetaminophen (Tylenol Tab) 650 mg Q6H PRN PO PAIN LEVEL 1-3 OR FEVER Last administered on 07/30/18at 18:32; Admin Dose 650 MG; Start 07/28/18 at 01:30 Enoxaparin Sodium (Lovenox) 40 mg DAILY SC Last administered on 07/31/18at 08:47; Admin Dose 40 MG; Start 07/28/18 at 09:00 Morphine Sulfate (morphine) 2 mg Q3H PRN IV PAIN LEVEL 7-10 Last administered on 07/31/18 13:19; Admin Dose 2 MG; Start 07/28/18 at 10:30 Simethicone (Mylicon) 80 mg Q6H PRN PO DISTENSION/GAS/BLOATING; Start 07/28/18 at 10:30 Metoclopramide HCl (Reglan) 10 mg Q6 IV Last administered on 07/31/18 11:06; Admin Dose 10 MG; Start 07/29/18 at 19:00 Phenol (Chloraseptic Throat [place]) 2 spray Q2H PRN MT SORE THROAT Last administered on 07/31/18 11:06; Admin Dose 2 SPRAY; Start 07/29/18 at 19:00 Pantoprazole (Protonix Iv) 40 mg BID IV Last administered on 07/31/18 08:31; Admin Dose 40 MG; Start 07/30/18 at 09:00 Metoprolol Tartrate (Lopressor) 5 mg Q4H PRN IV HR>100 Last administered on 07/31/18 04:31; Admin Dose 5 MG; Start 07/30/18 at 09:00 Dextrose/Sodium Chloride 1,000 ml @ 100 mls/hr Q10H IV Last administered on 07/31/18at 02:28; Admin Dose 100 MLS/HR; Start 07/30/18 at 09:00 Metoprolol Tartrate (Lopressor) 5 mg Q4H PRN IV HR >100; Start 07/30/18 at 09:30 Amlodipine Besylate (Norvasc) 5 mg DAILY NGT Last administered on 07/31/18at 08:32; Admin Dose 5 MG; Start 07/30/18 at 09:30 DUC SEGAL Jul 31, 2018 4:29 pm
[2018-08-01] VITALS (10 sets, daily range): BP systolic 110–133; BP diastolic 61–80; PULSE 79–121; RESP 18–19
[2018-08-01] MEDS: DEXTROSE 5%-0.45% NACL 1,000 ML IV SCH ×4 (01:00→21:00)
[2018-08-01] MEDS: PHENOL 1.4% SOLN 180 ML BTL MT PRN ×2 (01:36→07:10)
[2018-08-01] MEDS: morphine 4 MG/ML VIAL IV PRN ×2 (01:36→23:25)
[2018-08-01] MEDS: METOCLOPRAMIDE 10 MG INJ IV SCH ×4 (05:11→23:25)
[2018-08-01] MEDS: PANTOPRAZOLE 40 MG INJ IV SCH ×2 (08:55→20:18)
[2018-08-01] MEDS: AMLODIPINE 5 MG TAB NGT SCH (08:55)
[2018-08-01] MEDS: ENOXAPARIN 40 MG/0.4 ML SYG SC SCH (09:02)
--- NOTE | 2018-08-01 09:37 | PN ---
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 EGD 07/29/18 Severe erosive distal esophagitis Retained material in the stomach consistent with gastroparesis Moderate gastritis Abdominal pain- improved Bowel obstruction Diarrhea- improved Hyperkalemia- resolved Plan: UGI with SBFT Await bx results NGT to LIs for now Monitor labs Patient seen in collaboration with Dr. Ferrer/[place] Subjective: Course reviewed with nursing staff Patient interviewed and examined All labs, imaging and other results reviewed Pt states feeling better today, passing flatus x1 loose BM working with PT., still with some NG tube out-put- will re-order UGI with SBFT Increae in WBC, low grade fever last night. CDIFF, O&P neg, stool cx- coliform PHYSICAL EXAMINATION: GENERAL: Alert & oriented x 3 SKIN: No lesions EYES: Pupils equal reactive to light, no discharge. EARS/NOSE AND THROAT: Ears normal, nose normal, oropharynx normal, NGT in place. NECK: Supple, no masses CHEST: Inspection within normal limits. CARDIOVASCULAR: Heart: Regular rate and rhythm RESPIRATORY: Lungs clear to auscultation GASTROINTESTINAL AND LIVER: Abdomen: Generalized abd discomfort-improved, currently worse pain to upper abd, distended, soft, no hernias, no masses, no organomegaly, no ascites, no guarding, no rebound tenderness, absent upper quadrants, hypo LLQ, RLQ bowel sounds. Rectal: Deferred. GENITOURINARY: Not examined EXTREMITIES: No cyanosis, clubbing or edema. Result Diagram: 08/01/18 0500 08/01/18 0500 Results 24hrs Laboratory Tests Test 08/01/18 05:00 White Blood Count 11.2 #H Red Blood Count 3.38 L Hemoglobin 11.0 L Hematocrit 33.0 L Mean Corpuscular Volume 97.6 Mean Corpuscular Hemoglobin 32.5 Mean Corpuscular Hemoglobin Concent 33.3 Red Cell Distribution Width 15.2 H Platelet Count 258 Mean Platelet Volume 10.3 Immature Granulocytes % 10.700 H Neutrophils % Lymphocytes % Monocytes % Eosinophils % Basophils % Nucleated Red Blood Cells % 2.0 H Immature Granulocytes # 1.200 H Neutrophils # Lymphocytes # Monocytes # Eosinophils # Basophils # Nucleated Red Blood Cells # Sodium Level 140 Potassium Level 3.4 L Chloride Level 110 Carbon Dioxide Level 23 Anion Gap 7 Blood Urea Nitrogen 20 Creatinine 0.64 Glucose Level 151 Calcium Level 8.8 Phosphorus Level 3.7 Magnesium Level 2.3 Albumin 2.9 L Exam/Review of Systems Vital Signs Vitals Vital Signs Date Temp Pulse Resp B/P (MAP) Pulse Ox O2 O2 Flow FiO2 Time Delivery Rate 08/01/18 118 08:00 08/01/18 98.9 18 115/61 100 07:33 (79) 07/30/18 Room Air 20:00 07/28/18 1.0 18:00 Intake and Output 07/31/18 07/31/18 08/01/18 1515:00 23:00 07:00 IntakeIntake Total 925 ml 1050 ml OutputOutput Total 800 ml 500 ml BalanceBalance 125 ml 550 ml Medications Medications Current Medications IV Flush (NS 3 ml) 3 ml PER PROTOCOL IV ; Start 07/28/18 at 01:30 Ondansetron HCl (Zofran Inj) 4 mg Q6H PRN IV NAUSEA AND/OR VOMITING; Start 07/28/18 at 01:30 Acetaminophen (Tylenol Tab) 650 mg Q6H PRN PO PAIN LEVEL 1-3 OR FEVER Last administered on 07/30/18at 18:32; Admin Dose 650 MG; Start 07/28/18 at 01:30 Enoxaparin Sodium (Lovenox) 40 mg DAILY SC Last administered on 08/01/18at 09:02; Admin Dose 40 MG; Start 07/28/18 at 09:00 Morphine Sulfate (morphine) 2 mg Q3H PRN IV PAIN LEVEL 7-10 Last administered on 08/01/18at 01:36; Admin Dose 2 MG; Start 07/28/18 at 10:30 Simethicone (Mylicon) 80 mg Q6H PRN PO DISTENSION/GAS/BLOATING; Start 07/28/18 at 10:30 Metoclopramide HCl (Reglan) 10 mg Q6 IV Last administered on 08/01/18at 05:11; Admin Dose 10 MG; Start 07/29/18 at 19:00 Phenol (Chloraseptic Throat [place]) 2 spray Q2H PRN MT SORE THROAT Last administered on 08/01/18 07:10; Admin Dose 2 SPRAY; Start 07/29/18 at 19:00 Pantoprazole (Protonix Iv) 40 mg BID IV Last administered on 08/01/18 08:55; Admin Dose 40 MG; Start 07/30/18 at 09:00 Metoprolol Tartrate (Lopressor) 5 mg Q4H PRN IV HR>100 Last administered on 07/31/18 04:31; Admin Dose 5 MG; Start 07/30/18 at 09:00 Dextrose/Sodium Chloride 1,000 ml @ 100 mls/hr Q10H IV Last administered on 08/01/18 05:12; Admin Dose 100 MLS/HR; Start 07/30/18 at 09:00 Metoprolol Tartrate (Lopressor) 5 mg Q4H PRN IV HR >100; Start 07/30/18 at 09:30 Amlodipine Besylate (Norvasc) 5 mg DAILY NGT Last administered on 08/01/18 08:55; Admin Dose 5 MG; Start 07/30/18 at 09:30 Potassium Chloride 100 ml @ 50 mls/hr Q2H IVPB ; Start 08/01/18 at 10:00; Stop 08/01/18 at 13:59 KOFFI MCGRATH Aug 01, 2018 09:36
[2018-08-01] MEDS: POTASSIUM CHLORIDE 100 ML IVPB SCH ×2 (10:00→12:00)
--- NOTE | 2018-08-01 11:28 | CONS ---
Date/Time of Note Date/Time of Note DATE: 08/01/18 TIME: 11:24 Assessment/Plan Assessment/Plan Hospital Course #Metastatic rectal ca - dx 03/2017 -Initially pt has known nodular circumferential mural thickening of the dista l sigmoid colon and rectum extending to the anus, abdominal wall tumor implants, liver masses as well as bilateral ureteral obstruction with bilateral hydronephrosis. -pt has since completed concurrent chemotherapy with radiation with 50 to 55 Gy over a 4 week period to treat the pelvis and bilateral groin lymph nodes. 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 NEED to FOLLOW UP BIOPSY # Intractable Nausea/vomiting - coffee-ground emesis/drainage per NGT - EGD 07/29/18 showed- Severe erosive distal esophagitis; Retained material in the stomach consistent with gastroparesis; Moderate gastritis #Diarrhea -send stool studies- GI follows -continue IV hydration #Ovarian cyst -continue to monitor. if this grows in size it can be removed at that time # Acute Kidney Injury; possibly D/T dehydration/ renal hypoperfusion - BUN/Cr trended down today - management per PMD # Acute Hyperkalemia- resolved A total of 40 minutes of [id number] time was spent speaking with the patient/ family of which greater than 50% was spent in counseling and coordination of care and a detailed question and answer session. Result Diagram: 08/01/18 0500 08/01/18 0500 Results 24hrs Laboratory Tests Test 08/01/18 05:00 White Blood Count 11.2 #H Red Blood Count 3.38 L Hemoglobin 11.0 L Hematocrit 33.0 L Mean Corpuscular Volume 97.6 Mean Corpuscular Hemoglobin 32.5 Mean Corpuscular Hemoglobin Concent 33.3 Red Cell Distribution Width 15.2 H Platelet Count 258 Mean Platelet Volume 10.3 Immature Granulocytes % 10.700 H Neutrophils % Segmented Neutrophils % (Manual) 46 Band Neutrophils % (Manual) 24 H Lymphocytes % Lymphocytes % (Manual) 5 L Monocytes % Monocytes % (Manual) 17 H Eosinophils % Eosinophils % (Manual) 2 Basophils % Metamyelocytes % (manual) 2 H Myelocytes % (Manual) 4 H Nucleated Red Blood Cells % 2 H Immature Granulocytes # 1.200 H Neutrophils # Neutrophils # (Manual) 5.4 Band Neutrophils # 2.6 H Lymphocytes (Manual) 0.5 L Lymphocytes # Monocytes # Monocytes # (Manual) 1.9 H Eosinophils # Basophils # Metamyelocytes # 0.2 H Myelocytes # 0.4 H Nucleated Red Blood Cells # Platelet Estimate NORMAL Giant Platelets 3 H Polychromasia 2+ Anisocytosis 1+ Macrocytosis 1+ Sodium Level 140 Potassium Level 3.4 L Chloride Level 110 Carbon Dioxide Level 23 Anion Gap 7 Blood Urea Nitrogen 20 Creatinine 0.64 Glucose Level 151 Calcium Level 8.8 Phosphorus Level 3.7 Magnesium Level 2.3 Albumin 2.9 L Consultation Date/Type/Reason Admit Date/Time Jul 28, 2018 at 00:46 Initial Consult Date 07/28/18 Type of Consult oncology Reason for Consultation metastatic rectal cancer Requesting Provider: CAMRYN PRICE 24 HR Interval Summary Free Text/Dictation difficulty tolerating NGT. states she is now passing gas and having bowel movements since colonoscopy Exam/Review of Systems Vital Signs Vitals Vital Signs Date Temp Pulse Resp B/P (MAP) Pulse Ox O2 O2 Flow FiO2 Time Delivery Rate 08/01/18 98.2 115 18 128/79 93 11:16 (95) 07/30/18 Room Air 20:00 07/28/18 1.0 18:00 Intake and Output 07/31/18 07/31/18 08/01/18 1515:00 23:00 07:00 IntakeIntake Total 925 ml 1050 ml OutputOutput Total 800 ml 500 ml BalanceBalance 125 ml 550 ml Exam Constitutional: oriented, distress, frail Psych: anxiety, depression Head: normocephalic Eyes: nl conjunctiva ENMT: nl external ears & nose, other (NGT in place) Neck: supple Respiratory: clear to auscultation Cardiovascular: regular rate and rhythm Gastrointestinal: soft Musculoskeletal: nl extremities to inspection Extremities: normal pulses Medications Medications Current Medications IV Flush (NS 3 ml) 3 ml PER PROTOCOL IV ; Start 07/28/18 at 01:30 Ondansetron HCl (Zofran Inj) 4 mg Q6H PRN IV NAUSEA AND/OR VOMITING; Start 07/28/18 at 01:30 Acetaminophen (Tylenol Tab) 650 mg Q6H PRN PO PAIN LEVEL 1-3 OR FEVER Last administered on 07/30/18 18:32; Admin Dose 650 MG; Start 07/28/18 at 01:30 Enoxaparin Sodium (Lovenox) 40 mg DAILY SC Last administered on 08/01/18 09:02; Admin Dose 40 MG; Start 07/28/18 at 09:00 Morphine Sulfate (morphine) 2 mg Q3H PRN IV PAIN LEVEL 7-10 Last administered on 08/01/18 01:36; Admin Dose 2 MG; Start 07/28/18 at 10:30 Simethicone (Mylicon) 80 mg Q6H PRN PO DISTENSION/GAS/BLOATING; Start 07/28/18 at 10:30 Metoclopramide HCl (Reglan) 10 mg Q6 IV Last administered on 08/01/18at 05:11; Admin Dose 10 MG; Start 07/29/18 at 19:00 Phenol (Chloraseptic Throat [place]) 2 spray Q2H PRN MT SORE THROAT Last administered on 08/01/18 07:10; Admin Dose 2 SPRAY; Start 07/29/18 at 19:00 Pantoprazole (Protonix Iv) 40 mg BID IV Last administered on 08/01/18 08:55; Admin Dose 40 MG; Start 07/30/18 at 09:00 Metoprolol Tartrate (Lopressor) 5 mg Q4H PRN IV HR>100 Last administered on 07/31/18 04:31; Admin Dose 5 MG; Start 07/30/18 at 09:00 Dextrose/Sodium Chloride 1,000 ml @ 100 mls/hr Q10H IV Last administered on 08/01/18 05:12; Admin Dose 100 MLS/HR; Start 07/30/18 at 09:00 Metoprolol Tartrate (Lopressor) 5 mg Q4H PRN IV HR >100; Start 07/30/18 at 09:30 Amlodipine Besylate (Norvasc) 5 mg DAILY NGT Last administered on 08/01/18 08:55; Admin Dose 5 MG; Start 12/29/18 at 09:30 Potassium Chloride 100 ml @ 50 mls/hr Q2H IVPB ; Start 08/01/18 at 10:00; Stop 08/01/18 at 13:59 ZHANNA LOPEZ M.D. Aug 01, 2018 11:28
--- NOTE | 2018-08-01 14:29 | PN ---
Date/Time of Note Date/Time of Note DATE: 08/01/18 TIME: 14:25 Objective Vitals Vital Signs Date Temp Pulse Resp B/P (MAP) Pulse Ox O2 O2 Flow FiO2 Time Delivery Rate 08/01/18 119 12:00 08/01/18 98.2 18 128/79 93 11:16 (95) 07/30/18 Room Air 20:00 07/28/18 1.0 18:00 Intake and Output 07/31/18 07/31/18 08/01/18 1515:00 23:00 07:00 IntakeIntake Total 925 ml 1050 ml OutputOutput Total 800 ml 500 ml BalanceBalance 125 ml 550 ml Results Result Diagram: 08/01/18 0500 08/01/18 0500 Medications Medications Current Medications IV Flush (NS 3 ml) 3 ml PER PROTOCOL IV ; Start 07/28/18 at 01:30 Ondansetron HCl (Zofran Inj) 4 mg Q6H PRN IV NAUSEA AND/OR VOMITING; Start at 01:30 Acetaminophen (Tylenol Tab) 650 mg Q6H PRN PO PAIN LEVEL 1-3 OR FEVER Last administered on 07/30/18at 18:32; Admin Dose 650 MG; Start 07/28/18 at 01:30 Enoxaparin Sodium (Lovenox) 40 mg DAILY SC Last administered on 08/01/18at 09:02; Admin Dose 40 MG; Start 07/28/18 at 09:00 Morphine Sulfate (morphine) 2 mg Q3H PRN IV PAIN LEVEL 7-10 Last administered on 08/01/18at 01:36; Admin Dose 2 MG; Start 07/28/18 at 10:30 Simethicone (Mylicon) 80 mg Q6H PRN PO DISTENSION/GAS/BLOATING; Start 07/28/18 at 10:30 Metoclopramide HCl (Reglan) 10 mg Q6 IV Last administered on 08/01/18at 12:00; Admin Dose 10 MG; Start 07/29/18 at 19:00 Phenol (Chloraseptic Throat [place]) 2 spray Q2H PRN MT SORE THROAT Last administered on 08/01/18at 07:10; Admin Dose 2 SPRAY; Start 07/29/18 at 19:00 Pantoprazole (Protonix Iv) 40 mg BID IV Last administered on 12/31/18at 08:55; Admin Dose 40 MG; Start 07/30/18 at 09:00 Metoprolol Tartrate (Lopressor) 5 mg Q4H PRN IV HR>100 Last administered on 07/31/18at 04:31; Admin Dose 5 MG; Start 07/30/18 at 09:00 Dextrose/Sodium Chloride 1,000 ml @ 100 mls/hr Q10H IV Last administered on 08/01/18at 05:12; Admin Dose 100 MLS/HR; Start 07/30/18 at 09:00 Metoprolol Tartrate (Lopressor) 5 mg Q4H PRN IV HR >100; Start 07/30/18 at 09:30 Amlodipine Besylate (Norvasc) 5 mg DAILY NGT Last administered on 08/01/18at 08:55; Admin Dose 5 MG; Start 07/30/18 at 09:30 VTE Prophylaxis Risk score (from Ns)>0 risk: 9 SCD applied (from [facility]): Yes Lines/Catheters IV Catheter Type: Jean in Place: No Assessment/Plan Hospital Course Subjective Had bowel movement, minimal abdominal pain Objective Physical exam General: Patient is laying in bed and answers questions appropriately Mentation: Patient is alert and oriented 4, Head: Normocephalic atraumatic Eyes: EOMI, pupils reactive to light Neck: Supple, nontender, midline Respiratory: Clear to auscultation bilaterally Cardiovascular: regular rate, no obvious murmurs Gastrointestinal: Mildly tender to palpation, bowel sounds heard. Neurological: Moves all extremities spontaneously Skin: No new skin lesions Assessment/Plan 1. Acute abdominal pain secondary to ileus vs obstruction- improving - now passing bowel movement, but still with ab pain minimally - Initial abd xray shows ileus vs SBO - Colonoscopy performed 07.29 showed no mass, but could proceed further than stricture. colon ulcerations appreciated and bx obtained - NG tube still in place - GI on board and appreciate recommendations 2. Acute diarrhea- resolved - stool culture results noted 3. Acute dehydration due to diarrhea- resolving 4. DANYELL- resolved - Cr returned to baseline - most likely prerenal secondary to GI losses - continue IVF while NPO 5. Rectal pain with history of metastatic rectal cancer - Oncology consultation appreciated -stricture from CA in colon, but stable - CT results noted 6. Severe gastritis/erosive esophagitis - seen on EGD performed 07/29 - started on Reglan and PPI increased to BID -carafate when able 7. Hypertension - Bp controlled 8. Disposition -repeat SBFT today DINO DAWN Aug 01, 2018 14:29
[2018-08-01] MEDS: ONDANSETRON 4 MG INJ IV PRN (22:36)
[2018-08-02] VITALS (11 sets, daily range): BP systolic 104–117; BP diastolic 58–67; PULSE 98–119; RESP 18–22
[2018-08-02] MEDS: ONDANSETRON 4 MG INJ IV PRN (04:04)
[2018-08-02] MEDS: PHENOL 1.4% SOLN 180 ML BTL MT PRN (05:33)
[2018-08-02] MEDS: METOCLOPRAMIDE 10 MG INJ IV SCH ×3 (05:38→18:01)
[2018-08-02] MEDS: DEXTROSE 5%-0.45% NACL 1,000 ML IV SCH ×2 (05:46→16:37)
--- NOTE | 2018-08-02 10:01 | PN ---
Date/Time of Note Date/Time of Note DATE: 08/02/18 TIME: 09:34 Assessment/Plan VTE Prophylaxis Risk score (from Ns)>0 risk: 9 SCD applied (from Ns): Yes Pharmacological prophylaxis: other (scds) Lines/Catheters [facility] Peripheral IV Urinary Cath still in place: No Assessment/Plan Hospital Course Summary Assessment and Plan: Assessment: History of rectal ca- dx 2017 -s/p Chemo/radiation Colonoscopy 07/29/18 Rectal stricture neoplasm versus radiation injury Estimated lumen 10 mm, biopsies obtained Unable to advance beyond area of stricture Bx: showing ulcer with glandular atrophy.No evidence of dysplasia or malignancy. The biopsy shows features of ischemic injuries. Radiation effect cannot be completely ruled out Nausea/vomiting- -Reported coffee-ground emesis -Bright red emesis- after eating jello? EGD 07/29/18 Severe erosive distal esophagitis Retained material in the stomach consistent with gastroparesis Moderate gastritis Abdominal pain- improved Bowel obstruction vs ileus- NGT LIS- SBFT 08/01- improving ileus Diarrhea- improved Hyperkalemia- resolved Plan: Patient pulled out NGT Continue Reglan Monitor labs Patient seen in collaboration with Dr. Ferrer/[place] Subjective: Course reviewed with nursing staff Patient interviewed and examined All labs, imaging and other results reviewed Pt with softer abd, BS hypoactive sounds Clear liquid diet has been started, Continue close observation. Pt states claudio diarrhea today PHYSICAL EXAMINATION: GENERAL: Alert & oriented x 3 SKIN: No lesions EYES: Pupils equal reactive to light, no discharge. EARS/NOSE AND THROAT: Ears normal, nose normal, oropharynx normal, NGT in place. NECK: Supple, no masses CHEST: Inspection within normal limits. CARDIOVASCULAR: Heart: Regular rate and rhythm RESPIRATORY: Lungs clear to auscultation GASTROINTESTINAL AND LIVER: Abdomen: Generalized abd discomfort-improved, , distended- softer, no hernias, no masses, no organomegaly, no ascites, no gua rding, no rebound tenderness, hypoactive bowel sounds. Rectal: Deferred. GENITOURINARY: Not examined EXTREMITIES: No cyanosis, clubbing or edema. Result Diagram: 08/02/18 0446 08/02/18 0446 Results 24hrs Laboratory Tests Test 08/02/18 04:46 White Blood Count 11.5 H Red Blood Count 3.59 L Hemoglobin 11.7 L Hematocrit 35.6 L Mean Corpuscular Volume 99.2 Mean Corpuscular Hemoglobin 32.6 Mean Corpuscular Hemoglobin Concent 32.9 Red Cell Distribution Width 15.6 H Platelet Count 279 Mean Platelet Volume 10.4 Immature Granulocytes % 7.800 H Neutrophils % Lymphocytes % Monocytes % Eosinophils % Basophils % Nucleated Red Blood Cells % 2.3 H Immature Granulocytes # 0.900 H Neutrophils # Lymphocytes # Monocytes # Eosinophils # Basophils # Nucleated Red Blood Cells # Sodium Level 144 Potassium Level 3.1 L Chloride Level 110 Carbon Dioxide Level 23 Anion Gap 11 Blood Urea Nitrogen 25 H Creatinine 0.79 Est Glomerular Filtrat Rate mL/min > 60 Glucose Level 156 Calcium Level 9.0 Phosphorus Level 4.4 Magnesium Level 2.2 Exam/Review of Systems Vital Signs Vitals Vital Signs Date Temp Pulse Resp B/P (MAP) Pulse Ox O2 O2 Flow FiO2 Time Delivery Rate 08/02/18 112 08:00 08/02/18 97.0 20 104/64 92 Room Air 07:27 (77) Intake and Output 08/01/18 08/01/18 08/02/18 1515:00 23:00 07:00 IntakeIntake Total 100 ml 660 ml 1320 ml OutputOutput Total 8 ml 508 ml BalanceBalance 100 ml 652 ml 812 ml Medications Medications Current Medications IV Flush (NS 3 ml) 3 ml PER PROTOCOL IV ; Start 07/28/18 at 01:30 Ondansetron HCl (Zofran Inj) 4 mg Q6H PRN IV NAUSEA AND/OR VOMITING Last administered on 08/02/18at 04:04; Admin Dose 4 MG; Start 07/28/18 at 01:30 Acetaminophen (Tylenol Tab) 650 mg Q6H PRN PO PAIN LEVEL 1-3 OR FEVER Last administered on 07/30/18at 18:32; Admin Dose 650 MG; Start 07/28/18 at 01:30 Enoxaparin Sodium (Lovenox) 40 mg DAILY SC Last administered on 08/01/18at 09:02; Admin Dose 40 MG; Start 07/28/18 at 09:00 Morphine Sulfate (morphine) 2 mg Q3H PRN IV PAIN LEVEL 7-10 Last administered on 08/01/18at 23:25; Admin Dose 2 MG; Start 07/28/18 at 10:30 Simethicone (Mylicon) 80 mg Q6H PRN PO DISTENSION/GAS/BLOATING; Start 07/28/18 at 10:30 Metoclopramide HCl (Reglan) 10 mg Q6 IV Last administered on 08/02/18 05:38; Admin Dose 10 MG; Start 07/29/18 at 19:00 Phenol (Chloraseptic Throat [place]) 2 spray Q2H PRN MT SORE THROAT Last administered on 08/02/18 05:33; Admin Dose 2 SPRAY; Start 07/29/18 at 19:00 Pantoprazole (Protonix Iv) 40 mg BID IV Last administered on 08/01/18at 20:18; Admin Dose 40 MG; Start 07/30/18 at 09:00 Metoprolol Tartrate (Lopressor) 5 mg Q4H PRN IV HR>100 Last administered on 07/31/18at 04:31; Admin Dose 5 MG; Start 07/30/18 at 09:00 Dextrose/Sodium Chloride 1,000 ml @ 100 mls/hr Q10H IV Last administered on 08/02/18 05:46; Admin Dose 100 MLS/HR; Start 07/30/18 at 09:00 Metoprolol Tartrate (Lopressor) 5 mg Q4H PRN IV HR >100; Start 07/30/18 at 09:30 Amlodipine Besylate (Norvasc) 5 mg DAILY NGT Last administered on 08/01/18at 08:55; Admin Dose 5 MG; Start 07/30/18 at 09:30 KOFFI MCGRATH Aug 02, 2018 09:44
[2018-08-02] MEDS: POTASSIUM CHLORIDE (SR) 20 MEQ TAB PO SCH ×2 (10:06→16:37)
[2018-08-02] MEDS: AMLODIPINE 5 MG TAB NGT SCH (10:06)
[2018-08-02] MEDS: PANTOPRAZOLE 40 MG INJ IV SCH ×2 (10:07→21:33)
[2018-08-02] MEDS: ENOXAPARIN 40 MG/0.4 ML SYG SC SCH (10:08)
--- NOTE | 2018-08-02 13:30 | PN ---
Date/Time of Note Date/Time of Note DATE: 08/02/18 TIME: 13:28 Objective Vitals Vital Signs Date Temp Pulse Resp B/P (MAP) Pulse Ox O2 O2 Flow FiO2 Time Delivery Rate 08/02/18 112 12:00 08/02/18 98.0 22 105/63 96 Room Air 11:18 (77) Intake and Output 08/01/18 08/01/18 08/02/18 1515:00 23:00 07:00 IntakeIntake Total 100 ml 660 ml 1320 ml OutputOutput Total 8 ml 508 ml BalanceBalance 100 ml 652 ml 812 ml Results Result Diagram: 08/02/18 0446 08/02/18 0446 Medications Medications Current Medications IV Flush (NS 3 ml) 3 ml PER PROTOCOL IV ; Start 07/28/18 at 01:30 Ondansetron HCl (Zofran Inj) 4 mg Q6H PRN IV NAUSEA AND/OR VOMITING Last administered on 08/02/18 04:04; Admin Dose 4 MG; Start 07/28/18 at 01:30 Acetaminophen (Tylenol Tab) 650 mg Q6H PRN PO PAIN LEVEL 1-3 OR FEVER Last administered on 07/30/18at 18:32; Admin Dose 650 MG; Start 07/28/18 at 01:30 Enoxaparin Sodium (Lovenox) 40 mg DAILY SC Last administered on 08/02/18at 10:08; Admin Dose 40 MG; Start 07/28/18 at 09:00 Morphine Sulfate (morphine) 2 mg Q3H PRN IV PAIN LEVEL 7-10 Last administered on 08/01/18at 23:25; Admin Dose 2 MG; Start 07/28/18 at 10:30 Simethicone (Mylicon) 80 mg Q6H PRN PO DISTENSION/GAS/BLOATING; Start 07/28/18 at 10:30 Metoclopramide HCl (Reglan) 10 mg Q6 IV Last administered on 08/02/18 05:38; Admin Dose 10 MG; Start 07/29/18 at 19:00 Phenol (Chloraseptic Throat [place]) 2 spray Q2H PRN MT SORE THROAT Last administered on 08/02/18 05:33; Admin Dose 2 SPRAY; Start 07/29/18 at 19:00 Pantoprazole (Protonix Iv) 40 mg BID IV Last administered on 08/02/18at 10:07; Admin Dose 40 MG; Start 07/30/18 at 09:00 Dextrose/Sodium Chloride 1,000 ml @ 100 mls/hr Q10H IV Last administered on 08/02/18at 05:46; Admin Dose 100 MLS/HR; Start 07/30/18 at 09:00 Metoprolol Tartrate (Lopressor) 5 mg Q4H PRN IV HR >100; Start 07/30/18 at 09:30 Amlodipine Besylate (Norvasc) 5 mg DAILY NGT Last administered on 08/02/18at 10:06; Admin Dose 5 MG; Start 07/30/18 at 09:30 Potassium Chloride (Klor-Con 20) 40 meq Q4H PO Last administered on 08/02/18 10:06; Admin Dose 40 MEQ; Start 08/02/18 at 10:00; Stop 08/02/18 at 14:01 VTE Prophylaxis Risk score (from Ns)>0 risk: 3 SCD applied (from Ns): Yes Lines/Catheters IV Catheter Type: Jean in Place: No Assessment/Plan Hospital Course Subjective tolerating clears well, still with lots of diarrhea Objective Physical exam General: Patient is laying in bed and answers questions appropriately Mentation: Patient is alert and oriented 4, Head: Normocephalic atraumatic Eyes: EOMI, pupils reactive to light Neck: Supple, nontender, midline Respiratory: Clear to auscultation bilaterally Cardiovascular: regular rate, no obvious murmurs Gastrointestinal: Mildly tender to palpation, bowel sounds heard. Neurological: Moves all extremities spontaneously Skin: No new skin lesions Assessment/Plan 1. Acute abdominal pain secondary to ileus vs obstruction- resolved - now passing bowel movement, but too much diarrhea - Colonoscopy performed 07.29 showed no mass, but could not proceed further than stricture. colon ulcerations appreciated and bx obtained -repeat SBFT negative for sbo, only ileus - GI on board and appreciate recommendations 2. Acute diarrhea- ongoing - stool culture results noted -GI recs appreciated 3. Acute dehydration due to diarrhea- resolving -cont IVF 4. DANYELL- resolved - Cr returned to baseline - most likely prerenal secondary to GI losses - continue IVF due to diarrhea 5. Rectal pain with history of metastatic rectal cancer - Oncology consultation appreciated -stricture from CA in colon, but stable - CT results noted - stable, will follow up with her outpatient oncologist 6. Severe gastritis/erosive esophagitis - seen on EGD performed 07/29 - started on Reglan and PPI increased to BID -carafate when able 7. Hypertension - Bp controlled 8. Disposition -monitor for continued diarrhea and tolerance to clear liquids DINO DAWN Aug 02, 2018 13:30
--- NOTE | 2018-08-02 14:12 | CONS ---
Date/Time of Note Date/Time of Note DATE: 08/02/18 TIME: 14:11 Assessment/Plan Assessment/Plan Assessment/Plan #Metastatic rectal ca - dx 03/2017 -Initially pt has known nodular circumferential mural thickening of the distal sigmoid colon and rectum extending to the anus, abdominal wall tumor implants, liver masses as well as bilateral ureteral obstruction with bilateral hydronephrosis. -pt has since completed concurrent chemotherapy with radiation with 50 to 55 Gy over a 4 week period to treat the pelvis and bilateral groin lymph nodes. 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 NEED to FOLLOW UP BIOPSY # Intractable Nausea/vomiting - coffee-ground emesis/drainage per NGT - EGD 07/29/18 showed- Severe erosive distal esophagitis; Retained material in the stomach consistent with gastroparesis; Moderate gastritis #Diarrhea -send stool studies- GI follows -continue IV hydration #Ovarian cyst -continue to monitor. if this grows in size it can be removed at that time # Acute Kidney Injury; possibly D/T dehydration/ renal hypoperfusion - BUN/Cr trended down today - management per PMD # Acute Hypokalemia - - management per PMD A total of 40 minutes of [id number] time was spent speaking with the patient/ family of which greater than 50% was spent in counseling and coordination of care and a detailed question and answer session. Result Diagram: 08/02/18 0446 08/02/18 0446 Results 24hrs Laboratory Tests Test 08/02/18 04:46 White Blood Count 11.5 H Red Blood Count 3.59 L Hemoglobin 11.7 L Hematocrit 35.6 L Mean Corpuscular Volume 99.2 Mean Corpuscular Hemoglobin 32.6 Mean Corpuscular Hemoglobin Concent 32.9 Red Cell Distribution Width 15.6 H Platelet Count 279 Mean Platelet Volume 10.4 Immature Granulocytes % 7.800 H Neutrophils % Lymphocytes % Monocytes % Eosinophils % Basophils % Nucleated Red Blood Cells % 2.3 H Immature Granulocytes # 0.900 H Neutrophils # Lymphocytes # Monocytes # Eosinophils # Basophils # Nucleated Red Blood Cells # Sodium Level 144 Potassium Level 3.1 L Chloride Level 110 Carbon Dioxide Level 23 Anion Gap 11 Blood Urea Nitrogen 25 H Creatinine 0.79 Est Glomerular Filtrat Rate mL/min > 60 Glucose Level 156 Calcium Level 9.0 Phosphorus Level 4.4 Magnesium Level 2.2 Consultation Date/Type/Reason Admit Date/Time Jul 28, 2018 at 00:46 Initial Consult Date 07/28/18 Type of Consult ONCOLOGY Reason for Consultation METASTATIC RECTAL CANCER Requesting Provider: CAMRYN PRICE 24 HR Interval Summary Free Text/Dictation NGt is out started on diet per GI no rectal bleeding reported c/o diarrhea - no new issues reported overnight Constitutional: requiring IVF Detailed Summary Eyes: no complaints ENT: no complaints Respiratory: no complaints Cardiovascular: no complaints Gastrointestinal: diarrhea Genitourinary: no complaints Musculoskeletal: no complaints Skin: no complaints Neurologic: no complaints Exam/Review of Systems Vital Signs Vitals Vital Signs Date Temp Pulse Resp B/P (MAP) Pulse Ox O2 O2 Flow FiO2 Time Delivery Rate 08/02/18 112 12:00 08/02/18 98.0 22 105/63 96 Room Air 11:18 (77) Intake and Output 08/01/18 08/01/18 08/02/18 1515:00 23:00 07:00 IntakeIntake Total 100 ml 660 ml 1320 ml OutputOutput Total 8 ml 508 ml BalanceBalance 100 ml 652 ml 812 ml Exam Constitutional: alert, oriented, well developed Psych: nl mood/affect Head: atraumatic Eyes: EOMI, nl lids ENMT: nl external ears & nose Neck: non-tender Respiratory: clear to auscultation (bilaterally) Cardiovascular: nl pulses ( ) Gastrointestinal: soft, non-tender Musculoskeletal: nl extremities to inspection Neurological: nl speech, other Skin: nl turgor Medications Medications Current Medications IV Flush (NS 3 ml) 3 ml PER PROTOCOL IV ; Start 07/28/18 at 01:30 Ondansetron HCl (Zofran Inj) 4 mg Q6H PRN IV NAUSEA AND/OR VOMITING Last admin istered on 08/02/18at 04:04; Admin Dose 4 MG; Start 07/28/18 at 01:30 Acetaminophen (Tylenol Tab) 650 mg Q6H PRN PO PAIN LEVEL 1-3 OR FEVER Last administered on 07/30/18at 18:32; Admin Dose 650 MG; Start 07/28/18 at 01:30 Enoxaparin Sodium (Lovenox) 40 mg DAILY SC Last administered on 08/02/18 10:08; Admin Dose 40 MG; Start 07/28/18 at 09:00 Morphine Sulfate (morphine) 2 mg Q3H PRN IV PAIN LEVEL 7-10 Last administered on 08/01/18at 23:25; Admin Dose 2 MG; Start 07/28/18 at 10:30 Simethicone (Mylicon) 80 mg Q6H PRN PO DISTENSION/GAS/BLOATING; Start 07/28/18 at 10:30 Metoclopramide HCl (Reglan) 10 mg Q6 IV Last administered on 08/02/18 05:38; Admin Dose 10 MG; Start 07/29/18 at 19:00 Phenol (Chloraseptic Throat [place]) 2 spray Q2H PRN MT SORE THROAT Last administered on 08/02/18 05:33; Admin Dose 2 SPRAY; Start 07/29/18 at 19:00 Pantoprazole (Protonix Iv) 40 mg BID IV Last administered on 08/02/18 10:07; Admin Dose 40 MG; Start 07/30/18 at 09:00 Dextrose/Sodium Chloride 1,000 ml @ 100 mls/hr Q10H IV Last administered on 08/02/18 05:46; Admin Dose 100 MLS/HR; Start 07/30/18 at 09:00 Metoprolol Tartrate (Lopressor) 5 mg Q4H PRN IV HR >100; Start 07/30/18 at 09:30 Amlodipine Besylate (Norvasc) 5 mg DAILY NGT Last administered on 08/02/18 10:06; Admin Dose 5 MG; Start 07/30/18 at 09:30 Sucralfate (Carafate Susp) 1 gm QID PO ; Start 08/02/18 at 17:00 Cholestyramine Resin (Questran) 1 pkt ONCE ONCE PO ; Start 08/02/18 at 14:30; Stop 08/02/18 at 14:31; Status DUC HAMMOND Aug 02, 2018 14:12
[2018-08-02] MEDS ORDERED: CHOLESTYRAMINE 4 GM PACKET PO ONE (14:30)
[2018-08-02] MEDS: SUCRALFATE (100 MG/ML) 10ML CUP PO SCH ×2 (16:37→21:32)
[2018-08-03] VITALS (12 sets, daily range): BP systolic 97–115; BP diastolic 52–62; PULSE 93–118; RESP 18–22
[2018-08-03] MEDS ORDERED: LOPERAMIDE 2 MG CAP PO ONE (00:30)
[2018-08-03] MEDS: PHENOL 1.4% SOLN 180 ML BTL MT PRN ×2 (00:53→04:23)
[2018-08-03] MEDS: METOCLOPRAMIDE 10 MG INJ IV SCH ×4 (00:57→17:01)
[2018-08-03] MEDS: D5W-0.45 NACL + KCL 20 MEQ 1,000 ML IV SCH ×4 (02:21→22:00)
[2018-08-03] MEDS: ACETAMINOPHEN 325 MG TAB PO PRN (04:45)
[2018-08-03] MEDS ORDERED: SALINE 0.65% 45 ML NAS SPRAY NASAL PRN (05:00)
[2018-08-03] MEDS: LOPERAMIDE 2 MG CAP PO PRN ×2 (06:23→13:27)
[2018-08-03] MEDS: PANTOPRAZOLE 40 MG INJ IV SCH ×2 (10:08→20:09)
[2018-08-03] MEDS: SUCRALFATE (100 MG/ML) 10ML CUP PO SCH ×4 (10:09→20:09)
[2018-08-03] MEDS: AMLODIPINE 5 MG TAB NGT SCH (10:09)
[2018-08-03] MEDS: ENOXAPARIN 40 MG/0.4 ML SYG SC SCH (10:10)
--- NOTE | 2018-08-03 11:45 | PN ---
Date/Time of Note Date/Time of Note DATE: 08/03/18 TIME: 11:43 Assessment/Plan VTE Prophylaxis Risk score (from Ns)>0 risk: 3 SCD applied (from Ns): No SCD contraindicated: low risk/ambulating Pharmacological prophylaxis: NA/contraindicated Pharm contraindication: low risk/ambulating Lines/Catheters [facility] [place] Assessment/Plan Hospital Course Summary Assessment and Plan: Assessment: History of rectal ca- dx 2017 -s/p Chemo/radiation Colonoscopy 07/29/18 Rectal stricture neoplasm versus radiation injury Estimated lumen 10 mm, biopsies obtained Unable to advance beyond area of stricture Bx: showing ulcer with glandular atrophy.No evidence of dysplasia or malignancy. The biopsy shows features of ischemic injuries. Radiation effect cannot be completely ruled out Nausea/vomiting- -Reported coffee-ground emesis -Bright red emesis- after eating jello? EGD 07/29/18 Severe erosive distal esophagitis Retained material in the stomach consistent with gastroparesis Moderate gastritis Abdominal pain- improved Bowel obstruction vs ileus- NGT LIS- SBFT 08/01- improving ileus Diarrhea- improved Hyperkalemia- resolved Plan: Pt did very well with Cl liq diet- advance as tolerated Will change Reglan to PRN Patient seen in collaboration with Dr. Ferrer/[place] Subjective: Course reviewed with nursing staff Patient interviewed and examined All labs, imaging and other results reviewed No over night events Pt doing well, stating she is hungry. Diet has been advanced to Soft Pt states only x2 stools thus far, which is also improving. Decrease in HGb from yesterday No overt signs of GI bleed PHYSICAL EXAMINATION: GENERAL: Alert & oriented x 3 SKIN: No lesions EYES: Pupils equal reactive to light, no discharge. EARS/NOSE AND THROAT: Ears normal, nose normal, oropharynx normal, NGT in place. NECK: Supple, no masses CHEST: Inspection within normal limits. CARDIOVASCULAR: Heart: Regular rate and rhythm RESPIRATORY: Lungs clear to auscultation GASTROINTESTINAL AND LIVER: Abdomen: Generalized abd discomfort-improved, , distended- softer, no hernias, no masses, no organomegaly, no ascites, no guarding, no rebound tenderness, hypoactive bowel sounds. Rectal: Deferred. GENITOURINARY: Not examined EXTREMITIES: No cyanosis, clubbing or edema. Result Diagram: 08/03/18 0443 08/03/18 0443 Results 24hrs Laboratory Tests Test 08/03/18 04:43 White Blood Count 10.5 Red Blood Count 3.18 L Hemoglobin 10.4 L Hematocrit 31.5 L Mean Corpuscular Volume 99.1 Mean Corpuscular Hemoglobin 32.7 Mean Corpuscular Hemoglobin Concent 33.0 Red Cell Distribution Width 15.5 H Platelet Count 264 Mean Platelet Volume 10.1 Immature Granulocytes % 6.200 H Neutrophils % Segmented Neutrophils % (Manual) 56 Band Neutrophils % (Manual) 26 H Lymphocytes % Lymphocytes % (Manual) 7 L Reactive Lymphocytes % (Manual) 1 H Monocytes % Monocytes % (Manual) 8 Eosinophils % Basophils % Myelocytes % (Manual) 2 H Nucleated Red Blood Cells % 4 H Immature Granulocytes # 0.650 H Neutrophils # Neutrophils # (Manual) 6.2 Band Neutrophils # 2.7 H Lymphocytes (Manual) 0.7 L Lymphocytes # Reactive Lymphocytes # 0.1 H Monocytes # Monocytes # (Manual) 0.8 Eosinophils # Basophils # Myelocytes # 0.2 H Nucleated Red Blood Cells # Toxic Granulation 1+ Platelet Estimate NORMAL Giant Platelets 2 H Polychromasia 1+ Anisocytosis 1+ Macrocytosis 1+ Sodium Level 137 Potassium Level 3.4 L Chloride Level 107 Carbon Dioxide Level 18 L Anion Gap 12 Blood Urea Nitrogen 15 # Creatinine 0.74 Est Glomerular Filtrat Rate mL/min > 60 Glucose Level 131 Calcium Level 8.7 Phosphorus Level 3.6 Magnesium Level 1.8 Exam/Review of Systems Vital Signs Vitals Vital Signs Date Temp Pulse Resp B/P (MAP) Pulse Ox O2 O2 Flow FiO2 Time Delivery Rate 08/03/18 102 08:00 08/03/18 98.0 20 100/55 96 Room Air 07:24 (70) Intake and Output 08/02/18 08/02/18 08/03/18 1515:00 23:00 07:00 IntakeIntake Total 1820 ml 2415 ml OutputOutput Total 50 ml BalanceBalance 1820 ml 2365 ml Medications Medications Current Medications IV Flush (NS 3 ml) 3 ml PER PROTOCOL IV ; Start 07/28/18 at 01:30 Ondansetron HCl (Zofran Inj) 4 mg Q6H PRN IV NAUSEA AND/OR VOMITING Last administered on 08/02/18at 04:04; Admin Dose 4 MG; Start 07/28/18 at 01:30 Acetaminophen (Tylenol Tab) 650 mg Q6H PRN PO PAIN LEVEL 1-3 OR FEVER Last administered on 08/03/18 04:45; Admin Dose 650 MG; Start 07/28/18 at 01:30 Enoxaparin Sodium (Lovenox) 40 mg DAILY SC Last administered on 08/03/18 10:10; Admin Dose 40 MG; Start 07/28/18 at 09:00 Morphine Sulfate (morphine) 2 mg Q3H PRN IV PAIN LEVEL 7-10 Last administered on 08/01/18 23:25; Admin Dose 2 MG; Start 07/28/18 at 10:30 Simethicone (Mylicon) 80 mg Q6H PRN PO DISTENSION/GAS/BLOATING; Start 07/28/18 at 10:30 Metoclopramide HCl (Reglan) 10 mg Q6 IV Last administered on 08/03/18 04:57; Admin Dose 10 MG; Start 07/29/18 at 19:00 Phenol (Chloraseptic Throat [place]) 2 spray Q2H PRN MT SORE THROAT Last administered on 08/03/18 04:23; Admin Dose 2 SPRAY; Start 07/29/18 at 19:00 Pantoprazole (Protonix Iv) 40 mg BID IV Last administered on 08/03/18 10:08; Admin Dose 40 MG; Start 07/30/18 at 09:00 Metoprolol Tartrate (Lopressor) 5 mg Q4H PRN IV HR >100; Start 07/30/18 at 09:30 Amlodipine Besylate (Norvasc) 5 mg DAILY NGT Last administered on 08/03/18 10:09; Admin Dose 5 MG; Start 07/30/18 at 09:30 Sucralfate (Carafate Susp) 1 gm QID PO Last administered on 08/03/18 10:09; Admin Dose 1 GM; Start 08/02/18 at 17:00 Loperamide HCl (Imodium Cap) 2 mg PRN PRN PO DIARRHEA Last administered on 08/03/18 06:23; Admin Dose 2 MG; Start 08/03/18 at 00:30 Potassium Chloride/Dextrose/ Sod Cl 1,000 ml @ 150 mls/hr Q6H40M IV Last administered on 08/03/18 08:49; Admin Dose 150 MLS/HR; Start 08/03/18 at 01:00 Sodium Chloride ([place]) 1 spray Q2 PRN NASAL NASAL CONGESTION Last administered on 08/03/18at 06:23; Admin Dose 1 SPRAY; Start 08/03/18 at 05:00 Potassium Chloride 100 ml @ 50 mls/hr Q2H IVPB ; Start 08/03/18 at 10:00; Stop 08/03/18 at 13:59 KOFFI MCGRATH Aug 03, 2018 11:45
[2018-08-03] MEDS: POTASSIUM CHLORIDE 100 ML IVPB SCH ×2 (13:26→17:01)
--- NOTE | 2018-08-03 13:32 | CONS ---
Date/Time of Note Date/Time of Note DATE: 08/03/18 TIME: 13:30 Assessment/Plan Assessment/Plan Hospital Course #Metastatic rectal ca - dx 03/2017 -Initially pt has known nodular circumferential mural thickening of the distal sigmoid colon and rectum extending to the anus, abdominal wall tumor implants, liver masses as well as bilateral ureteral obstruction with bilateral hydronephrosis. -pt has since completed concurrent chemotherapy with radiation with 50 to 55 Gy over a 4 week period to treat the pelvis and bilateral groin lymph nodes. 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 BX revealed no evidence of malignancy # Intractable Nausea/vomiting - coffee-ground emesis/drainage per NGT. NGT now dc'd - EGD 07/29/18 showed- Severe erosive distal esophagitis; Retained material in the stomach consistent with gastroparesis; Moderate gastritis #Diarrhea -send stool studies- GI follows -continue IV hydration #Ovarian cyst -continue to monitor. if this grows in size it can be removed at that time A total of 40 minutes of [id number] time was spent speaking with the patient/ family of which greater than 50% was spent in counseling and coordination of care and a detailed question and answer session. Result Diagram: 08/03/18 0443 08/03/18 0443 Results 24hrs Laboratory Tests Test 08/03/18 04:43 White Blood Count 10.5 Red Blood Count 3.18 L Hemoglobin 10.4 L Hematocrit 31.5 L Mean Corpuscular Volume 99.1 Mean Corpuscular Hemoglobin 32.7 Mean Corpuscular Hemoglobin Concent 33.0 Red Cell Distribution Width 15.5 H Platelet Count 264 Mean Platelet Volume 10.1 Immature Granulocytes % 6.200 H Neutrophils % Segmented Neutrophils % (Manual) 56 Band Neutrophils % (Manual) 26 H Lymphocytes % Lymphocytes % (Manual) 7 L Reactive Lymphocytes % (Manual) 1 H Monocytes % Monocytes % (Manual) 8 Eosinophils % Basophils % Myelocytes % (Manual) 2 H Nucleated Red Blood Cells % 4 H Immature Granulocytes # 0.650 H Neutrophils # Neutrophils # (Manual) 6.2 Band Neutrophils # 2.7 H Lymphocytes (Manual) 0.7 L Lymphocytes # Reactive Lymphocytes # 0.1 H Monocytes # Monocytes # (Manual) 0.8 Eosinophils # Basophils # Myelocytes # 0.2 H Nucleated Red Blood Cells # Toxic Granulation 1+ Platelet Estimate NORMAL Giant Platelets 2 H Polychromasia 1+ Anisocytosis 1+ Macrocytosis 1+ Sodium Level 137 Potassium Level 3.4 L Chloride Level 107 Carbon Dioxide Level 18 L Anion Gap 12 Blood Urea Nitrogen 15 # Creatinine 0.74 Est Glomerular Filtrat Rate mL/min > 60 Glucose Level 131 Calcium Level 8.7 Phosphorus Level 3.6 Magnesium Level 1.8 Consultation Date/Type/Reason Admit Date/Time Jul 28, 2018 at 00:46 Initial Consult Date 07/28/18 Type of Consult oncology Reason for Consultation metastatic rectal cancer Requesting Provider: CAMRYN PRICE 24 HR Interval Summary Free Text/Dictation pt having massive diarrhea. states she wants to try and eat more Exam/Review of Systems Vital Signs Vitals Vital Signs Date Temp Pulse Resp B/P (MAP) Pulse Ox O2 O2 Flow FiO2 Time Delivery Rate 08/03/18 94 12:00 08/03/18 98.3 20 98/57 (71) 100 11:52 08/03/18 Room Air 07:24 Intake and Output 08/02/18 08/02/18 08/03/18 1515:00 23:00 07:00 IntakeIntake Total 1820 ml 2415 ml OutputOutput Total 50 ml BalanceBalance 1820 ml 2365 ml Exam Constitutional: alert, oriented Psych: no complaints Head: normocephalic Eyes: nl conjunctiva ENMT: nl external ears & nose Neck: supple Respiratory: clear to auscultation Cardiovascular: regular rate and rhythm Gastrointestinal: soft Musculoskeletal: nl extremities to inspection Medications Medications Current Medications IV Flush (NS 3 ml) 3 ml PER PROTOCOL IV ; Start 07/28/18 at 01:30 Ondansetron HCl (Zofran Inj) 4 mg Q6H PRN IV NAUSEA AND/OR VOMITING Last administered on 08/02/18at 04:04; Admin Dose 4 MG; Start 07/28/18 at 01:30 Acetaminophen (Tylenol Tab) 650 mg Q6H PRN PO PAIN LEVEL 1-3 OR FEVER Last administered on 08/03/18 04:45; Admin Dose 650 MG; Start 07/28/18 at 01:30 Enoxaparin Sodium (Lovenox) 40 mg DAILY SC Last administered on 08/03/18 10:10; Admin Dose 40 MG; Start 07/28/18 at 09:00 Morphine Sulfate (morphine) 2 mg Q3H PRN IV PAIN LEVEL 7-10 Last administered on 08/01/18 23:25; Admin Dose 2 MG; Start 07/28/18 at 10:30 Simethicone (Mylicon) 80 mg Q6H PRN PO DISTENSION/GAS/BLOATING; Start 07/28/18 at 10:30 Metoclopramide HCl (Reglan) 10 mg Q6 IV Last administered on 08/03/18 04:57; Admin Dose 10 MG; Start 07/29/18 at 19:00 Phenol (Chloraseptic Throat [place]) 2 spray Q2H PRN MT SORE THROAT Last administered on 08/03/18 04:23; Admin Dose 2 SPRAY; Start 07/29/18 at 19:00 Pantoprazole (Protonix Iv) 40 mg BID IV Last administered on 08/03/18 10:08; Admin Dose 40 MG; Start 07/30/18 at 09:00 Metoprolol Tartrate (Lopressor) 5 mg Q4H PRN IV HR >100; Start 07/30/18 at 09:30 Amlodipine Besylate (Norvasc) 5 mg DAILY NGT Last administered on 08/03/18 10:09; Admin Dose 5 MG; Start 07/30/18 at 09:30 Sucralfate (Carafate Susp) 1 gm QID PO Last administered on 08/03/18 10:09; Admin Dose 1 GM; Start 08/02/18 at 17:00 Loperamide HCl (Imodium Cap) 2 mg PRN PRN PO DIARRHEA Last administered on 08/03/18 06:23; Admin Dose 2 MG; Start 08/03/18 at 00:30 Potassium Chloride/Dextrose/ Sod Cl 1,000 ml @ 150 mls/hr Q6H40M IV Last administered on 08/03/18 08:49; Admin Dose 150 MLS/HR; Start 08/03/18 at 01:00 Sodium Chloride (Deep Sea) 1 spray Q2 PRN NASAL NASAL CONGESTION Last administered on 08/03/18at 06:23; Admin Dose 1 SPRAY; Start 08/03/18 at 05:00 Potassium Chloride 100 ml @ 50 mls/hr Q2H IVPB ; Start 08/03/18 at 10:00; Stop 08/03/18 at 13:59 ZHANNA LOPEZ M.D. Aug 03, 2018 13:32
--- NOTE | 2018-08-03 14:12 | PN ---
Date/Time of Note Date/Time of Note DATE: 08/03/18 TIME: 14:11 Objective Vitals Vital Signs Date Temp Pulse Resp B/P (MAP) Pulse Ox O2 O2 Flow FiO2 Time Delivery Rate 08/03/18 94 12:00 08/03/18 98.3 20 98/57 (71) 100 11:52 08/03/18 Room Air 07:24 Intake and Output 08/02/18 08/02/18 08/03/18 1515:00 23:00 07:00 IntakeIntake Total 1820 ml 2415 ml OutputOutput Total 50 ml BalanceBalance 1820 ml 2365 ml Results Result Diagram: 08/03/18 0443 08/03/18 0443 Medications Medications Current Medications IV Flush (NS 3 ml) 3 ml PER PROTOCOL IV ; Start 07/28/18 at 01:30 Ondansetron HCl (Zofran Inj) 4 mg Q6H PRN IV NAUSEA AND/OR VOMITING Last administered on 08/02/18 04:04; Admin Dose 4 MG; Start 07/28/18 at 01:30 Acetaminophen (Tylenol Tab) 650 mg Q6H PRN PO PAIN LEVEL 1-3 OR FEVER Last administered on 08/03/18 04:45; Admin Dose 650 MG; Start 07/28/18 at 01:30 Enoxaparin Sodium (Lovenox) 40 mg DAILY SC Last administered on 08/03/18 10:10; Admin Dose 40 MG; Start 07/28/18 at 09:00 Morphine Sulfate (morphine) 2 mg Q3H PRN IV PAIN LEVEL 7-10 Last administered on 08/01/18at 23:25; Admin Dose 2 MG; Start 07/28/18 at 10:30 Simethicone (Mylicon) 80 mg Q6H PRN PO DISTENSION/GAS/BLOATING; Start 07/28/18 at 10:30 Metoclopramide HCl (Reglan) 10 mg Q6 IV Last administered on 08/03/18 13:26; Admin Dose 10 MG; Start 07/29/18 at 19:00 Phenol (Chloraseptic Throat [employer]) 2 spray Q2H PRN MT SORE THROAT Last administered on 08/03/18 04:23; Admin Dose 2 SPRAY; Start 07/29/18 at 19:00 Pantoprazole (Protonix Iv) 40 mg BID IV Last administered on 08/03/18 10:08; Admin Dose 40 MG; Start 07/30/18 at 09:00 Metoprolol Tartrate (Lopressor) 5 mg Q4H PRN IV HR >100; Start 07/30/18 at 09:30 Amlodipine Besylate (Norvasc) 5 mg DAILY NGT Last administered on 08/03/18 10:09; Admin Dose 5 MG; Start 07/30/18 at 09:30 Sucralfate (Carafate Susp) 1 gm QID PO Last administered on 08/03/18 13:27; Admin Dose 1 GM; Start 08/02/18 at 17:00 Loperamide HCl (Imodium Cap) 2 mg PRN PRN PO DIARRHEA Last administered on 08/03/18 13:27; Admin Dose 2 MG; Start 08/03/18 at 00:30 Potassium Chloride/Dextrose/ Sod Cl 1,000 ml @ 150 mls/hr Q6H40M IV Last administered on 08/03/18 08:49; Admin Dose 150 MLS/HR; Start 08/03/18 at 01:00 Sodium Chloride (Deep Sea) 1 spray Q2 PRN NASAL NASAL CONGESTION Last ad ministered on 08/03/18 06:23; Admin Dose 1 SPRAY; Start 08/03/18 at 05:00 VTE Prophylaxis Risk score (from Nsg)>0 risk: 3 SCD applied (from Nsg): No SCD contraindication: other Lines/Catheters IV Catheter Type: Jean in Place: No Assessment/Plan Hospital Course Subjective tolerating clears well, diarrhea better with loperamide Objective Physical exam General: Patient is laying in bed and answers questions appropriately Mentation: Patient is alert and oriented 4, Head: Normocephalic atraumatic Eyes: EOMI, pupils reactive to light Neck: Supple, nontender, midline Respiratory: Clear to auscultation bilaterally Cardiovascular: regular rate, no obvious murmurs Gastrointestinal: Mildly tender to palpation, bowel sounds heard. Neurological: Moves all extremities spontaneously Skin: No new skin lesions Assessment/Plan 1. Acute abdominal pain secondary to ileus vs obstruction- resolved - now passing bowel movement, but too much diarrhea - Colonoscopy performed 07.29 showed no mass, but could not proceed further than stricture. colon ulcerations appreciated and bx obtained -repeat SBFT negative for sbo, only ileus - GI on board and appreciate recommendations 2. Acute diarrhea- ongoing - stool culture results noted -GI recs appreciated 3. Acute dehydration due to diarrhea- resolving -cont IVF 4. DANYELL- resolved - Cr returned to baseline - most likely prerenal secondary to GI losses - continue IVF due to diarrhea 5. Rectal pain with history of metastatic rectal cancer - Oncology consultation appreciated -stricture from CA in colon, but stable - CT results noted - stable, will follow up with her outpatient oncologist 6. Severe gastritis/erosive esophagitis - seen on EGD performed 07/29 - started on Reglan and PPI increased to BID -carafate when able 7. Hypertension - Bp controlled 8. Disposition -monitor for continued diarrhea and tolerance to mech soft diet DINO DAWN Aug 03, 2018 14:12
[2018-08-03] MEDS: morphine 4 MG/ML VIAL IV PRN ×2 (16:11→22:30)
[2018-08-03] MEDS: ONDANSETRON 4 MG INJ IV PRN (22:30)
[2018-08-04] VITALS (12 sets, daily range): BP systolic 95–118; BP diastolic 59–68; PULSE 95–120; RESP 18–20
[2018-08-04] MEDS: LOPERAMIDE 2 MG CAP PO PRN (02:34)
[2018-08-04] MEDS: morphine 4 MG/ML VIAL IV PRN (02:34)
[2018-08-04] MEDS: D5W-0.45 NACL + KCL 20 MEQ 1,000 ML IV SCH (03:40)
[2018-08-04] MEDS: METOCLOPRAMIDE 10 MG INJ IV SCH ×3 (05:40→11:43)
[2018-08-04] MEDS: ACETAMINOPHEN 325 MG TAB PO PRN ×2 (09:26→18:42)
[2018-08-04] MEDS: SUCRALFATE (100 MG/ML) 10ML CUP PO SCH ×4 (09:26→21:16)
[2018-08-04] MEDS: AMLODIPINE 5 MG TAB NGT SCH (09:27)
[2018-08-04] MEDS: PANTOPRAZOLE 40 MG INJ IV SCH ×2 (09:27→21:17)
[2018-08-04] MEDS: ENOXAPARIN 40 MG/0.4 ML SYG SC SCH (09:38)
--- NOTE | 2018-08-04 12:37 | CONS ---
Date/Time of Note Date/Time of Note DATE: 08/04/18 TIME: 12:36 Assessment/Plan Assessment/Plan Assessment/Plan #Metastatic rectal ca - dx 03/2017 -Initially pt has known nodular circumferential mural thickening of the distal sigmoid colon and rectum extending to the anus, abdominal wall tumor implants, liver masses as well as bilateral ureteral obstruction with bilateral hydronephrosis. -pt has since completed concurrent chemotherapy with radiation with 50 to 55 Gy over a 4 week period to treat the pelvis and bilateral groin lymph nodes. 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 BX revealed no evidence of malignancy # Intractable Nausea/vomiting - coffee-ground emesis/drainage per NGT. NGT now dc'd - EGD 07/29/18 showed- Severe erosive distal esophagitis; Retained material in the stomach consistent with gastroparesis; Moderate gastritis #Diarrhea -stool studies done - GI follows -continue IV hydration #Ovarian cyst -continue to monitor. if this grows in size it can be removed at that time A total of 40 minutes of [id number] time was spent speaking with the patient/ family of which greater than 50% was spent in counseling and coordination of care and a detailed question and answer session. Patient seen in collaboration with Dr Marshall Result Diagram: 08/04/18 0506 08/04/18 0506 Results 24hrs Laboratory Tests Test 08/04/18 05:06 White Blood Count 9.4 Red Blood Count 3.43 L Hemoglobin 11.2 L Hematocrit 34.5 L Mean Corpuscular Volume 100.6 Mean Corpuscular Hemoglobin 32.7 Mean Corpuscular Hemoglobin Concent 32.5 Red Cell Distribution Width 15.9 H Platelet Count 292 Mean Platelet Volume 10.1 Immature Granulocytes % 5.700 H Neutrophils % Segmented Neutrophils % (Manual) 49 Band Neutrophils % (Manual) 29 H Lymphocytes % Lymphocytes % (Manual) 10 L Monocytes % Monocytes % (Manual) 8 Eosinophils % Eosinophils % (Manual) 2 Basophils % Myelocytes % (Manual) 2 H Nucleated Red Blood Cells % 0.6 H Immature Granulocytes # 0.540 H Neutrophils # Neutrophils # (Manual) 4.9 Band Neutrophils # 2.7 H Lymphocytes (Manual) 0.9 Lymphocytes # Monocytes # Monocytes # (Manual) 0.7 Eosinophils # Basophils # Myelocytes # 0.1 H Nucleated Red Blood Cells # Platelet Estimate NORMAL Giant Platelets 1 H Polychromasia 2+ Sodium Level 138 Potassium Level 4.3 Chloride Level 110 Carbon Dioxide Level 14 L Anion Gap 14 H Blood Urea Nitrogen 12 Creatinine 0.86 Est Glomerular Filtrat Rate mL/min > 60 Glucose Level 149 Calcium Level 9.6 Phosphorus Level 4.2 Magnesium Level 1.7 Consultation Date/Type/Reason Admit Date/Time Jul 28, 2018 at 00:46 Initial Consult Date 07/28/18 Type of Consult ONCOLOGY Reason for Consultation RECTAL CANCER Requesting Provider: CAMRYN PRICE 24 HR Interval Summary Free Text/Dictation C/O diarrhea on diet per GI No new issues reported overnight Constitutional: requiring IVF Detailed Summary Eyes: no complaints ENT: no complaints Respiratory: no complaints Cardiovascular: no complaints Gastrointestinal: diarrhea Genitourinary: no complaints Musculoskeletal: no complaints Skin: no complaints Neurologic: no complaints Psychological: nl mood/affect Immunologic: no complaints Exam/Review of Systems Vital Signs Vitals Vital Signs Date Temp Pulse Resp B/P (MAP) Pulse Ox O2 O2 Flow FiO2 Time Delivery Rate 08/04/18 99.2 106 18 108/65 96 Room Air 11:20 (79) Intake and Output 08/03/18 08/03/18 08/04/18 1515:00 23:00 07:00 IntakeIntake Total 475 ml 1650 ml 1860 ml BalanceBalance 475 ml 1650 ml 1860 ml Exam Constitutional: alert, oriented, well developed Psych: nl mood/affect Head: atraumatic Eyes: nl conjunctiva, EOMI, nl lids Neck: non-tender Respiratory: clear to auscultation (bilaeratt) Cardiovascular: nl pulses, other (s1s2) Gastrointestinal: soft, non-tender Musculoskeletal: nl extremities to inspection Extremities: normal pulses Neurological: nl mental status, nl speech Skin: nl turgor Medications Medications Current Medications IV Flush (NS 3 ml) 3 ml PER PROTOCOL IV ; Start 07/28/18 at 01:30 Ondansetron HCl (Zofran Inj) 4 mg Q6H PRN IV NAUSEA AND/OR VOMITING Last administered on 08/03/18 22:30; Admin Dose 4 MG; Start 07/28/18 at 01:30 Acetaminophen (Tylenol Tab) 650 mg Q6H PRN PO PAIN LEVEL 1-3 OR FEVER Last administered on 08/04/18 09:26; Admin Dose 650 MG; Start 07/28/18 at 01:30 Enoxaparin Sodium (Lovenox) 40 mg DAILY SC Last administered on 08/04/18 09:38; Admin Dose 40 MG; Start 07/28/18 at 09:00 Morphine Sulfate (morphine) 2 mg Q3H PRN IV PAIN LEVEL 7-10 Last administered on 08/04/18 02:34; Admin Dose 2 MG; Start 07/28/18 at 10:30 Simethicone (Mylicon) 80 mg Q6H PRN PO DISTENSION/GAS/BLOATING Last administered on 08/04/18 09:26; Admin Dose 80 MG; Start 07/28/18 at 10:30 Metoclopramide HCl (Reglan) 10 mg Q6 IV Last administered on 08/04/18 11:43; Admin Dose 10 MG; Start 07/29/18 at 19:00 Phenol (Chloraseptic Throat [place]) 2 spray Q2H PRN MT SORE THROAT Last administered on 08/03/18 04:23; Admin Dose 2 SPRAY; Start 07/29/18 at 19:00 Pantoprazole (Protonix Iv) 40 mg BID IV Last administered on 08/04/18 09:27; Admin Dose 40 MG; Start 07/30/18 at 09:00 Metoprolol Tartrate (Lopressor) 5 mg Q4H PRN IV HR >100; Start 07/30/18 at 09:30 Amlodipine Besylate (Norvasc) 5 mg DAILY NGT Last administered on 08/04/18 09:27; Admin Dose 5 MG; Start 07/30/18 at 09:30 Sucralfate (Carafate Susp) 1 gm QID PO Last administered on 08/04/18 11:43; Admin Dose 1 GM; Start 08/02/18 at 17:00 Loperamide HCl (Imodium Cap) 2 mg PRN PRN PO DIARRHEA Last administered on 08/04/18at 02:34; Admin Dose 2 MG; Start 08/03/18 at 00:30 Sodium Chloride (Deep Sea) 1 spray Q2 PRN NASAL NASAL CONGESTION Last administered on 08/03/18at 06:23; Admin Dose 1 SPRAY; Start 08/03/18 at 05:00 DUC SEGAL Aug 04, 2018 12:37 pm
--- NOTE | 2018-08-04 13:11 | PN ---
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 The biopsy shows features of ischemic injuries. Radiation effect cannot be completely ruled out Nausea/vomiting- -Reported coffee-ground emesis -Bright red emesis- after eating jello? EGD 07/29/18 Severe erosive distal esophagitis Retained material in the stomach consistent with gastroparesis Moderate gastritis Abdominal pain-resolved Bowel obstruction vs ileus- resolved Diarrhea- Hyperkalemia- resolved Plan: Soft diet- no dairy products Change Imodium to BID OTC Will change Reglan PRN Repeat Ct abd/pelvis with contrast ESR/CRP Fecal leukocytes Patient seen in collaboration with Dr. Ferrer/[place] Subjective: Course reviewed with nursing staff Patient interviewed and examined All labs, imaging and other results reviewed Pt continues to have multiple episodes of watery brown stool, with excessive gas. She denies melena or hematochezia. No c/o abd pain, nausea or vomiting. Unable to complete full colonoscopy due to area of stricture. Stool cx Coliform, CDIFF neg, O&P neg PHYSICAL EXAMINATION: GENERAL: Alert & oriented x 3 SKIN: No lesions EYES: Pupils equal reactive to light, no discharge. EARS/NOSE AND THROAT: Ears normal, nose normal, oropharynx normal, NGT in place. NECK: Supple, no masses CHEST: Inspection within normal limits. CARDIOVASCULAR: Heart: Regular rate and rhythm RESPIRATORY: Lungs clear to auscultation GASTROINTESTINAL AND LIVER: Abdomen: Generalized abd discomfort-improved, , distended- softer, no hernias, no masses, no organomegaly, no ascites, no guarding, no rebound tenderness, hypoactive bowel sounds. Rectal: Deferred. GENITOURINARY: Not examined EXTREMITIES: No cyanosis, clubbing or edema. Result Diagram: 08/04/18 0506 08/04/18 0506 Results 24hrs Laboratory Tests Test 08/04/18 05:06 White Blood Count 9.4 Red Blood Count 3.43 L Hemoglobin 11.2 L Hematocrit 34.5 L Mean Corpuscular Volume 100.6 Mean Corpuscular Hemoglobin 32.7 Mean Corpuscular Hemoglobin Concent 32.5 Red Cell Distribution Width 15.9 H Platelet Count 292 Mean Platelet Volume 10.1 Immature Granulocytes % 5.700 H Neutrophils % Segmented Neutrophils % (Manual) 49 Band Neutrophils % (Manual) 29 H Lymphocytes % Lymphocytes % (Manual) 10 L Monocytes % Monocytes % (Manual) 8 Eosinophils % Eosinophils % (Manual) 2 Basophils % Myelocytes % (Manual) 2 H Nucleated Red Blood Cells % 0.6 H Immature Granulocytes # 0.540 H Neutrophils # Neutrophils # (Manual) 4.9 Band Neutrophils # 2.7 H Lymphocytes (Manual) 0.9 Lymphocytes # Monocytes # Monocytes # (Manual) 0.7 Eosinophils # Basophils # Myelocytes # 0.1 H Nucleated Red Blood Cells # Platelet Estimate NORMAL Giant Platelets 1 H Polychromasia 2+ Sodium Level 138 Potassium Level 4.3 Chloride Level 110 Carbon Dioxide Level 14 L Anion Gap 14 H Blood Urea Nitrogen 12 Creatinine 0.86 Est Glomerular Filtrat Rate mL/min > 60 Glucose Level 149 Calcium Level 9.6 Phosphorus Level 4.2 Magnesium Level 1.7 Exam/Review of Systems Vital Signs Vitals Vital Signs Date Temp Pulse Resp B/P (MAP) Pulse Ox O2 O2 Flow FiO2 Time Delivery Rate 08/04/18 108 12:01 08/04/18 99.2 18 108/65 96 Room Air 11:20 (79) Intake and Output 08/03/18 08/03/18 08/04/18 1515:00 23:00 07:00 IntakeIntake Total 475 ml 1650 ml 1860 ml BalanceBalance 475 ml 1650 ml 1860 ml Medications Medications Current Medications IV Flush (NS 3 ml) 3 ml PER PROTOCOL IV ; Start 07/28/18 at 01:30 Ondansetron HCl (Zofran Inj) 4 mg Q6H PRN IV NAUSEA AND/OR VOMITING Last administered on 08/03/18at 22:30; Admin Dose 4 MG; Start 07/28/18 at 01:30 Acetaminophen (Tylenol Tab) 650 mg Q6H PRN PO PAIN LEVEL 1-3 OR FEVER Last administered on 08/04/18 09:26; Admin Dose 650 MG; Start 07/28/18 at 01:30 Enoxaparin Sodium (Lovenox) 40 mg DAILY SC Last administered on 08/04/18 09:38; Admin Dose 40 MG; Start 07/28/18 at 09:00 Morphine Sulfate (morphine) 2 mg Q3H PRN IV PAIN LEVEL 7-10 Last administered on 08/04/18 02:34; Admin Dose 2 MG; Start 07/28/18 at 10:30 Simethicone (Mylicon) 80 mg Q6H PRN PO DISTENSION/GAS/BLOATING Last administered on 08/04/18 09:26; Admin Dose 80 MG; Start 07/28/18 at 10:30 Metoclopramide HCl (Reglan) 10 mg Q6 IV Last administered on 08/04/18 11:43; Admin Dose 10 MG; Start 07/29/18 at 19:00 Phenol (Chloraseptic Throat [place]) 2 spray Q2H PRN MT SORE THROAT Last administered on 08/03/18 04:23; Admin Dose 2 SPRAY; Start 07/29/18 at 19:00 Pantoprazole (Protonix Iv) 40 mg BID IV Last administered on 08/04/18 09:27; Admin Dose 40 MG; Start 07/30/18 at 09:00 Metoprolol Tartrate (Lopressor) 5 mg Q4H PRN IV HR >100; Start 07/30/18 at 09:30 Amlodipine Besylate (Norvasc) 5 mg DAILY NGT Last administered on 08/04/18 09:27; Admin Dose 5 MG; Start 07/30/18 at 09:30 Sucralfate (Carafate Susp) 1 gm QID PO Last administered on 08/04/18 11:43; Admin Dose 1 GM; Start 08/02/18 at 17:00 Loperamide HCl (Imodium Cap) 2 mg PRN PRN PO DIARRHEA Last administered on 08/04/18 02:34; Admin Dose 2 MG; Start 08/03/18 at 00:30 Sodium Chloride (Deep Sea) 1 spray Q2 PRN NASAL NASAL CONGESTION Last administered on 08/03/18 06:23; Admin Dose 1 SPRAY; Start 08/03/18 at 05:00 KOFFI MCGRATH Aug 04, 2018 13:10
[2018-08-04] MEDS ORDERED: METOCLOPRAMIDE 10 MG INJ IV PRN (13:30)
[2018-08-04] MEDS: SOD CHLORIDE 0.45% 1,000 ML IV SCH (14:43)
[2018-08-04] MEDS ORDERED: BARIUM SULF 2% 450 ML BTL (BERRY SMOOTHIE) PO ONE (15:30)
[2018-08-04] MEDS ORDERED: IOHEXOL 14.3 MG(I)/ML (ADULT) BTL PO ONE (16:00)
--- NOTE | 2018-08-04 17:05 | PN ---
Date/Time of Note Date/Time of Note DATE: 08/04/18 TIME: 17:03 Objective Vitals Vital Signs Date Temp Pulse Resp B/P (MAP) Pulse Ox O2 O2 Flow FiO2 Time Delivery Rate 08/04/18 97 16:02 08/04/18 98.2 18 95/59 (71) 100 Room Air 15:20 Intake and Output 08/03/18 08/03/18 08/04/18 1515:00 23:00 07:00 IntakeIntake Total 475 ml 1650 ml 1860 ml BalanceBalance 475 ml 1650 ml 1860 ml Results Result Diagram: 08/04/18 0506 08/04/18 0506 Medications Medications Current Medications IV Flush (NS 3 ml) 3 ml PER PROTOCOL IV ; Start 07/28/18 at 01:30 Ondansetron HCl (Zofran Inj) 4 mg Q6H PRN IV NAUSEA AND/OR VOMITING Last administered on 08/03/18 22:30; Admin Dose 4 MG; Start 07/28/18 at 01:30 Acetaminophen (Tylenol Tab) 650 mg Q6H PRN PO PAIN LEVEL 1-3 OR FEVER Last administered on 08/04/18 09:26; Admin Dose 650 MG; Start 07/28/18 at 01:30 Enoxaparin Sodium (Lovenox) 40 mg DAILY SC Last administered on 08/04/18 09:38; Admin Dose 40 MG; Start 07/28/18 at 09:00 Morphine Sulfate (morphine) 2 mg Q3H PRN IV PAIN LEVEL 7-10 Last administered on 08/04/18 02:34; Admin Dose 2 MG; Start 07/28/18 at 10:30 Simethicone (Mylicon) 80 mg Q6H PRN PO DISTENSION/GAS/BLOATING Last administered on 08/04/18 09:26; Admin Dose 80 MG; Start 07/28/18 at 10:30 Phenol (Chloraseptic Throat [place]) 2 spray Q2H PRN MT SORE THROAT Last administered on 08/03/18 04:23; Admin Dose 2 SPRAY; Start 07/29/18 at 19:00 Pantoprazole (Protonix Iv) 40 mg BID IV Last administered on 08/04/18 09:27; Admin Dose 40 MG; Start 07/30/18 at 09:00 Metoprolol Tartrate (Lopressor) 5 mg Q4H PRN IV HR >100; Start 07/30/18 at 09:30 Amlodipine Besylate (Norvasc) 5 mg DAILY NGT Last administered on 08/04/18at 09:27; Admin Dose 5 MG; Start 07/30/18 at 09:30 Sucralfate (Carafate Susp) 1 gm QID PO Last administered on 08/04/18at 11:43; A dmin Dose 1 GM; Start 08/02/18 at 17:00 Sodium Chloride ([place]) 1 spray Q2 PRN NASAL NASAL CONGESTION Last administered on 08/03/18at 06:23; Admin Dose 1 SPRAY; Start 08/03/18 at 05:00 Loperamide HCl (Imodium Cap) 2 mg BID PO ; Start 08/04/18 at 21:00 Metoclopramide HCl (Reglan) 10 mg Q6H PRN IV n/v; Start 08/04/18 at 13:30 Sodium Chloride 1,000 ml @ 50 mls/hr Q20H IV Last administered on 08/04/18at 14:43; Admin Dose 50 MLS/HR; Start 08/04/18 at 14:00 VTE Prophylaxis Risk score (from Ns)>0 risk: 3 SCD applied (from Ns): No SCD contraindication: other Lines/Catheters IV Catheter Type: Jean in Place: No Assessment/Plan Hospital Course Subjective still having diarrhea Objective Physical exam General: Patient is laying in bed and answers questions appropriately Mentation: Patient is alert and oriented 4, Head: Normocephalic atraumatic Eyes: EOMI, pupils reactive to light Neck: Supple, nontender, midline Respiratory: Clear to auscultation bilaterally Cardiovascular: regular rate, no obvious murmurs Gastrointestinal: Mildly tender to palpation, bowel sounds heard. Neurological: Moves all extremities spontaneously Skin: No new skin lesions Assessment/Plan 1. Acute abdominal pain secondary to ileus vs obstruction- resolved - now passing bowel movement, but too much diarrhea - Colonoscopy performed 07.29 showed no mass, but could not proceed further than stricture. colon ulcerations appreciated and bx obtained -repeat SBFT negative for sbo, only ileus - GI on board and appreciate recommendations 2. Acute diarrhea- ongoing - stool culture results noted -CT reordered, additional meds on board per GI -GI recs appreciated 3. Acute dehydration due to diarrhea- resolving -cont IVF 4. DANYELL- resolved - Cr returned to baseline - most likely prerenal secondary to GI losses - continue IVF due to diarrhea 5. Rectal pain with history of metastatic rectal cancer - Oncology consultation appreciated -stricture from CA in colon, but stable - CT results noted - stable, will follow up with her outpatient oncologist 6. Severe gastritis/erosive esophagitis - seen on EGD performed 07/29 - started on Reglan and PPI increased to BID -carafate when able 7. Hypertension - Bp controlled 8. Disposition -monitor for continued diarrhea and tolerance to mech soft diet DINO DAWN Aug 04, 2018 17:05
--- NOTE | 2018-08-04 17:27 | CONS ---
Date/Time of Note Date/Time of Note DATE: 08/04/18 TIME: 17:25 Assessment/Plan Assessment/Plan Hospital Course 1) Sinus tachycardia 2) Aortic valve stenosis 3) SBO Assessment/Plan 1) venous duplex 2) Echo 3) consider low dose metoprolol at 12.5 bid tartrate with gradual increase as needed but doubt malignant arrhythmia Result Diagram: 08/04/18 0506 08/04/18 0506 Results 24hrs Laboratory Tests Test 08/04/18 05:01 08/04/18 05:02 08/04/18 05:06 Erythrocyte Sedimentation Rate 81 H C-Reactive Protein 16.4 H White Blood Count 9.4 Red Blood Count 3.43 L Hemoglobin 11.2 L Hematocrit 34.5 L Mean Corpuscular Volume 100.6 Mean Corpuscular Hemoglobin 32.7 Mean Corpuscular Hemoglobin Concent 32.5 Red Cell Distribution Width 15.9 H Platelet Count 292 Mean Platelet Volume 10.1 Immature Granulocytes % 5.700 H Neutrophils % Segmented Neutrophils % (Manual) 49 Band Neutrophils % (Manual) 29 H Lymphocytes % Lymphocytes % (Manual) 10 L Monocytes % Monocytes % (Manual) 8 Eosinophils % Eosinophils % (Manual) 2 Basophils % Myelocytes % (Manual) 2 H Nucleated Red Blood Cells % 0.6 H Immature Granulocytes # 0.540 H Neutrophils # Neutrophils # (Manual) 4.9 Band Neutrophils # 2.7 H Lymphocytes (Manual) 0.9 Lymphocytes # Monocytes # Monocytes # (Manual) 0.7 Eosinophils # Basophils # Myelocytes # 0.1 H Nucleated Red Blood Cells # Platelet Estimate NORMAL Giant Platelets 1 H Polychromasia 2+ Sodium Level 138 Potassium Level 4.3 Chloride Level 110 Carbon Dioxide Level 14 L Anion Gap 14 H Blood Urea Nitrogen 12 Creatinine 0.86 Est Glomerular Filtrat Rate mL/min > 60 Glucose Level 149 Calcium Level 9.6 Phosphorus Level 4.2 Magnesium Level 1.7 Consultation Date/Type/Reason Admit Date/Time Jul 28, 2018 at 00:46 Initial Consult Date 07/28/18 Type of Consult cv Reason for Consultation tachy Requesting Provider: CAMRYN PRICE 24 HR Interval Summary Free Text/Dictation patient noted to have tachycardia, denies chest pain, sob or palpitations. admitted with SBO Detailed Summary Respiratory: no complaints Cardiovascular: no complaints Gastrointestinal: diarrhea Musculoskeletal: no complaints Skin: no complaints Neurologic: no complaints Endocrine: no complaints Exam/Review of Systems Vital Signs Vitals Vital Signs Date Temp Pulse Resp B/P (MAP) Pulse Ox O2 O2 Flow FiO2 Time Delivery Rate 08/04/18 97 16:02 08/04/18 98.2 18 95/59 (71) 100 Room Air 15:20 Intake and Output 08/03/18 08/03/18 08/04/18 1515:00 23:00 07:00 IntakeIntake Total 475 ml 1650 ml 1860 ml BalanceBalance 475 ml 1650 ml 1860 ml Exam Constitutional: alert Head: normocephalic, atraumatic Neck: supple Respiratory: clear to auscultation Cardiovascular: regular rate and rhythm Gastrointestinal: soft Musculoskeletal: nl extremities to inspection Extremities: normal pulses Medications Medications Current Medications IV Flush (NS 3 ml) 3 ml PER PROTOCOL IV ; Start 07/28/18 at 01:30 Ondansetron HCl (Zofran Inj) 4 mg Q6H PRN IV NAUSEA AND/OR VOMITING Last administered on 08/03/18 22:30; Admin Dose 4 MG; Start 07/28/18 at 01:30 Acetaminophen (Tylenol Tab) 650 mg Q6H PRN PO PAIN LEVEL 1-3 OR FEVER Last administered on 08/04/18 09:26; Admin Dose 650 MG; Start 07/28/18 at 01:30 Enoxaparin Sodium (Lovenox) 40 mg DAILY SC Last administered on 08/04/18 09:38; Admin Dose 40 MG; Start 07/28/18 at 09:00 Morphine Sulfate (morphine) 2 mg Q3H PRN IV PAIN LEVEL 7-10 Last administered on 08/04/18 02:34; Admin Dose 2 MG; Start 07/28/18 at 10:30 Simethicone (Mylicon) 80 mg Q6H PRN PO DISTENSION/GAS/BLOATING Last administered on 08/04/18 09:26; Admin Dose 80 MG; Start 07/28/18 at 10:30 Phenol (Chloraseptic Throat [place]) 2 spray Q2H PRN MT SORE THROAT Last administered on 08/03/18 04:23; Admin Dose 2 SPRAY; Start 07/29/18 at 19:00 Pantoprazole (Protonix Iv) 40 mg BID IV Last administered on 08/04/18 09:27; Admin Dose 40 MG; Start 07/30/18 at 09:00 Metoprolol Tartrate (Lopressor) 5 mg Q4H PRN IV HR >100; Start 07/30/18 at 09:30 Amlodipine Besylate (Norvasc) 5 mg DAILY NGT Last administered on 08/04/18 09:27; Admin Dose 5 MG; Start 07/30/18 at 09:30 Sucralfate (Carafate Susp) 1 gm QID PO Last administered on 08/04/18at 11:43; Admin Dose 1 GM; Start 08/02/18 at 17:00 Sodium Chloride ([place]) 1 spray Q2 PRN NASAL NASAL CONGESTION Last administered on 08/03/18 06:23; Admin Dose 1 SPRAY; Start 08/03/18 at 05:00 Loperamide HCl (Imodium Cap) 2 mg BID PO ; Start 08/04/18 at 21:00 Metoclopramide HCl (Reglan) 10 mg Q6H PRN IV n/v; Start 08/04/18 at 13:30 Sodium Chloride 1,000 ml @ 50 mls/hr Q20H IV Last administered on 08/04/18at 14:43; Admin Dose 50 MLS/HR; Start 08/04/18 at 14:00 SAIDA STACY MD Aug 04, 2018 17:27
--- NOTE | 2018-08-04 19:32 | RADRPT ---
Echocardiogram Report Patient Name: ANTOLIN MORELAND Gender: Female Date: 1975 Study Date: 04-Aug-2018 [employer] Operator: Erin [facility] Location: 619-A Ref. Physician: DINO DAWN Quality: Technically Difficult Study Procedures: Transthoracic echocardiogram with complete 2D, M-Mode, and doppler examination. Indications: Tachycardia. 2D/M Mode Doppler Measurement Value Normal Ranges Measurement Value Normal Ranges LVIDd 2D 3.7 3.5 - 5.6 cm ATTILA Vmax 1.1 cm2 LVIDs 2D 2.4 2.1 - 4.1 cm ATTILA VTI 1.2 cm2 FS 2D 36.1 % AV Mean Lex 3.0 m/sec LVPWd 2D 1.2 0.6 - 1.1 cm AV Mean PG 38.0 mmHg IVSd 2D 1.7 0.6 - 1.1 cm AV Peak Lex 3.6 m/sec IVS/LVPW 2D 1.5 AV Peak PG 53.0 mmHg AoR Diam 2D 3.3 2.0 - 3.7 cm AV VTI 69.1 cm LA/Ao 2D 1 0 - 1 LVOT Peak Lex 1.2 m/sec EDV 2D 52.3 cm3 LVOT Peak PG 5.0 mmHg ESV 2D 13.7 cm3 MV E Peak Lex 0.6 m/sec LA Dimen 2D 2.7 2.3 - 4.0 cm MV A Peak Lex 0.8 m/sec LVOT Area 3.5 cm2 MV E/A 0.7 MV Decel Time 120 msec MV E/A 0.7 TR Peak Lex 2.7 m/sec TR Peak PG 29.0 mmHg RVSP 32.0 mmHg Findings Left Ventricle: Normal left ventricular systolic function. Normal left ventricular cavity size. Sigmoid septum. Ejection fraction is visually estimated at 65 %. Tissue Doppler/Mitral Doppler indices are consistent with impaired relaxation (Stage I diastolic dysfunction). Right Ventricle: Normal right ventricular size. Normal right ventricular systolic function. Left Atrium: The left atrium is normal in size. Right Atrium: The right atrium is normal in size. Mitral Valve: Mild mitral leaflet calcification. Mild mitral annular calcification. Trace mitral regurgitation. Aortic Valve: Moderate aortic stenosis. Mean PG 38.00 mmHg. Aortic cusps appear moderately calcified. Mild aortic valve regurgitation. Tricuspid Valve: Normal appearance of the tricuspid valve. Estimated peak PA systolic pressure 32 mmHg. There is mild tricuspid regurgitation. Pulmonic Valve: Pulmonic valve not well visualized. There is trace pulmonic regurgitation. Pericardium: Normal pericardium with no significant pericardial effusion. Aorta: Normal aortic root. IVC: Normal size and normal respiratory collapse consistent with normal right atrial pressure. Conclusions Normal left ventricular systolic function. Normal left ventricular cavity size. Sigmoid septum. Ejection fraction is visually estimated at 65 %. Tissue Doppler/Mitral Doppler indices are consistent with impaired relaxation (Stage I diastolic dysfunction). Normal right ventricular size. Normal right ventricular systolic function. The left atrium is normal in size. The right atrium is normal in size. Moderate aortic stenosis. Mean PG 38.00 mmHg. Aortic cusps appear moderately calcified. Mild aortic valve regurgitation. Mild mitral leaflet calcification. Mild mitral annular calcification. Trace mitral regurgitation. Normal appearance of the tricuspid valve. Estimated peak PA systolic pressure 32 mmHg. There is mild tricuspid regurgitation. Normal pericardium with no significant pericardial effusion. Electronically Signed By: Raffi Caba 04-Aug-2018 19:31:24 -0800 Patient Name: ANTOLIN MORELAND Study Date: 04-Aug-2018 [id number]
[2018-08-04] MEDS: LOPERAMIDE 2 MG CAP PO SCH (21:16)
[2018-08-05] VITALS (12 sets, daily range): BP systolic 93–141; BP diastolic 55–84; PULSE 77–106; RESP 18–19
[2018-08-05] MEDS ORDERED: SOD CHLORIDE 0.9% 100 ML ONE (02:06)
[2018-08-05] MEDS ORDERED: IOHEXOL 300MG/ML 150 ML BTL ONE (02:06)
[2018-08-05] MEDS: AMLODIPINE 5 MG TAB NGT SCH (09:00)
[2018-08-05] MEDS: PANTOPRAZOLE 40 MG INJ IV SCH ×2 (09:25→21:26)
[2018-08-05] MEDS: LOPERAMIDE 2 MG CAP PO SCH ×2 (09:25→21:27)
[2018-08-05] MEDS: SUCRALFATE (100 MG/ML) 10ML CUP PO SCH ×4 (09:25→21:26)
[2018-08-05] MEDS: ENOXAPARIN 40 MG/0.4 ML SYG SC SCH (09:39)
[2018-08-05] MEDS: SOD CHLORIDE 0.45% 1,000 ML IV SCH (10:00)
--- NOTE | 2018-08-05 12:06 | CONS ---
Date/Time of Note Date/Time of Note DATE: 08/05/18 TIME: 12:03 Assessment/Plan Assessment/Plan Assessment/Plan Intermittent sinus tachycardia Rectal cancer Abdominal pain with possible obstruction versus ileus Anemia Preserved ejection fraction Moderate aortic valve stenosis -Telemetry reviewed with intermittent sinus tachycardia but overall heart rates range from 90-110. No significant arrhythmia seen. Tachycardia likely secondary to multiple medical problems including cancer, abdominal pain, possible obstruction/ileus. Lower extremity Doppler negative for DVT. No need for AV solange blocking agents at the current time. Result Diagram: 08/05/1811 08/05/18 0511 Results 24hrs Laboratory Tests Test 08/05/18 03:30 08/05/18 05:11 Urine Color YELLOW Urine Clarity TURBID A Urine pH 7.0 Urine Specific [place] 1.008 Urine Ketones NEGATIVE Urine Nitrite NEGATIVE Urine Bilirubin NEGATIVE Urine Urobilinogen 2+ H Urine Leukocyte Esterase 2+ H Urine Microscopic RBC 0 Urine Microscopic WBC 62 H Urine Bacteria MANY A Urine Hemoglobin 2+ H Urine Glucose NEGATIVE Urine Total Protein 3+ H White Blood Count 8.5 Red Blood Count 3.36 L Hemoglobin 10.8 L Hematocrit 33.8 L Mean Corpuscular Volume 100.6 Mean Corpuscular Hemoglobin 32.1 Mean Corpuscular Hemoglobin Concent 32.0 Red Cell Distribution Width 15.3 H Platelet Count 296 Mean Platelet Volume 9.9 Immature Granulocytes % 5.300 H Neutrophils % Segmented Neutrophils % (Manual) 50 Band Neutrophils % (Manual) 29 H Lymphocytes % Lymphocytes % (Manual) 8 L Reactive Lymphocytes % (Manual) 1 H Monocytes % Monocytes % (Manual) 9 Eosinophils % Basophils % Metamyelocytes % (manual) 1 H Myelocytes % (Manual) 1 H Promyelocytes % (Manual) 1 H Nucleated Red Blood Cells % 1 H Immature Granulocytes # 0.450 H Neutrophils # Neutrophils # (Manual) 4.5 Band Neutrophils # 2.4 H Lymphocytes (Manual) 0.6 L Lymphocytes # Reactive Lymphocytes # 0.0 Monocytes # Monocytes # (Manual) 0.7 Eosinophils # Basophils # Metamyelocytes # 0.0 Myelocytes # 0.0 Promyelocytes # 0.0 Nucleated Red Blood Cells # Platelet Estimate NORMAL Giant Platelets 3 H Polychromasia 3+ Poikilocytosis 1+ Anisocytosis 1+ Sodium Level 134 L Potassium Level 3.9 Chloride Level 105 Carbon Dioxide Level 14 L Anion Gap 15 H Blood Urea Nitrogen 12 Creatinine 0.89 Est Glomerular Filtrat Rate mL/min > 60 Glucose Level 123 Calcium Level 9.6 Phosphorus Level 5.1 H Magnesium Level 1.6 L Consultation Date/Type/Reason Admit Date/Time Jul 28, 2018 at 00:46 Initial Consult Date 07/28/18 Type of Consult cv Requesting Provider: CAMRYN PRICE 24 HR Interval Summary Free Text/Dictation Denies chest pain, shortness of breath, palpitations or dizziness Exam/Review of Systems Vital Signs Vitals Vital Signs Date Temp Pulse Resp B/P (MAP) Pulse Ox O2 O2 Flow FiO2 Time Delivery Rate 08/05/18 98.5 102 18 101/68 99 Room Air 11:25 (79) Intake and Output 08/04/18 08/04/18 08/05/18 1414:59 22:59 06:59 IntakeIntake Total 120 ml 1000 ml 1500 ml BalanceBalance 120 ml 1000 ml 1500 ml Exam No apparent distress, walking around in the room Constitutional: alert, oriented, obese Head: normocephalic Respiratory: clear to auscultation, normal air movement Cardiovascular: regular rate and rhythm, other (S1-S2 heard) Gastrointestinal: soft, bowel sounds, other Extremities: other (No significant edema) Medications Medications Current Medications IV Flush (NS 3 ml) 3 ml PER PROTOCOL IV ; Start 07/28/18 at 01:30 Ondansetron HCl (Zofran Inj) 4 mg Q6H PRN IV NAUSEA AND/OR VOMITING Last ad ministered on 08/03/18 22:30; Admin Dose 4 MG; Start 07/28/18 at 01:30 Acetaminophen (Tylenol Tab) 650 mg Q6H PRN PO PAIN LEVEL 1-3 OR FEVER Last administered on 08/04/18 18:42; Admin Dose 650 MG; Start 07/28/18 at 01:30 Enoxaparin Sodium (Lovenox) 40 mg DAILY SC Last administered on 08/05/18 09:39; Admin Dose 40 MG; Start 07/28/18 at 09:00 Morphine Sulfate (morphine) 2 mg Q3H PRN IV PAIN LEVEL 7-10 Last administered on 08/04/18 02:34; Admin Dose 2 MG; Start 07/28/18 at 10:30 Simethicone (Mylicon) 80 mg Q6H PRN PO DISTENSION/GAS/BLOATING Last administered on 08/04/18 18:49; Admin Dose 80 MG; Start 07/28/18 at 10:30 Phenol (Chloraseptic Throat [place]) 2 spray Q2H PRN MT SORE THROAT Last administered on 08/03/18 04:23; Admin Dose 2 SPRAY; Start 07/29/18 at 19:00 Pantoprazole (Protonix Iv) 40 mg BID IV Last administered on 08/05/18 09:25; Admin Dose 40 MG; Start 07/30/18 at 09:00 Metoprolol Tartrate (Lopressor) 5 mg Q4H PRN IV HR >100; Start 07/30/18 at 09:30 Amlodipine Besylate (Norvasc) 5 mg DAILY NGT Last administered on 08/04/18 09:27; Admin Dose 5 MG; Start 07/30/18 at 09:30 Sucralfate (Carafate Susp) 1 gm QID PO Last administered on 08/05/18 09:25; Admin Dose 1 GM; Start 08/02/18 at 17:00 Sodium Chloride ([place]) 1 spray Q2 PRN NASAL NASAL CONGESTION Last ad ministered on 08/03/18 06:23; Admin Dose 1 SPRAY; Start 08/03/18 at 05:00 Loperamide HCl (Imodium Cap) 2 mg BID PO Last administered on 08/05/18 09:25; Admin Dose 2 MG; Start 08/04/18 at 21:00 Metoclopramide HCl (Reglan) 10 mg Q6H PRN IV n/v; Start 08/04/18 at 13:30 Sodium Chloride 1,000 ml @ 50 mls/hr Q20H IV Last administered on 08/04/18 14:43; Admin Dose 50 MLS/HR; Start 08/04/18 at 14:00 Phenol (Cepastat Lozenge) 1 lozenge Q1H PRN MT throat pain; Start 08/05/18 at 12:00 Raffi Caba DO Aug 05, 2018 12:06
[2018-08-05] MEDS: CEPASTAT LOZENGE MT PRN ×3 (12:35→21:37)
--- NOTE | 2018-08-05 15:50 | CONS ---
Date/Time of Note Date/Time of Note DATE: 08/05/18 TIME: 15:50 Assessment/Plan Assessment/Plan Assessment/Plan #Metastatic rectal ca - dx 03/2017 -Initially pt has known nodular circumferential mural thickening of the distal sigmoid colon and rectum extending to the anus, abdominal wall tumor implants, liver masses as well as bilateral ureteral obstruction with bilateral hydronephrosis. -pt has since completed concurrent chemotherapy with radiation with 50 to 55 Gy over a 4 week period to treat the pelvis and bilateral groin lymph nodes. 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 BX revealed no evidence of malignancy # Intractable Nausea/vomiting - coffee-ground emesis/drainage per NGT. NGT now dc'd - EGD 07/29/18 showed- Severe erosive distal esophagitis; Retained material in the stomach consistent with gastroparesis; Moderate gastritis #Diarrhea -stool studies done - GI follows -continue IV hydration #Ovarian cyst -continue to monitor. if this grows in size it can be removed at that time Patient seen in collaboration with Dr Marshall Result Diagram: 08/05/18 0511 08/05/18 0511 Results 24hrs Laboratory Tests Test 08/05/18 03:30 08/05/18 05:11 Urine Color YELLOW Urine Clarity TURBID A Urine pH 7.0 Urine Specific [place] 1.008 Urine Ketones NEGATIVE Urine Nitrite NEGATIVE Urine Bilirubin NEGATIVE Urine Urobilinogen 2+ H Urine Leukocyte Esterase 2+ H Urine Microscopic RBC 0 Urine Microscopic WBC 62 H Urine Bacteria MANY A Urine Hemoglobin 2+ H Urine Glucose NEGATIVE Urine Total Protein 3+ H White Blood Count 8.5 Red Blood Count 3.36 L Hemoglobin 10.8 L Hematocrit 33.8 L Mean Corpuscular Volume 100.6 Mean Corpuscular Hemoglobin 32.1 Mean Corpuscular Hemoglobin Concent 32.0 Red Cell Distribution Width 15.3 H Platelet Count 296 Mean Platelet Volume 9.9 Immature Granulocytes % 5.300 H Neutrophils % Segmented Neutrophils % (Manual) 50 Band Neutrophils % (Manual) 29 H Lymphocytes % Lymphocytes % (Manual) 8 L Reactive Lymphocytes % (Manual) 1 H Monocytes % Monocytes % (Manual) 9 Eosinophils % Basophils % Metamyelocytes % (manual) 1 H Myelocytes % (Manual) 1 H Promyelocytes % (Manual) 1 H Nucleated Red Blood Cells % 1 H Immature Granulocytes # 0.450 H Neutrophils # Neutrophils # (Manual) 4.5 Band Neutrophils # 2.4 H Lymphocytes (Manual) 0.6 L Lymphocytes # Reactive Lymphocytes # 0.0 Monocytes # Monocytes # (Manual) 0.7 Eosinophils # Basophils # Metamyelocytes # 0.0 Myelocytes # 0.0 Promyelocytes # 0.0 Nucleated Red Blood Cells # Platelet Estimate NORMAL Giant Platelets 3 H Polychromasia 3+ Poikilocytosis 1+ Anisocytosis 1+ Sodium Level 134 L Potassium Level 3.9 Chloride Level 105 Carbon Dioxide Level 14 L Anion Gap 15 H Blood Urea Nitrogen 12 Creatinine 0.89 Est Glomerular Filtrat Rate mL/min > 60 Glucose Level 123 Calcium Level 9.6 Phosphorus Level 5.1 H Magnesium Level 1.6 L Consultation Date/Type/Reason Admit Date/Time Jul 28, 2018 at 00:46 Initial Consult Date 07/28/18 Type of Consult ONCOLOGY Reason for Consultation RECTAL CANCER Requesting Provider: CAMRYN PRICE 24 HR Interval Summary Free Text/Dictation resting denies any rectal bleeding/pain no new issues reported last night Constitutional: requiring IVF Detailed Summary Eyes: no complaints ENT: no complaints Respiratory: no complaints Cardiovascular: no complaints Gastrointestinal: diarrhea Genitourinary: no complaints Musculoskeletal: no complaints Skin: no complaints Exam/Review of Systems Vital Signs Vitals Vital Signs Date Temp Pulse Resp B/P (MAP) Pulse Ox O2 O2 Flow FiO2 Time Delivery Rate 08/05/18 98.9 96 18 93/55 (71) 97 Ambu Bag 15:35 Intake and Output 08/04/18 08/04/18 08/05/18 1515:00 23:00 07:00 IntakeIntake Total 1000 ml 1500 ml BalanceBalance 1000 ml 1500 ml Exam Constitutional: alert, oriented Psych: nl mood/affect Head: atraumatic Eyes: nl conjunctiva, EOMI, nl lids, nl sclera ENMT: nl external ears & nose Neck: non-tender Respiratory: clear to auscultation (BILATERALLY) Cardiovascular: nl pulses, other (s1s2) Gastrointestinal: soft Musculoskeletal: nl extremities to inspection Extremities: normal pulses Neurological: nl mental status, nl speech Skin: nl turgor Lymph: nontender Medications Medications Current Medications IV Flush (NS 3 ml) 3 ml PER PROTOCOL IV ; Start 07/28/18 at 01:30 Ondansetron HCl (Zofran Inj) 4 mg Q6H PRN IV NAUSEA AND/OR VOMITING Last administered on 08/03/18 22:30; Admin Dose 4 MG; Start 07/28/18 at 01:30 Acetaminophen (Tylenol Tab) 650 mg Q6H PRN PO PAIN LEVEL 1-3 OR FEVER Last administered on 08/04/18 18:42; Admin Dose 650 MG; Start 07/28/18 at 01:30 Enoxaparin Sodium (Lovenox) 40 mg DAILY SC Last administered on 08/05/18 09:39; Admin Dose 40 MG; Start 07/28/18 at 09:00 Morphine Sulfate (morphine) 2 mg Q3H PRN IV PAIN LEVEL 7-10 Last administered on 08/04/18 02:34; Admin Dose 2 MG; Start 07/28/18 at 10:30 Simethicone (Mylicon) 80 mg Q6H PRN PO DISTENSION/GAS/BLOATING Last administered on 08/04/18 18:49; Admin Dose 80 MG; Start 07/28/18 at 10:30 Phenol (Chloraseptic Throat [place]) 2 spray Q2H PRN MT SORE THROAT Last administered on 08/03/18 04:23; Admin Dose 2 SPRAY; Start 07/29/18 at 19:00 Pantoprazole (Protonix Iv) 40 mg BID IV Last administered on 08/05/18 09:25; Admin Dose 40 MG; Start 07/30/18 at 09:00 Metoprolol Tartrate (Lopressor) 5 mg Q4H PRN IV HR >100; Start 07/30/18 at 09:30 Amlodipine Besylate (Norvasc) 5 mg DAILY NGT Last administered on 08/04/18 09:27; Admin Dose 5 MG; Start 07/30/18 at 09:30 Sucralfate (Carafate Susp) 1 gm QID PO Last administered on 1/4/19at 12:53; Admin Dose 1 GM; Start 08/02/18 at 17:00 Sodium Chloride ([place]) 1 spray Q2 PRN NASAL NASAL CONGESTION Last administered on 08/03/18 06:23; Admin Dose 1 SPRAY; Start 08/03/18 at 05:00 Loperamide HCl (Imodium Cap) 2 mg BID PO Last administered on 08/05/18at 09:25; Admin Dose 2 MG; Start 08/04/18 at 21:00 Metoclopramide HCl (Reglan) 10 mg Q6H PRN IV n/v; Start 08/04/18 at 13:30 Sodium Chloride 1,000 ml @ 50 mls/hr Q20H IV Last administered on 08/04/18at 14:43; Admin Dose 50 MLS/HR; Start 08/04/18 at 14:00 Phenol (Cepastat Lozenge) 1 lozenge Q1H PRN MT throat pain Last administered on 08/05/18at 12:35; Admin Dose 1 LOZENGE; Start 08/05/18 at 12:00 DUC SEGAL Aug 05, 2018 15:50
--- NOTE | 2018-08-05 16:08 | PN ---
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 The biopsy shows features of ischemic injuries. Radiation effect cannot be completely ruled out Nausea/vomiting- -Reported coffee-ground emesis -Bright red emesis- after eating jello? EGD 07/29/18 Severe erosive distal esophagitis Retained material in the stomach consistent with gastroparesis Moderate gastritis Abdominal pain-resolved Bowel obstruction vs ileus- resolved Diarrhea Hyperkalemia- resolved Plan: Soft diet- no dairy products Continue Imodium to BID ESR/CRP Fecal leukocytes - pending Patient seen in collaboration with Dr. Ferrer/[place] Subjective: Course reviewed with nursing staff Patient interviewed and examined All labs, imaging and other results reviewed Pt is improving. She denies abdominal pain, nausea or vomiting. Tolerating diet well. Complaining of persistent diarrhea. She denies melena or hematochezia. Results of abdominal CT scan reviewed with the patient, CT showing increasing small bowel dilatation and thickening of the sigmoid and rectum. Elevated ESR. Fecal leukocytes -ending. Unable to complete full colonoscopy due to area of stricture. Stool cx Coliform, CDIFF neg, O&P neg. Continue observation. PHYSICAL EXAMINATION: GENERAL: Alert & oriented x 3, in no acute distress SKIN: No lesions EYES: Pupils equal reactive to light, no discharge. EARS/NOSE AND THROAT: Ears normal, nose normal, oropharynx normal. NECK: Supple, no masses CHEST: Inspection within normal limits. CARDIOVASCULAR: Heart: Regular rate and rhythm RESPIRATORY: Lungs clear to auscultation GASTROINTESTINAL AND LIVER: Abdomen: No tenderness, non-distended, no hernias, no masses, no organomegaly, no ascites, no guarding, no rebound tenderness, hypoactive bowel sounds. Rectal: Deferred. GENITOURINARY: Not examined EXTREMITIES: No cyanosis, clubbing or edema. Result Diagram: 08/05/18 0511 08/05/18 0511 Results 24hrs Laboratory Tests Test 08/05/18 03:30 08/05/18 05:11 Urine Color YELLOW Urine Clarity TURBID A Urine pH 7.0 Urine Specific [place] 1.008 Urine Ketones NEGATIVE Urine Nitrite NEGATIVE Urine Bilirubin NEGATIVE Urine Urobilinogen 2+ H Urine Leukocyte Esterase 2+ H Urine Microscopic RBC 0 Urine Microscopic WBC 62 H Urine Bacteria MANY A Urine Hemoglobin 2+ H Urine Glucose NEGATIVE Urine Total Protein 3+ H White Blood Count 8.5 Red Blood Count 3.36 L Hemoglobin 10.8 L Hematocrit 33.8 L Mean Corpuscular Volume 100.6 Mean Corpuscular Hemoglobin 32.1 Mean Corpuscular Hemoglobin Concent 32.0 Red Cell Distribution Width 15.3 H Platelet Count 296 Mean Platelet Volume 9.9 Immature Granulocytes % 5.300 H Neutrophils % Segmented Neutrophils % (Manual) 50 Band Neutrophils % (Manual) 29 H Lymphocytes % Lymphocytes % (Manual) 8 L Reactive Lymphocytes % (Manual) 1 H Monocytes % Monocytes % (Manual) 9 Eosinophils % Basophils % Metamyelocytes % (manual) 1 H Myelocytes % (Manual) 1 H Promyelocytes % (Manual) 1 H Nucleated Red Blood Cells % 1 H Immature Granulocytes # 0.450 H Neutrophils # Neutrophils # (Manual) 4.5 Band Neutrophils # 2.4 H Lymphocytes (Manual) 0.6 L Lymphocytes # Reactive Lymphocytes # 0.0 Monocytes # Monocytes # (Manual) 0.7 Eosinophils # Basophils # Metamyelocytes # 0.0 Myelocytes # 0.0 Promyelocytes # 0.0 Nucleated Red Blood Cells # Platelet Estimate NORMAL Giant Platelets 3 H Polychromasia 3+ Poikilocytosis 1+ Anisocytosis 1+ Sodium Level 134 L Potassium Level 3.9 Chloride Level 105 Carbon Dioxide Level 14 L Anion Gap 15 H Blood Urea Nitrogen 12 Creatinine 0.89 Est Glomerular Filtrat Rate mL/min > 60 Glucose Level 123 Calcium Level 9.6 Phosphorus Level 5.1 H Magnesium Level 1.6 L CC: JESSE FERRER MD ; Exam/Review of Systems Vital Signs Vitals Vital Signs Date Temp Pulse Resp B/P (MAP) Pulse Ox O2 O2 Flow FiO2 Time Delivery Rate 08/05/18 98.9 96 18 93/55 (68) 97 Ambu Bag 15:35 Intake and Output 08/04/18 08/04/18 08/05/18 1515:00 23:00 07:00 IntakeIntake Total 1000 ml 1500 ml BalanceBalance 1000 ml 1500 ml Medications Medications Current Medications IV Flush (NS 3 ml) 3 ml PER PROTOCOL IV ; Start 07/28/18 at 01:30 Ondansetron HCl (Zofran Inj) 4 mg Q6H PRN IV NAUSEA AND/OR VOMITING Last administered on 08/03/18 22:30; Admin Dose 4 MG; Start 07/28/18 at 01:30 Acetaminophen (Tylenol Tab) 650 mg Q6H PRN PO PAIN LEVEL 1-3 OR FEVER Last administered on 08/04/18 18:42; Admin Dose 650 MG; Start 07/28/18 at 01:30 Enoxaparin Sodium (Lovenox) 40 mg DAILY SC Last administered on 08/05/18 09:39; Admin Dose 40 MG; Start 07/28/18 at 09:00 Morphine Sulfate (morphine) 2 mg Q3H PRN IV PAIN LEVEL 7-10 Last administered on 08/04/18 02:34; Admin Dose 2 MG; Start 07/28/18 at 10:30 Simethicone (Mylicon) 80 mg Q6H PRN PO DISTENSION/GAS/BLOATING Last administere d on 08/04/18 18:49; Admin Dose 80 MG; Start 07/28/18 at 10:30 Phenol (Chloraseptic Throat [place]) 2 spray Q2H PRN MT SORE THROAT Last administered on 08/03/18 04:23; Admin Dose 2 SPRAY; Start 07/29/18 at 19:00 Pantoprazole (Protonix Iv) 40 mg BID IV Last administered on 08/05/18 09:25; Admin Dose 40 MG; Start 07/30/18 at 09:00 Metoprolol Tartrate (Lopressor) 5 mg Q4H PRN IV HR >100; Start 07/30/18 at 09:30 Amlodipine Besylate (Norvasc) 5 mg DAILY NGT Last administered on 08/04/18 09:27; Admin Dose 5 MG; Start 07/30/18 at 09:30 Sucralfate (Carafate Susp) 1 gm QID PO Last administered on 08/05/18 12:53; Admin Dose 1 GM; Start 08/02/18 at 17:00 Sodium Chloride (Deep Sea) 1 spray Q2 PRN NASAL NASAL CONGESTION Last administered on 08/03/18at 06:23; Admin Dose 1 SPRAY; Start 08/03/18 at 05:00 Loperamide HCl (Imodium Cap) 2 mg BID PO Last administered on 08/05/18at 09:25; Admin Dose 2 MG; Start 08/04/18 at 21:00 Metoclopramide HCl (Reglan) 10 mg Q6H PRN IV n/v; Start 08/04/18 at 13:30 Sodium Chloride 1,000 ml @ 50 mls/hr Q20H IV Last administered on 08/04/18at 14:43; Admin Dose 50 MLS/HR; Start 08/04/18 at 14:00 Phenol (Cepastat Lozenge) 1 lozenge Q1H PRN MT throat pain Last administered on 08/05/18at 12:35; Admin Dose 1 LOZENGE; Start 08/05/18 at 12:00 AISHA MCCARTY NP Aug 05, 2018 16:07
--- NOTE | 2018-08-05 16:28 | PN ---
Date/Time of Note Date/Time of Note DATE: 08/05/18 TIME: 16:28 Objective Vitals Vital Signs Date Temp Pulse Resp B/P (MAP) Pulse Ox O2 O2 Flow FiO2 Time Delivery Rate 08/05/18 98.9 96 18 93/55 (68) 97 Ambu Bag 15:35 Intake and Output 08/04/18 08/04/18 08/05/18 1515:00 23:00 07:00 IntakeIntake Total 1000 ml 1500 ml BalanceBalance 1000 ml 1500 ml Results Result Diagram: 08/05/18 0511 08/05/18 0511 Medications Medications Current Medications IV Flush (NS 3 ml) 3 ml PER PROTOCOL IV ; Start 07/28/18 at 01:30 Ondansetron HCl (Zofran Inj) 4 mg Q6H PRN IV NAUSEA AND/OR VOMITING Last administered on 08/03/18 22:30; Admin Dose 4 MG; Start 07/28/18 at 01:30 Acetaminophen (Tylenol Tab) 650 mg Q6H PRN PO PAIN LEVEL 1-3 OR FEVER Last administered on 08/04/18 18:42; Admin Dose 650 MG; Start 07/28/18 at 01:30 Enoxaparin Sodium (Lovenox) 40 mg DAILY SC Last administered on 08/05/18 09:39; Admin Dose 40 MG; Start 07/28/18 at 09:00 Morphine Sulfate (morphine) 2 mg Q3H PRN IV PAIN LEVEL 7-10 Last administered on 08/04/18 02:34; Admin Dose 2 MG; Start 07/28/18 at 10:30 Simethicone (Mylicon) 80 mg Q6H PRN PO DISTENSION/GAS/BLOATING Last administered on 08/04/18 18:49; Admin Dose 80 MG; Start 07/28/18 at 10:30 Phenol (Chloraseptic Throat [place]) 2 spray Q2H PRN MT SORE THROAT Last administered on 08/03/18 04:23; Admin Dose 2 SPRAY; Start 07/29/18 at 19:00 Pantoprazole (Protonix Iv) 40 mg BID IV Last administered on 08/05/18 09:25; Admin Dose 40 MG; Start 07/30/18 at 09:00 Metoprolol Tartrate (Lopressor) 5 mg Q4H PRN IV HR >100; Start 07/30/18 at 09:30 Amlodipine Besylate (Norvasc) 5 mg DAILY NGT Last administered on 08/04/18 09:27; Admin Dose 5 MG; Start 07/30/18 at 09:30 Sucralfate (Carafate Susp) 1 gm QID PO Last administered on 08/05/18 12:53; Admin Dose 1 GM; Start 08/02/18 at 17:00 Sodium Chloride (Deep Sea) 1 spray Q2 PRN NASAL NASAL CONGESTION Last administered on 08/03/18 06:23; Admin Dose 1 SPRAY; Start 08/03/18 at 05:00 Loperamide HCl (Imodium Cap) 2 mg BID PO Last administered on 08/05/18 09:25; Admin Dose 2 MG; Start 08/04/18 at 21:00 Metoclopramide HCl (Reglan) 10 mg Q6H PRN IV n/v; Start 08/04/18 at 13:30 Sodium Chloride 1,000 ml @ 50 mls/hr Q20H IV Last administered on 08/04/18 14:43; Admin Dose 50 MLS/HR; Start 08/04/18 at 14:00 Phenol (Cepastat Lozenge) 1 lozenge Q1H PRN MT throat pain Last administered on 08/05/18 12:35; Admin Dose 1 LOZENGE; Start 08/05/18 at 12:00 VTE Prophylaxis Risk score (from Nsg)>0 risk: 2 SCD applied (from Ns): Yes Lines/Catheters IV Catheter Type: Jean in Place: No Assessment/Plan Hospital Course Subjective still having diarrhea Objective Physical exam General: Patient is laying in bed and answers questions appropriately Mentation: Patient is alert and oriented 4, Head: Normocephalic atraumatic Eyes: EOMI, pupils reactive to light Neck: Supple, nontender, midline Respiratory: Clear to auscultation bilaterally Cardiovascular: regular rate, no obvious murmurs Gastrointestinal: Mildly tender to palpation, bowel sounds heard. Neurological: Moves all extremities spontaneously Skin: No new skin lesions Assessment/Plan 1. Acute abdominal pain secondary to ileus vs obstruction- resolved - now passing bowel movement, but too much diarrhea - Colonoscopy performed 07.29 showed no mass, but could not proceed further than stricture. colon ulcerations appreciated and bx obtained -repeat SBFT negative for sbo, only ileus - GI on board and appreciate recommendations 2. Acute diarrhea- ongoing - stool culture results noted -CT noted, additional meds on board per GI -GI recs appreciated 3. Acute dehydration due to diarrhea- resolving -cont IVF 4. DANYELL- resolved - Cr returned to baseline - most likely prerenal secondary to GI losses - continue IVF due to diarrhea 5. Rectal pain with history of metastatic rectal cancer - Oncology consultation appreciated -stricture from CA in colon, but stable - CT results noted - stable, will follow up with her outpatient oncologist 6. Severe gastritis/erosive esophagitis - seen on EGD performed 07/29 - started on Reglan and PPI increased to BID -carafate when able 7. Hypertension - Bp controlled 8. Disposition -monitor for continued diarrhea and tolerance to mech soft diet DINO DAWN Aug 05, 2018 16:28
[2018-08-05] MEDS: ACETAMINOPHEN 325 MG TAB PO PRN (16:46)
[2018-08-05] MEDS ORDERED: MAGNESIUM SULFATE 2 GM/50 ML 50 ML IVPB ONE (17:30)
[2018-08-06] VITALS (13 sets, daily range): BP systolic 95–124; BP diastolic 52–62; PULSE 88–108; RESP 18–20
[2018-08-06] MEDS: CEPASTAT LOZENGE MT PRN ×2 (04:11→08:47)
[2018-08-06] MEDS: ACETAMINOPHEN 325 MG TAB PO PRN ×3 (04:11→17:40)
[2018-08-06] MEDS: SOD CHLORIDE 0.45% 1,000 ML IV SCH (05:23)
[2018-08-06] MEDS: AMLODIPINE 5 MG TAB NGT SCH (08:38)
[2018-08-06] MEDS: SUCRALFATE (100 MG/ML) 10ML CUP PO SCH ×4 (08:38→21:32)
[2018-08-06] MEDS: LOPERAMIDE 2 MG CAP PO SCH (08:38)
[2018-08-06] MEDS: PANTOPRAZOLE 40 MG INJ IV SCH ×2 (08:38→21:31)
[2018-08-06] MEDS: ENOXAPARIN 40 MG/0.4 ML SYG SC SCH (08:45)
[2018-08-06] MEDS ORDERED: POTASSIUM CHLORIDE (SR) 20 MEQ TAB PO SCH (11:30)
--- NOTE | 2018-08-06 12:37 | PN ---
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 The biopsy shows features of ischemic injuries. Radiation effect cannot be completely ruled out Nausea/vomiting- -Reported coffee-ground emesis -Bright red emesis- after eating jello? EGD 07/29/18 Severe erosive distal esophagitis Retained material in the stomach consistent with gastroparesis Moderate gastritis Abdominal pain-resolved Bowel obstruction vs ileus Diarrhea- improved Hyperkalemia- resolved Plan: Continue current GI regimen- continue supportive management Fecal leukocytes - pending F/u on Onc recs Start nystatin 5 ml po QID x7 days Patient seen in collaboration and discussed with Subjective: Course reviewed with nursing staff Patient interviewed and examined All labs, imaging and other results reviewed Despite findings on CT scan- pt states she is feeling so much better, less diarrhea with less volume, she is tolerating her diet well no c/o nausea/vomiting or abdominal pain. She does c/o "sores in her month' which appears consistent with oral grayson will start nystatin swish and spit QID CT reviewed: Impression copied below Increased small bowel distension. Colonic dilatation to the level of the anor ectal region is again seen with increased wall thickening and mucosal enhancement from the splenic flexure distally, most prominent in the region of the distal sigmoid and rectum. This is presumably related to the known rectal cancer. The appearance suggests worsening partial small bowel and colonic obstruction as a result. No definite free air. PHYSICAL EXAMINATION: GENERAL: Alert & oriented x 3, in no acute distress SKIN: No lesions EYES: Pupils equal reactive to light, no discharge. EARS/NOSE AND THROAT: Ears normal, nose normal, oropharynx normal, oral grayson NECK: Supple, no masses CHEST: Inspection within normal limits. CARDIOVASCULAR: Heart: Regular rate and rhythm RESPIRATORY: Lungs clear to auscultation GASTROINTESTINAL AND LIVER: Abdomen: No tenderness, non-distended, no hernias, no masses, no organomegaly, no ascites, no guarding, no rebound tenderness, hypoactive bowel sounds. Rectal: Deferred. GENITOURINARY: Not examined EXTREMITIES: No cyanosis, clubbing or edema. Result Diagram: 08/06/18 0531 08/06/18 0525 Results 24hrs Laboratory Tests Test 08/06/18 05:25 08/06/18 05:31 Sodium Level 133 L Potassium Level 3.0 L Chloride Level 103 Carbon Dioxide Level 17 L Anion Gap 13 Blood Urea Nitrogen 13 Creatinine 0.76 Est Glomerular Filtrat Rate mL/min > 60 Glucose Level 126 Calcium Level 8.4 Phosphorus Level 4.0 Magnesium Level 2.0 White Blood Count 6.2 # Red Blood Count 3.05 L Hemoglobin 9.7 L Hematocrit 29.0 L Mean Corpuscular Volume 95.1 Mean Corpuscular Hemoglobin 31.8 Mean Corpuscular Hemoglobin Concent 33.4 Red Cell Distribution Width 15.0 H Platelet Count 300 Mean Platelet Volume 9.9 Immature Granulocytes % 4.400 H Neutrophils % Segmented Neutrophils % (Manual) 57 Band Neutrophils % (Manual) 18 H Lymphocytes % Lymphocytes % (Manual) 7 L Reactive Lymphocytes % (Manual) 2 H Monocytes % Monocytes % (Manual) 14 H Eosinophils % Basophils % Metamyelocytes % (manual) 1 H Myelocytes % (Manual) 1 H Nucleated Red Blood Cells % 0.3 H Immature Granulocytes # 0.270 H Neutrophils # Neutrophils # (Manual) 3.6 Band Neutrophils # 1.1 H Lymphocytes (Manual) 0.4 L Lymphocytes # Reactive Lymphocytes # 0.1 H Monocytes # Monocytes # (Manual) 0.8 Eosinophils # Basophils # Metamyelocytes # 0.0 Myelocytes # 0.0 Nucleated Red Blood Cells # Platelet Estimate NORMAL Giant Platelets 8 H Polychromasia 2+ Poikilocytosis 1+ Anisocytosis 1+ Macrocytosis 1+ Exam/Review of Systems Vital Signs Vitals Vital Signs Date Temp Pulse Resp B/P (MAP) Pulse Ox O2 O2 Flow FiO2 Time Delivery Rate 08/06/18 99.2 90 20 112/54 97 11:12 (73) 08/05/18 Ambu Bag 15:35 Intake and Output 08/05/18 08/05/18 08/06/18 1414:59 22:59 06:59 IntakeIntake Total 1400 ml 900 ml BalanceBalance 1400 ml 900 ml Medications Medications Current Medications IV Flush (NS 3 ml) 3 ml PER PROTOCOL IV ; Start 07/28/18 at 01:30 Ondansetron HCl (Zofran Inj) 4 mg Q6H PRN IV NAUSEA AND/OR VOMITING Last administered on 08/03/18 22:30; Admin Dose 4 MG; Start 07/28/18 at 01:30 Acetaminophen (Tylenol Tab) 650 mg Q6H PRN PO PAIN LEVEL 1-3 OR FEVER Last administered on 08/06/18 09:04; Admin Dose 650 MG; Start 07/28/18 at 01:30 Enoxaparin Sodium (Lovenox) 40 mg DAILY SC Last administered on 08/06/18 08:45; Admin Dose 40 MG; Start 07/28/18 at 09:00 Morphine Sulfate (morphine) 2 mg Q3H PRN IV PAIN LEVEL 7-10 Last administered on 08/04/18 02:34; Admin Dose 2 MG; Start 07/28/18 at 10:30 Simethicone (Mylicon) 80 mg Q6H PRN PO DISTENSION/GAS/BLOATING Last administered on 08/05/18 19:55; Admin Dose 80 MG; Start 07/28/18 at 10:30 Phenol (Chloraseptic Throat [place]) 2 spray Q2H PRN MT SORE THROAT Last administered on 08/03/18 04:23; Admin Dose 2 SPRAY; Start 07/29/18 at 19:00 Pantoprazole (Protonix Iv) 40 mg BID IV Last administered on 08/06/18 08:38; Admin Dose 40 MG; Start 07/30/18 at 09:00 Metoprolol Tartrate (Lopressor) 5 mg Q4H PRN IV HR >100; Start 07/30/18 at 09:30 Amlodipine Besylate (Norvasc) 5 mg DAILY NGT Last administered on 08/06/18 08:38; Admin Dose 5 MG; Start 07/30/18 at 09:30 Sucralfate (Carafate Susp) 1 gm QID PO Last administered on 08/06/18 08:38; Admin Dose 1 GM; Start 08/02/18 at 17:00 Sodium Chloride ([place]) 1 spray Q2 PRN NASAL NASAL CONGESTION Last administered on 08/03/18at 06:23; Admin Dose 1 SPRAY; Start 08/03/18 at 05:00 Loperamide HCl (Imodium Cap) 2 mg BID PO Last administered on 08/06/18at 08:38; Admin Dose 2 MG; Start 08/04/18 at 21:00 Metoclopramide HCl (Reglan) 10 mg Q6H PRN IV n/v; Start 08/04/18 at 13:30 Sodium Chloride 1,000 ml @ 50 mls/hr Q20H IV Last administered on 08/04/18at 14:43; Admin Dose 50 MLS/HR; Start 08/04/18 at 14:00 Phenol (Cepastat Lozenge) 1 lozenge Q1H PRN MT throat pain Last administered on 08/06/18at 08:47; Admin Dose 1 LOZENGE; Start 08/05/18 at 12:00 Potassium Chloride 100 ml @ 50 mls/hr Q2H IVPB ; Start 08/06/18 at 13:00; Stop 08/06/18 at 16:59 KOFFI MCGRATH Aug 06, 2018 12:37
[2018-08-06] MEDS ORDERED: POTASSIUM CHLORIDE 100 ML IVPB SCH (13:00)
--- NOTE | 2018-08-06 13:24 | PN ---
Date/Time of Note Date/Time of Note DATE: 08/06/18 TIME: 13:24 Objective Vitals Vital Signs Date Temp Pulse Resp B/P (MAP) Pulse Ox O2 O2 Flow FiO2 Time Delivery Rate 08/06/18 88 12:00 08/06/18 99.2 20 112/54 97 11:12 (73) 08/05/18 Ambu Bag 15:35 Intake and Output 08/05/18 08/05/18 08/06/18 1515:00 23:00 07:00 IntakeIntake Total 1400 ml 900 ml BalanceBalance 1400 ml 900 ml Results Result Diagram: 08/06/18 0531 08/06/18 0525 Medications Medications Current Medications IV Flush (NS 3 ml) 3 ml PER PROTOCOL IV ; Start 07/28/18 at 01:30 Ondansetron HCl (Zofran Inj) 4 mg Q6H PRN IV NAUSEA AND/OR VOMITING Last administered on 08/03/18 22:30; Admin Dose 4 MG; Start 07/28/18 at 01:30 Acetaminophen (Tylenol Tab) 650 mg Q6H PRN PO PAIN LEVEL 1-3 OR FEVER Last administered on 08/06/18 09:04; Admin Dose 650 MG; Start 07/28/18 at 01:30 Enoxaparin Sodium (Lovenox) 40 mg DAILY SC Last administered on 08/06/18 08:45; Admin Dose 40 MG; Start 07/28/18 at 09:00 Morphine Sulfate (morphine) 2 mg Q3H PRN IV PAIN LEVEL 7-10 Last administered on 08/04/18 02:34; Admin Dose 2 MG; Start 07/28/18 at 10:30 Simethicone (Mylicon) 80 mg Q6H PRN PO DISTENSION/GAS/BLOATING Last administered on 08/05/18 19:55; Admin Dose 80 MG; Start 07/28/18 at 10:30 Phenol (Chloraseptic Throat [place]) 2 spray Q2H PRN MT SORE THROAT Last administered on 08/03/18 04:23; Admin Dose 2 SPRAY; Start 07/29/18 at 19:00 Pantoprazole (Protonix Iv) 40 mg BID IV Last administered on 08/06/18 08:38; Admin Dose 40 MG; Start 07/30/18 at 09:00 Metoprolol Tartrate (Lopressor) 5 mg Q4H PRN IV HR >100; Start 07/30/18 at 09:30 Amlodipine Besylate (Norvasc) 5 mg DAILY NGT Last administered on 08/06/18 08:38; Admin Dose 5 MG; Start 07/30/18 at 09:30 Sucralfate (Carafate Susp) 1 gm QID PO Last administered on 08/06/18 08:38; Admin Dose 1 GM; Start 08/02/18 at 17:00 Sodium Chloride ([place]) 1 spray Q2 PRN NASAL NASAL CONGESTION Last administered on 08/03/18 06:23; Admin Dose 1 SPRAY; Start 08/03/18 at 05:00 Metoclopramide HCl (Reglan) 10 mg Q6H PRN IV n/v; Start 08/04/18 at 13:30 Sodium Chloride 1,000 ml @ 50 mls/hr Q20H IV Last administered on 08/04/18 14:43; Admin Dose 50 MLS/HR; Start 08/04/18 at 14:00 Phenol (Cepastat Lozenge) 1 lozenge Q1H PRN MT throat pain Last administered on 08/06/18 08:47; Admin Dose 1 LOZENGE; Start 08/05/18 at 12:00 Potassium Chloride 100 ml @ 50 mls/hr Q2H IVPB Last administered on 08/06/18 13:01; Admin Dose 50 MLS/HR; Start 08/06/18 at 13:00; Stop 08/06/18 at 16:59 Loperamide HCl (Imodium Cap) 2 mg TID PRN PO diarrhea; Start 08/06/18 at 13:00 Nystatin (Nystatin Susp) 5 ml QID PO ; Start 08/06/18 at 17:00; Stop 08/13/18 at 17:00 VTE Prophylaxis Risk score (from Nsg)>0 risk: 3 SCD applied (from Nsg): Yes Lines/Catheters IV Catheter Type: Jean in Place: No Assessment/Plan Hospital Course Subjective still having diarrhea, but continues to improve daily Objective Physical exam General: Patient is laying in bed and answers questions appropriately Mentation: Patient is alert and oriented 4, Head: Normocephalic atraumatic Eyes: EOMI, pupils reactive to light Neck: Supple, nontender, midline Respiratory: Clear to auscultation bilaterally Cardiovascular: regular rate, no obvious murmurs Gastrointestinal: Mildly tender to palpation, bowel sounds heard. Neurological: Moves all extremities spontaneously Skin: No new skin lesions Assessment/Plan 1. Acute abdominal pain secondary to ileus vs obstruction- resolved - now passing bowel movement, but too much diarrhea - Colonoscopy performed 07.29 showed no mass, but could not proceed further than stricture. colon ulcerations appreciated and bx obtained -repeat SBFT negative for sbo, only ileus - GI on board and appreciate recommendations 2. Acute diarrhea- ongoing - stool culture results noted -CT noted, additional meds on board per GI -GI recs appreciated 3. Acute dehydration due to diarrhea- resolving -cont IVF 4. DANYELL- resolved - Cr returned to baseline - most likely prerenal secondary to GI losses - continue IVF due to diarrhea 5. Rectal pain with history of metastatic rectal cancer - Oncology consultation appreciated -stricture from CA in colon, but stable - CT results noted - stable, will follow up with her outpatient oncologist 6. Severe gastritis/erosive esophagitis - seen on EGD performed 07/29 - started on Reglan and PPI increased to BID -carafate when able 7. Hypertension - Bp controlled 8. Disposition -monitor for continued diarrhea and tolerance to mech soft diet DINO DAWN Aug 06, 2018 13:24
[2018-08-06] MEDS ORDERED: POTASSIUM CHLORIDE 20 MEQ POWDER FOR ORAL SOLN PO ONE (17:00)
[2018-08-06] MEDS: NYSTATIN SUSP 5 ML CUP PO SCH ×2 (17:04→21:32)
[2018-08-06] MEDS: LOPERAMIDE 2 MG CAP PO PRN (21:40)
[2018-08-07] VITALS (12 sets, daily range): BP systolic 101–116; BP diastolic 55–66; PULSE 93–114; RESP 16–20
--- NOTE | 2018-08-07 01:05 | CONS ---
Date/Time of Note Date/Time of Note DATE: 08/07/18 TIME: 01:03 Assessment/Plan Assessment/Plan Assessment/Plan #Metastatic rectal ca - dx 03/2017 -Initially pt has known nodular circumferential mural thickening of the distal sigmoid colon and rectum extending to the anus, abdominal wall tumor implants, liver masses as well as bilateral ureteral obstruction with bilateral hydronephrosis. -pt has since completed concurrent chemotherapy with radiation with 50 to 55 Gy over a 4 week period to treat the pelvis and bilateral groin lymph nodes. 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 BX revealed no evidence of malignancy # Intractable Nausea/vomiting - coffee-ground emesis/drainage per NGT. NGT now dc'd - EGD 07/29/18 showed- Severe erosive distal esophagitis; Retained material in the stomach consistent with gastroparesis; Moderate gastritis #Diarrhea -stool studies done - GI follows -continue IV hydration #Ovarian cyst -continue to monitor. if this grows in size it can be removed at that time # Acute Hypokalemia - per pmd Patient seen in collaboration with Dr Marshall Result Diagram: 08/06/18 0531 08/06/18 0525 Results 24hrs Laboratory Tests Test 08/06/18 05:25 08/06/18 05:31 Sodium Level 133 L Potassium Level 3.0 L Chloride Level 103 Carbon Dioxide Level 17 L Anion Gap 13 Blood Urea Nitrogen 13 Creatinine 0.76 Est Glomerular Filtrat Rate mL/min > 60 Glucose Level 126 Calcium Level 8.4 Phosphorus Level 4.0 Magnesium Level 2.0 White Blood Count 6.2 # Red Blood Count 3.05 L Hemoglobin 9.7 L Hematocrit 29.0 L Mean Corpuscular Volume 95.1 Mean Corpuscular Hemoglobin 31.8 Mean Corpuscular Hemoglobin Concent 33.4 Red Cell Distribution Width 15.0 H Platelet Count 300 Mean Platelet Volume 9.9 Immature Granulocytes % 4.400 H Neutrophils % Segmented Neutrophils % (Manual) 57 Band Neutrophils % (Manual) 18 H Lymphocytes % Lymphocytes % (Manual) 7 L Reactive Lymphocytes % (Manual) 2 H Monocytes % Monocytes % (Manual) 14 H Eosinophils % Basophils % Metamyelocytes % (manual) 1 H Myelocytes % (Manual) 1 H Nucleated Red Blood Cells % 0.3 H Immature Granulocytes # 0.270 H Neutrophils # Neutrophils # (Manual) 3.6 Band Neutrophils # 1.1 H Lymphocytes (Manual) 0.4 L Lymphocytes # Reactive Lymphocytes # 0.1 H Monocytes # Monocytes # (Manual) 0.8 Eosinophils # Basophils # Metamyelocytes # 0.0 Myelocytes # 0.0 Nucleated Red Blood Cells # Platelet Estimate NORMAL Giant Platelets 8 H Polychromasia 2+ Poikilocytosis 1+ Anisocytosis 1+ Macrocytosis 1+ Consultation Date/Type/Reason Admit Date/Time Jul 28, 2018 at 12:46 am Initial Consult Date 07/28/18 Type of Consult ONCOLOGY Reason for Consultation RECTAL CANCER Requesting Provider: CAMRYN PRICE 24 HR Interval Summary Free Text/Dictation Entry for 08/06/2017- c/o diarrhea no new events reported overnight Constitutional: requiring IVF Detailed Summary Eyes: no complaints ENT: no complaints Respiratory: no complaints Cardiovascular: no complaints Gastrointestinal: diarrhea Musculoskeletal: no complaints Skin: no complaints Neurologic: no complaints Exam/Review of Systems Vital Signs Vitals Vital Signs Date Temp Pulse Resp B/P (MAP) Pulse Ox O2 O2 Flow FiO2 Time Delivery Rate 08/07/18 109 00:00 08/06/18 99.8 20 106/52 98 23:08 (70) 08/05/18 Ambu Bag 15:35 Intake and Output 08/06/18 08/06/18 08/07/18 1515:00 23:00 07:00 IntakeIntake Total 550 ml BalanceBalance 550 ml Exam Constitutional: alert, oriented, well developed Psych: no complaints Head: normocephalic Eyes: nl conjunctiva, EOMI, nl lids, nl sclera ENMT: nl external ears & nose Neck: non-tender Respiratory: clear to auscultation (bilatrally) Cardiovascular: nl pulses, other (s1s2) Gastrointestinal: soft, non-tender Musculoskeletal: nl extremities to inspection Extremities: normal pulses Neurological: nl speech, other (alert/ awake) Skin: nl turgor Lymph: nontender Medications Medications Current Medications IV Flush (NS 3 ml) 3 ml PER PROTOCOL IV ; Start 07/28/18 at 01:30 Ondansetron HCl (Zofran Inj) 4 mg Q6H PRN IV NAUSEA AND/OR VOMITING Last administered on 08/03/18 22:30; Admin Dose 4 MG; Start 07/28/18 at 01:30 Acetaminophen (Tylenol Tab) 650 mg Q6H PRN PO PAIN LEVEL 1-3 OR FEVER Last administered on 08/06/18 17:40; Admin Dose 650 MG; Start 07/28/18 at 01:30 Enoxaparin Sodium (Lovenox) 40 mg DAILY SC Last administered on 08/06/18 08:45; Admin Dose 40 MG; Start 07/28/18 at 09:00 Morphine Sulfate (morphine) 2 mg Q3H PRN IV PAIN LEVEL 7-10 Last administered on 08/04/18 02:34; Admin Dose 2 MG; Start 07/28/18 at 10:30 Simethicone (Mylicon) 80 mg Q6H PRN PO DISTENSION/GAS/BLOATING Last administered on 08/05/18 19:55; Admin Dose 80 MG; Start 07/28/18 at 10:30 Phenol (Chloraseptic Throat [place]) 2 spray Q2H PRN MT SORE THROAT Last administered on 08/03/18 04:23; Admin Dose 2 SPRAY; Start 07/29/18 at 19:00 Pantoprazole (Protonix Iv) 40 mg BID IV Last administered on 08/06/18 21:31; Admin Dose 40 MG; Start 07/30/18 at 09:00 Metoprolol Tartrate (Lopressor) 5 mg Q4H PRN IV HR >100; Start 07/30/18 at 09:30 Amlodipine Besylate (Norvasc) 5 mg DAILY NGT Last administered on 08/06/18 08:38; Admin Dose 5 MG; Start 07/30/18 at 09:30 Sucralfate (Carafate Susp) 1 gm QID PO Last administered on 08/06/18 21:32; Admin Dose 1 GM; Start 08/02/18 at 17:00 Sodium Chloride (Deep Sea) 1 spray Q2 PRN NASAL NASAL CONGESTION Last administered on 1/2/19at 06:23; Admin Dose 1 SPRAY; Start 08/03/18 at 05:00 Metoclopramide HCl (Reglan) 10 mg Q6H PRN IV n/v; Start 08/04/18 at 13:30 Sodium Chloride 1,000 ml @ 50 mls/hr Q20H IV Last administered on 08/04/18at 14:43; Admin Dose 50 MLS/HR; Start 08/04/18 at 14:00 Phenol (Cepastat Lozenge) 1 lozenge Q1H PRN MT throat pain Last administered on 08/06/18at 08:47; Admin Dose 1 LOZENGE; Start 08/05/18 at 12:00 Loperamide HCl (Imodium Cap) 2 mg TID PRN PO diarrhea Last administered on 08/06/18at 21:40; Admin Dose 2 MG; Start 08/06/18 at 13:00 Nystatin (Nystatin Susp) 5 ml QID PO Last administered on 08/06/18at 21:32; Admin Dose 5 ML; Start 08/06/18 at 17:00; Stop 08/13/18 at 17:00 DUC SEGAL Aug 07, 2018 01:05
[2018-08-07] MEDS: SOD CHLORIDE 0.45% 1,000 ML IV SCH ×2 (02:24→21:52)
[2018-08-07] MEDS: ACETAMINOPHEN 325 MG TAB PO PRN ×2 (05:30→09:02)
[2018-08-07] MEDS: LOPERAMIDE 2 MG CAP PO PRN ×2 (05:30→16:34)
[2018-08-07] MEDS: NYSTATIN SUSP 5 ML CUP PO SCH ×4 (09:02→21:52)
[2018-08-07] MEDS: SUCRALFATE (100 MG/ML) 10ML CUP PO SCH ×4 (09:02→21:52)
[2018-08-07] MEDS: PANTOPRAZOLE 40 MG INJ IV SCH ×2 (09:02→21:52)
[2018-08-07] MEDS: AMLODIPINE 5 MG TAB NGT SCH (09:03)
[2018-08-07] MEDS: ENOXAPARIN 40 MG/0.4 ML SYG SC SCH (09:14)
[2018-08-07] MEDS: CIPROFLOXACIN 400MG/D5W 200 ML IVPB SCH ×2 (11:17→21:52)
--- NOTE | 2018-08-07 12:54 | PN ---
Date/Time of Note Date/Time of Note DATE: 08/07/18 TIME: 12:52 Objective Vitals Vital Signs Date Temp Pulse Resp B/P (MAP) Pulse Ox O2 O2 Flow FiO2 Time Delivery Rate 08/07/18 98.3 98 16 101/61 97 11:34 (74) 08/05/18 Ambu Bag 15:35 Intake and Output 08/06/18 08/06/18 08/07/18 1515:00 23:00 07:00 IntakeIntake Total 550 ml 2000 ml BalanceBalance 550 ml 2000 ml Results Result Diagram: 08/07/1852508/07/18525 Medications Medications Current Medications IV Flush (NS 3 ml) 3 ml PER PROTOCOL IV ; Start 07/28/18 at 01:30 Ondansetron HCl (Zofran Inj) 4 mg Q6H PRN IV NAUSEA AND/OR VOMITING Last admi nistered on 08/03/18 22:30; Admin Dose 4 MG; Start 07/28/18 at 01:30 Acetaminophen (Tylenol Tab) 650 mg Q6H PRN PO PAIN LEVEL 1-3 OR FEVER Last administered on 08/07/18 09:02; Admin Dose 650 MG; Start 07/28/18 at 01:30 Enoxaparin Sodium (Lovenox) 40 mg DAILY SC Last administered on 08/07/18 09:14; Admin Dose 40 MG; Start 07/28/18 at 09:00 Morphine Sulfate (morphine) 2 mg Q3H PRN IV PAIN LEVEL 7-10 Last administered on 08/04/18 02:34; Admin Dose 2 MG; Start 07/28/18 at 10:30 Simethicone (Mylicon) 80 mg Q6H PRN PO DISTENSION/GAS/BLOATING Last administered on 08/05/18 19:55; Admin Dose 80 MG; Start 07/28/18 at 10:30 Phenol (Chloraseptic Throat [place]) 2 spray Q2H PRN MT SORE THROAT Last administered on 08/03/18 04:23; Admin Dose 2 SPRAY; Start 07/29/18 at 19:00 Pantoprazole (Protonix Iv) 40 mg BID IV Last administered on 08/07/18 09:02; Admin Dose 40 MG; Start 07/30/18 at 09:00 Metoprolol Tartrate (Lopressor) 5 mg Q4H PRN IV HR >100; Start 07/30/18 at 09:30 Amlodipine Besylate (Norvasc) 5 mg DAILY NGT Last administered on 08/07/18 09:03; Admin Dose 5 MG; Start 07/30/18 at 09:30 Sucralfate (Carafate Susp) 1 gm QID PO Last administered on 08/07/18 09:02; Admin Dose 1 GM; Start 08/02/18 at 17:00 Sodium Chloride (Deep Sea) 1 spray Q2 PRN NASAL NASAL CONGESTION Last admi nistered on 08/03/18 06:23; Admin Dose 1 SPRAY; Start 08/03/18 at 05:00 Metoclopramide HCl (Reglan) 10 mg Q6H PRN IV n/v; Start 08/04/18 at 13:30 Sodium Chloride 1,000 ml @ 50 mls/hr Q20H IV Last administered on 08/07/18 02:24; Admin Dose 50 MLS/HR; Start 08/04/18 at 14:00 Phenol (Cepastat Lozenge) 1 lozenge Q1H PRN MT throat pain Last administered on 08/06/18 08:47; Admin Dose 1 LOZENGE; Start 08/05/18 at 12:00 Loperamide HCl (Imodium Cap) 2 mg TID PRN PO diarrhea Last administered on 08/07/18 05:30; Admin Dose 2 MG; Start 08/06/18 at 13:00 Nystatin (Nystatin Susp) 5 ml QID PO Last administered on 08/07/18 09:02; Admin Dose 5 ML; Start 08/06/18 at 17:00; Stop 08/13/18 at 17:00 Ciprofloxacin/ Dextrose 200 ml @ 200 mls/hr Q12 IVPB Last administered on 08/07/18 11:17; Admin Dose 200 MLS/HR; Start 08/07/18 at 09:30 Metronidazole 100 ml @ 100 mls/hr Q8 IVPB ; Start 08/07/18 at 14:00 VTE Prophylaxis Risk score (from Nsg)>0 risk: 4 SCD applied (from Nsg): No SCD contraindication: other Lines/Catheters IV Catheter Type: Jean in Place: No Assessment/Plan Hospital Course Subjective still having diarrhea, fever overnight Objective Physical exam General: Patient is laying in bed and answers questions appropriately Mentation: Patient is alert and oriented 4, Head: Normocephalic atraumatic Eyes: EOMI, pupils reactive to light Neck: Supple, nontender, midline Respiratory: Clear to auscultation bilaterally Cardiovascular: regular rate, no obvious murmurs Gastrointestinal: Mildly tender to palpation, bowel sounds heard. Neurological: Moves all extremities spontaneously Skin: No new skin lesions Assessment/Plan fever -unknown etiology, but given everything that is going on in her GI tract, but be aggressive -IV abx for GI pathology -blood cultures -ID consulted Acute abdominal pain secondary to ileus vs obstruction- resolved - now passing bowel movement, but too much diarrhea - Colonoscopy performed 07.29 showed no mass, but could not proceed further than stricture. colon ulcerations appreciated and bx obtained -repeat SBFT negative for sbo, only ileus - GI on board and appreciate recommendations Acute diarrhea- ongoing - stool culture results noted -CT noted, additional meds on board per GI -GI recs appreciated Acute dehydration due to diarrhea- resolving -cont IVF DANYELL- resolved - Cr returned to baseline - most likely prerenal secondary to GI losses - continue IVF due to diarrhea Rectal pain with history of metastatic rectal cancer - Oncology consultation appreciated -stricture from CA in colon, but stable - CT results noted - stable, will follow up with her outpatient oncologist Severe gastritis/erosive esophagitis - seen on EGD performed 07/29 - started on Reglan and PPI increased to BID -carafate Hypertension - Bp controlled Disposition -monitor for continued diarrhea and tolerance to mech soft diet -ID consulted for unknown fever DINO DAWN Aug 07, 2018 12:54
--- NOTE | 2018-08-07 13:50 | CONS ---
DATE OF ADMISSION: 07/28/2018 DATE OF CONSULTATION: 08/07/2018 TYPE OF CONSULTATION: Infectious disease. REASON FOR CONSULTATION: Antibiotic management. HISTORY OF PRESENT ILLNESS: Kristan Guadalpue is a 43-year-old female admitted on 07/27/20 18 with rectal pain and is being seen for antibiotic management at this present time. The patient yanes d rectal pain. CT scan of the abdomen and pelvis showed distended, fluid filled colon with transitio nal distal rectum in a patient with a history of rectal cancer, question of recurrence versus strictu re, ____ evidence of metastatic disease. Dr. Ferrer and Dr. Marshall of GI and hematology/oncology were asked to see the patient. She also presented with diarrhea and stool for C. difficile was ordered. She has a history of metastatic rectal carcinoma, currently on Xeloda. She has acute kidney injury with BUN and creatinine of 36 and 1.1 and she was hydrated for this. Her white count was 10.7, H and H of 17.4 and 53, platelet count of 369,000. She also has a history of 24 years ago in ad dition to rectal mass resection, status post chemotherapy and radiation. HOSPITAL COURSE: The patient was seen by Dr. Nay Marshall. She noted metastatic rectal carcinoma. She had nodular circumferential mural thickening of the distal sigmoid colon and rectum extending to the anus, abdominal wall tumor implants, liver masses as well as bilateral ureteral obstruction with bilateral hydronephrosis. She has completed concurrent chemotherapy with radiation over a 4-week per iod to treat pelvis and bilateral groin lymph nodes and has completed 4 cycles of Xeloda. She will n eed GI consult and colonoscopy. The patient was seen by ____ for GI. She reported nausea and vomiti ng, coffee-ground emesis, large amount of emesis after NG tube was placed. She ordered a KUB to rule out obstruction. She will probably need an NG tube. She needs EGD and colonoscopy. An abdominal p elvic CT scan was done which showed distended, fluid filled colon with transitional distal rectum in patient with history of rectal carcinoma. A small bowel x-ray showed dilated gas containing small eliot wel consistent with mild ileus which improved on the final image. Chest x-ray: Satisfactory placeme nt of the NG tube on 07/28/2018, no evidence of acute cardiopulmonary disease. Abdominal x-ray: Mul tiple mildly distended loops of small bowel in a stack configuration. Small bowel x-ray: Findings a re compatible with small bowel ileus. DVT study showed no evidence of DVT and CT scan of the abdomen and pelvis from 08/04/2018 shows unremarkable right kidney. There are wedge-shaped peripheral areas of hypoenhancement of the upper to mid left kidney which may be due to pyelonephritis or evolving in farcts, increased small bowel distention, colonic dilatation to the level of the anorectal region is seen with increasing wall thickening and mucosal enhancement from the splenic flexure distally, most prominent in the region of the distal sigmoid and rectum, is presumably related to the known rectal c ancer. The appearance suggests worsening partial small bowel and colonic obstruction has resolved. No definite free air. On 08/01/2018, her white count was 11.2. BUN and creatinine is 20/0.64. On 0 08/04/2018, white count was 9.4. Colonoscopy was done on 07/29/2018 which showed rectal stricture, ne oplasm versus radiation injury. Estimated movement is 10 mm. Biopsies obtained. Biopsies are showi ng ulcer with glandular atrophy. No evidence of dysplasia or malignancy. It shows features of ische anca injuries. Radiation effect cannot be ruled out. EGD on the 07/29/2018 showed severe erosive dis joselin esophagitis, retained material in the stomach consistent with gastroparesis, moderate gastritis. Abdominal pain resolved. Bowel obstruction versus ileus. Diarrhea improved. Hyperkalemia resolved . Continue current GI regimen. Continue supportive management. The patient is currently with a whi te count from 08/06/[address] scan from 07/27/2018 demonstrates great response to therapy. PAST MEDICAL HISTORY: Operations as outlined. FAMILY HISTORY: Noncontributory. SOCIAL HISTORY: She does not smoke, drink or abuse drugs. ALLERGIES: NONE TO PENICILLIN, SULFA OR FOODS. MEDICATIONS: Per chart. REVIEW OF SYSTEMS: Noncontributory. PHYSICAL EXAMINATION: GENERAL: The patient is lying in bed in no acute distress. VITAL SIGNS: Stable. She is afebrile. SKIN: Without generalized rash. HEENT: Within normal limits. NECK: Supple. LYMPH NODES: None palpable. CHEST: Decreased breath sounds at the bases. HEART: Without murmur or gallop. ABDOMEN: Soft, nontender without organosplenomegaly or masses. EXTREMITIES: Without cyanosis, clubbing or edema. RECTAL AND GENITAL: Deferred. NEUROLOGICAL: No focal neurological abnormality. IMPRESSION AND PLAN: The patient presented with acute abdominal pain secondary to ileus versus obstr uction which is resolved, now passing flatus and having a bowel movement, but she has diarrhea. Her Clostridium difficile is negative and she is on Cipro and Flagyl starting today. White count is 7.1. The patient is afebrile. Currently, I see no evidence for infection. We will continue the Cipro a nd Flagyl for a period of time and then if there is no evidence of fever or leukocytosis, then we ted l stop the Cipro and Flagyl. I will dictate my findings to the hospitalist and to Dr. Marshall. Dictated By: HELGA CLARKE MD, JD/COOPER Conf#: [id number] DID#: [id number] CC: JESSE FERRER; DINO DAWN MD; CAMRYN PRICE MD;*[facility]*
[2018-08-07] MEDS: metroNIDAZOLE 500 MG/NS (PMX) 100 ML IVPB SCH ×2 (14:06→21:52)
--- NOTE | 2018-08-07 14:57 | PN ---
Date/Time of Note Date/Time of Note DATE: 08/07/18 TIME: 14:54 Assessment/Plan VTE Prophylaxis Risk score (from Ns)>0 risk: 4 SCD applied (from Ns): No SCD contraindicated: other (scds) Pharmacological prophylaxis: other (scds) Lines/Catheters IV Catheter Type (from [facility]): Urinary Cath still in place: No Assessment/Plan Hospital Course Assessment/Plan Assessment: History of rectal ca- dx 2017 -s/p Chemo/radiation Colonoscopy 07/29/18 Rectal stricture neoplasm versus radiation injury Estimated lumen 10 mm, biopsies obtained Unable to advance beyond area of stricture Bx: showing ulcer with glandular atrophy.No evidence of dysplasia or stephanie gnancy. The biopsy shows features of ischemic injuries. Radiation effect cannot be completely ruled out Nausea/vomiting- -Reported coffee-ground emesis -Bright red emesis- after eating jello? EGD 07/29/18 Severe erosive distal esophagitis Retained material in the stomach consistent with gastroparesis Moderate gastritis Abdominal pain-resolved Bowel obstruction vs ileus Diarrhea- improved Hyperkalemia- resolved oral grayson- improved Plan: Continue current GI regimen- continue supportive management Fecal leukocytes - pending Pt continue with Cipro/Flagyl F/u on Onc recs Continue nystatin 5 ml po QID x7 days Patient seen in collaboration and discussed with Subjective: Course reviewed with nursing staff Patient interviewed and examined All labs, imaging and other results reviewed No over night events, Pt states diarrhea continues to improve, in frequency and volume. Able to tolerate diet, Pt c/o gas, instructed to utilize simethicone as needed. Overall patient feels she has improved PHYSICAL EXAMINATION: GENERAL: Alert & oriented x 3, in no acute distress SKIN: No lesions EYES: Pupils equal reactive to light, no discharge. EARS/NOSE AND THROAT: Ears normal, nose normal, oropharynx normal, oral grayson- improved NECK: Supple, no masses CHEST: Inspection within normal limits. CARDIOVASCULAR: Heart: Regular rate and rhythm RESPIRATORY: Lungs clear to auscultation GASTROINTESTINAL AND LIVER: Abdomen: No tenderness, mildly distended, soft, no hernias, no masses, no organomegaly, no ascites, no guarding, no rebound tenderness, hypoactive bowel sounds. Rectal: Deferred. GENITOURINARY: Not examined EXTREMITIES: No cyanosis, clubbing or edema. Result Diagram: 08/07/18 0526 08/07/18 0526 Results 24hrs Laboratory Tests Test 08/07/18 05:26 White Blood Count 7.1 Red Blood Count 3.19 L Hemoglobin 10.1 L Hematocrit 30.4 L Mean Corpuscular Volume 95.3 Mean Corpuscular Hemoglobin 31.7 Mean Corpuscular Hemoglobin Concent 33.2 Red Cell Distribution Width 15.0 H Platelet Count 363 # Mean Platelet Volume 9.7 Immature Granulocytes % 4.100 H Neutrophils % Segmented Neutrophils % (Manual) 56 Band Neutrophils % (Manual) 22 H Lymphocytes % Lymphocytes % (Manual) 8 L Monocytes % Monocytes % (Manual) 12 H Eosinophils % Basophils % Myelocytes % (Manual) 1 H Promyelocytes % (Manual) 1 H Nucleated Red Blood Cells % 1 H Immature Granulocytes # 0.290 H Neutrophils # Neutrophils # (Manual) 4.1 Band Neutrophils # 1.5 H Lymphocytes (Manual) 0.5 L Lymphocytes # Monocytes # Monocytes # (Manual) 0.8 Eosinophils # Basophils # Myelocytes # 0.0 Promyelocytes # 0.0 Nucleated Red Blood Cells # Platelet Estimate NORMAL Giant Platelets 3 H Polychromasia 3+ Poikilocytosis 1+ Anisocytosis 1+ Sodium Level 133 L Potassium Level 3.7 Chloride Level 105 Carbon Dioxide Level 17 L Anion Gap 11 Blood Urea Nitrogen 14 Creatinine 0.70 Est Glomerular Filtrat Rate mL/min > 60 Glucose Level 115 Calcium Level 8.8 Phosphorus Level 3.9 Magnesium Level 1.9 Exam/Review of Systems Vital Signs Vitals Vital Signs Date Temp Pulse Resp B/P (MAP) Pulse Ox O2 O2 Flow FiO2 Time Delivery Rate 08/07/18 96 12:00 08/07/18 98.3 16 101/61 97 11:34 (74) 08/05/18 Ambu Bag 15:35 Intake and Output 08/06/18 08/06/18 08/07/18 1515:00 23:00 07:00 IntakeIntake Total 550 ml 2000 ml BalanceBalance 550 ml 2000 ml Medications Medications Current Medications IV Flush (NS 3 ml) 3 ml PER PROTOCOL IV ; Start 07/28/18 at 01:30 Ondansetron HCl (Zofran Inj) 4 mg Q6H PRN IV NAUSEA AND/OR VOMITING Last administered on 08/03/18at 22:30; Admin Dose 4 MG; Start 07/28/18 at 01:30 Acetaminophen (Tylenol Tab) 650 mg Q6H PRN PO PAIN LEVEL 1-3 OR FEVER Last administered on 08/07/18 09:02; Admin Dose 650 MG; Start 07/28/18 at 01:30 Enoxaparin Sodium (Lovenox) 40 mg DAILY SC Last administered on 08/07/18 09:14; Admin Dose 40 MG; Start 07/28/18 at 09:00 Morphine Sulfate (morphine) 2 mg Q3H PRN IV PAIN LEVEL 7-10 Last administered on 08/04/18 02:34; Admin Dose 2 MG; Start 07/28/18 at 10:30 Simethicone (Mylicon) 80 mg Q6H PRN PO DISTENSION/GAS/BLOATING Last administered on 08/05/18 19:55; Admin Dose 80 MG; Start 07/28/18 at 10:30 Phenol (Chloraseptic Throat [place]) 2 spray Q2H PRN MT SORE THROAT Last administered on 08/03/18 04:23; Admin Dose 2 SPRAY; Start 07/29/18 at 19:00 Pantoprazole (Protonix Iv) 40 mg BID IV Last administered on 08/07/18 09:02; Admin Dose 40 MG; Start 07/30/18 at 09:00 Metoprolol Tartrate (Lopressor) 5 mg Q4H PRN IV HR >100; Start 07/30/18 at 09:30 Amlodipine Besylate (Norvasc) 5 mg DAILY NGT Last administered on 08/07/18 09:03; Admin Dose 5 MG; Start 07/30/18 at 09:30 Sucralfate (Carafate Susp) 1 gm QID PO Last administered on 08/07/18 14:06; Admin Dose 1 GM; Start 08/02/18 at 17:00 Sodium Chloride (Deep [place]) 1 spray Q2 PRN NASAL NASAL CONGESTION Last administered on 08/03/18 06:23; Admin Dose 1 SPRAY; Start 08/03/18 at 05:00 Metoclopramide HCl (Reglan) 10 mg Q6H PRN IV n/v; Start 08/04/18 at 13:30 Sodium Chloride 1,000 ml @ 50 mls/hr Q20H IV Last administered on 08/07/18 02:24; Admin Dose 50 MLS/HR; Start 08/04/18 at 14:00 Phenol (Cepastat Lozenge) 1 lozenge Q1H PRN MT throat pain Last administered on 08/06/18at 08:47; Admin Dose 1 LOZENGE; Start 08/05/18 at 12:00 Loperamide HCl (Imodium Cap) 2 mg TID PRN PO diarrhea Last administered on 08/07/18at 05:30; Admin Dose 2 MG; Start 08/06/18 at 13:00 Nystatin (Nystatin Susp) 5 ml QID PO Last administered on 08/07/18at 14:06; Admin Dose 5 ML; Start 08/06/18 at 17:00; Stop 08/13/18 at 17:00 Ciprofloxacin/ Dextrose 200 ml @ 200 mls/hr Q12 IVPB Last administered on 08/07/18at 11:17; Admin Dose 200 MLS/HR; Start 08/07/18 at 09:30 Metronidazole 100 ml @ 100 mls/hr Q8 IVPB Last administered on 08/07/18at 14:06; Admin Dose 100 MLS/HR; Start 08/07/18 at 14:00 KOFFI MCGRATH Aug 07, 2018 14:57
--- NOTE | 2018-08-07 15:58 | CONS ---
Date/Time of Note Date/Time of Note DATE: 08/07/18 TIME: 15:56 Assessment/Plan Assessment/Plan Assessment/Plan #Metastatic rectal ca - dx 03/2017 -Initially pt has known nodular circumferential mural thickening of the distal sigmoid colon and rectum extending to the anus, abdominal wall tumor implants, liver masses as well as bilateral ureteral obstruction with bilateral hydronephrosis. -pt has since completed concurrent chemotherapy with radiation with 50 to 55 Gy over a 4 week period to treat the pelvis and bilateral groin lymph nodes. 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 BX revealed no evidence of malignancy # Intractable Nausea/vomiting - coffee-ground emesis/drainage per NGT. NGT now dc'd - EGD 07/29/18 showed- Severe erosive distal esophagitis; Retained material in the stomach consistent with gastroparesis; Moderate gastritis #Diarrhea -stool studies done - GI follows -continue IV hydration #Ovarian cyst -continue to monitor. if this grows in size it can be removed at that time # Acute Hypokalemia - resolved Patient seen in collaboration with Dr Marshall Result Diagram: 08/07/18 0526 08/07/18 0526 Results 24hrs Laboratory Tests Test 08/07/18 05:26 White Blood Count 7.1 Red Blood Count 3.19 L Hemoglobin 10.1 L Hematocrit 30.4 L Mean Corpuscular Volume 95.3 Mean Corpuscular Hemoglobin 31.7 Mean Corpuscular Hemoglobin Concent 33.2 Red Cell Distribution Width 15.0 H Platelet Count 363 # Mean Platelet Volume 9.7 Immature Granulocytes % 4.100 H Neutrophils % Segmented Neutrophils % (Manual) 56 Band Neutrophils % (Manual) 22 H Lymphocytes % Lymphocytes % (Manual) 8 L Monocytes % Monocytes % (Manual) 12 H Eosinophils % Basophils % Myelocytes % (Manual) 1 H Promyelocytes % (Manual) 1 H Nucleated Red Blood Cells % 1 H Immature Granulocytes # 0.290 H Neutrophils # Neutrophils # (Manual) 4.1 Band Neutrophils # 1.5 H Lymphocytes (Manual) 0.5 L Lymphocytes # Monocytes # Monocytes # (Manual) 0.8 Eosinophils # Basophils # Myelocytes # 0.0 Promyelocytes # 0.0 Nucleated Red Blood Cells # Platelet Estimate NORMAL Giant Platelets 3 H Polychromasia 3+ Poikilocytosis 1+ Anisocytosis 1+ Sodium Level 133 L Potassium Level 3.7 Chloride Level 105 Carbon Dioxide Level 17 L Anion Gap 11 Blood Urea Nitrogen 14 Creatinine 0.70 Est Glomerular Filtrat Rate mL/min > 60 Glucose Level 115 Calcium Level 8.8 Phosphorus Level 3.9 Magnesium Level 1.9 Consultation Date/Type/Reason Admit Date/Time Jul 28, 2018 at 00:46 Initial Consult Date 07/28/18 Type of Consult ONCOLOGY Reason for Consultation RECTAL CANCER Requesting Provider: CAMRYN PRICE 24 HR Interval Summary Free Text/Dictation c/o diarrhea no new issues reported overnight Constitutional: requiring IVF Detailed Summary Eyes: no complaints ENT: no complaints Respiratory: no complaints Cardiovascular: no complaints Gastrointestinal: diarrhea Genitourinary: no complaints Musculoskeletal: no complaints Skin: no complaints Neurologic: no complaints Endocrine: no complaints Exam/Review of Systems Vital Signs Vitals Vital Signs Date Temp Pulse Resp B/P (MAP) Pulse Ox O2 O2 Flow FiO2 Time Delivery Rate 08/07/18 98.2 93 16 102/66 100 15:29 (78) 08/05/18 Ambu Bag 15:35 Intake and Output 08/06/18 08/06/18 08/07/18 1515:00 23:00 07:00 IntakeIntake Total 550 ml 2000 ml BalanceBalance 550 ml 2000 ml Exam Constitutional: alert, well developed Psych: nl mood/affect Head: normocephalic Eyes: EOMI ENMT: nl external ears & nose Neck: non-tender Respiratory: clear to auscultation (BILATERALLY) Cardiovascular: nl pulses, other (s1s2) Gastrointestinal: soft, non-tender Musculoskeletal: nl extremities to inspection Extremities: normal pulses Neurological: nl mental status, other (alert /responsive) Skin: nl turgor Medications Medications Current Medications IV Flush (NS 3 ml) 3 ml PER PROTOCOL IV ; Start 07/28/18 at 01:30 Ondansetron HCl (Zofran Inj) 4 mg Q6H PRN IV NAUSEA AND/OR VOMITING Last administered on 08/03/18 22:30; Admin Dose 4 MG; Start 07/28/18 at 01:30 Acetaminophen (Tylenol Tab) 650 mg Q6H PRN PO PAIN LEVEL 1-3 OR FEVER Last administered on 08/07/18 09:02; Admin Dose 650 MG; Start 07/28/18 at 01:30 Enoxaparin Sodium (Lovenox) 40 mg DAILY SC Last administered on 08/07/18 09:14; Admin Dose 40 MG; Start 07/28/18 at 09:00 Morphine Sulfate (morphine) 2 mg Q3H PRN IV PAIN LEVEL 7-10 Last administered on 08/04/18 02:34; Admin Dose 2 MG; Start 07/28/18 at 10:30 Simethicone (Mylicon) 80 mg Q6H PRN PO DISTENSION/GAS/BLOATING Last administered on 08/05/18 19:55; Admin Dose 80 MG; Start 07/28/18 at 10:30 Phenol (Chloraseptic Throat [place]) 2 spray Q2H PRN MT SORE THROAT Last admi nistered on 08/03/18 04:23; Admin Dose 2 SPRAY; Start 07/29/18 at 19:00 Pantoprazole (Protonix Iv) 40 mg BID IV Last administered on 08/07/18 09:02; Admin Dose 40 MG; Start 07/30/18 at 09:00 Metoprolol Tartrate (Lopressor) 5 mg Q4H PRN IV HR >100; Start 07/30/18 at 09:30 Amlodipine Besylate (Norvasc) 5 mg DAILY NGT Last administered on 08/07/18 09:03; Admin Dose 5 MG; Start 07/30/18 at 09:30 Sucralfate (Carafate Susp) 1 gm QID PO Last administered on 08/07/18 14:06; Admin Dose 1 GM; Start 08/02/18 at 17:00 Sodium Chloride (Deep Sea) 1 spray Q2 PRN NASAL NASAL CONGESTION Last administered on 08/03/18 06:23; Admin Dose 1 SPRAY; Start 08/03/18 at 05:00 Metoclopramide HCl (Reglan) 10 mg Q6H PRN IV n/v; Start 08/04/18 at 13:30 Sodium Chloride 1,000 ml @ 50 mls/hr Q20H IV Last administered on 08/07/18at 02:24; Admin Dose 50 MLS/HR; Start 08/04/18 at 14:00 Phenol (Cepastat Lozenge) 1 lozenge Q1H PRN MT throat pain Last administered on 08/06/18at 08:47; Admin Dose 1 LOZENGE; Start 08/05/18 at 12:00 Loperamide HCl (Imodium Cap) 2 mg TID PRN PO diarrhea Last administered on 08/07/18at 05:30; Admin Dose 2 MG; Start 08/06/18 at 13:00 Nystatin (Nystatin Susp) 5 ml QID PO Last administered on 08/07/18at 14:06; Admin Dose 5 ML; Start 08/06/18 at 17:00; Stop 08/13/18 at 17:00 Ciprofloxacin/ Dextrose 200 ml @ 200 mls/hr Q12 IVPB Last administered on 08/07/18at 11:17; Admin Dose 200 MLS/HR; Start 08/07/18 at 09:30 Metronidazole 100 ml @ 100 mls/hr Q8 IVPB Last administered on 08/07/18at 14:06; Admin Dose 100 MLS/HR; Start 08/07/18 at 14:00 DUC SEGAL Aug 07, 2018 15:58
[2018-08-07] MEDS: morphine 4 MG/ML VIAL IV PRN (18:25)
[2018-08-08] VITALS (12 sets, daily range): BP systolic 93–124; BP diastolic 52–60; PULSE 94–115; RESP 16–20
[2018-08-08] MEDS: LOPERAMIDE 2 MG CAP PO PRN ×3 (00:27→19:51)
[2018-08-08] MEDS: ACETAMINOPHEN 325 MG TAB PO PRN ×4 (03:48→23:30)
[2018-08-08] MEDS: SOD CHLORIDE 0.45% 1,000 ML IV SCH (05:07)
[2018-08-08] MEDS: metroNIDAZOLE 500 MG/NS (PMX) 100 ML IVPB SCH ×3 (05:07→21:53)
[2018-08-08] MEDS: morphine 4 MG/ML VIAL IV PRN ×2 (07:12→19:58)
[2018-08-08] MEDS: NYSTATIN SUSP 5 ML CUP PO SCH ×4 (08:29→21:53)
[2018-08-08] MEDS: AMLODIPINE 5 MG TAB NGT SCH (08:29)
[2018-08-08] MEDS: SUCRALFATE (100 MG/ML) 10ML CUP PO SCH ×4 (08:29→21:53)
[2018-08-08] MEDS: PANTOPRAZOLE 40 MG INJ IV SCH ×2 (08:29→21:53)
[2018-08-08] MEDS: CIPROFLOXACIN 400MG/D5W 200 ML IVPB SCH ×2 (08:29→21:53)
[2018-08-08] MEDS: ENOXAPARIN 40 MG/0.4 ML SYG SC SCH (08:33)
[2018-08-08] MEDS ORDERED: POTASSIUM CHLORIDE (SR) 20 MEQ TAB PO STA (09:11)
[2018-08-08] MEDS ORDERED: MAGNESIUM OXIDE 400 MG TAB PO ONE (09:30)
[2018-08-08] MEDS ORDERED: VANCOMYCIN IV PER PHARMACY XX SCH (09:30)
[2018-08-08] MEDS ORDERED: VANCOMYCIN 2 GM in SOD CHLORIDE 0.9% 500 ML IVPB SCH (11:00)
[2018-08-08] MEDS ORDERED: LIDOCAINE 1% (MPF) 5 ML VIAL SC ONE (11:30)
--- NOTE | 2018-08-08 11:40 | CONS ---
Date/Time of Note Date/Time of Note DATE: 08/08/18 TIME: 11:40 Assessment/Plan Assessment/Plan Assessment/Plan Assessment/Plan #Metastatic rectal ca - dx 03/2017 -Initially pt has known nodular circumferential mural thickening of the distal sigmoid colon and rectum extending to the anus, abdominal wall tumor implants, liver masses as well as bilateral ureteral obstruction with bilateral hydronephrosis. -pt has since completed concurrent chemotherapy with radiation with 50 to 55 Gy over a 4 week period to treat the pelvis and bilateral groin lymph nodes. 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 BX revealed no evidence of malignancy # Intractable Nausea/vomiting - coffee-ground emesis/drainage per NGT. NGT now dc'd - EGD 07/29/18 showed- Severe erosive distal esophagitis; Retained material in the stomach consistent with gastroparesis; Moderate gastritis #Diarrhea- less today -stool studies done - GI follows -continue IV hydration #Ovarian cyst -continue to monitor. if this grows in size it can be removed at that time # Acute Hypokalemia -replace per PMD Patient seen in collaboration with Dr Marshall Result Diagram: 08/08/18 0523 08/08/18 0523 Results 24hrs Laboratory Tests Test 08/08/18 05:23 White Blood Count 6.4 Red Blood Count 3.08 L Hemoglobin 9.9 L Hematocrit 29.3 L Mean Corpuscular Volume 95.1 Mean Corpuscular Hemoglobin 32.1 Mean Corpuscular Hemoglobin Concent 33.8 Red Cell Distribution Width 15.0 H Platelet Count 400 Mean Platelet Volume 9.0 Immature Granulocytes % 5.600 H Neutrophils % Segmented Neutrophils % (Manual) 41 Band Neutrophils % (Manual) 26 H Lymphocytes % Lymphocytes % (Manual) 8 L Reactive Lymphocytes % (Manual) 5 H Monocytes % Monocytes % (Manual) 13 H Eosinophils % Eosinophils % (Manual) 2 Basophils % Basophils % (Manual) 1 Metamyelocytes % (manual) 1 H Myelocytes % (Manual) 2 H Promyelocytes % (Manual) 1 H Nucleated Red Blood Cells % 0.5 H Immature Granulocytes # 0.360 H Neutrophils # Neutrophils # (Manual) 2.7 Band Neutrophils # 1.6 H Lymphocytes (Manual) 0.5 L Lymphocytes # Reactive Lymphocytes # 0.3 H Monocytes # Monocytes # (Manual) 0.8 Eosinophils # Basophils # Basophils # (Manual) 0.0 Metamyelocytes # 0.0 Myelocytes # 0.1 H Promyelocytes # 0.0 Nucleated Red Blood Cells # Platelet Estimate NORMAL Giant Platelets 10 H Polychromasia 3+ Anisocytosis 1+ Macrocytosis 1+ Sodium Level 131 L Potassium Level 3.3 L Chloride Level 101 Carbon Dioxide Level 18 L Anion Gap 12 Blood Urea Nitrogen 14 Creatinine 0.85 Est Glomerular Filtrat Rate mL/min > 60 Glucose Level 112 Calcium Level 8.5 Phosphorus Level 4.4 Magnesium Level 1.6 L Consultation Date/Type/Reason Admit Date/Time Jul 28, 2018 at 00:46 Initial Consult Date 07/28/18 Type of Consult ONCOLOGY Reason for Consultation RECTAL CANCER Requesting Provider: CAMRYN PRICE 24 HR Interval Summary Free Text/Dictation Feels better today diarrhea better than yesterday no new issues reported last night Detailed Summary Eyes: no complaints ENT: no complaints Respiratory: no complaints Cardiovascular: no complaints Gastrointestinal: diarrhea Genitourinary: no complaints Musculoskeletal: no complaints Skin: no complaints Neurologic: no complaints Endocrine: no complaints Lymphatic: no complaints Psychological: nl mood/affect Immunologic: no complaints Exam/Review of Systems Vital Signs Vitals Vital Signs Date Temp Pulse Resp B/P (MAP) Pulse Ox O2 O2 Flow FiO2 Time Delivery Rate 08/08/18 94 09:12 08/08/18 98.8 20 102/55 97 Room Air 07:52 (71) Intake and Output 08/07/18 08/07/18 08/08/18 1515:00 23:00 07:00 IntakeIntake Total 1100 ml 2250 ml BalanceBalance 1100 ml 2250 ml Exam Constitutional: alert, oriented, well developed Psych: nl mood/affect Head: atraumatic Eyes: nl conjunctiva, EOMI, nl lids, nl sclera ENMT: nl external ears & nose Neck: non-tender Respiratory: clear to auscultation Cardiovascular: nl pulses, other (s1s2) Gastrointestinal: soft, non-tender Musculoskeletal: nl extremities to inspection Extremities: normal pulses Neurological: nl mental status, nl speech Skin: nl turgor Lymph: nontender Medications Medications Current Medications IV Flush (NS 3 ml) 3 ml PER PROTOCOL IV ; Start 07/28/18 at 01:30 Ondansetron HCl (Zofran Inj) 4 mg Q6H PRN IV NAUSEA AND/OR VOMITING Last administered on 08/03/18 22:30; Admin Dose 4 MG; Start 07/28/18 at 01:30 Acetaminophen (Tylenol Tab) 650 mg Q6H PRN PO PAIN LEVEL 1-3 OR FEVER Last administered on 08/08/18 03:48; Admin Dose 650 MG; Start 07/28/18 at 01:30 Enoxaparin Sodium (Lovenox) 40 mg DAILY SC Last administered on 08/08/18 08:33; Admin Dose 40 MG; Start 07/28/18 at 09:00 Morphine Sulfate (morphine) 2 mg Q3H PRN IV PAIN LEVEL 7-10 Last administered on 08/08/18 07:12; Admin Dose 2 MG; Start 07/28/18 at 10:30 Simethicone (Mylicon) 80 mg Q6H PRN PO DISTENSION/GAS/BLOATING Last administered on 08/08/18 08:29; Admin Dose 80 MG; Start 07/28/18 at 10:30 Phenol (Chloraseptic Throat [place]) 2 spray Q2H PRN MT SORE THROAT Last administered on 08/03/18 04:23; Admin Dose 2 SPRAY; Start 07/29/18 at 19:00 Pantoprazole (Protonix Iv) 40 mg BID IV Last administered on 08/08/18 08:29; Admin Dose 40 MG; Start 07/30/18 at 09:00 Metoprolol Tartrate (Lopressor) 5 mg Q4H PRN IV HR >100; Start 07/30/18 at 09:30 Amlodipine Besylate (Norvasc) 5 mg DAILY NGT Last administered on 08/08/18 08:29; Admin Dose 5 MG; Start 07/30/18 at 09:30 Sucralfate (Carafate Susp) 1 gm QID PO Last administered on 08/08/18 08:29; Admin Dose 1 GM; Start 08/02/18 at 17:00 Sodium Chloride (Deep Sea) 1 spray Q2 PRN NASAL NASAL CONGESTION Last administered on 08/03/18at 06:23; Admin Dose 1 SPRAY; Start 08/03/18 at 05:00 Metoclopramide HCl (Reglan) 10 mg Q6H PRN IV n/v; Start 08/04/18 at 13:30 Sodium Chloride 1,000 ml @ 50 mls/hr Q20H IV Last administered on 08/08/18at 05:07; Admin Dose 50 MLS/HR; Start 08/04/18 at 14:00 Phenol (Cepastat Lozenge) 1 lozenge Q1H PRN MT throat pain Last administered on 08/06/18at 08:47; Admin Dose 1 LOZENGE; Start 08/05/18 at 12:00 Loperamide HCl (Imodium Cap) 2 mg TID PRN PO diarrhea Last administered on 08/08/18at 08:29; Admin Dose 2 MG; Start 08/06/18 at 13:00 Nystatin (Nystatin Susp) 5 ml QID PO Last administered on 08/08/18at 08:29; Admin Dose 5 ML; Start 08/06/18 at 17:00; Stop 08/13/18 at 17:00 Ciprofloxacin/ Dextrose 200 ml @ 200 mls/hr Q12 IVPB Last administered on 08/08/18at 08:29; Admin Dose 200 MLS/HR; Start 08/07/18 at 09:30 Metronidazole 100 ml @ 100 mls/hr Q8 IVPB Last administered on 08/08/18at 05:07; Admin Dose 100 MLS/HR; Start 08/07/18 at 14:00 Vancomycin HCl (Vanco Iv Per Pharmacy) VANCOMYCIN PER PHARMACY PER PROTOCOL XX ; Start 08/08/18 at 09:30 Vancomycin HCl 2 gm/Sodium Chloride 500 ml @ 125 mls/hr Q24H IVPB ; Start 08/08/18 at 11:00; Stop 08/08/18 at 19:00 Vancomycin HCl 1.5 gm/Sodium Chloride 250 ml @ 83.333 mls/ hr Q12H IVPB ; Start 08/08/18 at 23:00 DUC SEGAL Aug 08, 2018 11:40 am
--- NOTE | 2018-08-08 13:16 | PN ---
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 The biopsy shows features of ischemic injuries. Radiation effect cannot be completely ruled out Nausea/vomiting- -Reported coffee-ground emesis -Bright red emesis- after eating jello? EGD 07/29/18 Severe erosive distal esophagitis Retained material in the stomach consistent with gastroparesis Moderate gastritis Abdominal pain-resolved Bowel obstruction vs ileus Diarrhea- improved Hyperkalemia- resolved oral grayson- improved Normocytic anemia Bacteremia- Gram positive cocci in pairs and clusters Plan: Pt started on Vanco for bacteremia Continue nystatin 5 ml po QID x7 days Continue supportive care Patient seen in collaboration and discussed with Subjective: Course reviewed with nursing staff Patient interviewed and examined All labs, imaging and other results reviewed Pt with fevers over night, blood cx + Pending PICC line placement. Patient states diarrhea has greatly improved. Pt states only x3 BM since midnight, less volume has also improved. Continue current regimen. PHYSICAL EXAMINATION: GENERAL: Alert & oriented x 3, in no acute distress SKIN: No lesions EYES: Pupils equal reactive to light, no discharge. EARS/NOSE AND THROAT: Ears normal, nose normal, oropharynx normal, oral grayson- improved NECK: Supple, no masses CHEST: Inspection within normal limits. CARDIOVASCULAR: Heart: Regular rate and rhythm RESPIRATORY: Lungs clear to auscultation GASTROINTESTINAL AND LIVER: Abdomen: No tenderness, mildly distended, soft, no hernias, no masses, no organomegaly, no ascites, no guarding, no rebound tenderness, hypoactive bowel sounds. Rectal: Deferred. GENITOURINARY: Not examined EXTREMITIES: No cyanosis, clubbing or edema. Result Diagram: 1/7/19 0523 1/7/19 0523 Results 24hrs Laboratory Tests Test 08/08/18 05:23 White Blood Count 6.4 Red Blood Count 3.08 L Hemoglobin 9.9 L Hematocrit 29.3 L Mean Corpuscular Volume 95.1 Mean Corpuscular Hemoglobin 32.1 Mean Corpuscular Hemoglobin Concent 33.8 Red Cell Distribution Width 15.0 H Platelet Count 400 Mean Platelet Volume 9.0 Immature Granulocytes % 5.600 H Neutrophils % Segmented Neutrophils % (Manual) 41 Band Neutrophils % (Manual) 26 H Lymphocytes % Lymphocytes % (Manual) 8 L Reactive Lymphocytes % (Manual) 5 H Monocytes % Monocytes % (Manual) 13 H Eosinophils % Eosinophils % (Manual) 2 Basophils % Basophils % (Manual) 1 Metamyelocytes % (manual) 1 H Myelocytes % (Manual) 2 H Promyelocytes % (Manual) 1 H Nucleated Red Blood Cells % 0.5 H Immature Granulocytes # 0.360 H Neutrophils # Neutrophils # (Manual) 2.7 Band Neutrophils # 1.6 H Lymphocytes (Manual) 0.5 L Lymphocytes # Reactive Lymphocytes # 0.3 H Monocytes # Monocytes # (Manual) 0.8 Eosinophils # Basophils # Basophils # (Manual) 0.0 Metamyelocytes # 0.0 Myelocytes # 0.1 H Promyelocytes # 0.0 Nucleated Red Blood Cells # Platelet Estimate NORMAL Giant Platelets 10 H Polychromasia 3+ Anisocytosis 1+ Macrocytosis 1+ Sodium Level 131 L Potassium Level 3.3 L Chloride Level 101 Carbon Dioxide Level 18 L Anion Gap 12 Blood Urea Nitrogen 14 Creatinine 0.85 Est Glomerular Filtrat Rate mL/min > 60 Glucose Level 112 Calcium Level 8.5 Phosphorus Level 4.4 Magnesium Level 1.6 L Exam/Review of Systems Vital Signs Vitals Vital Signs Date Temp Pulse Resp B/P (MAP) Pulse Ox O2 O2 Flow FiO2 Time Delivery Rate 08/08/18 95 12:51 08/08/18 98.8 20 112/54 99 Room Air 11:44 (73) Intake and Output 08/07/18 08/07/18 08/08/18 1414:59 22:59 06:59 IntakeIntake Total 1100 ml 2250 ml BalanceBalance 1100 ml 2250 ml Medications Medications Current Medications IV Flush (NS 3 ml) 3 ml PER PROTOCOL IV ; Start 07/28/18 at 01:30 Ondansetron HCl (Zofran Inj) 4 mg Q6H PRN IV NAUSEA AND/OR VOMITING Last administered on 08/03/18 22:30; Admin Dose 4 MG; Start 07/28/18 at 01:30 Acetaminophen (Tylenol Tab) 650 mg Q6H PRN PO PAIN LEVEL 1-3 OR FEVER Last administered on 08/08/18 03:48; Admin Dose 650 MG; Start 07/28/18 at 01:30 Enoxaparin Sodium (Lovenox) 40 mg DAILY SC Last administered on 08/08/18 08:33; Admin Dose 40 MG; Start 07/28/18 at 09:00 Morphine Sulfate (morphine) 2 mg Q3H PRN IV PAIN LEVEL 7-10 Last administered on 08/08/18 07:12; Admin Dose 2 MG; Start 07/28/18 at 10:30 Simethicone (Mylicon) 80 mg Q6H PRN PO DISTENSION/GAS/BLOATING Last administered on 08/08/18 08:29; Admin Dose 80 MG; Start 07/28/18 at 10:30 Phenol (Chloraseptic Throat [place]) 2 spray Q2H PRN MT SORE THROAT Last administered on 08/03/18 04:23; Admin Dose 2 SPRAY; Start 07/29/18 at 19:00 Pantoprazole (Protonix Iv) 40 mg BID IV Last administered on 08/08/18 08:29; Admin Dose 40 MG; Start 07/30/18 at 09:00 Metoprolol Tartrate (Lopressor) 5 mg Q4H PRN IV HR >100; Start 07/30/18 at 09:30 Amlodipine Besylate (Norvasc) 5 mg DAILY NGT Last administered on 08/08/18 08:29; Admin Dose 5 MG; Start 07/30/18 at 09:30 Sucralfate (Carafate Susp) 1 gm QID PO Last administered on 08/08/18 08:29; Adm in Dose 1 GM; Start 08/02/18 at 17:00 Sodium Chloride (Deep Sea) 1 spray Q2 PRN NASAL NASAL CONGESTION Last administered on 08/03/18 06:23; Admin Dose 1 SPRAY; Start 08/03/18 at 05:00 Metoclopramide HCl (Reglan) 10 mg Q6H PRN IV n/v; Start 08/04/18 at 13:30 Sodium Chloride 1,000 ml @ 50 mls/hr Q20H IV Last administered on 08/08/18at 05:07; Admin Dose 50 MLS/HR; Start 08/04/18 at 14:00 Phenol (Cepastat Lozenge) 1 lozenge Q1H PRN MT throat pain Last administered on 08/06/18at 08:47; Admin Dose 1 LOZENGE; Start 08/05/18 at 12:00 Loperamide HCl (Imodium Cap) 2 mg TID PRN PO diarrhea Last administered on 08/08/18 08:29; Admin Dose 2 MG; Start 08/06/18 at 13:00 Nystatin (Nystatin Susp) 5 ml QID PO Last administered on 08/08/18at 08:29; Admin Dose 5 ML; Start 08/06/18 at 17:00; Stop 08/13/18 at 17:00 Ciprofloxacin/ Dextrose 200 ml @ 200 mls/hr Q12 IVPB Last administered on 08/08/18at 08:29; Admin Dose 200 MLS/HR; Start 08/07/18 at 09:30 Metronidazole 100 ml @ 100 mls/hr Q8 IVPB Last administered on 08/08/18at 05:07; Admin Dose 100 MLS/HR; Start 08/07/18 at 14:00 Vancomycin HCl (Vanco Iv Per Pharmacy) VANCOMYCIN PER PHARMACY PER PROTOCOL XX ; Start 08/08/18 at 09:30 Vancomycin HCl 2 gm/Sodium Chloride 500 ml @ 125 mls/hr Q24H IVPB ; Start 08/08/18 at 11:00; Stop 08/08/18 at 19:00 Vancomycin HCl 1.5 gm/Sodium Chloride 250 ml @ 83.333 mls/ hr Q12H IVPB ; Start 08/08/18 at 23:00 KOFFI MCGRATH Aug 08, 2018 13:16
--- NOTE | 2018-08-08 13:58 | PN ---
Date/Time of Note Date/Time of Note DATE: 08/08/18 TIME: 13:46 Assessment/Plan VTE Prophylaxis Risk score (from [facility])>0 risk: 3 [place]CD applied [place] [facility] [place] SCD contraindicated: patient refusal Pharmacological prophylaxis: NA/contraindicated Pharm contraindication: bleeding Lines/Catheters IV [facility]ter Type (from [facility]): Peripheral IV Urinary Cath still in place: No Assessment/Plan Assessment/Plan 1. Sepsis secondary to ?bacteremia - Patient febrile last night and cultures growing gram + cocci. Unknown source and will start Vancomycin for now until evaluated by ID. will repeat blood cultures tomorrow - ID on board for antibiotic recommendations - WBC normal 2. Acute abdominal pain secondary to ileus vs obstruction- resolved - Patient with diarrhea that is improving with treatment - Colonoscopy performed 07.29 showed no mass, but could not proceed further than stricture. Colon ulcerations appreciated and bx obtained - repeat SBFT negative for SBO - GI on board and appreciate recommendations. continue current course of treatment 3. Acute diarrhea- improving - stool culture results noted - CT noted 4. DANYELL- resolved - Cr returned to baseline - most likely prerenal secondary to GI losses 5. Rectal pain with history of metastatic rectal cancer - Oncology consultation appreciated - stricture from CA in colon, but stable - CT results noted - stable, will follow up with her outpatient oncologist 6. Severe gastritis/erosive esophagitis - seen on EGD performed 07/29 - Continue on Reglan, PPI and Carafate 7. Hypertension - Bp controlled 8. Disposition - Patient with +blood cultures this am. ID on board. Will need to remain afebrile for >24 hours prior to safe discharge. Will repeat blood cx tomorrow. - Diarrhea improving and tolerating PO intake Result Diagram: 08/08/18 0523 08/08/18 0523 Results 24hrs Laboratory Tests Test 08/08/18 05:23 White Blood Count 6.4 Red Blood Count 3.08 L Hemoglobin 9.9 L Hematocrit 29.3 L Mean Corpuscular Volume 95.1 Mean Corpuscular Hemoglobin 32.1 Mean Corpuscular Hemoglobin Concent 33.8 Red Cell Distribution Width 15.0 H Platelet Count 400 Mean Platelet Volume 9.0 Immature Granulocytes % 5.600 H Neutrophils % Segmented Neutrophils % (Manual) 41 Band Neutrophils % (Manual) 26 H Lymphocytes % Lymphocytes % (Manual) 8 L Reactive Lymphocytes % (Manual) 5 H Monocytes % Monocytes % (Manual) 13 H Eosinophils % Eosinophils % (Manual) 2 Basophils % Basophils % (Manual) 1 Metamyelocytes % (manual) 1 H Myelocytes % (Manual) 2 H Promyelocytes % (Manual) 1 H Nucleated Red Blood Cells % 0.5 H Immature Granulocytes # 0.360 H Neutrophils # Neutrophils # (Manual) 2.7 Band Neutrophils # 1.6 H Lymphocytes (Manual) 0.5 L Lymphocytes # Reactive Lymphocytes # 0.3 H Monocytes # Monocytes # (Manual) 0.8 Eosinophils # Basophils # Basophils # (Manual) 0.0 Metamyelocytes # 0.0 Myelocytes # 0.1 H Promyelocytes # 0.0 Nucleated Red Blood Cells # Platelet Estimate NORMAL Giant Platelets 10 H Polychromasia 3+ Anisocytosis 1+ Macrocytosis 1+ Sodium Level 131 L Potassium Level 3.3 L Chloride Level 101 Carbon Dioxide Level 18 L Anion Gap 12 Blood Urea Nitrogen 14 Creatinine 0.85 Est Glomerular Filtrat Rate mL/min > 60 Glucose Level 112 Calcium Level 8.5 Phosphorus Level 4.4 Magnesium Level 1.6 L Subjective 24 Hr Interval Summary Free Text/Dictation Patient states her diarrhea has improved and less frequent today. Able to make it to the restroom without losing BM. complaining of sensitivity of tongue with cracks present. Improving with Nystatin solution. Requesting to advance diet since does not like soft diet. Exam/Review of Systems Vital Signs Vitals Vital Signs Date Temp Pulse Resp B/P (MAP) Pulse Ox O2 O2 Flow FiO2 Time Delivery Rate 08/08/18 95 12:51 08/08/18 98.8 20 112/54 99 Room Air 11:44 (73) Intake and Output 08/07/18 08/07/18 08/08/18 1515:00 23:00 07:00 IntakeIntake Total 1100 ml 2250 ml BalanceBalance 1100 ml 2250 ml Exam General: Patient is laying in bed and answers questions appropriately Mentation: Patient is alert and oriented 4 Mouth: dryness of tongue with crack medial aspect. no discharge or bleeding appreciated Neck: Supple Respiratory: Clear to auscultation bilaterally. no wheezing or rhonchi Cardiovascular: regular rate and rhythm, no obvious murmurs Gastrointestinal: soft, Mildly tender to palpation, mildly distended, bowel sounds heard. no rebound or guarding Neurological: Moves all extremities spontaneously Skin: No new skin lesions Medications Medications Current Medications IV Flush (NS 3 ml) 3 ml PER PROTOCOL IV ; Start 07/28/18 at 01:30 Ondansetron HCl (Zofran Inj) 4 mg Q6H PRN IV NAUSEA AND/OR VOMITING Last administered on 08/03/18 22:30; Admin Dose 4 MG; Start 07/28/18 at 01:30 Acetaminophen (Tylenol Tab) 650 mg Q6H PRN PO PAIN LEVEL 1-3 OR FEVER Last administered on 08/08/18 03:48; Admin Dose 650 MG; Start 07/28/18 at 01:30 Enoxaparin Sodium (Lovenox) 40 mg DAILY SC Last administered on 08/08/18 08:33; Admin Dose 40 MG; Start 07/28/18 at 09:00 Morphine Sulfate (morphine) 2 mg Q3H PRN IV PAIN LEVEL 7-10 Last administered on 08/08/18 07:12; Admin Dose 2 MG; Start 07/28/18 at 10:30 Simethicone (Mylicon) 80 mg Q6H PRN PO DISTENSION/GAS/BLOATING Last administered on 08/08/18 08:29; Admin Dose 80 MG; Start 07/28/18 at 10:30 Phenol (Chloraseptic Throat [place]) 2 spray Q2H PRN MT SORE THROAT Last administered on 08/03/18 04:23; Admin Dose 2 SPRAY; Start 07/29/18 at 19:00 Pantoprazole (Protonix Iv) 40 mg BID IV Last administered on 08/08/18 08:29; Admin Dose 40 MG; Start 07/30/18 at 09:00 Metoprolol Tartrate (Lopressor) 5 mg Q4H PRN IV HR >100; Start 07/30/18 at 09:30 Amlodipine Besylate (Norvasc) 5 mg DAILY NGT Last administered on 08/08/18 08:29; Admin Dose 5 MG; Start 07/30/18 at 09:30 Sucralfate (Carafate Susp) 1 gm QID PO Last administered on 08/08/18 08:29; Admin Dose 1 GM; Start 08/02/18 at 17:00 Sodium Chloride (Deep Sea) 1 spray Q2 PRN NASAL NASAL CONGESTION Last administered on 08/03/18 06:23; Admin Dose 1 SPRAY; Start 08/03/18 at 05:00 Metoclopramide HCl (Reglan) 10 mg Q6H PRN IV n/v; Start 08/04/18 at 13:30 Sodium Chloride 1,000 ml @ 50 mls/hr Q20H IV Last administered on 08/08/18at 05:07; Admin Dose 50 MLS/HR; Start 08/04/18 at 14:00 Phenol (Cepastat Lozenge) 1 lozenge Q1H PRN MT throat pain Last administered on 08/06/18at 08:47; Admin Dose 1 LOZENGE; Start 08/05/18 at 12:00 Loperamide HCl (Imodium Cap) 2 mg TID PRN PO diarrhea Last administered on 08/08/18at 08:29; Admin Dose 2 MG; Start 08/06/18 at 13:00 Nystatin (Nystatin Susp) 5 ml QID PO Last administered on 08/08/18at 08:29; Admin Dose 5 ML; Start 08/06/18 at 17:00; Stop 08/13/18 at 17:00 Ciprofloxacin/ Dextrose 200 ml @ 200 mls/hr Q12 IVPB Last administered on 08/08/18at 08:29; Admin Dose 200 MLS/HR; Start 08/07/18 at 09:30 Metronidazole 100 ml @ 100 mls/hr Q8 IVPB Last administered on 08/08/18at 05:07; Admin Dose 100 MLS/HR; Start 08/07/18 at 14:00 Vancomycin HCl (Vanco Iv Per Pharmacy) VANCOMYCIN PER PHARMACY PER PROTOCOL XX ; Start 08/08/18 at 09:30 Vancomycin HCl 2 gm/Sodium Chloride 500 ml @ 125 mls/hr Q24H IVPB ; Start 08/08/18 at 11:00; Stop 08/08/18 at 19:00 Vancomycin HCl 1.5 gm/Sodium Chloride 250 ml @ 83.333 mls/ hr Q12H IVPB ; Start 08/08/18 at 23:00 HAYLEE MERLOS MD Aug 08, 2018 13:58
[2018-08-08] MEDS: CHLORHEXIDINE GLUCONATE 15 ML UD CUP MT SCH ×2 (14:00→21:53)
--- NOTE | 2018-08-08 14:49 | CONS ---
Date/Time of Note Date/Time of Note DATE: 08/08/18 TIME: 14:48 Assessment/Plan Assessment/Plan Hospital Course No acute events overnight. Patient is awake looks comfortable denies pain. Family at bedside. WBC 6.4 bands 26 BUN 14 creatinine 0.85 Microbiology: Blood culture growing gram-positive cocci in pair and clusters Antimicrobials: Vancomycin, Flagyl, Cipro Physical examination: This is a obese well-developed middle-aged woman who is awake in no distress. Head atraumatic normocephalic sclera nonicteric vehicle mucosa dry neck is supple chest rise symmetrical breath sounds clear. Heart: S1-S2. Abdomen soft bowel sounds present extremities without cyanosis Assessment: 1. Sepsis with bacteremia on admission 2. Acute abdominal pain secondary to ileus possible obstruction, resolved 3. Metastatic rectal cancer Plan: Patient is clinically stable she is being seen by gastroenterology and oncology, she will be continued chemotherapy outpatiently, we will will await for final cultures and repeat blood cultures as well Result Diagram: 08/08/18 0523 08/08/18 0523 Results 24hrs Laboratory Tests Test 08/08/18 05:23 White Blood Count 6.4 Red Blood Count 3.08 L Hemoglobin 9.9 L Hematocrit 29.3 L Mean Corpuscular Volume 95.1 Mean Corpuscular Hemoglobin 32.1 Mean Corpuscular Hemoglobin Concent 33.8 Red Cell Distribution Width 15.0 H Platelet Count 400 Mean Platelet Volume 9.0 Immature Granulocytes % 5.600 H Neutrophils % Segmented Neutrophils % (Manual) 41 Band Neutrophils % (Manual) 26 H Lymphocytes % Lymphocytes % (Manual) 8 L Reactive Lymphocytes % (Manual) 5 H Monocytes % Monocytes % (Manual) 13 H Eosinophils % Eosinophils % (Manual) 2 Basophils % Basophils % (Manual) 1 Metamyelocytes % (manual) 1 H Myelocytes % (Manual) 2 H Promyelocytes % (Manual) 1 H Nucleated Red Blood Cells % 0.5 H Immature Granulocytes # 0.360 H Neutrophils # Neutrophils # (Manual) 2.7 Band Neutrophils # 1.6 H Lymphocytes (Manual) 0.5 L Lymphocytes # Reactive Lymphocytes # 0.3 H Monocytes # Monocytes # (Manual) 0.8 Eosinophils # Basophils # Basophils # (Manual) 0.0 Metamyelocytes # 0.0 Myelocytes # 0.1 H Promyelocytes # 0.0 Nucleated Red Blood Cells # Platelet Estimate NORMAL Giant Platelets 10 H Polychromasia 3+ Anisocytosis 1+ Macrocytosis 1+ Sodium Level 131 L Potassium Level 3.3 L Chloride Level 101 Carbon Dioxide Level 18 L Anion Gap 12 Blood Urea Nitrogen 14 Creatinine 0.85 Est Glomerular Filtrat Rate mL/min > 60 Glucose Level 112 Calcium Level 8.5 Phosphorus Level 4.4 Magnesium Level 1.6 L Consultation Date/Type/Reason Admit Date/Time Jul 28, 2018 at 00:46 Initial Consult Date 07/28/18 Type of Consult id Requesting Provider: CAMRYN PRICE Exam/Review of Systems Vital Signs Vitals Vital Signs Date Temp Pulse Resp B/P (MAP) Pulse Ox O2 O2 Flow FiO2 Time Delivery Rate 08/08/18 95 12:51 08/08/18 98.8 20 112/54 99 Room Air 11:44 (73) Intake and Output 08/07/18 08/07/18 08/08/18 1515:00 23:00 07:00 IntakeIntake Total 1100 ml 2250 ml BalanceBalance 1100 ml 2250 ml Medications Medications Current Medications IV Flush (NS 3 ml) 3 ml PER PROTOCOL IV ; Start 07/28/18 at 01:30 Ondansetron HCl (Zofran Inj) 4 mg Q6H PRN IV NAUSEA AND/OR VOMITING Last administered on 08/03/18 22:30; Admin Dose 4 MG; Start 07/28/18 at 01:30 Acetaminophen (Tylenol Tab) 650 mg Q6H PRN PO PAIN LEVEL 1-3 OR FEVER Last administered on 08/08/18 03:48; Admin Dose 650 MG; Start 07/28/18 at 01:30 Enoxaparin Sodium (Lovenox) 40 mg DAILY SC Last administered on 08/08/18 08:33; Admin Dose 40 MG; Start 07/28/18 at 09:00 Morphine Sulfate (morphine) 2 mg Q3H PRN IV PAIN LEVEL 7-10 Last administered on 08/08/18 07:12; Admin Dose 2 MG; Start 07/28/18 at 10:30 Simethicone (Mylicon) 80 mg Q6H PRN PO DISTENSION/GAS/BLOATING Last administered on 08/08/18 08:29; Admin Dose 80 MG; Start 07/28/18 at 10:30 Pantoprazole (Protonix Iv) 40 mg BID IV Last administered on 08/08/18 08:29; Admin Dose 40 MG; Start 07/30/18 at 09:00 Metoprolol Tartrate (Lopressor) 5 mg Q4H PRN IV HR >100; Start 07/30/18 at 09:30 Amlodipine Besylate (Norvasc) 5 mg DAILY NGT Last administered on 08/08/18 08:29; Admin Dose 5 MG; Start 07/30/18 at 09:30 Sucralfate (Carafate Susp) 1 gm QID PO Last administered on 08/08/18 08:29; Admin Dose 1 GM; Start 08/02/18 at 17:00 Sodium Chloride (Deep Sea) 1 spray Q2 PRN NASAL NASAL CONGESTION Last administered on 08/03/18 06:23; Admin Dose 1 SPRAY; Start 08/03/18 at 05:00 Metoclopramide HCl (Reglan) 10 mg Q6H PRN IV n/v; Start 08/04/18 at 13:30 Sodium Chloride 1,000 ml @ 50 mls/hr Q20H IV Last administered on 08/08/18 05:07; Admin Dose 50 MLS/HR; Start 08/04/18 at 14:00 Phenol (Cepastat Lozenge) 1 lozenge Q1H PRN MT throat pain Last administered on 08/06/18 08:47; Admin Dose 1 LOZENGE; Start 08/05/18 at 12:00 Loperamide HCl (Imodium Cap) 2 mg TID PRN PO diarrhea Last administered on 08/08/18 08:29; Admin Dose 2 MG; Start 08/06/18 at 13:00 Nystatin (Nystatin Susp) 5 ml QID PO Last administered on 08/08/18 08:29; Admin Dose 5 ML; Start 08/06/18 at 17:00; Stop 08/13/18 at 17:00 Ciprofloxacin/ Dextrose 200 ml @ 200 mls/hr Q12 IVPB Last administered on 08/08/18 08:29; Admin Dose 200 MLS/HR; Start 08/07/18 at 09:30 Metronidazole 100 ml @ 100 mls/hr Q8 IVPB Last administered on 08/08/18 05:07; Admin Dose 100 MLS/HR; Start 08/07/18 at 14:00 Vancomycin HCl (Vanco Iv Per Pharmacy) VANCOMYCIN PER PHARMACY PER PROTOCOL XX ; Start 08/08/18 at 09:30 Vancomycin HCl 2 gm/Sodium Chloride 500 ml @ 125 mls/hr Q24H IVPB ; Start 08/08/18 at 11:00; Stop 08/08/18 at 19:00 Vancomycin HCl 1.5 gm/Sodium Chloride 250 ml @ 83.333 mls/ hr Q12H IVPB ; Start 08/08/18 at 23:00 Chlorhexidine Gluconate (Peridex) 15 ml Q12 MT ; Start 08/08/18 at 14:00 RADHA MIR NP Aug 08, 2018 14:49
[2018-08-08] MEDS: ONDANSETRON 4 MG INJ IV PRN (17:10)
[2018-08-08] MEDS ORDERED: VANCOMYCIN 1.5 GM in SOD CHLORIDE 0.9% 250 ML IVPB SCH (23:00)
[2018-08-09] VITALS (12 sets, daily range): BP systolic 99–129; BP diastolic 52–58; PULSE 98–110; RESP 18–20
[2018-08-09] MEDS: CEPASTAT LOZENGE MT PRN (03:18)
[2018-08-09] MEDS: morphine 4 MG/ML VIAL IV PRN ×2 (05:36→21:30)
[2018-08-09] MEDS: VANCOMYCIN 1.5 GM in SOD CHLORIDE 0.9% 250 ML IVPB SCH ×2 (05:40→16:56)
[2018-08-09] MEDS: metroNIDAZOLE 500 MG/NS (PMX) 100 ML IVPB SCH ×3 (05:40→22:12)
[2018-08-09] MEDS: PANTOPRAZOLE 40 MG INJ IV SCH ×2 (08:26→21:10)
[2018-08-09] MEDS: CIPROFLOXACIN 400MG/D5W 200 ML IVPB SCH ×2 (08:26→21:09)
[2018-08-09] MEDS: SUCRALFATE (100 MG/ML) 10ML CUP PO SCH ×4 (08:26→21:10)
[2018-08-09] MEDS: AMLODIPINE 5 MG TAB NGT SCH (08:26)
[2018-08-09] MEDS: CHLORHEXIDINE GLUCONATE 15 ML UD CUP MT SCH ×2 (08:26→21:10)
[2018-08-09] MEDS: NYSTATIN SUSP 5 ML CUP PO SCH ×4 (08:26→21:10)
[2018-08-09] MEDS ORDERED: POTASSIUM CHLORIDE (SR) 20 MEQ TAB PO STA (08:29)
[2018-08-09] MEDS ORDERED: MAGNESIUM OXIDE 400 MG TAB PO ONE (08:30)
--- NOTE | 2018-08-09 08:31 | PN ---
Date/Time of Note Date/Time of Note DATE: 08/09/18 TIME: 08:31 Assessment/Plan VTE [place]axis [place] [facility] [place]: 4 [place] [facility] [place]CD contraindicated: patient refusal Pharmacological prophylaxis: NA/contraindicated Pharm contraindication: bleeding Lines/Catheters IV Catheter Type (from [facility]): PICC Line Central line still needed: Yes Urinary Cath still in place: No Assessment/Plan Assessment/Plan 1. Sepsis secondary to bacteremia - Patient still with mildly elevated temp with Tmax 100.2 but WBC normal - Blood cultures noted and repeat results pending - ID on board for antibiotic recommendations and will continue on current treatment pending culture result 2. Acute abdominal pain secondary to ileus vs obstruction- resolved - Patient only with 2 episodes of diarrhea - Colonoscopy performed 07.29 showed no mass, but could not proceed further than stricture. Colon ulcerations appreciated and bx obtained - repeat SBFT negative for SBO - GI on board and appreciate recommendations. continue current course of treatment 3. Acute diarrhea- resolving - stool culture results noted - CT noted 4. DANYELL- resolved - Cr returned to baseline - most likely prerenal secondary to GI losses 5. 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 Severe gastritis/erosive esophagitis - seen on EGD performed 07/29 - Continue on Reglan, PPI and Carafate 7. Hypertension - Bp controlled 8. Disposition - Awaiting results of repeat blood cultures prior to discharge. Overall condit ion improving significantly Result Diagram: 08/09/18 0500 08/09/18 0459 Results 24hrs Laboratory Tests Test 08/09/18 04:59 08/09/18 05:00 Sodium Level 133 L Potassium Level 3.1 L Chloride Level 104 Carbon Dioxide Level 21 Anion Gap 8 Blood Urea Nitrogen 10 Creatinine 0.85 Glucose Level 105 Calcium Level 8.1 L Phosphorus Level 3.6 Magnesium Level 1.6 L Albumin 2.5 L White Blood Count 5.2 Red Blood Count 2.81 L Hemoglobin 9.0 L Hematocrit 26.8 L Mean Corpuscular Volume 95.4 Mean Corpuscular Hemoglobin 32.0 Mean Corpuscular Hemoglobin Concent 33.6 Red Cell Distribution Width 15.3 H Platelet Count 366 Mean Platelet Volume 8.8 Immature Granulocytes % 7.100 H Neutrophils % Lymphocytes % Monocytes % Eosinophils % Basophils % Nucleated Red Blood Cells % 0.8 H Immature Granulocytes # 0.370 H Neutrophils # Lymphocytes # Monocytes # Eosinophils # Basophils # Nucleated Red Blood Cells # Subjective 24 Hr Interval Summary Free Text/Dictation Patient states she feeling better and only had 2 episodes of diarrhea yesterday. Tolerating PO intake but still complaining of irritation in throat and sensitive tongue. Exam/Review of Systems Vital Signs Vitals Vital Signs Date Temp Pulse Resp B/P (MAP) Pulse Ox O2 O2 Flow FiO2 Time Delivery Rate 08/09/18 99.1 103 20 99/52 (68) 98 Room Air 07:30 Intake and Output 08/08/18 08/08/18 08/09/18 1515:00 23:00 07:00 IntakeIntake Total 200 ml 1400 ml 3050 ml BalanceBalance 200 ml 1400 ml 3050 ml Exam General: Patient is laying in bed and answers questions appropriately, no acute distress Mouth: small crack medial aspect of tongue. no discharge or bleeding appreciated Neck: Supple Respiratory: Clear to auscultation bilaterally. no wheezing or rhonchi Cardiovascular: regular rate and rhythm, no obvious murmurs Gastrointestinal: soft, non tender to palpation, non distended, bowel sounds heard. no rebound or guarding Neurological: Moves all extremities spontaneously Skin: No new skin lesions Medications Medications Current Medications IV Flush (NS 3 ml) 3 ml PER PROTOCOL IV ; Start 07/28/18 at 01:30 Ondansetron HCl (Zofran Inj) 4 mg Q6H PRN IV NAUSEA AND/OR VOMITING Last administered on 08/08/18 17:10; Admin Dose 4 MG; Start 07/28/18 at 01:30 Acetaminophen (Tylenol Tab) 650 mg Q6H PRN PO PAIN LEVEL 1-3 OR FEVER Last administered on 08/08/18 23:30; Admin Dose 650 MG; Start 07/28/18 at 01:30 Enoxaparin Sodium (Lovenox) 40 mg DAILY SC Last administered on 08/08/18 08:33; Admin Dose 40 MG; Start 07/28/18 at 09:00 Morphine Sulfate (morphine) 2 mg Q3H PRN IV PAIN LEVEL 7-10 Last administered on 08/09/18 05:36; Admin Dose 2 MG; Start 07/28/18 at 10:30 Simethicone (Mylicon) 80 mg Q6H PRN PO DISTENSION/GAS/BLOATING Last administered on 08/09/18 03:18; Admin Dose 80 MG; Start 07/28/18 at 10:30 Pantoprazole (Protonix Iv) 40 mg BID IV Last administered on 08/08/18 21:53; Admin Dose 40 MG; Start 07/30/18 at 09:00 Metoprolol Tartrate (Lopressor) 5 mg Q4H PRN IV HR >100; Start 07/30/18 at 09:30 Amlodipine Besylate (Norvasc) 5 mg DAILY NGT Last administered on 08/08/18 0 8:29; Admin Dose 5 MG; Start 07/30/18 at 09:30 Sucralfate (Carafate Susp) 1 gm QID PO Last administered on 08/08/18 21:53; Admin Dose 1 GM; Start 08/02/18 at 17:00 Sodium Chloride (Deep Sea) 1 spray Q2 PRN NASAL NASAL CONGESTION Last administered on 08/03/18 06:23; Admin Dose 1 SPRAY; Start 08/03/18 at 05:00 Metoclopramide HCl (Reglan) 10 mg Q6H PRN IV n/v; Start 08/04/18 at 13:30 Sodium Chloride 1,000 ml @ 50 mls/hr Q20H IV Last administered on 08/08/18 05:07; Admin Dose 50 MLS/HR; Start 08/04/18 at 14:00 Phenol (Cepastat Lozenge) 1 lozenge Q1H PRN MT throat pain Last administered on 08/09/18 03:18; Admin Dose 1 LOZENGE; Start 08/05/18 at 12:00 Loperamide HCl (Imodium Cap) 2 mg TID PRN PO diarrhea Last administered on 08/08/18 19:51; Admin Dose 2 MG; Start 08/06/18 at 13:00 Nystatin (Nystatin Susp) 5 ml QID PO Last administered on 08/08/18 21:53; Admin Dose 5 ML; Start 08/06/18 at 17:00; Stop 08/13/18 at 17:00 Ciprofloxacin/ Dextrose 200 ml @ 200 mls/hr Q12 IVPB Last administered on 08/08/18at 21:53; Admin Dose 200 MLS/HR; Start 08/07/18 at 09:30 Metronidazole 100 ml @ 100 mls/hr Q8 IVPB Last administered on 08/09/18at 05:40; Admin Dose 100 MLS/HR; Start 08/07/18 at 14:00 Vancomycin HCl (Vanco Iv Per Pharmacy) VANCOMYCIN PER PHARMACY PER PROTOCOL XX ; Start 08/08/18 at 09:30 Chlorhexidine Gluconate (Peridex) 15 ml Q12 MT Last administered on 08/08/18at 21:53; Admin Dose 15 ML; Start 08/08/18 at 14:00 IV Flush (NS 10 ml) 10 ml PRN PRN IV IV PROTOCOL; Start 08/08/18 at 17:30 Vancomycin HCl 1.5 gm/Sodium Chloride 250 ml @ 83.333 mls/ hr Q12H IVPB Last administered on 08/09/18at 05:40; Admin Dose 83.333 MLS/HR; Start 08/09/18 at 05:00 HAYLEE MERLOS MD Aug 09, 2018 08:31
[2018-08-09] MEDS: ENOXAPARIN 40 MG/0.4 ML SYG SC SCH (08:39)
[2018-08-09] MEDS: POTASSIUM CHLORIDE 100 ML IVPB SCH ×4 (09:58→15:11)
[2018-08-09] MEDS ORDERED: POTASSIUM CHLORIDE 100 ML IVPB SCH (10:00)
--- NOTE | 2018-08-09 13:19 | CONS ---
Date/Time of Note Date/Time of Note DATE: 08/09/18 TIME: 13:16 Assessment/Plan Assessment/Plan Assessment/Plan #Metastatic rectal ca - dx 03/2017 -Initially pt has known nodular circumferential mural thickening of the distal sigmoid colon and rectum extending to the anus, abdominal wall tumor implants, liver masses as well as bilateral ureteral obstruction with bilateral hydronephrosis. -pt has since completed concurrent chemotherapy with radiation with 50 to 55 Gy over a 4 week period to treat the pelvis and bilateral groin lymph nodes. 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 BX revealed no evidence of malignancy # Intractable Nausea/vomiting - coffee-ground emesis/drainage per NGT. NGT now dc'd - EGD 07/29/18 showed- Severe erosive distal esophagitis; Retained material in the stomach consistent with gastroparesis; Moderate gastritis #Diarrhea- getting better. -stool studies done - GI follows -continue IV hydration #Ovarian cyst -continue to monitor. if this grows in size it can be removed at that time # Acute Hypokalemia - replace per PMD Patient seen in collaboration with Dr Marshall Result Diagram: 08/09/18 0500 08/09/18 0459 Results 24hrs Laboratory Tests Test 08/09/18 04:59 08/09/18 05:00 Sodium Level 133 L Potassium Level 3.1 L Chloride Level 104 Carbon Dioxide Level 21 Anion Gap 8 Blood Urea Nitrogen 10 Creatinine 0.85 Glucose Level 105 Calcium Level 8.1 L Phosphorus Level 3.6 Magnesium Level 1.6 L Albumin 2.5 L White Blood Count 5.2 Red Blood Count 2.81 L Hemoglobin 9.0 L Hematocrit 26.8 L Mean Corpuscular Volume 95.4 Mean Corpuscular Hemoglobin 32.0 Mean Corpuscular Hemoglobin Concent 33.6 Red Cell Distribution Width 15.3 H Platelet Count 366 Mean Platelet Volume 8.8 Immature Granulocytes % 7.100 H Neutrophils % Segmented Neutrophils % (Manual) 31 L Band Neutrophils % (Manual) 34 H Lymphocytes % Lymphocytes % (Manual) 14 L Reactive Lymphocytes % (Manual) 2 H Monocytes % Monocytes % (Manual) 15 H Eosinophils % Basophils % Metamyelocytes % (manual) 2 H Myelocytes % (Manual) 1 H Promyelocytes % (Manual) 1 H Nucleated Red Blood Cells % 2 H Immature Granulocytes # 0.370 H Neutrophils # Neutrophils # (Manual) 1.7 Band Neutrophils # 1.7 H Lymphocytes (Manual) 0.7 L Lymphocytes # Reactive Lymphocytes # 0.1 H Monocytes # Monocytes # (Manual) 0.7 Eosinophils # Basophils # Metamyelocytes # 0.1 H Myelocytes # 0.0 Promyelocytes # 0.0 Nucleated Red Blood Cells # Platelet Estimate NORMAL Giant Platelets 4 H Polychromasia 3+ Poikilocytosis 1+ Anisocytosis 1+ Consultation Date/Type/Reason Admit Date/Time Jul 28, 2018 at 00:46 Initial Consult Date 07/28/18 Type of Consult ONCOLOGY Reason for Consultation RECTAL CANCER Requesting Provider: CAMRYN PRICE 24 HR Interval Summary Free Text/Dictation patient had x 2 stools last night Feel better Constitutional: improved Detailed Summary Eyes: no complaints ENT: no complaints Respiratory: no complaints Cardiovascular: no complaints Gastrointestinal: no complaints Genitourinary: no complaints Musculoskeletal: no complaints Skin: no complaints Neurologic: no complaints Endocrine: no complaints Lymphatic: no complaints Psychological: nl mood/affect Immunologic: no complaints Exam/Review of Systems Vital Signs Vitals Vital Signs Date Temp Pulse Resp B/P (MAP) Pulse Ox O2 O2 Flow FiO2 Time Delivery Rate 08/09/18 110 12:43 08/09/18 99.4 20 116/57 99 Room Air 12:00 (76) Intake and Output 08/08/18 08/08/18 08/09/18 1515:00 23:00 07:00 IntakeIntake Total 200 ml 1400 ml 3050 ml BalanceBalance 200 ml 1400 ml 3050 ml Exam Constitutional: alert, oriented, well developed Psych: nl mood/affect Head: normocephalic, atraumatic Eyes: nl conjunctiva, EOMI, nl lids, nl sclera Neck: non-tender Respiratory: clear to auscultation Cardiovascular: nl pulses Gastrointestinal: soft, non-tender Musculoskeletal: nl extremities to inspection Extremities: normal pulses Neurological: nl mental status, nl speech Skin: nl turgor Lymph: nontender Medications Medications Current Medications IV Flush (NS 3 ml) 3 ml PER PROTOCOL IV ; Start 07/28/18 at 01:30 Ondansetron HCl (Zofran Inj) 4 mg Q6H PRN IV NAUSEA AND/OR VOMITING Last administered on 08/08/18 17:10; Admin Dose 4 MG; Start 07/28/18 at 01:30 Acetaminophen (Tylenol Tab) 650 mg Q6H PRN PO PAIN LEVEL 1-3 OR FEVER Last administered on 08/08/18 23:30; Admin Dose 650 MG; Start 07/28/18 at 01:30 Enoxaparin Sodium (Lovenox) 40 mg DAILY SC Last administered on 08/09/18 08:39; Admin Dose 40 MG; Start 07/28/18 at 09:00 Morphine Sulfate (morphine) 2 mg Q3H PRN IV PAIN LEVEL 7-10 Last administered on 08/09/18 05:36; Admin Dose 2 MG; Start 07/28/18 at 10:30 Simethicone (Mylicon) 80 mg Q6H PRN PO DISTENSION/GAS/BLOATING Last administered on 08/09/18 03:18; Admin Dose 80 MG; Start 07/28/18 at 10:30 Pantoprazole (Protonix Iv) 40 mg BID IV Last administered on 08/09/18 08:26; Admin Dose 40 MG; Start 07/30/18 at 09:00 Metoprolol Tartrate (Lopressor) 5 mg Q4H PRN IV HR >100; Start 07/30/18 at 09:30 Amlodipine Besylate (Norvasc) 5 mg DAILY NGT Last administered on 08/08/18 08:29; Admin Dose 5 MG; Start 07/30/18 at 09:30 Sucralfate (Carafate Susp) 1 gm QID PO Last administered on 08/09/18 11:53; Admin Dose 1 GM; Start 08/02/18 at 17:00 Sodium Chloride (Deep Sea) 1 spray Q2 PRN NASAL NASAL CONGESTION Last administered on 08/03/18 06:23; Admin Dose 1 SPRAY; Start 08/03/18 at 05:00 Metoclopramide HCl (Reglan) 10 mg Q6H PRN IV n/v; Start 08/04/18 at 13:30 Sodium Chloride 1,000 ml @ 50 mls/hr Q20H IV Last administered on 08/08/18at 05:07; Admin Dose 50 MLS/HR; Start 08/04/18 at 14:00 Phenol (Cepastat Lozenge) 1 lozenge Q1H PRN MT throat pain Last administered on 08/09/18 03:18; Admin Dose 1 LOZENGE; Start 08/05/18 at 12:00 Loperamide HCl (Imodium Cap) 2 mg TID PRN PO diarrhea Last administered on 08/08/18 19:51; Admin Dose 2 MG; Start 08/06/18 at 13:00 Nystatin (Nystatin Susp) 5 ml QID PO Last administered on 08/09/18 11:53; Admin Dose 5 ML; Start 08/06/18 at 17:00; Stop 08/13/18 at 17:00 Ciprofloxacin/ Dextrose 200 ml @ 200 mls/hr Q12 IVPB Last administered on 08/09/18 08:26; Admin Dose 200 MLS/HR; Start 08/07/18 at 09:30 Metronidazole 100 ml @ 100 mls/hr Q8 IVPB Last administered on 08/09/18 05:40; Admin Dose 100 MLS/HR; Start 08/07/18 at 14:00 Vancomycin HCl (Vanco Iv Per Pharmacy) VANCOMYCIN PER PHARMACY PER PROTOCOL XX ; Start 08/08/18 at 09:30 Chlorhexidine Gluconate (Peridex) 15 ml Q12 MT Last administered on 08/09/18 08:26; Admin Dose 15 ML; Start 08/08/18 at 14:00 IV Flush (NS 10 ml) 10 ml PRN PRN IV IV PROTOCOL; Start 08/08/18 at 17:30 Vancomycin HCl 1.5 gm/Sodium Chloride 250 ml @ 83.333 mls/ hr Q12H IVPB Last administered on 08/09/18 05:40; Admin Dose 83.333 MLS/HR; Start 08/09/18 at 05:00 Potassium Chloride 100 ml @ 50 mls/hr Q2H IVPB Last administered on 08/09/18 11:30; Admin Dose 50 MLS/HR; Start 08/09/18 at 09:00; Stop 08/09/18 at 16:59 Miscellaneous Information (*Rx Drug Level Order Reminder*) 1 ONCE ONCE XX ; Start 08/10/18 at 04:00; Stop 08/10/18 at 04:01 DUC SEGAL Aug 09, 2018 1:19 pm
[2018-08-09] MEDS: ACETAMINOPHEN 325 MG TAB PO PRN ×2 (13:59→23:39)
[2018-08-09] MEDS: SOD CHLORIDE 0.45% 1,000 ML IV SCH (14:00)
--- NOTE | 2018-08-09 14:23 | PN ---
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 The biopsy shows features of ischemic injuries. Radiation effect cannot be completely ruled out Nausea/vomiting- -Reported coffee-ground emesis -Bright red emesis- after eating jello? EGD 07/29/18 Severe erosive distal esophagitis Retained material in the stomach consistent with gastroparesis Moderate gastritis Abdominal pain-resolved Bowel obstruction vs ileus- resolved Diarrhea- improved Hyperkalemia- resolved oral grayson- improved Normocytic anemia Bacteremia- Gram positive cocci in pairs and clusters Plan: Pt started on Vanco for bacteremia Continue nystatin 5 ml po QID for a total of x7 days Continue supportive care- d/c planning per hospitalist Patient seen in collaboration and discussed with Subjective/Free text: Course reviewed with nursing staff Patient interviewed and examined All labs, imaging and other results reviewed GI sx have almost resolved, pt feels much better Asking when she can go home. Pt currently on Iv aBX for bacteremia No c/o n/v or abd pain, diarrhea greatly improved. HGB trending down, without overt signs of GI bleed PHYSICAL EXAMINATION: GENERAL: Alert & oriented x 3, in no acute distress SKIN: No lesions EYES: Pupils equal reactive to light, no discharge. EARS/NOSE AND THROAT: Ears normal, nose normal, oropharynx normal, oral grayson- improved NECK: Supple, no masses CHEST: Inspection within normal limits. CARDIOVASCULAR: Heart: Regular rate and rhythm RESPIRATORY: Lungs clear to auscultation GASTROINTESTINAL AND LIVER: Abdomen: No tenderness, mildly distended, soft, no hernias, no masses, no organomegaly, no ascites, no guarding, no rebound tenderness, hypoactive bowel sounds. Rectal: Deferred. GENITOURINARY: Not examined EXTREMITIES: No cyanosis, clubbing or edema. Result Diagram: 08/09/18 0500 08/09/18 0459 Results 24hrs Laboratory Tests Test 08/09/18 04:59 08/09/18 05:00 Sodium Level 133 L Potassium Level 3.1 L Chloride Level 104 Carbon Dioxide Level 21 Anion Gap 8 Blood Urea Nitrogen 10 Creatinine 0.85 Glucose Level 105 Calcium Level 8.1 L Phosphorus Level 3.6 Magnesium Level 1.6 L Albumin 2.5 L White Blood Count 5.2 Red Blood Count 2.81 L Hemoglobin 9.0 L Hematocrit 26.8 L Mean Corpuscular Volume 95.4 Mean Corpuscular Hemoglobin 32.0 Mean Corpuscular Hemoglobin Concent 33.6 Red Cell Distribution Width 15.3 H Platelet Count 366 Mean Platelet Volume 8.8 Immature Granulocytes % 7.100 H Neutrophils % Segmented Neutrophils % (Manual) 31 L Band Neutrophils % (Manual) 34 H Lymphocytes % Lymphocytes % (Manual) 14 L Reactive Lymphocytes % (Manual) 2 H Monocytes % Monocytes % (Manual) 15 H Eosinophils % Basophils % Metamyelocytes % (manual) 2 H Myelocytes % (Manual) 1 H Promyelocytes % (Manual) 1 H Nucleated Red Blood Cells % 2 H Immature Granulocytes # 0.370 H Neutrophils # Neutrophils # (Manual) 1.7 Band Neutrophils # 1.7 H Lymphocytes (Manual) 0.7 L Lymphocytes # Reactive Lymphocytes # 0.1 H Monocytes # Monocytes # (Manual) 0.7 Eosinophils # Basophils # Metamyelocytes # 0.1 H Myelocytes # 0.0 Promyelocytes # 0.0 Nucleated Red Blood Cells # Platelet Estimate NORMAL Giant Platelets 4 H Polychromasia 3+ Poikilocytosis 1+ Anisocytosis 1+ Exam/Review of Systems Vital Signs Vitals Vital Signs Date Temp Pulse Resp B/P (MAP) Pulse Ox O2 O2 Flow FiO2 Time Delivery Rate 08/09/18 110 12:43 08/09/18 99.4 20 116/57 99 Room Air 12:00 (76) Intake and Output 08/08/18 08/08/18 08/09/18 1515:00 23:00 07:00 IntakeIntake Total 200 ml 1400 ml 3050 ml BalanceBalance 200 ml 1400 ml 3050 ml Medications Medications Current Medications IV Flush (NS 3 ml) 3 ml PER PROTOCOL IV ; Start 07/28/18 at 01:30 Ondansetron HCl (Zofran Inj) 4 mg Q6H PRN IV NAUSEA AND/OR VOMITING Last administered on 08/08/18 17:10; Admin Dose 4 MG; Start 07/28/18 at 01:30 Acetaminophen (Tylenol Tab) 650 mg Q6H PRN PO PAIN LEVEL 1-3 OR FEVER Last administered on 08/09/18 13:59; Admin Dose 650 MG; Start 07/28/18 at 01:30 Enoxaparin Sodium (Lovenox) 40 mg DAILY SC Last administered on 08/09/18 08:39; Admin Dose 40 MG; Start 07/28/18 at 09:00 Morphine Sulfate (morphine) 2 mg Q3H PRN IV PAIN LEVEL 7-10 Last administered on 08/09/18 05:36; Admin Dose 2 MG; Start 07/28/18 at 10:30 Simethicone (Mylicon) 80 mg Q6H PRN PO DISTENSION/GAS/BLOATING Last administered on 08/09/18 03:18; Admin Dose 80 MG; Start 07/28/18 at 10:30 Pantoprazole (Protonix Iv) 40 mg BID IV Last administered on 08/09/18 08:26; Admin Dose 40 MG; Start 07/30/18 at 09:00 Metoprolol Tartrate (Lopressor) 5 mg Q4H PRN IV HR >100; Start 07/30/18 at 09:30 Amlodipine Besylate (Norvasc) 5 mg DAILY NGT Last administered on 08/08/18 08:29; Admin Dose 5 MG; Start 07/30/18 at 09:30 Sucralfate (Carafate Susp) 1 gm QID PO Last administered on 08/09/18 11:53; Admin Dose 1 GM; Start 08/02/18 at 17:00 Sodium Chloride (Deep Sea) 1 spray Q2 PRN NASAL NASAL CONGESTION Last administered on 08/03/18 06:23; Admin Dose 1 SPRAY; Start 08/03/18 at 05:00 Metoclopramide HCl (Reglan) 10 mg Q6H PRN IV n/v; Start 08/04/18 at 13:30 Sodium Chloride 1,000 ml @ 50 mls/hr Q20H IV Last administered on 08/08/18 05:07; Admin Dose 50 MLS/HR; Start 08/04/18 at 14:00 Phenol (Cepastat Lozenge) 1 lozenge Q1H PRN MT throat pain Last administered on 08/09/18 03:18; Admin Dose 1 LOZENGE; Start 08/05/18 at 12:00 Loperamide HCl (Imodium Cap) 2 mg TID PRN PO diarrhea Last administered on 08/08/18 19:51; Admin Dose 2 MG; Start 08/06/18 at 13:00 Nystatin (Nystatin Susp) 5 ml QID PO Last administered on 08/09/18 11:53; Admin Dose 5 ML; Start 08/06/18 at 17:00; Stop 08/13/18 at 17:00 Ciprofloxacin/ Dextrose 200 ml @ 200 mls/hr Q12 IVPB Last administered on 08/09/18 08:26; Admin Dose 200 MLS/HR; Start 08/07/18 at 09:30 Metronidazole 100 ml @ 100 mls/hr Q8 IVPB Last administered on 08/09/18 14:20; Admin Dose 100 MLS/HR; Start 08/07/18 at 14:00 Vancomycin HCl (Vanco Iv Per Pharmacy) VANCOMYCIN PER PHARMACY PER PROTOCOL XX ; Start 08/08/18 at 09:30 Chlorhexidine Gluconate (Peridex) 15 ml Q12 MT Last administered on 08/09/18 08:26; Admin Dose 15 ML; Start 08/08/18 at 14:00 IV Flush (NS 10 ml) 10 ml PRN PRN IV IV PROTOCOL; Start 08/08/18 at 17:30 Vancomycin HCl 1.5 gm/Sodium Chloride 250 ml @ 83.333 mls/ hr Q12H IVPB Last administered on 08/09/18 05:40; Admin Dose 83.333 MLS/HR; Start 08/09/18 at 05:00 Potassium Chloride 100 ml @ 50 mls/hr Q2H IVPB Last administered on 08/09/18 14:20; Admin Dose 50 MLS/HR; Start 08/09/18 at 09:00; Stop 08/09/18 at 16:59 Miscellaneous Information (*Rx Drug Level Order Reminder*) 1 ONCE ONCE XX ; Start 08/10/18 at 04:00; Stop 08/10/18 at 04:01 KOFFI MCGRATH Aug 09, 2018 14:23
[2018-08-09] MEDS: LOPERAMIDE 2 MG CAP PO PRN (21:29)
[2018-08-10] VITALS (11 sets, daily range): BP systolic 110–125; BP diastolic 53–60; PULSE 101–120; RESP 18–19
[2018-08-10] MEDS: VANCOMYCIN 1.5 GM in SOD CHLORIDE 0.9% 250 ML IVPB SCH (04:52)
[2018-08-10] MEDS: metroNIDAZOLE 500 MG/NS (PMX) 100 ML IVPB SCH ×2 (05:49→14:06)
--- NOTE | 2018-08-10 07:29 | CONS ---
Date/Time of Note Date/Time of Note DATE: 08/10/18 TIME: 07:28 Assessment/Plan Assessment/Plan Assessment/Plan #Metastatic rectal ca - dx 03/2017 -Initially pt has known nodular circumferential mural thickening of the distal sigmoid colon and rectum extending to the anus, abdominal wall tumor implants, liver masses as well as bilateral ureteral obstruction with bilateral hydronephrosis. -pt has since completed concurrent chemotherapy with radiation with 50 to 55 Gy over a 4 week period to treat the pelvis and bilateral groin lymph nodes. 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 BX revealed no evidence of malignancy # Intractable Nausea/vomiting -on diet per GI- tolerating well - coffee-ground emesis/drainage per NGT. NGT now dc'd - EGD 07/29/18 showed- Severe erosive distal esophagitis; Retained material in the stomach consistent with gastroparesis; Moderate gastritis #Diarrhea- getting better. -stool studies done - GI follows -continue IV hydration #Ovarian cyst -continue to monitor. if this grows in size it can be removed at that time # Acute Hypokalemia - resolved Thank you for the opportunity to participate in this patients care A total of 40 minutes of face to face time was spent speaking with the patient, of which greater than 50% was spent in counseling and coordination of care and the detailed question and answer session. Patient seen in collaboration with Dr Marshall Result Diagram: 08/09/18 0500 08/10/18 0427 Results 24hrs Laboratory Tests Test 08/10/18 04:27 Sodium Level 133 L Potassium Level 3.5 Chloride Level 106 Carbon Dioxide Level 21 Anion Gap 6 Blood Urea Nitrogen 9 Creatinine 0.96 Glucose Level 107 Calcium Level 8.0 L Phosphorus Level 3.2 Magnesium Level 1.5 L Albumin 2.3 L Vancomycin Level Trough 16.3 Consultation Date/Type/Reason Admit Date/Time Jul 28, 2018 at 12:46 am Initial Consult Date 07/28/18 Type of Consult ONCOLOGY Reason for Consultation RECTAL CANCER Requesting Provider: CAMRYN PRICE 24 HR Interval Summary Free Text/Dictation - febrile last night; blood c/s pending -Feels better now -no rectal bleeding reported - had x2 stools last night - wants regular diet -pending blood cultures - no new issues reported last night per staff Constitutional: requiring IVF Detailed Summary Eyes: no complaints ENT: no complaints Respiratory: no complaints Cardiovascular: no complaints Gastrointestinal: diarrhea (X2 last night) Genitourinary: no complaints Musculoskeletal: no complaints Skin: no complaints Neurologic: no complaints Endocrine: no complaints Lymphatic: no complaints Psychological: nl mood/affect Immunologic: no complaints Exam/Review of Systems Vital Signs Vitals Vital Signs Date Temp Pulse Resp B/P (MAP) Pulse Ox O2 O2 Flow FiO2 Time Delivery Rate 08/10/18 99.5 103 18 114/53 98 04:28 (73) 08/09/18 Room Air 14:00 Intake and Output 08/09/18 08/09/18 08/10/18 1515:00 23:00 07:00 IntakeIntake Total 100 ml 840 ml 4484 ml BalanceBalance 100 ml 840 ml 4484 ml Exam Constitutional: alert, oriented, well developed Psych: nl mood/affect Head: normocephalic Eyes: nl conjunctiva, EOMI, nl lids, nl sclera ENMT: nl external ears & nose Neck: non-tender Respiratory: clear to auscultation (bilaterally) Cardiovascular: nl pulses, other (s1s2) Gastrointestinal: soft, non-tender Musculoskeletal: nl extremities to inspection Extremities: normal pulses Neurological: nl mental status, nl speech Skin: nl turgor Lymph: nontender Medications Medications Current Medications IV Flush (NS 3 ml) 3 ml PER PROTOCOL IV ; Start 07/28/18 at 01:30 Ondansetron HCl (Zofran Inj) 4 mg Q6H PRN IV NAUSEA AND/OR VOMITING Last administered on 08/08/18at 17:10; Admin Dose 4 MG; Start 07/28/18 at 01:30 Acetaminophen (Tylenol Tab) 650 mg Q6H PRN PO PAIN LEVEL 1-3 OR FEVER Last administered on 08/09/18at 23:39; Admin Dose 650 MG; Start 07/28/18 at 01:30 Enoxaparin Sodium (Lovenox) 40 mg DAILY SC Last administered on 08/09/18 08:39; Admin Dose 40 MG; Start 07/28/18 at 09:00 Morphine Sulfate (morphine) 2 mg Q3H PRN IV PAIN LEVEL 7-10 Last administered on 08/09/18 21:30; Admin Dose 2 MG; Start 07/28/18 at 10:30 Simethicone (Mylicon) 80 mg Q6H PRN PO DISTENSION/GAS/BLOATING Last administered on 08/09/18 23:35; Admin Dose 80 MG; Start 07/28/18 at 10:30 Pantoprazole (Protonix Iv) 40 mg BID IV Last administered on 08/09/18 21:10; Admin Dose 40 MG; Start 07/30/18 at 09:00 Metoprolol Tartrate (Lopressor) 5 mg Q4H PRN IV HR >100; Start 07/30/18 at 09:30 Amlodipine Besylate (Norvasc) 5 mg DAILY NGT Last administered on 08/08/18 08:29; Admin Dose 5 MG; Start 07/30/18 at 09:30 Sucralfate (Carafate Susp) 1 gm QID PO Last administered on 08/09/18 21:10; Admin Dose 1 GM; Start 08/02/18 at 17:00 Sodium Chloride (Deep Sea) 1 spray Q2 PRN NASAL NASAL CONGESTION Last administered on 08/03/18 06:23; Admin Dose 1 SPRAY; Start 08/03/18 at 05:00 Metoclopramide HCl (Reglan) 10 mg Q6H PRN IV n/v; Start 08/04/18 at 13:30 Sodium Chloride 1,000 ml @ 50 mls/hr Q20H IV Last administered on 08/08/18 05:07; Admin Dose 50 MLS/HR; Start 08/04/18 at 14:00 Phenol (Cepastat Lozenge) 1 lozenge Q1H PRN MT throat pain Last administered on 08/09/18 03:18; Admin Dose 1 LOZENGE; Start 08/05/18 at 12:00 Loperamide HCl (Imodium Cap) 2 mg TID PRN PO diarrhea Last administered on 08/09/18 21:29; Admin Dose 2 MG; Start 08/06/18 at 13:00 Nystatin (Nystatin Susp) 5 ml QID PO Last administered on 08/09/18at 21:10; Admin Dose 5 ML; Start 08/06/18 at 17:00; Stop 08/13/18 at 17:00 Ciprofloxacin/ Dextrose 200 ml @ 200 mls/hr Q12 IVPB Last administered on 08/09/18at 21:09; Admin Dose 200 MLS/HR; Start 08/07/18 at 09:30 Metronidazole 100 ml @ 100 mls/hr Q8 IVPB Last administered on 08/10/18at 05:49; Admin Dose 100 MLS/HR; Start 08/07/18 at 14:00 Vancomycin HCl (Vanco Iv Per Pharmacy) VANCOMYCIN PER PHARMACY PER PROTOCOL XX ; Start 08/08/18 at 09:30 Chlorhexidine Gluconate (Peridex) 15 ml Q12 MT Last administered on 08/09/18at 21:10; Admin Dose 15 ML; Start 08/08/18 at 14:00 IV Flush (NS 10 ml) 10 ml PRN PRN IV IV PROTOCOL; Start 08/08/18 at 17:30 Vancomycin HCl 1.5 gm/Sodium Chloride 250 ml @ 83.333 mls/ hr Q12H IVPB Last administered on 08/10/18at 04:52; Admin Dose 83.333 MLS/HR; Start 08/09/18 at 05:00 DUC SEGAL Aug 10, 2018 7:29 am
[2018-08-10] MEDS: PANTOPRAZOLE 40 MG INJ IV SCH ×2 (08:23→20:43)
[2018-08-10] MEDS: SUCRALFATE (100 MG/ML) 10ML CUP PO SCH ×4 (08:23→20:43)
[2018-08-10] MEDS: NYSTATIN SUSP 5 ML CUP PO SCH ×4 (08:23→20:43)
[2018-08-10] MEDS: CIPROFLOXACIN 400MG/D5W 200 ML IVPB SCH (08:23)
[2018-08-10] MEDS: CHLORHEXIDINE GLUCONATE 15 ML UD CUP MT SCH ×2 (08:23→20:43)
[2018-08-10] MEDS: AMLODIPINE 5 MG TAB NGT SCH (08:24)
[2018-08-10] MEDS: ENOXAPARIN 40 MG/0.4 ML SYG SC SCH (08:32)
--- NOTE | 2018-08-10 08:46 | PN ---
Date/Time of Note Date/Time of Note DATE: 08/10/18 TIME: 08:46 Assessment/Plan VTE Prophylaxis Risk score (from Ns)>0 risk: 5 SCD applied (from Ns): Yes Pharmacological prophylaxis: NA/contraindicated Pharm contraindication: bleeding Lines/Catheters IV [facility]ter Type (from [facility]): PICC Line Central line still needed: Yes Urinary Cath still in place: No Assessment/Plan Assessment/Plan 1. Sepsis secondary to bacteremia - Patient continues to spike fevers but unsure source given denies any urinary, GI, or respiratory complaints - ID on board and changed antibiotics to Meropenem and will recheck CXR despite being asymptomatic for pneumonia - Initial blood culture results noted and repeat negative to date 2. Acute abdominal pain secondary to ileus vs obstruction- resolved - Diarrhea improved significantly - Colonoscopy performed 07.29 showed no mass, but could not proceed further than stricture. Colon ulcerations appreciated and bx negative for malignancy - GI on board and appreciate recommendations. continue current course of tr eatment. okay for discharge planning from their standpoint 3. Acute diarrhea- resolving - stool culture results noted - CT noted 4. DANYELL- resolved - Cr returned to baseline - most likely prerenal secondary to GI losses 5. 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 Severe gastritis/erosive esophagitis - seen on EGD which was performed 07/29 - Continue on Reglan, PPI and Carafate 7. Hypertension - Bp controlled 8. Disposition - Patient remains medically stable, however, continues to spike fevers at night. She denies any respiratory, urinary, or new GI complaints. Culture results returning negative - Will check CXR and monitor for further fevers. Will need to remain afebrile for >24 hours to ensure safe discharge home Result Diagram: 08/09/18 0500 08/10/18 0427 Results 24hrs Laboratory Tests Test 08/10/18 04:27 Sodium Level 133 L Potassium Level 3.5 Chloride Level 106 Carbon Dioxide Level 21 Anion Gap 6 Blood Urea Nitrogen 9 Creatinine 0.96 Glucose Level 107 Calcium Level 8.0 L Phosphorus Level 3.2 Magnesium Level 1.5 L Albumin 2.3 L Vancomycin Level Trough 16.3 Subjective 24 Hr Interval Summary Free Text/Dictation Patient states shes feeling better and tongue as well as throat have improved. Diarrhea episodes have diminished and requesting regular diet. Patient still with fever 101 overnight but denies any urinary discomfort, cough, shortness of breath, dizziness, chest pain, or worsening abdominal issues. Exam/Review of Systems Vital Signs Vitals Vital Signs Date Temp Pulse Resp B/P (MAP) Pulse Ox O2 O2 Flow FiO2 Time Delivery Rate 08/10/18 103 08:42 08/10/18 98.1 18 125/60 94 07:39 (81) 08/09/18 Room Air 14:00 Intake and Output 08/09/18 08/09/18 08/10/18 1414:59 22:59 06:59 IntakeIntake Total 2950 ml 840 ml 4484 ml BalanceBalance 2950 ml 840 ml 4484 ml Exam General: Patient is laying in bed and answers questions appropriately, no acute distress Mouth: small clear lesion on tongue adjacent to previous crack Neck: Supple Respiratory: Clear to auscultation bilaterally. no wheezing or rhonchi Cardiovascular: regular rate and rhythm, no obvious murmurs Gastrointestinal: soft, non tender to palpation, non distended, bowel sounds heard. no rebound or guarding Neurological: Moves all extremities spontaneously Skin: No new skin lesions Medications Medications Current Medications IV Flush (NS 3 ml) 3 ml PER PROTOCOL IV ; Start 07/28/18 at 01:30 Ondansetron HCl (Zofran Inj) 4 mg Q6H PRN IV NAUSEA AND/OR VOMITING Last administered on 08/08/18 17:10; Admin Dose 4 MG; Start 07/28/18 at 01:30 Acetaminophen (Tylenol Tab) 650 mg Q6H PRN PO PAIN LEVEL 1-3 OR FEVER Last administered on 08/09/18 23:39; Admin Dose 650 MG; Start 07/28/18 at 01:30 Enoxaparin Sodium (Lovenox) 40 mg DAILY SC Last administered on 08/10/18 08:32; Admin Dose 40 MG; Start 07/28/18 at 09:00 Morphine Sulfate (morphine) 2 mg Q3H PRN IV PAIN LEVEL 7-10 Last administered on 08/09/18 21:30; Admin Dose 2 MG; Start 07/28/18 at 10:30 Simethicone (Mylicon) 80 mg Q6H PRN PO DISTENSION/GAS/BLOATING Last administe red on 08/09/18 23:35; Admin Dose 80 MG; Start 07/28/18 at 10:30 Pantoprazole (Protonix Iv) 40 mg BID IV Last administered on 08/10/18 08:23; Admin Dose 40 MG; Start 07/30/18 at 09:00 Metoprolol Tartrate (Lopressor) 5 mg Q4H PRN IV HR >100; Start 07/30/18 at 09:30 Amlodipine Besylate (Norvasc) 5 mg DAILY NGT Last administered on 08/10/18 08:24; Admin Dose 5 MG; Start 07/30/18 at 09:30 Sucralfate (Carafate Susp) 1 gm QID PO Last administered on 08/10/18 08:23; Admin Dose 1 GM; Start 08/02/18 at 17:00 Sodium Chloride (Deep Sea) 1 spray Q2 PRN NASAL NASAL CONGESTION Last administered on 08/03/18 06:23; Admin Dose 1 SPRAY; Start 08/03/18 at 05:00 Metoclopramide HCl (Reglan) 10 mg Q6H PRN IV n/v; Start 08/04/18 at 13:30 Sodium Chloride 1,000 ml @ 50 mls/hr Q20H IV Last administered on 08/08/18 05:07; Admin Dose 50 MLS/HR; Start 08/04/18 at 14:00 Phenol (Cepastat Lozenge) 1 lozenge Q1H PRN MT throat pain Last administered on 08/09/18 03:18; Admin Dose 1 LOZENGE; Start 08/05/18 at 12:00 Loperamide HCl (Imodium Cap) 2 mg TID PRN PO diarrhea Last administered on 08/09/18 21:29; Admin Dose 2 MG; Start 08/06/18 at 13:00 Nystatin (Nystatin Susp) 5 ml QID PO Last administered on 08/10/18 08:23; Admin Dose 5 ML; Start 08/06/18 at 17:00; Stop 08/13/18 at 17:00 Ciprofloxacin/ Dextrose 200 ml @ 200 mls/hr Q12 IVPB Last administered on 08/10/18 08:23; Admin Dose 200 MLS/HR; Start 08/07/18 at 09:30 Metronidazole 100 ml @ 100 mls/hr Q8 IVPB Last administered on 08/10/18at 05:49; Admin Dose 100 MLS/HR; Start 08/07/18 at 14:00 Vancomycin HCl (Vanco Iv Per Pharmacy) VANCOMYCIN PER PHARMACY PER PROTOCOL XX ; Start 08/08/18 at 09:30 Chlorhexidine Gluconate (Peridex) 15 ml Q12 MT Last administered on 08/10/18at 08:23; Admin Dose 15 ML; Start 08/08/18 at 14:00 IV Flush (NS 10 ml) 10 ml PRN PRN IV IV PROTOCOL; Start 08/08/18 at 17:30 Vancomycin HCl 1.5 gm/Sodium Chloride 250 ml @ 83.333 mls/ hr Q12H IVPB Last administered on 08/10/18at 04:52; Admin Dose 83.333 MLS/HR; Start 08/09/18 at 05:00 HAYLEE MERLSO MD Aug 10, 2018 08:46
[2018-08-10] MEDS: LOPERAMIDE 2 MG CAP PO PRN ×2 (08:49→23:50)
[2018-08-10] MEDS: SOD CHLORIDE 0.45% 1,000 ML IV SCH ×2 (09:45→14:06)
[2018-08-10] MEDS: POTASSIUM CHLORIDE 100 ML IVPB SCH ×2 (09:50→12:04)
[2018-08-10] MEDS ORDERED: MAGNESIUM SULFATE 2 GM/50 ML 50 ML IVPB ONE (11:00)
--- NOTE | 2018-08-10 14:44 | CONS ---
Date/Time of Note Date/Time of Note DATE: 08/10/18 TIME: 14:43 Assessment/Plan Assessment/Plan Hospital Course Patient spiked fever yesterday 101.5 currently afebrile. Alert awake denies pain, no nausea vomiting diarrhea, no dysuria Blood culture on admission grew coag negative staph species, repeat blood cultures negative Indwelling: Left upper extremity PICC line 08/08/18 Antimicrobials: Vancomycin, Flagyl, Cipro Physical examination: This is a obese well-developed middle-aged woman who is awake in no distress. Head atraumatic normocephalic sclera nonicteric vehicle mucosa dry neck is supple chest rise symmetrical breath sounds clear. Heart: S1-S2. Abdomen soft bowel sounds present extremities without cyanosis Assessment: 1. Sepsis on admission 2. Staph bacteremia, likely contaminant 3. Status post acute abdominal pain secondary to ileus possible obstruction, resolved 4. Metastatic rectal cancer 4. Morbid obesity Plan: Clinically stable spiking fevers, will change Cipro and Flagyl to meropen em, continue vancomycin and repeat chest x-ray in a.m. We will repeat cultures for temperature above 101 Result Diagram: 08/09/18 0500 08/10/18 0427 Results 24hrs Laboratory Tests Test 08/10/18 04:27 Sodium Level 133 L Potassium Level 3.5 Chloride Level 106 Carbon Dioxide Level 21 Anion Gap 6 Blood Urea Nitrogen 9 Creatinine 0.96 Glucose Level 107 Calcium Level 8.0 L Phosphorus Level 3.2 Magnesium Level 1.5 L Albumin 2.3 L Vancomycin Level Trough 16.3 Consultation Date/Type/Reason Admit Date/Time Jul 28, 2018 at 00:46 Initial Consult Date 07/28/18 Type of Consult id Requesting Provider: CAMRYN PRICE Exam/Review of Systems Vital Signs Vitals Vital Signs Date Temp Pulse Resp B/P (MAP) Pulse Ox O2 O2 Flow FiO2 Time Delivery Rate 08/10/18 106 12:21 08/10/18 99.5 18 118/57 98 11:02 (77) 08/09/18 Room Air 14:00 Intake and Output 08/09/18 08/09/18 08/10/18 1515:00 23:00 07:00 IntakeIntake Total 100 ml 840 ml 4484 ml BalanceBalance 100 ml 840 ml 4484 ml Medications Medications Current Medications IV Flush (NS 3 ml) 3 ml PER PROTOCOL IV ; Start 07/28/18 at 01:30 Ondansetron HCl (Zofran Inj) 4 mg Q6H PRN IV NAUSEA AND/OR VOMITING Last administered on 08/08/18 17:10; Admin Dose 4 MG; Start 07/28/18 at 01:30 Acetaminophen (Tylenol Tab) 650 mg Q6H PRN PO PAIN LEVEL 1-3 OR FEVER Last administered on 08/09/18 23:39; Admin Dose 650 MG; Start 07/28/18 at 01:30 Enoxaparin Sodium (Lovenox) 40 mg DAILY SC Last administered on 08/10/18 08:32; Admin Dose 40 MG; Start 07/28/18 at 09:00 Morphine Sulfate (morphine) 2 mg Q3H PRN IV PAIN LEVEL 7-10 Last administered on 08/09/18 21:30; Admin Dose 2 MG; Start 07/28/18 at 10:30 Simethicone (Mylicon) 80 mg Q6H PRN PO DISTENSION/GAS/BLOATING Last administered on 08/10/18 08:49; Admin Dose 80 MG; Start 07/28/18 at 10:30 Pantoprazole (Protonix Iv) 40 mg BID IV Last administered on 08/10/18 08:23; Admin Dose 40 MG; Start 07/30/18 at 09:00 Metoprolol Tartrate (Lopressor) 5 mg Q4H PRN IV HR >100; Start 07/30/18 at 09:30 Amlodipine Besylate (Norvasc) 5 mg DAILY NGT Last administered on 08/10/18 08:24; Admin Dose 5 MG; Start 07/30/18 at 09:30 Sucralfate (Carafate Susp) 1 gm QID PO Last administered on 08/10/18 12:04; Admin Dose 1 GM; Start 08/02/18 at 17:00 Sodium Chloride (Deep Sea) 1 spray Q2 PRN NASAL NASAL CONGESTION Last administered on 08/03/18 06:23; Admin Dose 1 SPRAY; Start 08/03/18 at 05:00 Metoclopramide HCl (Reglan) 10 mg Q6H PRN IV n/v; Start 08/04/18 at 13:30 Sodium Chloride 1,000 ml @ 50 mls/hr Q20H IV Last administered on 08/10/18 14:06; Admin Dose 50 MLS/HR; Start 08/04/18 at 14:00 Phenol (Cepastat Lozenge) 1 lozenge Q1H PRN MT throat pain Last administered on 08/09/18 03:18; Admin Dose 1 LOZENGE; Start 08/05/18 at 12:00 Loperamide HCl (Imodium Cap) 2 mg TID PRN PO diarrhea Last administered on 08/10/18 08:49; Admin Dose 2 MG; Start 08/06/18 at 13:00 Nystatin (Nystatin Susp) 5 ml QID PO Last administered on 08/10/18 12:04; Admin Dose 5 ML; Start 08/06/18 at 17:00; Stop 08/13/18 at 17:00 Ciprofloxacin/ Dextrose 200 ml @ 200 mls/hr Q12 IVPB Last administered on 08/10/18 08:23; Admin Dose 200 MLS/HR; Start 08/07/18 at 09:30 Metronidazole 100 ml @ 100 mls/hr Q8 IVPB Last administered on 08/10/18 14:06; Admin Dose 100 MLS/HR; Start 08/07/18 at 14:00 Vancomycin HCl (Vanco Iv Per Pharmacy) VANCOMYCIN PER PHARMACY PER PROTOCOL XX ; Start 08/08/18 at 09:30 Chlorhexidine Gluconate (Peridex) 15 ml Q12 MT Last administered on 08/10/18 08 :23; Admin Dose 15 ML; Start 08/08/18 at 14:00 IV Flush (NS 10 ml) 10 ml PRN PRN IV IV PROTOCOL; Start 08/08/18 at 17:30 Vancomycin HCl 1.5 gm/Sodium Chloride 250 ml @ 83.333 mls/ hr Q12H IVPB Last a dministered on 08/10/18 04:52; Admin Dose 83.333 MLS/HR; Start 08/09/18 at 05:00; Status Hold RADHA MIR [employer] Aug 10, 2018 14:44
[2018-08-10] MEDS: MEROPENEM 1 GM/50ML(PMX) 50 ML IVPB SCH ×2 (15:24→22:52)
--- NOTE | 2018-08-10 15:38 | PN ---
Date/Time of Note Date/Time of Note DATE: 08/10/18 TIME: 15:29 Assessment/Plan VTE Prophylaxis Risk score (from Ns)>0 risk: 5 SCD applied (from Ns): No SCD contraindicated: low risk/ambulating Pharmacological prophylaxis: NA/contraindicated Pharm contraindication: low risk/ambulating Lines/Catheters [facility] P[facility] Line Central line still needed: Yes (meds) Urinary Cath still in place: No Assessment/Plan Hospital Course Assessment/Plan Assessment: History of rectal ca- dx 2017 -s/p Chemo/radiation Colonoscopy 07/29/18 Rectal stricture neoplasm versus radiation injury Estimated lumen 10 mm, biopsies obtained Unable to advance beyond area of stricture Bx: showing ulcer with glandular atrophy.No evidence of dysplasia or malignancy. The biopsy shows features of ischemic injuries. Radiation effect cannot be completely ruled out Nausea/vomiting- -Reported coffee-ground emesis -Bright red emesis- after eating jello? EGD 07/29/18 Severe erosive distal esophagitis Retained material in the stomach consistent with gastroparesis Moderate gastritis Abdominal pain-resolved Bowel obstruction vs ileus- resolved Diarrhea- improved Hyperkalemia- resolved Oral grayson- improved Normocytic anemia Bacteremia- Gram positive cocci in pairs and clusters Fevers Plan: ABX per ID Continue nystatin 5 ml po QID for a total of x7 days Continue supportive care- d/c planning per hospitalist Patient seen in collaboration and discussed with /Carissa Subjective/Free text: Course reviewed with nursing staff Patient interviewed and examined All labs, imaging and other results reviewed Pt states she had x2 BM over night, x1 this am described as soft. No c/o abd pain Nausea or vomiting. Pt with fevers over night, being follow by ID. HGB trending down, no overt signs of GI bleed, will continue to monitor. PHYSICAL EXAMINATION: GENERAL: Alert & oriented x 3, in no acute distress SKIN: No lesions EYES: Pupils equal reactive to light, no discharge. EARS/NOSE AND THROAT: Ears normal, nose normal, oropharynx normal, oral grayson- improved NECK: Supple, no masses CHEST: Inspection within normal limits. CARDIOVASCULAR: Heart: Regular rate and rhythm RESPIRATORY: Lungs clear to auscultation GASTROINTESTINAL AND LIVER: Abdomen: No tenderness, mildly distended, soft, no hernias, no masses, no organomegaly, no ascites, no guarding, no rebound tenderness, hypoactive bowel sounds. Rectal: Deferred. GENITOURINARY: Not examined EXTREMITIES: No cyanosis, clubbing or edema. Result Diagram: 08/09/18 0500 08/10/18 0427 Results 24hrs Laboratory Tests Test 08/10/18 04:27 Sodium Level 133 L Potassium Level 3.5 Chloride Level 106 Carbon Dioxide Level 21 Anion Gap 6 Blood Urea Nitrogen 9 Creatinine 0.96 Glucose Level 107 Calcium Level 8.0 L Phosphorus Level 3.2 Magnesium Level 1.5 L Albumin 2.3 L Vancomycin Level Trough 16.3 Exam/Review of Systems Vital Signs Vitals Vital Signs Date Temp Pulse Resp B/P (MAP) Pulse Ox O2 O2 Flow FiO2 Time Delivery Rate 08/10/18 106 12:21 08/10/18 99.5 18 118/57 98 11:02 (77) 08/09/18 Room Air 14:00 Intake and Output 08/09/18 08/09/18 08/10/18 1515:00 23:00 07:00 IntakeIntake Total 100 ml 840 ml 4484 ml BalanceBalance 100 ml 840 ml 4484 ml Medications Medications Current Medications IV Flush (NS 3 ml) 3 ml PER PROTOCOL IV ; Start 07/28/18 at 01:30 Ondansetron HCl (Zofran Inj) 4 mg Q6H PRN IV NAUSEA AND/OR VOMITING Last administered on 08/08/18 17:10; Admin Dose 4 MG; Start 07/28/18 at 01:30 Acetaminophen (Tylenol Tab) 650 mg Q6H PRN PO PAIN LEVEL 1-3 OR FEVER Last administered on 08/09/18 23:39; Admin Dose 650 MG; Start 07/28/18 at 01:30 Enoxaparin Sodium (Lovenox) 40 mg DAILY SC Last administered on 08/10/18 08:32; Admin Dose 40 MG; Start 07/28/18 at 09:00 Morphine Sulfate (morphine) 2 mg Q3H PRN IV PAIN LEVEL 7-10 Last administered on 08/09/18 21:30; Admin Dose 2 MG; Start 07/28/18 at 10:30 Simethicone (Mylicon) 80 mg Q6H PRN PO DISTENSION/GAS/BLOATING Last adm inistered on 1/9/19at 15:27; Admin Dose 80 MG; Start 07/28/18 at 10:30 Pantoprazole (Protonix Iv) 40 mg BID IV Last administered on 08/10/18 08:23; Admin Dose 40 MG; Start 07/30/18 at 09:00 Metoprolol Tartrate (Lopressor) 5 mg Q4H PRN IV HR >100; Start 07/30/18 at 09:30 Amlodipine Besylate (Norvasc) 5 mg DAILY NGT Last administered on 08/10/18 08:24; Admin Dose 5 MG; Start 07/30/18 at 09:30 Sucralfate (Carafate Susp) 1 gm QID PO Last administered on 08/10/18 12:04; Admin Dose 1 GM; Start 08/02/18 at 17:00 Sodium Chloride (Deep Sea) 1 spray Q2 PRN NASAL NASAL CONGESTION Last administered on 08/03/18 06:23; Admin Dose 1 SPRAY; Start 08/03/18 at 05:00 Metoclopramide HCl (Reglan) 10 mg Q6H PRN IV n/v; Start 08/04/18 at 13:30 Sodium Chloride 1,000 ml @ 50 mls/hr Q20H IV Last administered on 08/10/18 14:06; Admin Dose 50 MLS/HR; Start 08/04/18 at 14:00 Phenol (Cepastat Lozenge) 1 lozenge Q1H PRN MT throat pain Last administered on 08/09/18 03:18; Admin Dose 1 LOZENGE; Start 08/05/18 at 12:00 Loperamide HCl (Imodium Cap) 2 mg TID PRN PO diarrhea Last administered on 08/10/18 08:49; Admin Dose 2 MG; Start 08/06/18 at 13:00 Nystatin (Nystatin Susp) 5 ml QID PO Last administered on 08/10/18 12:04; Admin Dose 5 ML; Start 08/06/18 at 17:00; Stop 08/13/18 at 17:00 Vancomycin HCl (Vanco Iv Per Pharmacy) VANCOMYCIN PER PHARMACY PER PROTOCOL XX ; Start 08/08/18 at 09:30 Chlorhexidine Gluconate (Peridex) 15 ml Q12 MT Last administered on 08/10/18 08:23; Admin Dose 15 ML; Start 08/08/18 at 14:00 IV Flush (NS 10 ml) 10 ml PRN PRN IV IV PROTOCOL; Start 08/08/18 at 17:30 Meropenem/Sodium Chloride 50 ml @ 100 mls/hr Q12 IVPB Last administered on 08/10/18at 15:24; Admin Dose 100 MLS/HR; Start 08/10/18 at 15:00 Vancomycin HCl 1.25 gm/Sodium Chloride 250 ml @ 83.333 mls/ hr Q12H IVPB ; Start 08/10/18 at 17:00 KOFFI MCGRATH Aug 10, 2018 15:38
[2018-08-10] MEDS: VANCOMYCIN 1.25 GM in SOD CHLORIDE 0.9% 250 ML IVPB SCH (16:56)
[2018-08-10] MEDS ORDERED: morphine LIQ (10 MG/5 ML) CUP PO PRN (22:30)
[2018-08-11] VITALS (11 sets, daily range): BP systolic 92–122; BP diastolic 49–60; PULSE 98–111; RESP 18–22
[2018-08-11] MEDS: VANCOMYCIN 1.25 GM in SOD CHLORIDE 0.9% 250 ML IVPB SCH ×2 (05:31→17:38)
[2018-08-11] MEDS: SOD CHLORIDE 0.45% 1,000 ML IV SCH (06:00)
[2018-08-11] MEDS: ACETAMINOPHEN 325 MG TAB PO PRN ×2 (08:21→23:52)
[2018-08-11] MEDS: PANTOPRAZOLE 40 MG INJ IV SCH ×2 (08:22→20:27)
[2018-08-11] MEDS: SUCRALFATE (100 MG/ML) 10ML CUP PO SCH ×4 (08:22→20:27)
[2018-08-11] MEDS: NYSTATIN SUSP 5 ML CUP PO SCH ×4 (08:22→20:27)
[2018-08-11] MEDS: MEROPENEM 1 GM/50ML(PMX) 50 ML IVPB SCH ×2 (08:33→20:27)
[2018-08-11] MEDS: ENOXAPARIN 40 MG/0.4 ML SYG SC SCH (08:33)
[2018-08-11] MEDS ORDERED: POTASSIUM CHLORIDE (SR) 20 MEQ TAB PO STA (08:54)
--- NOTE | 2018-08-11 08:55 | PN ---
Date/Time of Note Date/Time of Note DATE: 08/11/18 TIME: 08:55 Assessment/Plan VTE Prophylaxis Risk score (from Ns)>0 risk: 6 SCD applied (from Ns): No SCD contraindicated: patient refusal Pharmacological prophylaxis: NA/contraindicated Pharm contraindication: bleeding Lines/Catheters IV [facility] (from [facility]): PICC Line Central line still needed: Yes Urinary Cath still in place: No Assessment/Plan Assessment/Plan 1. Sepsis secondary to bacteremia- improving - Patient has remained afebrile and after discussion with ID unsure source of infection. May be malignancy related - CXR noted with no acute issues - Initial blood culture results noted and repeat negative to date 2. Acute abdominal pain secondary to ileus vs obstruction- resolved - Diarrhea improved significantly - Colonoscopy performed 07.29 showed no mass, but could not proceed further than stricture. Colon ulcerations appreciated and bx negative for malignancy - GI on board and appreciate recommendations. continue current course of treat ment. okay for discharge planning from their standpoint 3. Acute diarrhea- resolving - stool culture results noted - CT noted 4. DANYELL- resolved - Cr returned to baseline - most likely prerenal secondary to GI losses 5. 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 Severe gastritis/erosive esophagitis - seen on EGD which was performed 07/29 - Continue on Reglan, PPI and Carafate 7. Hypertension - Bp controlled 8. Disposition - If patient remains afebrile overnight and no new symptoms, will d/c in am Result Diagram: 08/11/18 0454 08/11/18 0454 Results 24hrs Laboratory Tests Test 08/11/18 04:54 White Blood Count 6.9 # Red Blood Count 2.60 L Hemoglobin 8.1 L Hematocrit 25.5 L Mean Corpuscular Volume 98.1 Mean Corpuscular Hemoglobin 31.2 Mean Corpuscular Hemoglobin Concent 31.8 L Red Cell Distribution Width 15.9 H Platelet Count 394 Mean Platelet Volume 8.3 Immature Granulocytes % 7.600 H Neutrophils % Segmented Neutrophils % (Manual) 37 L Band Neutrophils % (Manual) 42 H Lymphocytes % Lymphocytes % (Manual) 8 L Monocytes % Monocytes % (Manual) 4 Eosinophils % Eosinophils % (Manual) 1 Basophils % Metamyelocytes % (manual) 4 H Myelocytes % (Manual) 4 H Nucleated Red Blood Cells % 1 H Immature Granulocytes # 0.520 H Neutrophils # Neutrophils # (Manual) 2.7 Band Neutrophils # 2.8 H Lymphocytes (Manual) 0.5 L Lymphocytes # Monocytes # Monocytes # (Manual) 0.2 L Eosinophils # Basophils # Metamyelocytes # 0.2 H Myelocytes # 0.2 H Nucleated Red Blood Cells # Platelet Estimate NORMAL Polychromasia 2+ Anisocytosis 1+ Sodium Level 137 Potassium Level 3.4 L Chloride Level 108 Carbon Dioxide Level 22 Anion Gap 7 Blood Urea Nitrogen 8 Creatinine 1.03 H Glucose Level 117 Calcium Level 7.8 L Phosphorus Level 3.6 Magnesium Level 2.0 Albumin 2.1 L Subjective 24 Hr Interval Summary Free Text/Dictation Patient states shes feeling better and diarrhea has improved. Has remained afebrile overnight but states did not sleep well last night. Would like to go home tomorrow. Exam/Review of Systems Vital Signs Vitals Vital Signs Date Temp Pulse Resp B/P (MAP) Pulse Ox O2 O2 Flow FiO2 Time Delivery Rate 08/11/18 106 08:48 08/11/18 98.2 08:21 08/11/18 22 92/55 (67) 96 Room Air 07:43 Intake and Output 08/10/18 08/10/18 08/11/18 1515:00 23:00 07:00 IntakeIntake Total 200 ml 1350 ml 1523 ml BalanceBalance 200 ml 1350 ml 1523 ml Exam General: Patient is laying in bed and answers questions appropriately, no acute distress Tongue: healing crack Neck: Supple Respiratory: Clear to auscultation bilaterally. no wheezing or rhonchi Cardiovascular: regular rate and rhythm, no obvious murmurs Gastrointestinal: soft, non tender to palpation, non distended, bowel sounds heard. no rebound or guarding Neurological: Moves all extremities spontaneously Skin: No new skin lesions Medications Medications Current Medications IV Flush (NS 3 ml) 3 ml PER PROTOCOL IV ; Start 07/28/18 at 01:30 Ondansetron HCl (Zofran Inj) 4 mg Q6H PRN IV NAUSEA AND/OR VOMITING Last administered on 08/08/18at 17:10; Admin Dose 4 MG; Start 07/28/18 at 01:30 Acetaminophen (Tylenol Tab) 650 mg Q6H PRN PO PAIN LEVEL 1-3 OR FEVER Last administered on 08/11/18 08:21; Admin Dose 650 MG; Start 07/28/18 at 01:30 Enoxaparin Sodium (Lovenox) 40 mg DAILY SC Last administered on 08/11/18 08:33 ; Admin Dose 40 MG; Start 07/28/18 at 09:00 Simethicone (Mylicon) 80 mg Q6H PRN PO DISTENSION/GAS/BLOATING Last administered on 08/10/18 23:50; Admin Dose 80 MG; Start 07/28/18 at 10:30 Pantoprazole (Protonix Iv) 40 mg BID IV Last administered on 08/11/18 08:22; Admin Dose 40 MG; Start 07/30/18 at 09:00 Metoprolol Tartrate (Lopressor) 5 mg Q4H PRN IV HR >100; Start 07/30/18 at 09:30 Amlodipine Besylate (Norvasc) 5 mg DAILY NGT Last administered on 08/10/18 08:24; Admin Dose 5 MG; Start 07/30/18 at 09:30 Sucralfate (Carafate Susp) 1 gm QID PO Last administered on 08/11/18 08:22; Admin Dose 1 GM; Start 08/02/18 at 17:00 Sodium Chloride (Deep Sea) 1 spray Q2 PRN NASAL NASAL CONGESTION Last administered on 08/03/18 06:23; Admin Dose 1 SPRAY; Start 08/03/18 at 05:00 Metoclopramide HCl (Reglan) 10 mg Q6H PRN IV n/v; Start 08/04/18 at 13:30 Sodium Chloride 1,000 ml @ 50 mls/hr Q20H IV Last administered on 08/10/18 14:06; Admin Dose 50 MLS/HR; Start 08/04/18 at 14:00 Phenol (Cepastat Lozenge) 1 lozenge Q1H PRN MT throat pain Last administered on 08/09/18 03:18; Admin Dose 1 LOZENGE; Start 08/05/18 at 12:00 Loperamide HCl (Imodium Cap) 2 mg TID PRN PO diarrhea Last administered on 08/10/18 23:50; Admin Dose 2 MG; Start 08/06/18 at 13:00 Nystatin (Nystatin Susp) 5 ml QID PO Last administered on 08/11/18at 08:22; Admin Dose 5 ML; Start 08/06/18 at 17:00; Stop 08/13/18 at 17:00 Vancomycin HCl (Vanco Iv Per Pharmacy) VANCOMYCIN PER PHARMACY PER PROTOCOL XX ; Start 08/08/18 at 09:30 Chlorhexidine Gluconate (Peridex) 15 ml Q12 MT Last administered on 08/10/18at 20:43; Admin Dose 15 ML; Start 08/08/18 at 14:00 IV Flush (NS 10 ml) 10 ml PRN PRN IV IV PROTOCOL; Start 08/08/18 at 17:30 Meropenem/Sodium Chloride 50 ml @ 100 mls/hr Q12 IVPB Last administered on 08/11/18at 08:33; Admin Dose 100 MLS/HR; Start 08/10/18 at 15:00 Vancomycin HCl 1.25 gm/Sodium Chloride 250 ml @ 83.333 mls/ hr Q12H IVPB Last administered on 08/11/18at 05:31; Admin Dose 83.333 MLS/HR; Start 08/10/18 at 17:00 Morphine Sulfate (morphine) 6 mg Q3H PRN PO SEVERE PAIN LEVEL 7-10 Last administered on 08/11/18at 04:54; Admin Dose 6 MG; Start 08/10/18 at 22:30 HAYLEE MERLOS MD Aug 11, 2018 08:55
--- NOTE | 2018-08-11 10:48 | CONS ---
Date/Time of Note Date/Time of Note DATE: 08/11/18 TIME: 10:46 Assessment/Plan Assessment/Plan Assessment/Plan #Metastatic rectal ca - dx 03/2017 -Initially pt has known nodular circumferential mural thickening of the distal sigmoid colon and rectum extending to the anus, abdominal wall tumor implants, liver masses as well as bilateral ureteral obstruction with bilateral hydronephrosis. -pt has since completed concurrent chemotherapy with radiation with 50 to 55 Gy over a 4 week period to treat the pelvis and bilateral groin lymph nodes. She has also completed 4 cycles of Xelox and has been on single agent Xeloda since -pt may restart Xeloda as an out patient. 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 BX revealed no evidence of malignancy # Intractable Nausea/vomiting -on diet per GI- tolerating well - coffee-ground emesis/drainage per NGT. NGT now dc'd - EGD 07/29/18 showed- Severe erosive distal esophagitis; Retained material in the stomach consistent with gastroparesis; Moderate gastritis #Diarrhea- getting better. -stool studies done - GI follows -continue IV hydration #Ovarian cyst -continue to monitor. if this grows in size it can be removed at that time Anticipate discharge tomorrow Thank you for the opportunity to participate in this patients care. A total of 40 minutes of face to face time was spent speaking with the patient, of which greater than 50% was spent in counseling and coordination of care and the detailed question and answer session. Patient needs to continue Xeloda at home on discharge. Fu with Dr Marshall x 1-2 weeks. Patient seen in collaboration with Dr Marshall Result Diagram: 08/11/18 0454 08/11/184 Results 24hrs Laboratory Tests Test 08/11/18 04:54 White Blood Count 6.9 # Red Blood Count 2.60 L Hemoglobin 8.1 L Hematocrit 25.5 L Mean Corpuscular Volume 98.1 Mean Corpuscular Hemoglobin 31.2 Mean Corpuscular Hemoglobin Concent 31.8 L Red Cell Distribution Width 15.9 H Platelet Count 394 Mean Platelet Volume 8.3 Immature Granulocytes % 7.600 H Neutrophils % Segmented Neutrophils % (Manual) 37 L Band Neutrophils % (Manual) 42 H Lymphocytes % Lymphocytes % (Manual) 8 L Monocytes % Monocytes % (Manual) 4 Eosinophils % Eosinophils % (Manual) 1 Basophils % Metamyelocytes % (manual) 4 H Myelocytes % (Manual) 4 H Nucleated Red Blood Cells % 1 H Immature Granulocytes # 0.520 H Neutrophils # Neutrophils # (Manual) 2.7 Band Neutrophils # 2.8 H Lymphocytes (Manual) 0.5 L Lymphocytes # Monocytes # Monocytes # (Manual) 0.2 L Eosinophils # Basophils # Metamyelocytes # 0.2 H Myelocytes # 0.2 H Nucleated Red Blood Cells # Platelet Estimate NORMAL Polychromasia 2+ Anisocytosis 1+ Sodium Level 137 Potassium Level 3.4 L Chloride Level 108 Carbon Dioxide Level 22 Anion Gap 7 Blood Urea Nitrogen 8 Creatinine 1.03 H Glucose Level 117 Calcium Level 7.8 L Phosphorus Level 3.6 Magnesium Level 2.0 Albumin 2.1 L Consultation Date/Type/Reason Admit Date/Time Jul 28, 2018 at 00:46 Initial Consult Date 07/28/18 Type of Consult ONCOLOGY Reason for Consultation RECTAL CANCER Requesting Provider: CAMRYN PRICE 24 HR Interval Summary Free Text/Dictation afebrile patient denies any diarrhea Constitutional: improved, requiring IVF Detailed Summary Eyes: no complaints ENT: no complaints Respiratory: no complaints Cardiovascular: no complaints Gastrointestinal: no complaints Genitourinary: no complaints Musculoskeletal: no complaints Skin: no complaints Neurologic: no complaints Endocrine: no complaints Psychological: nl mood/affect Immunologic: no complaints Exam/Review of Systems Vital Signs Vitals Vital Signs Date Temp Pulse Resp B/P (MAP) Pulse Ox O2 O2 Flow FiO2 Time Delivery Rate 08/11/18 106 08:48 08/11/18 98.2 08:21 08/11/18 22 92/55 (67) 96 Room Air 07:43 Intake and Output 08/10/18 08/10/18 08/11/18 1515:00 23:00 07:00 IntakeIntake Total 200 ml 1350 ml 1523 ml BalanceBalance 200 ml 1350 ml 1523 ml Exam Constitutional: alert, oriented, well developed, obese Psych: nl mood/affect Head: atraumatic Eyes: nl conjunctiva, EOMI, nl lids, nl sclera ENMT: nl external ears & nose Neck: non-tender Respiratory: clear to auscultation (bilaterally) Cardiovascular: nl pulses Gastrointestinal: soft, non-tender Musculoskeletal: nl extremities to inspection Extremities: normal pulses Neurological: nl mental status, nl speech Skin: nl turgor Medications Medications Current Medications IV Flush (NS 3 ml) 3 ml PER PROTOCOL IV ; Start 07/28/18 at 01:30 Ondansetron HCl (Zofran Inj) 4 mg Q6H PRN IV NAUSEA AND/OR VOMITING Last administered on 08/08/18 17:10; Admin Dose 4 MG; Start 07/28/18 at 01:30 Acetaminophen (Tylenol Tab) 650 mg Q6H PRN PO PAIN LEVEL 1-3 OR FEVER Last administered on 08/11/18 08:21; Admin Dose 650 MG; Start 07/28/18 at 01:30 Enoxaparin Sodium (Lovenox) 40 mg DAILY SC Last administered on 08/11/18 08:33; Admin Dose 40 MG; Start 07/28/18 at 09:00 Simethicone (Mylicon) 80 mg Q6H PRN PO DISTENSION/GAS/BLOATING Last administered on 08/10/18 23:50; Admin Dose 80 MG; Start 07/28/18 at 10:30 Pantoprazole (Protonix Iv) 40 mg BID IV Last administered on 08/11/18 08:22; Admin Dose 40 MG; Start 07/30/18 at 09:00 Metoprolol Tartrate (Lopressor) 5 mg Q4H PRN IV HR >100; Start 07/30/18 at 09:30 Amlodipine Besylate (Norvasc) 5 mg DAILY NGT Last administered on 08/10/18 08:24; Admin Dose 5 MG; Start 07/30/18 at 09:30 Sucralfate (Carafate Susp) 1 gm QID PO Last administered on 08/11/18 08:22; Admin Dose 1 GM; Start 08/02/18 at 17:00 Sodium Chloride (Deep Sea) 1 spray Q2 PRN NASAL NASAL CONGESTION Last administered on 08/03/18 06:23; Admin Dose 1 SPRAY; Start 08/03/18 at 05:00 Metoclopramide HCl (Reglan) 10 mg Q6H PRN IV n/v; Start 08/04/18 at 13:30 Sodium Chloride 1,000 ml @ 50 mls/hr Q20H IV Last administered on 08/10/18 14:06; Admin Dose 50 MLS/HR; Start 08/04/18 at 14:00 Phenol (Cepastat Lozenge) 1 lozenge Q1H PRN MT throat pain Last administered on 08/09/18 03:18; Admin Dose 1 LOZENGE; Start 08/05/18 at 12:00 Loperamide HCl (Imodium Cap) 2 mg TID PRN PO diarrhea Last administered on 08/10/18 23:50; Admin Dose 2 MG; Start 08/06/18 at 13:00 Nystatin (Nystatin Susp) 5 ml QID PO Last administered on 08/11/18 08:22; Admin Dose 5 ML; Start 08/06/18 at 17:00; Stop 08/13/18 at 17:00 Vancomycin HCl (Vanco Iv Per Pharmacy) VANCOMYCIN PER PHARMACY PER PROTOCOL XX ; Start 08/08/18 at 09:30 Chlorhexidine Gluconate (Peridex) 15 ml Q12 MT Last administered on 08/10/18at 20:43; Admin Dose 15 ML; Start 08/08/18 at 14:00 IV Flush (NS 10 ml) 10 ml PRN PRN IV IV PROTOCOL; Start 08/08/18 at 17:30 Meropenem/Sodium Chloride 50 ml @ 100 mls/hr Q12 IVPB Last administered on 08/11/18 08:33; Admin Dose 100 MLS/HR; Start 08/10/18 at 15:00 Vancomycin HCl 1.25 gm/Sodium Chloride 250 ml @ 83.333 mls/ hr Q12H IVPB Last administered on 08/11/18 05:31; Admin Dose 83.333 MLS/HR; Start 08/10/18 at 17:00 Morphine Sulfate (morphine) 6 mg Q3H PRN PO SEVERE PAIN LEVEL 7-10 Last administered on 08/11/18 04:54; Admin Dose 6 MG; Start 08/10/18 at 22:30 DUC SEGAL Aug 11, 2018 10:48
[2018-08-11] MEDS: AMLODIPINE 5 MG TAB NGT SCH (11:06)
[2018-08-11] MEDS: CHLORHEXIDINE GLUCONATE 15 ML UD CUP MT SCH ×2 (11:07→20:27)
[2018-08-11] MEDS: POTASSIUM CHLORIDE 100 ML IVPB SCH ×3 (12:43→18:33)
--- NOTE | 2018-08-11 15:14 | CONS ---
Date/Time of Note Date/Time of Note DATE: 08/11/18 TIME: 15:13 Assessment/Plan Assessment/Plan Hospital Course Patient states she feels much better she is alert awake denies pain no nausea vomiting still loose stools no fevers overnight. WBC 6.9 bands 42 BUN 8 creatinine 1.03 Blood culture on admission grew coag negative staph species, repeat blood cultures negative Indwelling: Left upper extremity PICC line 08/08/18 Antimicrobials: Vancomycin, Merrem Physical examination: This is a obese well-developed middle-aged woman who is awake in no distress. Head atraumatic normocephalic sclera nonicteric vehicle m ucosa dry neck is supple chest rise symmetrical breath sounds clear. Heart: S1- S2. Abdomen soft bowel sounds present extremities without cyanosis Assessment: 1. S/p sepsis on admission 2. S/p staph bacteremia, likely contaminant 3. Status post acute abdominal pain secondary to ileus possible obstruction, resolved 4. Metastatic rectal cancer 4. Morbid obesity Plan: Clinically stable, afebrile since yesterday, on broad-spectrum antibiotics, continue present care and monitor, check procalcitonin Result Diagram: 08/11/18 0454 08/11/18 0454 Results 24hrs Laboratory Tests Test 08/11/18 04:54 White Blood Count 6.9 # Red Blood Count 2.60 L Hemoglobin 8.1 L Hematocrit 25.5 L Mean Corpuscular Volume 98.1 Mean Corpuscular Hemoglobin 31.2 Mean Corpuscular Hemoglobin Concent 31.8 L Red Cell Distribution Width 15.9 H Platelet Count 394 Mean Platelet Volume 8.3 Immature Granulocytes % 7.600 H Neutrophils % Segmented Neutrophils % (Manual) 37 L Band Neutrophils % (Manual) 42 H Lymphocytes % Lymphocytes % (Manual) 8 L Monocytes % Monocytes % (Manual) 4 Eosinophils % Eosinophils % (Manual) 1 Basophils % Metamyelocytes % (manual) 4 H Myelocytes % (Manual) 4 H Nucleated Red Blood Cells % 1 H Immature Granulocytes # 0.520 H Neutrophils # Neutrophils # (Manual) 2.7 Band Neutrophils # 2.8 H Lymphocytes (Manual) 0.5 L Lymphocytes # Monocytes # Monocytes # (Manual) 0.2 L Eosinophils # Basophils # Metamyelocytes # 0.2 H Myelocytes # 0.2 H Nucleated Red Blood Cells # Platelet Estimate NORMAL Polychromasia 2+ Anisocytosis 1+ Sodium Level 137 Potassium Level 3.4 L Chloride Level 108 Carbon Dioxide Level 22 Anion Gap 7 Blood Urea Nitrogen 8 Creatinine 1.03 H Glucose Level 117 Calcium Level 7.8 L Phosphorus Level 3.6 Magnesium Level 2.0 Albumin 2.1 L Consultation Date/Type/Reason Admit Date/Time Jul 28, 2018 at 00:46 Initial Consult Date 07/28/18 Type of Consult id Requesting Provider: CAMRYN PRICE Exam/Review of Systems Vital Signs Vitals Vital Signs Date Temp Pulse Resp B/P (MAP) Pulse Ox O2 O2 Flow FiO2 Time Delivery Rate 08/11/18 102 12:36 08/11/18 97.9 22 122/58 96 Room Air 10:52 (79) Intake and Output 08/10/18 08/10/18 08/11/18 1515:00 23:00 07:00 IntakeIntake Total 200 ml 1350 ml 1523 ml BalanceBalance 200 ml 1350 ml 1523 ml Medications Medications Current Medications IV Flush (NS 3 ml) 3 ml PER PROTOCOL IV ; Start 07/28/18 at 01:30 Ondansetron HCl (Zofran Inj) 4 mg Q6H PRN IV NAUSEA AND/OR VOMITING Last administered on 08/08/18 17:10; Admin Dose 4 MG; Start 07/28/18 at 01:30 Acetaminophen (Tylenol Tab) 650 mg Q6H PRN PO PAIN LEVEL 1-3 OR FEVER Last admi nistered on 08/11/18 08:21; Admin Dose 650 MG; Start 07/28/18 at 01:30 Enoxaparin Sodium (Lovenox) 40 mg DAILY SC Last administered on 08/11/18 08:33; Admin Dose 40 MG; Start 07/28/18 at 09:00 Simethicone (Mylicon) 80 mg Q6H PRN PO DISTENSION/GAS/BLOATING Last administered on 08/11/18 12:50; Admin Dose 80 MG; Start 07/28/18 at 10:30 Pantoprazole (Protonix Iv) 40 mg BID IV Last administered on 08/11/18 08:22; Admin Dose 40 MG; Start 07/30/18 at 09:00 Metoprolol Tartrate (Lopressor) 5 mg Q4H PRN IV HR >100; Start 07/30/18 at 09:30 Amlodipine Besylate (Norvasc) 5 mg DAILY NGT Last administered on 08/11/18 11:06; Admin Dose 5 MG; Start 07/30/18 at 09:30 Sucralfate (Carafate Susp) 1 gm QID PO Last administered on 08/11/18 12:47; Admin Dose 1 GM; Start 08/02/18 at 17:00 Sodium Chloride (Deep Sea) 1 spray Q2 PRN NASAL NASAL CONGESTION Last administered on 08/03/18 06:23; Admin Dose 1 SPRAY; Start 08/03/18 at 05:00 Metoclopramide HCl (Reglan) 10 mg Q6H PRN IV n/v; Start 08/04/18 at 13:30 Sodium Chloride 1,000 ml @ 50 mls/hr Q20H IV Last administered on 08/10/18 14:06; Admin Dose 50 MLS/HR; Start 08/04/18 at 14:00 Phenol (Cepastat Lozenge) 1 lozenge Q1H PRN MT throat pain Last administered on 08/09/18 03:18; Admin Dose 1 LOZENGE; Start 08/05/18 at 12:00 Loperamide HCl (Imodium Cap) 2 mg TID PRN PO diarrhea Last administered on 08/10/18 23:50; Admin Dose 2 MG; Start 08/06/18 at 13:00 Nystatin (Nystatin Susp) 5 ml QID PO Last administered on 08/11/18 12:48; Admin Dose 5 ML; Start 08/06/18 at 17:00; Stop 08/13/18 at 17:00 Vancomycin HCl (Vanco Iv Per Pharmacy) VANCOMYCIN PER PHARMACY PER PROTOCOL XX ; Start 08/08/18 at 09:30 Chlorhexidine Gluconate (Peridex) 15 ml Q12 MT Last administered on 08/11/18 11:07; Admin Dose 15 ML; Start 08/08/18 at 14:00 IV Flush (NS 10 ml) 10 ml PRN PRN IV IV PROTOCOL; Start 08/08/18 at 17:30 Meropenem/Sodium Chloride 50 ml @ 100 mls/hr Q12 IVPB Last administered on 08/11/18 08:33; Admin Dose 100 MLS/HR; Start 08/10/18 at 15:00 Vancomycin HCl 1.25 gm/Sodium Chloride 250 ml @ 83.333 mls/ hr Q12H IVPB Last administered on 08/11/18at 05:31; Admin Dose 83.333 MLS/HR; Start 08/10/18 at 17:00 Morphine Sulfate (morphine) 6 mg Q3H PRN PO SEVERE PAIN LEVEL 7-10 Last administered on 08/11/18at 04:54; Admin Dose 6 MG; Start 08/10/18 at 22:30 Potassium Chloride 100 ml @ 50 mls/hr Q2H IVPB Last administered on 08/11/18at 14:57; Admin Dose 50 MLS/HR; Start 08/11/18 at 13:00; Stop 08/11/18 at 18:59 Trazodone HCl (Desyrel) 50 mg HS PO ; Start 08/11/18 at 21:00 RADHA MIR NP Aug 11, 2018 15:14
--- NOTE | 2018-08-11 16:29 | PN ---
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 The biopsy shows features of ischemic injuries. Radiation effect cannot be completely ruled out Nausea/vomiting- -Reported coffee-ground emesis -Bright red emesis- after eating jello? EGD 07/29/18 Severe erosive distal esophagitis Retained material in the stomach consistent with gastroparesis Moderate gastritis Abdominal pain-resolved Bowel obstruction vs ileus- resolved Diarrhea- improved Hyperkalemia- resolved Oral grayson- improved Normocytic anemia Bacteremia- Gram positive cocci in pairs and clusters Fevers Plan: ABX per ID Continue nystatin 5 ml po QID for a total of x7 days Continue supportive care- d/c planning per hospitalist Pt to f/u with oncologist post discharge Patient seen in collaboration and discussed with /Carissa Subjective/Free text: Course reviewed with nursing staff Patient interviewed and examined All labs, imaging and other results reviewed Pt feels well, family at bedside. No further episodes of diarrhea poss d/c in am if patient remains afebrile. PHYSICAL EXAMINATION: GENERAL: Alert & oriented x 3, in no acute distress SKIN: No lesions EYES: Pupils equal reactive to light, no discharge. EARS/NOSE AND THROAT: Ears normal, nose normal, oropharynx normal, oral grayson- improved NECK: Supple, no masses CHEST: Inspection within normal limits. CARDIOVASCULAR: Heart: Regular rate and rhythm RESPIRATORY: Lungs clear to auscultation GASTROINTESTINAL AND LIVER: Abdomen: No tenderness, mildly distended, soft, no hernias, no masses, no organomegaly, no ascites, no guarding, no rebound tenderness, hypoactive bowel sounds. Rectal: Deferred. GENITOURINARY: Not examined EXTREMITIES: No cyanosis, clubbing or edema. Result Diagram: 08/11/18 0454 08/11/18 0454 Results 24hrs Laboratory Tests Test 08/11/18 04:54 White Blood Count 6.9 # Red Blood Count 2.60 L Hemoglobin 8.1 L Hematocrit 25.5 L Mean Corpuscular Volume 98.1 Mean Corpuscular Hemoglobin 31.2 Mean Corpuscular Hemoglobin Concent 31.8 L Red Cell Distribution Width 15.9 H Platelet Count 394 Mean Platelet Volume 8.3 Immature Granulocytes % 7.600 H Neutrophils % Segmented Neutrophils % (Manual) 37 L Band Neutrophils % (Manual) 42 H Lymphocytes % Lymphocytes % (Manual) 8 L Monocytes % Monocytes % (Manual) 4 Eosinophils % Eosinophils % (Manual) 1 Basophils % Metamyelocytes % (manual) 4 H Myelocytes % (Manual) 4 H Nucleated Red Blood Cells % 1 H Immature Granulocytes # 0.520 H Neutrophils # Neutrophils # (Manual) 2.7 Band Neutrophils # 2.8 H Lymphocytes (Manual) 0.5 L Lymphocytes # Monocytes # Monocytes # (Manual) 0.2 L Eosinophils # Basophils # Metamyelocytes # 0.2 H Myelocytes # 0.2 H Nucleated Red Blood Cells # Platelet Estimate NORMAL Polychromasia 2+ Anisocytosis 1+ Sodium Level 137 Potassium Level 3.4 L Chloride Level 108 Carbon Dioxide Level 22 Anion Gap 7 Blood Urea Nitrogen 8 Creatinine 1.03 H Glucose Level 117 Calcium Level 7.8 L Phosphorus Level 3.6 Magnesium Level 2.0 Albumin 2.1 L Exam/Review of Systems Vital Signs Vitals Vital Signs Date Temp Pulse Resp B/P (MAP) Pulse Ox O2 O2 Flow FiO2 Time Delivery Rate 08/11/18 100 16:27 08/11/18 97.9 22 122/58 96 Room Air 10:52 (79) Intake and Output 08/10/18 08/10/18 08/11/18 1515:00 23:00 07:00 IntakeIntake Total 200 ml 1350 ml 1523 ml BalanceBalance 200 ml 1350 ml 1523 ml Medications Medications Current Medications IV Flush (NS 3 ml) 3 ml PER PROTOCOL IV ; Start 07/28/18 at 01:30 Ondansetron HCl (Zofran Inj) 4 mg Q6H PRN IV NAUSEA AND/OR VOMITING Last administered on 08/08/18at 17:10; Admin Dose 4 MG; Start 07/28/18 at 01:30 Acetaminophen (Tylenol Tab) 650 mg Q6H PRN PO PAIN LEVEL 1-3 OR FEVER Last administered on 08/11/18 08:21; Admin Dose 650 MG; Start 07/28/18 at 01:30 Enoxaparin Sodium (Lovenox) 40 mg DAILY SC Last administered on 08/11/18 08:33; Admin Dose 40 MG; Start 07/28/18 at 09:00 Simethicone (Mylicon) 80 mg Q6H PRN PO DISTENSION/GAS/BLOATING Last administered on 08/11/18 12:50; Admin Dose 80 MG; Start 07/28/18 at 10:30 Pantoprazole (Protonix Iv) 40 mg BID IV Last administered on 08/11/18 08:22; Admin Dose 40 MG; Start 07/30/18 at 09:00 Metoprolol Tartrate (Lopressor) 5 mg Q4H PRN IV HR >100; Start 07/30/18 at 09:30 Amlodipine Besylate (Norvasc) 5 mg DAILY NGT Last administered on 08/11/18 11:06; Admin Dose 5 MG; Start 07/30/18 at 09:30 Sucralfate (Carafate Susp) 1 gm QID PO Last administered on 08/11/18 12:47; Admin Dose 1 GM; Start 08/02/18 at 17:00 Sodium Chloride (Deep Sea) 1 spray Q2 PRN NASAL NASAL CONGESTION Last administered on 08/03/18 06:23; Admin Dose 1 SPRAY; Start 08/03/18 at 05:00 Metoclopramide HCl (Reglan) 10 mg Q6H PRN IV n/v; Start 08/04/18 at 13:30 Sodium Chloride 1,000 ml @ 50 mls/hr Q20H IV Last administered on 08/10/18 14:06; Admin Dose 50 MLS/HR; Start 08/04/18 at 14:00 Phenol (Cepastat Lozenge) 1 lozenge Q1H PRN MT throat pain Last administered on 08/09/18 03:18; Admin Dose 1 LOZENGE; Start 08/05/18 at 12:00 Loperamide HCl (Imodium Cap) 2 mg TID PRN PO diarrhea Last administered on 08/10/18at 23:50; Admin Dose 2 MG; Start 08/06/18 at 13:00 Nystatin (Nystatin Susp) 5 ml QID PO Last administered on 08/11/18at 12:48; Admin Dose 5 ML; Start 08/06/18 at 17:00; Stop 08/13/18 at 17:00 Vancomycin HCl (Vanco Iv Per Pharmacy) VANCOMYCIN PER PHARMACY PER PROTOCOL XX ; Start 08/08/18 at 09:30 Chlorhexidine Gluconate (Peridex) 15 ml Q12 MT Last administered on 08/11/18at 11:07; Admin Dose 15 ML; Start 08/08/18 at 14:00 IV Flush (NS 10 ml) 10 ml PRN PRN IV IV PROTOCOL; Start 08/08/18 at 17:30 Meropenem/Sodium Chloride 50 ml @ 100 mls/hr Q12 IVPB Last administered on 08/11/18at 08:33; Admin Dose 100 MLS/HR; Start 08/10/18 at 15:00 Vancomycin HCl 1.25 gm/Sodium Chloride 250 ml @ 83.333 mls/ hr Q12H IVPB Last administered on 08/11/18at 05:31; Admin Dose 83.333 MLS/HR; Start 08/10/18 at 17:00 Morphine Sulfate (morphine) 6 mg Q3H PRN PO SEVERE PAIN LEVEL 7-10 Last administered on 08/11/18at 04:54; Admin Dose 6 MG; Start 08/10/18 at 22:30 Potassium Chloride 100 ml @ 50 mls/hr Q2H IVPB Last administered on 08/11/18at 14:57; Admin Dose 50 MLS/HR; Start 08/11/18 at 13:00; Stop 08/11/18 at 18:59 Trazodone HCl (Desyrel) 50 mg HS PO ; Start 08/11/18 at 21:00 Miscellaneous Information (*Rx Drug Level Order Reminder*) 1 ONCE ONCE XX ; Start 08/12/18 at 04:00; Stop 08/12/18 at 04:01 KOFFI MCGRATH Aug 11, 2018 16:29
[2018-08-11] MEDS ORDERED: traZODone 50 MG TAB PO SCH (21:00)
[2018-08-11] MEDS: LOPERAMIDE 2 MG CAP PO PRN (22:41)
[2018-08-12] VITALS (11 sets, daily range): BP systolic 108–130; BP diastolic 53–66; PULSE 87–113; RESP 18–20
[2018-08-12] MEDS: SOD CHLORIDE 0.45% 1,000 ML IV SCH ×2 (00:10→02:00)
[2018-08-12] MEDS: LOPERAMIDE 2 MG CAP PO PRN (06:37)
--- NOTE | 2018-08-12 08:05 | PN ---
Date/Time of Note Date/Time of Note DATE: 08/12/18 TIME: 08:05 Assessment/Plan VTE Prophylaxis Risk score (from Ns)>0 risk: 6 SCD applied (from Ns): No SCD contraindicated: patient refusal Pharmacological prophylaxis: NA/contraindicated Pharm contraindication: bleeding Lines/Catheters IV Catheter Type (from [facility]): PICC Line Central line still needed: No Urinary Cath still in place: No Assessment/Plan Assessment/Plan 1. Sepsis secondary to bacteremia- resolved - Patient still has bands but may be from malignancy given she has remained afebrile and asymptomatic - Patient has remained afebrile and after discussion with ID unsure source of infection. - CXR noted with no acute issues - Initial blood culture results noted and repeat negative to date 2. Acute abdominal pain secondary to ileus vs obstruction- resolved - Diarrhea improved significantly - Colonoscopy performed 07.29 showed no mass, but could not proceed further than stricture. Colon ulcerations appreciated and bx negative for malignancy - GI on board and appreciate recommendations. continue current course of treatment. okay for discharge planning from their standpoint 3. Acute diarrhea- resolving - stool culture results noted - CT noted 4. DANYELL- resolved - Cr returned to baseline - most likely prerenal secondary to GI losses 5. 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 Severe gastritis/erosive esophagitis - seen on EGD which was performed 07/29 - Continue on Reglan, PPI and Carafate 7. Hypertension - Bp controlled 8. Disposition - Medically stable for discharge. Will touch base with ID on antibiotic d/c planning as well Result Diagram: 08/12/18 0418 08/12/18 0418 Results 24hrs Laboratory Tests Test 08/12/18 04:18 08/12/18 04:19 White Blood Count 7.2 Red Blood Count 2.69 L Hemoglobin 8.3 L Hematocrit 26.4 L Mean Corpuscular Volume 98.1 Mean Corpuscular Hemoglobin 30.9 Mean Corpuscular Hemoglobin Concent 31.4 L Red Cell Distribution Width 16.3 H Platelet Count 415 Mean Platelet Volume 8.5 Immature Granulocytes % 7.500 H Neutrophils % Segmented Neutrophils % (Manual) 43 Band Neutrophils % (Manual) 21 H Lymphocytes % Lymphocytes % (Manual) 9 L Reactive Lymphocytes % (Manual) 5 H Monocytes % Monocytes % (Manual) 15 H Eosinophils % Basophils % Basophils % (Manual) 1 Metamyelocytes % (manual) 2 H Myelocytes % (Manual) 3 H Promyelocytes % (Manual) 1 H Nucleated Red Blood Cells % 0.4 H Immature Granulocytes # 0.540 H Neutrophils # Neutrophils # (Manual) 3.2 Band Neutrophils # 1.5 H Lymphocytes (Manual) 0.6 L Lymphocytes # Reactive Lymphocytes # 0.3 H Monocytes # Monocytes # (Manual) 1.0 H Eosinophils # Basophils # Basophils # (Manual) 0.0 Metamyelocytes # 0.1 H Myelocytes # 0.2 H Promyelocytes # 0.0 Nucleated Red Blood Cells # Platelet Estimate NORMAL Polychromasia 1+ Sodium Level 138 Potassium Level 3.9 Chloride Level 107 Carbon Dioxide Level 24 Anion Gap 7 Blood Urea Nitrogen 10 Creatinine 0.95 Glucose Level 98 Calcium Level 7.8 L Phosphorus Level 3.7 Magnesium Level 1.7 Albumin 2.2 L Vancomycin Level Trough 19.7 Subjective 24 Hr Interval Summary Free Text/Dictation Patient doing well and states stool is more gelatin in nature and smells like fruits but denies any abdominal pain. States bloating has improved significantly. Tolerating PO intake and denies any fevers. Exam/Review of Systems Vital Signs Vitals Vital Signs Date Temp Pulse Resp B/P (MAP) Pulse Ox O2 O2 Flow FiO2 Time Delivery Rate 08/12/18 98.6 103 18 121/60 97 07:38 (80) 08/12/18 Room Air 04:29 Intake and Output 08/11/18 08/11/18 08/12/18 1515:00 23:00 07:00 IntakeIntake Total 50 ml 1220 ml 600 ml BalanceBalance 50 ml 1220 ml 600 ml Exam General: Patient is laying in bed and answers questions appropriately, no acute distress Neck: Supple Respiratory: Clear to auscultation bilaterally. no wheezing or rhonchi Cardiovascular: regular rate and rhythm, no obvious murmurs Gastrointestinal: soft, non tender to palpation, non distended, bowel sounds heard. no rebound or guarding Neurological: Moves all extremities spontaneously Skin: No new skin lesions Medications Medications Current Medications IV Flush (NS 3 ml) 3 ml PER PROTOCOL IV ; Start 07/28/18 at 01:30 Ondansetron HCl (Zofran Inj) 4 mg Q6H PRN IV NAUSEA AND/OR VOMITING Last administered on 08/08/18 17:10; Admin Dose 4 MG; Start 07/28/18 at 01:30 Acetaminophen (Tylenol Tab) 650 mg Q6H PRN PO PAIN LEVEL 1-3 OR FEVER Last administered on 08/11/18 23:52; Admin Dose 650 MG; Start 07/28/18 at 01:30 Enoxaparin Sodium (Lovenox) 40 mg DAILY SC Last administered on 08/11/18 08:33; Admin Dose 40 MG; Start 07/28/18 at 09:00 Simethicone (Mylicon) 80 mg Q6H PRN PO DISTENSION/GAS/BLOATING Last administered on 08/12/18 06:37; Admin Dose 80 MG; Start 07/28/18 at 10:30 Pantoprazole (Protonix Iv) 40 mg BID IV Last administered on 08/11/18 20:27; Admin Dose 40 MG; Start 07/30/18 at 09:00 Metoprolol Tartrate (Lopressor) 5 mg Q4H PRN IV HR >100; Start 07/30/18 at 09:30 Amlodipine Besylate (Norvasc) 5 mg DAILY NGT Last administered on 08/11/18 11:06; Admin Dose 5 MG; Start 07/30/18 at 09:30 Sucralfate (Carafate Susp) 1 gm QID PO Last administered on 08/11/18 20:27; Admin Dose 1 GM; Start 08/02/18 at 17:00 Sodium Chloride (Deep Sea) 1 spray Q2 PRN NASAL NASAL CONGESTION Last administered on 08/03/18 06:23; Admin Dose 1 SPRAY; Start 08/03/18 at 05:00 Metoclopramide HCl (Reglan) 10 mg Q6H PRN IV n/v; Start 08/04/18 at 13:30 Sodium Chloride 1,000 ml @ 50 mls/hr Q20H IV Last administered on 08/12/18 00:10; Admin Dose 50 MLS/HR; Start 08/04/18 at 14:00 Phenol (Cepastat Lozenge) 1 lozenge Q1H PRN MT throat pain Last administered on 08/09/18 03:18; Admin Dose 1 LOZENGE; Start 08/05/18 at 12:00 Loperamide HCl (Imodium Cap) 2 mg TID PRN PO diarrhea Last administered on 08/12/18at 06:37; Admin Dose 2 MG; Start 08/06/18 at 13:00 Nystatin (Nystatin Susp) 5 ml QID PO Last administered on 08/11/18at 20:27; Admin Dose 5 ML; Start 08/06/18 at 17:00; Stop 08/13/18 at 17:00 Vancomycin HCl (Vanco Iv Per Pharmacy) VANCOMYCIN PER PHARMACY PER PROTOCOL XX ; Start 08/08/18 at 09:30 Chlorhexidine Gluconate (Peridex) 15 ml Q12 MT Last administered on 08/11/18 20:27; Admin Dose 15 ML; Start 08/08/18 at 14:00 IV Flush (NS 10 ml) 10 ml PRN PRN IV IV PROTOCOL; Start 08/08/18 at 17:30 Meropenem/Sodium Chloride 50 ml @ 100 mls/hr Q12 IVPB Last administered on 08/11/18at 20:27; Admin Dose 100 MLS/HR; Start 08/10/18 at 15:00 Morphine Sulfate (morphine) 6 mg Q3H PRN PO SEVERE PAIN LEVEL 7-10 Last administered on 08/11/18at 04:54; Admin Dose 6 MG; Start 08/10/18 at 22:30 Trazodone HCl (Desyrel) 50 mg HS PO Last administered on 08/11/18 20:27; Admin Dose 50 MG; Start 08/11/18 at 21:00 Vancomycin HCl 250 ml @ 125 mls/hr Q12H IVPB ; Start 08/12/18 at 10:00 HAYLEE MERLOS MD Aug 12, 2018 08:05
[2018-08-12] MEDS: SUCRALFATE (100 MG/ML) 10ML CUP PO SCH ×3 (09:45→16:57)
[2018-08-12] MEDS: NYSTATIN SUSP 5 ML CUP PO SCH ×3 (09:45→16:57)
[2018-08-12] MEDS: AMLODIPINE 5 MG TAB NGT SCH (09:47)
[2018-08-12] MEDS: PANTOPRAZOLE 40 MG INJ IV SCH (09:55)
[2018-08-12] MEDS: MEROPENEM 1 GM/50ML(PMX) 50 ML IVPB SCH (09:55)
[2018-08-12] MEDS: CHLORHEXIDINE GLUCONATE 15 ML UD CUP MT SCH (09:59)
[2018-08-12] MEDS ORDERED: VANCOMYCIN 1 GM 250 ML IVPB SCH (10:00)
[2018-08-12] MEDS: ENOXAPARIN 40 MG/0.4 ML SYG SC SCH (10:11)
[2018-08-12] MEDS ORDERED: SUCR1TAB56 PO (11:12)
[2018-08-12] MEDS ORDERED: PANT40TA4 PO (11:12)
[2018-08-12] MEDS ORDERED: LOPE-123 PO (11:12)
[2018-08-12] MEDS ORDERED: SIME80TA16 PO (11:12)
[2018-08-12] MEDS ORDERED: AMLO-145 PO (11:12)
--- NOTE | 2018-08-12 11:15 | PDOCDIS ---
Discharge Instructions DIAGNOSIS Discharge Diagnosis 1. Sepsis secondary to bacteremia- resolved 2. Acute abdominal pain secondary to ileus vs obstruction- resolved 3. Acute diarrhea- resolving 4. DANYELL- resolved 5. Rectal pain with history of metastatic rectal cancer 6. Severe gastritis/erosive esophagitis 7. Hypertension CONDITION [id number] Patient Condition: [id number] Stable HOME CARE INSTRUCTIONS: [id number] Diet Instructions: [id number] Regular FOLLOW UP/APPOINTMENTS Follow-up Plan 1. Follow up with your primary care physician in 1 week 2. Follow up with your oncologist to determine when to resume your chemotherapy as outpatient 3. Take Protonix twice a day for 8 weeks then continue daily 4. Take Carafate with meals for 1 month 5. Take all other medications as prescribed 6. If symptoms return or worsen, please go to your closest emergency department HAYLEE MERLOS MD Aug 12, 2018 11:15
--- NOTE | 2018-08-12 13:21 | CONS ---
Date/Time of Note Date/Time of Note DATE: 08/12/18 TIME: 13:20 Assessment/Plan Assessment/Plan Assessment/Plan #Metastatic rectal ca - dx 03/2017 -Initially pt has known nodular circumferential mural thickening of the distal sigmoid colon and rectum extending to the anus, abdominal wall tumor implants, liver masses as well as bilateral ureteral obstruction with bilateral hydronephrosis. -pt has since completed concurrent chemotherapy with radiation with 50 to 55 Gy over a 4 week period to treat the pelvis and bilateral groin lymph nodes. She has also completed 4 cycles of Xelox and has been on single agent Xeloda since -pt may restart Xeloda as an out patient. 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 BX revealed no evidence of malignancy # Intractable Nausea/vomiting -on diet per GI- tolerating well - coffee-ground emesis/drainage per NGT. NGT now dc'd - EGD 07/29/18 showed- Severe erosive distal esophagitis; Retained material in the stomach consistent with gastroparesis; Moderate gastritis #Diarrhea- resolved #Ovarian cyst -continue to monitor. if this grows in size it can be removed at that time Anticipate discharge tomorrow Thank you for the opportunity to participate in this patients care. A total of 40 minutes of face to face time was spent speaking with the patient, of which greater than 50% was spent in counseling and coordination of care and the detailed question and answer session. Patient needs to continue Xeloda at home on discharge. Fu with Dr Marshall x 1-2 weeks. Patient seen in collaboration with Dr Marshall Result Diagram: 08/12/18 0418 08/12/18 0418 Results 24hrs Laboratory Tests Test 08/12/18 04:18 08/12/18 04:19 White Blood Count 7.2 Red Blood Count 2.69 L Hemoglobin 8.3 L Hematocrit 26.4 L Mean Corpuscular Volume 98.1 Mean Corpuscular Hemoglobin 30.9 Mean Corpuscular Hemoglobin Concent 31.4 L Red Cell Distribution Width 16.3 H Platelet Count 415 Mean Platelet Volume 8.5 Immature Granulocytes % 7.500 H Neutrophils % Segmented Neutrophils % (Manual) 43 Band Neutrophils % (Manual) 21 H Lymphocytes % Lymphocytes % (Manual) 9 L Reactive Lymphocytes % (Manual) 5 H Monocytes % Monocytes % (Manual) 15 H Eosinophils % Basophils % Basophils % (Manual) 1 Metamyelocytes % (manual) 2 H Myelocytes % (Manual) 3 H Promyelocytes % (Manual) 1 H Nucleated Red Blood Cells % 0.4 H Immature Granulocytes # 0.540 H Neutrophils # Neutrophils # (Manual) 3.2 Band Neutrophils # 1.5 H Lymphocytes (Manual) 0.6 L Lymphocytes # Reactive Lymphocytes # 0.3 H Monocytes # Monocytes # (Manual) 1.0 H Eosinophils # Basophils # Basophils # (Manual) 0.0 Metamyelocytes # 0.1 H Myelocytes # 0.2 H Promyelocytes # 0.0 Nucleated Red Blood Cells # Platelet Estimate NORMAL Polychromasia 1+ Sodium Level 138 Potassium Level 3.9 Chloride Level 107 Carbon Dioxide Level 24 Anion Gap 7 Blood Urea Nitrogen 10 Creatinine 0.95 Glucose Level 98 Calcium Level 7.8 L Phosphorus Level 3.7 Magnesium Level 1.7 Albumin 2.2 L Vancomycin Level Trough 19.7 Consultation Date/Type/Reason Admit Date/Time Jul 28, 2018 at 12:46 am Initial Consult Date 07/28/18 Type of Consult ONCOLOGY Requesting Provider: CAMRYN PRICE 24 HR Interval Summary Free Text/Dictation feels better denies diarrhea Patient stated she will fu with her own Oncologist on discharge no new issues reported overnight Constitutional: improved Detailed Summary Eyes: no complaints ENT: no complaints Respiratory: no complaints Cardiovascular: no complaints Gastrointestinal: no complaints Genitourinary: no complaints Musculoskeletal: no complaints Skin: no complaints Neurologic: no complaints Endocrine: no complaints Lymphatic: no complaints Psychological: nl mood/affect Immunologic: no complaints Exam/Review of Systems Vital Signs Vitals Vital Signs Date Temp Pulse Resp B/P (MAP) Pulse Ox O2 O2 Flow FiO2 Time Delivery Rate 08/12/18 107 12:17 08/12/18 99.1 20 116/56 99 11:48 (76) 08/12/18 Room Air 04:29 Intake and Output 08/11/18 08/11/18 08/12/18 1515:00 23:00 07:00 IntakeIntake Total 50 ml 1570 ml 600 ml BalanceBalance 50 ml 1570 ml 600 ml Exam Constitutional: alert, oriented, well developed, obese Psych: nl mood/affect Head: atraumatic Eyes: nl conjunctiva, EOMI, nl lids ENMT: nl external ears & nose Neck: non-tender Respiratory: clear to auscultation (bilaterally) Cardiovascular: nl pulses, other (s1s2) Gastrointestinal: soft, non-tender Musculoskeletal: nl extremities to inspection Extremities: normal pulses Neurological: nl mental status, nl speech Skin: nl turgor Lymph: nontender Medications Medications Current Medications IV Flush (NS 3 ml) 3 ml PER PROTOCOL IV ; Start 07/28/18 at 01:30 Ondansetron HCl (Zofran Inj) 4 mg Q6H PRN IV NAUSEA AND/OR VOMITING Last administered on 08/08/18 17:10; Admin Dose 4 MG; Start 07/28/18 at 01:30 Acetaminophen (Tylenol Tab) 650 mg Q6H PRN PO PAIN LEVEL 1-3 OR FEVER Last administered on 08/11/18 23:52; Admin Dose 650 MG; Start 07/28/18 at 01:30 Enoxaparin Sodium (Lovenox) 40 mg DAILY SC Last administered on 08/12/18 10:11; Admin Dose 40 MG; Start 07/28/18 at 09:00 Simethicone (Mylicon) 80 mg Q6H PRN PO DISTENSION/GAS/BLOATING Last administered on 08/12/18 09:44; Admin Dose 80 MG; Start 07/28/18 at 10:30 Pantoprazole (Protonix Iv) 40 mg BID IV Last administered on 08/12/18 09:55; Admin Dose 40 MG; Start 07/30/18 at 09:00 Metoprolol Tartrate (Lopressor) 5 mg Q4H PRN IV HR >100; Start 07/30/18 at 09:30 Amlodipine Besylate (Norvasc) 5 mg DAILY NGT Last administered on 08/12/18 09:47; Admin Dose 5 MG; Start 07/30/18 at 09:30 Sucralfate (Carafate Susp) 1 gm QID PO Last administered on 08/12/18 09:45; Admin Dose 1 GM; Start 08/02/18 at 17:00 Sodium Chloride (Deep Sea) 1 spray Q2 PRN NASAL NASAL CONGESTION Last administered on 08/03/18 06:23; Admin Dose 1 SPRAY; Start 08/03/18 at 05:00 Metoclopramide HCl (Reglan) 10 mg Q6H PRN IV n/v; Start 08/04/18 at 13:30 Sodium Chloride 1,000 ml @ 50 mls/hr Q20H IV Last administered on 08/12/18 00:10; Admin Dose 50 MLS/HR; Start 08/04/18 at 14:00 Phenol (Cepastat Lozenge) 1 lozenge Q1H PRN MT throat pain Last administered on 08/09/18 03:18; Admin Dose 1 LOZENGE; Start 08/05/18 at 12:00 Loperamide HCl (Imodium Cap) 2 mg TID PRN PO diarrhea Last administered on 08/12/18 06:37; Admin Dose 2 MG; Start 08/06/18 at 13:00 Nystatin (Nystatin Susp) 5 ml QID PO Last administered on 08/12/18 09:45; Admin Dose 5 ML; Start 08/06/18 at 17:00; Stop 08/13/18 at 17:00 Vancomycin HCl (Vanco Iv Per Pharmacy) VANCOMYCIN PER PHARMACY PER PROTOCOL XX ; Start 08/08/18 at 09:30 Chlorhexidine Gluconate (Peridex) 15 ml Q12 MT Last administered on 08/12/18 09:59; Admin Dose 15 ML; Start 08/08/18 at 14:00 IV Flush (NS 10 ml) 10 ml PRN PRN IV IV PROTOCOL; Start 08/08/18 at 17:30 Meropenem/Sodium Chloride 50 ml @ 100 mls/hr Q12 IVPB Last administered on 08/12/18 09:55; Admin Dose 100 MLS/HR; Start 08/10/18 at 15:00 Morphine Sulfate (morphine) 6 mg Q3H PRN PO SEVERE PAIN LEVEL 7-10 Last administered on 08/11/18 04:54; Admin Dose 6 MG; Start 08/10/18 at 22:30 Trazodone HCl (Desyrel) 50 mg HS PO Last administered on 08/11/18 20:27; Admin Dose 50 MG; Start 08/11/18 at 21:00 Vancomycin HCl 250 ml @ 125 mls/hr Q12H IVPB Last administered on 08/12/18at 10:00; Admin Dose 125 MLS/HR; Start 08/12/18 at 10:00; Stop 08/12/18 at 15:00 Vancomycin/Sodium Chloride 250 ml @ 125 mls/hr Q12H IVPB ; Start 08/12/18 at 23:00 DUC SEGAL Aug 12, 2018 1:21 pm
--- NOTE | 2018-08-12 15:37 | CONS ---
Date/Time of Note Date/Time of Note DATE: 08/12/18 TIME: 15:36 Assessment/Plan Assessment/Plan Hospital Course Patient is doing better no fevers for the last 48 hours she is awake denies pain looks comfortable. WBC 7.2 BUN 10 creatinine 0.95 Blood culture on admission grew coag negative staph species, repeat blood cu ltures negative Indwelling: Left upper extremity PICC line 08/08/18 Antimicrobials: Vancomycin, Merrem Physical examination: This is a obese well-developed middle-aged woman who is awake in no distress. Head atraumatic normocephalic sclera nonicteric vehicle mucosa dry neck is supple chest rise symmetrical breath sounds clear. Heart: S1-S2. Abdomen soft bowel sounds present extremities without cyanosis Assessment: 1. S/p sepsis on admission 2. S/p staph bacteremia, likely contaminant 3. Status post acute abdominal pain secondary to ileus possible obstruction, resolved 4. Metastatic rectal cancer 4. Morbid obesity Plan: Clinically stable, afebrile for 48 hours, per calcitonin level pending, pending discharge home off antibiotics. Patient to follow with oncology outpatient Result Diagram: 08/12/18 0418 08/12/18 0418 Results 24hrs Laboratory Tests Test 08/12/18 04:18 08/12/18 04:19 White Blood Count 7.2 Red Blood Count 2.69 L Hemoglobin 8.3 L Hematocrit 26.4 L Mean Corpuscular Volume 98.1 Mean Corpuscular Hemoglobin 30.9 Mean Corpuscular Hemoglobin Concent 31.4 L Red Cell Distribution Width 16.3 H Platelet Count 415 Mean Platelet Volume 8.5 Immature Granulocytes % 7.500 H Neutrophils % Segmented Neutrophils % (Manual) 43 Band Neutrophils % (Manual) 21 H Lymphocytes % Lymphocytes % (Manual) 9 L Reactive Lymphocytes % (Manual) 5 H Monocytes % Monocytes % (Manual) 15 H Eosinophils % Basophils % Basophils % (Manual) 1 Metamyelocytes % (manual) 2 H Myelocytes % (Manual) 3 H Promyelocytes % (Manual) 1 H Nucleated Red Blood Cells % 0.4 H Immature Granulocytes # 0.540 H Neutrophils # Neutrophils # (Manual) 3.2 Band Neutrophils # 1.5 H Lymphocytes (Manual) 0.6 L Lymphocytes # Reactive Lymphocytes # 0.3 H Monocytes # Monocytes # (Manual) 1.0 H Eosinophils # Basophils # Basophils # (Manual) 0.0 Metamyelocytes # 0.1 H Myelocytes # 0.2 H Promyelocytes # 0.0 Nucleated Red Blood Cells # Platelet Estimate NORMAL Polychromasia 1+ Sodium Level 138 Potassium Level 3.9 Chloride Level 107 Carbon Dioxide Level 24 Anion Gap 7 Blood Urea Nitrogen 10 Creatinine 0.95 Glucose Level 98 Calcium Level 7.8 L Phosphorus Level 3.7 Magnesium Level 1.7 Albumin 2.2 L Vancomycin Level Trough 19.7 Consultation Date/Type/Reason Admit Date/Time Jul 28, 2018 at 00:46 Initial Consult Date 07/28/18 Type of Consult id Requesting Provider: CAMRYN PRICE Exam/Review of Systems Vital Signs Vitals Vital Signs Date Temp Pulse Resp B/P (MAP) Pulse Ox O2 O2 Flow FiO2 Time Delivery Rate 08/12/18 99.4 105 20 109/56 100 15:30 (73) 08/12/18 Room Air 04:29 Intake and Output 08/11/18 08/11/18 08/12/18 1515:00 23:00 07:00 IntakeIntake Total 50 ml 1570 ml 600 ml BalanceBalance 50 ml 1570 ml 600 ml Medications Medications Current Medications IV Flush (NS 3 ml) 3 ml PER PROTOCOL IV ; Start 07/28/18 at 01:30 Ondansetron HCl (Zofran Inj) 4 mg Q6H PRN IV NAUSEA AND/OR VOMITING Last administered on 08/08/18 17:10; Admin Dose 4 MG; Start 07/28/18 at 01:30 Acetaminophen (Tylenol Tab) 650 mg Q6H PRN PO PAIN LEVEL 1-3 OR FEVER Last administered on 08/11/18 23:52; Admin Dose 650 MG; Start 07/28/18 at 01:30 Enoxaparin Sodium (Lovenox) 40 mg DAILY SC Last administered on 08/12/18 10:11; Admin Dose 40 MG; Start 07/28/18 at 09:00 Simethicone (Mylicon) 80 mg Q6H PRN PO DISTENSION/GAS/BLOATING Last admin istered on 08/12/18 09:44; Admin Dose 80 MG; Start 07/28/18 at 10:30 Pantoprazole (Protonix Iv) 40 mg BID IV Last administered on 08/12/18 09:55; Admin Dose 40 MG; Start 07/30/18 at 09:00 Metoprolol Tartrate (Lopressor) 5 mg Q4H PRN IV HR >100; Start 07/30/18 at 09:30 Amlodipine Besylate (Norvasc) 5 mg DAILY NGT Last administered on 08/12/18at 09:47; Admin Dose 5 MG; Start 07/30/18 at 09:30 Sucralfate (Carafate Susp) 1 gm QID PO Last administered on 08/12/18at 13:19; Admin Dose 1 GM; Start 08/02/18 at 17:00 Sodium Chloride (Deep Sea) 1 spray Q2 PRN NASAL NASAL CONGESTION Last administe red on 08/03/18at 06:23; Admin Dose 1 SPRAY; Start 08/03/18 at 05:00 Metoclopramide HCl (Reglan) 10 mg Q6H PRN IV n/v; Start 08/04/18 at 13:30 Sodium Chloride 1,000 ml @ 50 mls/hr Q20H IV Last administered on 08/12/18at 00:10; Admin Dose 50 MLS/HR; Start 08/04/18 at 14:00 Phenol (Cepastat Lozenge) 1 lozenge Q1H PRN MT throat pain Last administered on 08/09/18 03:18; Admin Dose 1 LOZENGE; Start 08/05/18 at 12:00 Loperamide HCl (Imodium Cap) 2 mg TID PRN PO diarrhea Last administered on 08/12/18at 06:37; Admin Dose 2 MG; Start 08/06/18 at 13:00 Nystatin (Nystatin Susp) 5 ml QID PO Last administered on 08/12/18at 13:19; Admin Dose 5 ML; Start 08/06/18 at 17:00; Stop 08/13/18 at 17:00 Vancomycin HCl (Vanco Iv Per Pharmacy) VANCOMYCIN PER PHARMACY PER PROTOCOL XX ; Start 08/08/18 at 09:30 Chlorhexidine Gluconate (Peridex) 15 ml Q12 MT Last administered on 08/12/18at 09:59; Admin Dose 15 ML; Start 08/08/18 at 14:00 IV Flush (NS 10 ml) 10 ml PRN PRN IV IV PROTOCOL; Start 08/08/18 at 17:30 Meropenem/Sodium Chloride 50 ml @ 100 mls/hr Q12 IVPB Last administered on 08/12/18at 09:55; Admin Dose 100 MLS/HR; Start 08/10/18 at 15:00 Morphine Sulfate (morphine) 6 mg Q3H PRN PO SEVERE PAIN LEVEL 7-10 Last administered on 08/11/18at 04:54; Admin Dose 6 MG; Start 08/10/18 at 22:30 Trazodone HCl (Desyrel) 50 mg HS PO Last administered on 08/11/18at 20:27; Admin Dose 50 MG; Start 08/11/18 at 21:00 Vancomycin/Sodium Chloride 250 ml @ 125 mls/hr Q12H IVPB ; Start 08/12/18 at 23:00 RADHA MIR NP Aug 12, 2018 15:37
--- NOTE | 2018-08-12 17:54 | DS ---
Date/Time of Note Date/Time of Note DATE: 08/12/18 TIME: 17:54 Discharge Summary Admission/Discharge Info Admit Date/Time Jul 28, 2018 at 00:46 Discharge Date/Time 08/12/18 at 1900 Discharge Diagnosis 1. Sepsis secondary to bacteremia- resolved 2. Acute abdominal pain secondary to ileus vs obstruction- resolved 3. Acute diarrhea- resolving 4. DANYELL- resolved 5. Rectal pain with history of metastatic rectal cancer 6. Severe gastritis/erosive esophagitis 7. Hypertension Patient Condition: Stable Consults GI- Dr. Harmon, Dr. Ferrer Infectious disease- Dr. Chou Cardiology- Dr. Caba Oncology- Dr. Marshall Procedures PROCEDURE: Single view chest. CLINICAL INDICATION: Pulmonary disorder not otherwise specified TECHNIQUE: Single view of the chest was obtained COMPARISON: 03/03/2017 FINDINGS: Lung volumes are mildly diminished. There is mild linear atelectasis in the right lung base. No evidence of an effusion or pneumothorax. Cardiac silhouette and mediastinal contours are unremarkable. IMPRESSION: Mildly diminished lung volumes and linear atelectasis in the right lung base. No additional acute findings. RPTAT: HJBB Physician Jose Date Time Electronically viewed and signed by Physician Jose on 08/11/2018 08:38 PROCEDURE: XR Chest. CLINICAL INDICATION: PICC line placement TECHNIQUE: Single portable view of the chest was obtained. COMPARISON: 08/08/2018, 07/28/2018 FINDINGS: Cardiac/vascular structures: Normal cardiomediastinal silhouette. Left PICC tip at the cavoatrial junction. Pulmonary: Linear atelectasis in the right lung base.. No pleural effusion. No evidence of pneumothorax. Osseous structures: Normal Soft tissues: Normal IMPRESSION: Linear atelectasis in the right lung base. Left PICC tip in appropriate location. RPTAT:AAJJ Physician Nico Date Time Electronically viewed and signed by Physician Nico on 08/08/2018 17:57 PROCEDURE: CT Abdomen and Pelvis With Intravenous Contrast CLINICAL INDICATION: Abdominal pain and diarrhea. Rectal cancer. TECHNIQUE: Axial computed tomography images of the abdomen and pelvis with intravenous contrast. Sagittal and coronal reformatted images were created and reviewed. CTDIvol (mGy) = <22.08 mGy>; total DLP (mGy-cm) = <1420.11 mGy.cm>. 900 cc of enteric contrast was also given. This CT exam was performed using one or more of the following dose reduction techniques: automated exposure control, adjustment of the mA and/or kV according to patient size, and/or use of iterative reconstruction technique. DICOM images are available. CONTRAST: 100 mL of Omnipaque-300 was administered intravenously. COMPARISON: 07/27/2018 FINDINGS: LUNG BASES: There is increased subsegmental atelectasis of the lung bases, right greater than left. HEART: Aortic valve calcification is seen. ABDOMEN: LIVER: Unremarkable No mass. GALLBLADDER AND BILE DUCTS: Unremarkable No calcified stones. No ductal dilation. PANCREAS: Unremarkable No mass. No ductal dilation. SPLEEN: Unremarkable No splenomegaly. ADRENALS: Slightly nodular adrenal contour bilaterally, unchanged. KIDNEYS AND URETERS: Unremarkable right kidney. There are wedge shaped peripheral areas of hypoenhancement of the upper to mid left kidney which may be due to pyelonephritis or evolving infarcts. No hydronephrosis. STOMACH AND BOWEL: Again seen is irregular wall thickening of the anus and rectum with a segment of narrowing of the rectum. There is wall thickening and mucosal enhancement of the colon extending from the splenic flexure through the rectum. There is gaseous distension of the transverse colon. The ascending colon is distended with fluid. There are numerous dilated and fluid-filled small bowel loops throughout the abdomen and pelvis without a small bowel transition point. The small bowel distension is increased compared with prior. No free air or significant free fluid. The stomach is significantly distended with contrast. There may be mild wall thickening of the pylorus. PELVIS: APPENDIX: Normal appendix. BLADDER: Unremarkable No mass. REPRODUCTIVE: Again seen is slightly spiculated fat stranding adjacent to the uterus and ovaries, perhaps from prior radiation treatment. ABDOMEN and PELVIS: INTRAPERITONEAL SPACE: See above. BONES/JOINTS: Mild degenerative change of the spine. No definite lytic or blastic bony lesions. SOFT TISSUES: Small focus of air in the subcutaneous fat of the right anterior abdominal wall is likely due to prior injection. VASCULATURE: Unremarkable No abdominal aortic aneurysm. LYMPH NODES: Unremarkable No enlarged lymph nodes. OTHER FINDINGS: IMPRESSION: 1. Unremarkable right kidney. There are wedge shaped peripheral areas of hypoenhancement of the upper to mid left kidney which may be due to pyelonephritis or evolving infarcts. 2. Increased small bowel distension. Colonic dilatation to the level of the anorectal region is again seen with increased wall thickening and mucosal enhancement from the splenic flexure distally, most prominent in the region of the distal sigmoid and rectum. This is presumably related to the known rectal cancer. The appearance suggests worsening partial small bowel and colonic obstruction as a result. No definite free air. RPTAT: HLBE Physician Margarita Date Time Electronically viewed and signed by Mandie Fontanez Physician on 08/05/2018 07:21 PROCEDURE: Ultrasound of the bilateral lower extremity venous system. CLINICAL INDICATION: Bilateral leg pain and swelling, deep venous thrombosis TECHNIQUE: Yoo scale with and without compression, color doppler, spectral doppler of the venous system of the bilateral lower extremities was performed. Venous augmentation maneuvers were utilized. COMPARISON: No prior studies are available for comparison. FINDINGS: Right: Common femoral vein: Patent. Femoral vein: Patent. Popliteal vein: Patent. Calf veins: Patent. No soft tissue abnormalities are identified. Left: Common femoral vein: Patent. Femoral vein: Patent. Popliteal vein: Patent. Calf veins: Patent. No soft tissue abnormalities are identified. IMPRESSION: No evidence of a deep vein thrombosis within the bilateral lower extremities. RPTAT: AADD .Jas Santamaria MD, MD Date Time Electronically viewed and signed by .Jas Santamaria MD, on 08/04/2018 18:44 PROCEDURE: Small bowel series CLINICAL INDICATION: r/o bowel obstruction TECHNIQUE: The patient was NPO. The patient given 8 ounces of barium via NG tube. Routine fluoroscopy was performed. Fluoroscopic time: 0.0 min Number of images: 15 images COMPARISON: 07/28/2018. FINDINGS: On sumac tanner radiograph, there are multiple dilated gas containing loops of small bowel in the upper and mid abdomen. Gas is also present in the colon. Following administration of oral contrast, there is no small bowel displacement or mass. The small bowel folds are normal. There is no evidence of obstruction. Transit time is normal with contrast in the colon at 10 hours. The final image demonstrates contrast in mildly dilated small bowel, improved when compared with the pre-contrast image. IMPRESSION: Findings compatible with small bowel ileus which has improved from the start of the exam. RPTAT: AA Physician Amara Date Time Electronically viewed and signed by Physician Amara on 08/01/2018 23:32 PROCEDURE: XR Abdomen. CLINICAL INDICATION: Abdominal pain TECHNIQUE: 3 AP views of the abdomen were obtained COMPARISON: CT 07/27/2018 FINDINGS: The tip of the enteric tube projects over the left upper quadrant. There are multiple mildly distended air filled loops of small bowel and a stacked configuration. Air is seen within the colon. No abnormal soft tissue calcifications are seen. The visualized portions of the lung bases are clear. The osseous structures are unremarkable. IMPRESSION: Multiple mildly distended air filled loops of small bowel and a stacked configuration. Air is seen distally within the colon. Findings may reflect ileus or partial / intermittent small bowel obstruction. RPTAT: HH .Ketty Wakefield MD, Date Time Electronically viewed and signed by .Ketty Wakefield MD, MD on 07/28/2018 15:25 PROCEDURE: Chest. CLINICAL INDICATION: Preop evaluation. TECHNIQUE: Single frontal view of the chest was obtained. COMPARISON: 03/24/2017. FINDINGS: The cardiac silhouette is within normal limits. The aortic arch is unremarkable. There is no focal consolidation, vascular congestion or pleural effusion. There is no pneumothorax. IMPRESSION: No evidence for active cardiopulmonary disease. .Drake Dockery MD, MD Date Time Electronically viewed and signed by .Drake Dockery MD, MD on 07/28/2018 02:17 PROCEDURE: Small bowel follow-through. CLINICAL INDICATION: Abdomen pain. TECHNIQUE: Water-soluble contrast was administered the nasogastric tube and several spot and overhead radiographs of the abdomen were obtained. 14 images were obtained. COMPARISON: Abdomen radiograph done earlier the same day. FINDINGS: On prior radiograph, the nasogastric tube tip is in the stomach. There are multiple dilated gas containing loops of small bowel in the upper and mid abdomen. Gas is also present in the colon. Following instillation of contrast, there is no small bowel displacement or mass. The small bowel folds are normal. There is no evidence of obstruction. Transit time is normal with contrast in the colon at 13 hours. The final image demonstrates contrast in mildly dilated small bowel, improved when compared with the initial image.. IMPRESSION: 1. Dilated gas containing small bowel consistent with mild ileus which improves on the final image. 2. No mechanical obstruction. RPTAT: QQ .Chris Coleman MD, MD Date Time Electronically viewed and signed by .Chris Coleman MD, on 07/29/2018 13:32 PROCEDURE: CT abdomen and pelvis without contrast. CLINICAL INDICATION: Abdominal Pain rectal cancer. TECHNIQUE: CT scan of the abdomen and pelvis without contrast was performed and is reconstructed at 2.5 mm contiguous axial intervals from the dome of the diaphragm to the inferior pubic rami.. The patient was scanned without intravenous contrast. Sagittal and coronal reformatted images were obtained from the axial source images. The calculated radiation dose measures 1390 mGy c entimeters. The CTDI measures 22 mGy. Individualized dose optimization technique was used for the performance of this exam. This included 1. Automated exposure control. 2. Adjustment of the mA and / or kV according to the patient's size. 3. Use of iterative reconstructed technique. COMPARISON: CT abdomen pelvis May 28, 2017 FINDINGS: The lung bases are clear of any infiltrate or nodule. No effusion is seen. The liver is of normal size, contour and attenuation with no mass or ductal dilatation. No gallstones are visualized. No splenic, adrenal or pancreatic abnormalities present. Kidneys are of normal size and contour. No hydronephrosis, calculus or masses seen. Ureters are of normal course and caliber with no stone. No bladder mass or stone is present. Uterus appears normal. No adnexal mass is seen. There is no aneurysm. No adenopathy is present. There is moderate to severe fluid-filled distension of the colon and rectum. Right colon measures 9 10 cm in maximum transverse diameter. The transition is in the distal rectum immediately proximal to the anal verge where there is a questionable concentric mass. This may represent local recurrence or a stricture in this patient with history of treated rectal cancer. Small bowel loops are not distended. The appendix is normal. No phlegmon, ascites or pneumoperitoneum is visualized. The osseous structures are intact. IMPRESSION: Distended fluid filled colon with transition distal rectum in patient with history of rectal cancer. Question recurrence versus stricture. No evidence of metastatic disease. .Raul Albrecht MD, MD Date Time Electronically viewed and signed by .Raul Albrecht MD, MD on 07/27/2018 23:18 Hx of Present Illness Chief complaint: Abdominal pain, diarrhea This is a 43-year-old female with a history of colorectal CA who presents with abdominal pain. Patient reports that she has abdominal pain times 1 day. She also reports that she had diarrhea and has noticed some blood as well. She denies any fevers. She does have a history of colorectal cancer in her oncologist is . She is currently receiving treatment for the cancer with xeloda. Allergies: NKDA Hospital Course Patient was admitted for supportive treatment of diarrhea and workup of abdominal pain with blood in stool. Stool studies were sent and GI was consulted for further recommendations. Given patients history of rectal cancer, oncology was consulted and requested colonoscopy to determine etiology of CT findings of mass vs stricture on CT scan. Patients abdominal distension was worsening and NG tube was place and attached to low intermittent suction. Patient underwent EGD and colonoscopy which was positive for moderate gastritis and negative for acute mass but changes consistent with radiation changes were seen and biopsy was obtained, respectively. Patient had imaging studies performed and was positive for ileus and continue on NG tube. Cardiology was consulted due to persistent tachycardia which was determined to be secondary to medical comorbidities but remained in sinus rhythm and asymptomatic. Patient had persistent diarrhea and NG tube was discontinued given return of bowel function. Due to stool studies all resulting negative, loperamide was started with improvement in diarrhea. patients diarrhea improved and abdominal pain resolved. Patients hospital stay was further complicated with fevers and orta cultures were negative. Fever was determined to be reactive as patients WBC remained within normal limits and patient was asymptomatic. Her overall condition improved and presenting symptoms improved significantly. Patient was discharged home in stable condition with instructions to follow up with PCP and Oncologist in 1 week. Home Meds Active Scripts Pantoprazole* (Pantoprazole*) 40 Mg Tablet.dr, 40 MG PO BID for 30 Days, #60 TAB 2 Refills Prov:HAYLEE MERLOS MD 08/12/18 Sucralfate* (Carafate*) 1 Gm Tab, 1 GM PO AC MEALS AND BEDTIME for 30 Days, #90 TAB Prov:HAYLEE MERLOS MD 08/12/18 Simethicone (Mi-Acid) 80 Mg Tab.chew, 80 MG PO Q6H PRN for DISTENSION/GAS/BLOATING for 30 Days, #120 TAB.CHEW 6 Refills Prov:HAYLEE MERLOS MD 08/12/18 Loperamide Hcl* (Loperamide Hcl*) 2 Mg Cap, 2 MG PO TID PRN for diarrhea for 30 Days, #120 CAP 1 Refill Prov:HAYLEE MERLOS MD 08/12/18 Amlodipine Besylate* (Amlodipine Besylate*) 5 Mg Tablet, 5 MG PO DAILY for 30 Days, #30 TAB 6 Refills Prov:HAYLEE MERLOS MD 08/12/18 Reported Medications Capecitabine* (Xeloda*) 500 Mg Tablet, 1500 MG PO BID, TBS 07/27/18 Follow-up Plan 1. Follow up with your primary care physician in 1 week 2. Follow up with your oncologist to determine when to resume your chemotherapy as outpatient 3. Take Protonix twice a day for 8 weeks then continue daily 4. Take Carafate with meals for 1 month 5. Take all other medications as prescribed 6. If symptoms return or worsen, please go to your closest emergency department Primary Care Provider Care Physician No Primary Time spent on discharge: > 30 minutes Pending Labs Laboratory Tests Test 08/12/18 04:18 08/12/18 04:19 White Blood Count 7.2 10^3/ul (4.8-10.8) Red Blood Count 2.69 10^6/ul (4.20-5.40) Hemoglobin 8.3 g/dl (12.0-16.0) Hematocrit 26.4 % (37.0-47.0) Mean Corpuscular Volume 98.1 fl (82.0-101.0) Mean Corpuscular Hemoglobin 30.9 pg (29.0-33.0) Mean Corpuscular 31.4 g/dl (32.0-37.0) Hemoglobin Concent Red Cell Distribution Width 16.3 % (11.5-14.5) Platelet Count 415 10^3/UL (140-415) Mean Platelet Volume 8.5 fl (7.4-10.4) Immature Granulocytes % 7.500 % (0.001-0.429) Neutrophils % % (39.0-77.0) Segmented Neutrophils 43 % (39-77) % (Manual) Band Neutrophils % (Manual) 21 % (0-4) Lymphocytes % % (15.0-51.0) Lymphocytes % (Manual) 9 % (15-51) Reactive Lymphocytes 5 % (0-0) % (Manual) Monocytes % % (0.0-11.0) Monocytes % (Manual) 15 % (0-11) Eosinophils % % (0.0-7.0) Basophils % % (0.0-2.0) Basophils % (Manual) 1 % (0-2) Metamyelocytes % (manual) 2 % (0-0) Myelocytes % (Manual) 3 % (0-0) Promyelocytes % (Manual) 1 % (0-0) Nucleated Red Blood Cells % 0.4 /100WBC (0.0-0.0) Immature Granulocytes # 0.540 10^3/ul (0.0-0.031) Neutrophils # 10^3/ul (1.6-7.5) Neutrophils # (Manual) 3.2 10^3/ul (1.6-7.5) Band Neutrophils # 1.5 10^3/ul (0.0-0.6) Lymphocytes (Manual) 0.6 10^3/ul (0.8-2.9) Lymphocytes # 10^3/ul (0.8-2.9) Reactive Lymphocytes # 0.3 10^3/ul (0.0-0.0) Monocytes # 10^3/ul (0.3-0.9) Monocytes # (Manual) 1.0 10^3/ul (0.3-0.9) Eosinophils # 10^3/ul (0.0-0.5) Basophils # 10^3/ul (0.0-0.1) Basophils # (Manual) 0.0 10^3/ul (0.0-0.0) Metamyelocytes # 0.1 10^3/ul (0.0-0.0) Myelocytes # 0.2 10^3/ul (0.0-0.0) Promyelocytes # 0.0 10^3/ul (0-0) Nucleated Red Blood Cells # 10^3/ul (0.0-0.0) Platelet Estimate NORMAL Polychromasia 1+ (0-0) Sodium Level 138 mmol/L (135-144) Potassium Level 3.9 mmol/L (3.5-5.1) Chloride Level 107 mmol/L (97-110) Carbon Dioxide Level 24 mmol/L (21-31) Anion Gap 7 (5-13) Blood Urea Nitrogen 10 mg/dl (7-20) Creatinine 0.95 mg/dl (0.44-1.00) Glucose Level 98 mg/dl (70-220) Calcium Level 7.8 mg/dl (8.4-10.2) Phosphorus Level 3.7 mg/dl (2.5-4.9) Magnesium Level 1.7 mg/dl (1.7-2.5) Albumin 2.2 g/dl (3.3-4.9) Vancomycin Level Trough 19.7 ug/ml (10.0-20.0) HAYLEE MERLOS MD Aug 12, 2018 17:54
[2018-08-12] MEDS ORDERED: VANCOMYCIN 750 MG (PMX) 250 ML IVPB SCH (23:00)
[2018-08-31] MEDS ORDERED: ONDA4TAB14 PO (11:33)
[2018-08-31] MEDS ORDERED: FER325 PO (11:33)
== END 2018-08-12 18:45 | disposition home or self-care (01) | DRG 326 ==
LOC: E/R 16:48 → TEL 07-28 00:46 → ICU 07-28 14:19 → 6WM 07-31 01:11
PROVIDERS: ADMIT Family Medicine; ATTEND Internal Medicine
PROC: 0D967ZZ Drainage of Stomach, Via Natural or Artificial Opening (ICD-10-PCS; principal; 2018-07-28)
PROC: 0DBP8ZX Excision of Rectum, Via Natural or Artificial Opening Endoscopic, Diagnostic (ICD-10-PCS; 2018-07-29)
PROC: 0DJ08ZZ Inspection of Upper Intestinal Tract, Via Natural or Artificial Opening Endoscopic (ICD-10-PCS; 2018-07-29 14:30)
PROC: 02HV33Z Insertion of Infusion Device into Superior Vena Cava, Percutaneous Approach (ICD-10-PCS; 2018-08-08)
DX: K56.7 Ileus, unspecified (principal); A41.9 Sepsis, unspecified organism; C20 Malignant neoplasm of rectum; N17.9 Acute kidney failure, unspecified; C77.5 Secondary and unspecified malignant neoplasm of intrapelvic lymph nodes; B37.0 Candidal stomatitis; K22.10 Ulcer of esophagus without bleeding; Z68.41 Body mass index [BMI] 40.0-44.9, adult; K91.89 Other postprocedural complications and disorders of digestive system; K29.60 Other gastritis without bleeding; K56.699 Other intestinal obstruction unspecified as to partial versus complete obstruction; D64.9 Anemia, unspecified; E66.01 Morbid (severe) obesity due to excess calories; E87.5 Hyperkalemia; E86.0 Dehydration; G89.3 Neoplasm related pain (acute) (chronic); I10 Essential (primary) hypertension; I35.0 Nonrheumatic aortic (valve) stenosis; K31.84 Gastroparesis; N83.209 Unspecified ovarian cyst, unspecified side; R19.7 Diarrhea, unspecified; R00.0 Tachycardia, unspecified; Z79.899 Other long term (current) drug therapy
CPT/HCPCS: 36415; 36569; 71045; 74018; 74176; 74177; 74250; 76937; 80048; 80053; 80061; 80069; 80202; 81001; 82105; 82270; 82378; 82607; 82746; 83036; 83690; 83735; 84100; 84132; 84145; 84443; 84703; 85025; 85651; 86140; 86300; 86301; 86304; 86674; 87040; 87045; 87075; 87081; 87177; 88305; 93306; 93970; 96361; 96374; 97110; 97116; 97161; 97530; C9113; J0744; J1650; J2185; J2270; J2405; J2765; J3370; J3475; J3480; J7030; J7040; J7042; J7050; P9047; Q9967

== ENCOUNTER 2018-10-03 13:15 | Emergency (ER) | payer OTHER ==
[~2018-10-03] VITALS: Ht 167.6 cm; Wt 94.4 kg
[~2018-10-03 13:15] MED LIST changes: +FER325 PO; -HYDR-3980 PO; +LOPE-123 PO; +ONDA4TAB14 PO; -ONDA4TAB8 PO; +PANT40TA4 PO; +SIME80TA16 PO; +SUCR1TAB56 PO
[2018-10-03 13:27] VITALS: Ht 167.6 cm; Wt 94.4 kg
--- NOTE | 2018-10-03 14:15 | ERD ---
ER Documentation Chief Complaint Chief Complaint Constipation HPI The patient is a 43-year-old female, presenting to the ER because of constipation for 1 week, has similar symptoms previously, had history of small bowel obstruction treated conservatively, never had any surgery for small bowel obstruction. denies fever, chills, headache, neck pain, chest pain, dyspnea, vomiting, dysuria. She does not smoke, drinks socially Past medical history: History of colorectal cancer treated with radiation, ongoing with chemotherapy Past surgical history: None ROS All systems reviewed and are negative except as per history of present illness. Medications Home Meds Active Scripts Na Phos,M-B/Na Phos,Di-Ba (Fleet Enema Extra) 230 Ml Enema, 230 ML RC ONCE, #1 ENEMA Prov:LUCIANA WHEELER MD 10/03/18 Bisacodyl* (Dulcolax*) 5 Mg Tablet.dr, 10 MG DC DAILY PRN for CONSTIPATION for 2 Days, TAB Prov:LUCIANA WHEELER MD 10/03/18 Polyethylene Glycol* (Miralax*) 17 Gm Powd.pack, 17 GM PO qid for constipation, #20 Prov:LUCIANA WHEELER MD 10/03/18 Ondansetron (Ondansetron Odt) 4 Mg Tab.rapdis, 4 MG PO Q6H PRN for NAUSEA AND/OR VOMITING, #24 TAB Prov:DINO DAWN 08/31/18 Ferrous Sulfate* (Ferrous Sulfate*) 325 Mg Tabec, 325 MG PO DAILY for 30 Days, #30 TAB Prov:DINO DAWN 08/31/18 Pantoprazole* (Pantoprazole*) 40 Mg Tablet.dr, 40 MG PO BID for 30 Days, #60 TAB 2 Refills Prov:HAYLEE MERLOS MD 08/12/18 Sucralfate* (Carafate*) 1 Gm Tab, 1 GM PO AC MEALS AND BEDTIME for 30 Days, #90 TAB Prov:HAYLEE MERLOS MD 08/12/18 Simethicone (Mi-Acid) 80 Mg Tab.chew, 80 MG PO Q6H PRN for DISTENSION/GAS/BLOATING for 30 Days, #120 TAB.CHEW 6 Refills Prov:HAYLEE MERLOS MD 08/12/18 Loperamide Hcl* (Loperamide Hcl*) 2 Mg Cap, 2 MG PO TID PRN for diarrhea for 30 Days, #120 CAP 1 Refill Prov:HAYLEE MERLOS MD 08/12/18 Reported Medications Capecitabine* (Xeloda*) 500 Mg Tablet, 1500 MG PO BID, TBS 07/27/18 Allergies Allergies: Coded Allergies: No Known Allergy (Unverified , 08/26/18) PMhx/Soc History of Surgery: No Anesthesia Reaction: No Hx Neurological Disorder: No Hx Respiratory Disorders: No Hx Cardiac Disorders: No Hx Psychiatric Problems: No Hx Miscellaneous Medical Probl: No Hx Alcohol Use: Yes (gardenia) Hx Substance Use: No Hx Tobacco Use: No Physical Exam Vitals Vital Signs Date Temp Pulse Resp B/P (MAP) Pulse Ox O2 O2 Flow FiO2 Time Delivery Rate 10/03/18 98.9 82 17 111/72 98 Room Air 17:34 (85) 10/03/18 98.9 87 18 106/68 98 16:30 (81) 10/03/18 98.9 112 20 111/74 97 13:27 (86) Physical Exam Const: No acute distress. Head: Atraumatic. Eyes: Normal Conjunctiva. ENT: Normal External Ears, Nose and Mouth. Neck: Full range of motion. No meningismus. Resp: Clear to auscultation bilaterally. Cardio: Regular rate and rhythm. Abd: Soft, non distended, normal bowel sounds, non tender. Skin: No petechiae or rashes. Back: No midline or flank tenderness. Ext: No cyanosis, or edema. Neur: Awake and alert. No focal deficit Psych: Normal Mood and Affect. Result Diagram: 10/03/18 1444 10/03/18 1444 Results 24 hrs Laboratory Tests Test 10/03/18 14:44 10/03/18 14:52 10/03/18 14:53 White Blood Count 4.7 10^3/ul Red Blood Count 3.77 10^6/ul Hemoglobin 11.0 g/dl Hematocrit 34.6 % Mean Corpuscular Volume 91.8 fl Mean Corpuscular Hemoglobin 29.2 pg Mean Corpuscular Hemoglobin Concent 31.8 g/dl Red Cell Distribution Width 18.0 % Platelet Count 346 10^3/UL Mean Platelet Volume 9.1 fl Immature Granulocytes % 0.400 % Neutrophils % 70.8 % Lymphocytes % 15.6 % Monocytes % 10.1 % Eosinophils % 2.7 % Basophils % 0.4 % Nucleated Red Blood Cells % 0.0 /100WBC Immature Granulocytes # 0.020 10^3/ul Neutrophils # 3.4 10^3/ul Lymphocytes # 0.7 10^3/ul Monocytes # 0.5 10^3/ul Eosinophils # 0.1 10^3/ul Basophils # 0.0 10^3/ul Nucleated Red Blood Cells # 0.0 10^3/ul Sodium Level 141 mmol/L Potassium Level 4.3 mmol/L Chloride Level 105 mmol/L Carbon Dioxide Level 25 mmol/L Anion Gap 11 Blood Urea Nitrogen 15 mg/dl Creatinine 0.67 mg/dl Est Glomerular Filtrat Rate mL/min > 60 mL/min Glucose Level 113 mg/dl Calcium Level 10.3 mg/dl Total Bilirubin 0.4 mg/dl Direct Bilirubin 0.00 mg/dl Indirect Bilirubin 0.4 mg/dl Aspartate Amino Transf (AST/SGOT) 18 IU/L Alanine Aminotransferase (ALT/SGPT) < 6 IU/L Alkaline Phosphatase 98 IU/L Total Protein 8.2 g/dl Albumin 4.3 g/dl Globulin 3.90 g/dl Albumin/Globulin Ratio 1.10 Lipase 74 U/L Bedside Urine pH (LAB) 5.5 Bedside Urine Protein (LAB) Trace Bedside Urine Glucose (UA) Negative Bedside Urine Ketones (LAB) Trace Bedside Urine Blood Negative Bedside Urine Nitrite (LAB) Negative Bedside Urine Leukocyte Esterase (L Negative POC Beta HCG, Qualitative NEGATIVE Procedures/MDM [place] [id number] Radiology Main Line: [phone] DIAGNOSTIC IMAGING REPORT Patient: ANTOLIN MORELAND : 1975 Age: 43 Sex: F MR #: [id number] DOS: 10/03/18 1430 Ordering MD: LUCIANA WHEELER MD Location: E/R Room/Bed: PROCEDURE: CT Abdomen and Pelvis without intravenous contrast. CLINICAL INDICATION: Abdominal pain. History of rectal cancer. TECHNIQUE: CT scan of the abdomen and pelvis without contrast was performed on a multi-detector high-resolution CT scanner. The patient was scanned without IV contrast. Coronal and sagittal reformatted images were obtained from the axial source images. DICOM images are available. Total DLP = 1205.6 mGy-cm. CTDIvol = . 21.7 mGy. One or more of the following dose reduction techniques were used: Automated exposure control. Adjustment of the mA and/or kV according to patient size. Use of iterative reconstruction technique. COMPARISON: CT 08/05/2018 FINDINGS: Lower thorax: Normal. Liver: Normal. No focal mass. Biliary: Normal gallbladder. No biliary dilatation. Pancreas: Normal. Spleen: Normal. Adrenal Glands: Normal. Genitourinary: Normal. Gastrointestinal: There is mild colonic wall thickening along the rectosigmoid colon similar to prior exam. There is retained feces seen throughout the colon. Small bowels are unremarkable. Lymph nodes: Normal. Vascular: Normal. Peritoneum/mesentery: Normal. No free fluid or free air. Reproductive organs: Normal. Musculoskeletal: Normal. Lack of IV contrast limits sensitivity of exam. IMPRESSION: 1. Mild wall thickening and distension of the rectosigmoid colonic wall similar to prior exam. Question post radiation changes versus other colitis. 2. Retained feces throughout the colon suggesting constipation. 3. Otherwise unremarkable noncontrast CT abdomen and pelvis without acute pathology identified. RPTAT: GG .Abhilash Bennett MD, MD Date Time Electronically viewed and signed by .Abhilash Bennett MD, MD on 10/03/2018 16:36 .L/ CC: LUCIANA WHEELER MD [id number] MEDICAL MAKING DECISION: The patient is a 43-year-old female, presenting with constipation, as above outpatient follow-up The differential diagnoses considered include but are not limited to cholelithiasis, cholecystitis, choledocholithiasis, cholangitis, pancreatitis, hepatitis, gastritis, peptic ulcer disease, gastric ulcer, appendicitis, cystitis, diverticulitis, partial small bowel obstruction. Departure Diagnosis: Primary Impression: Constipation Additional Impressions: Anemia Leukopenia Condition: Good Comments I offered to give suppository and Fleet enema in the ER, however she declines. She would like to do them at home. She was discharged with MiraLAX, Dulcolax, Fleet enema I discussed the findings with the patient. I advised the patient to follow-up with the primary physician in about 2-3 days, sooner if needed and return if any concern. Disclaimer: Inadvertent spelling and grammatical errors are likely due to EHR/dictation software use and do not reflect on the overall quality of patient care. Also, please note that the electronic time recorded on this note does not necessarily reflect the actual time of the patient encounter. LUCIANA WHEELER MD Oct 03, 2018 14:15
[2018-10-03] MEDS ORDERED: POLY17PO6 PO (17:08)
[2018-10-03] MEDS ORDERED: BISA-57 PR (17:09)
[2018-10-03] MEDS ORDERED: NA P230E RC (17:10)
[2018-10-03 17:34] VITALS: BP 111/72; PULSE 82; RESP 17
== END 2018-10-03 17:35 | disposition home or self-care (01) ==
LOC: E/R 13:15
DX: K59.00 Constipation, unspecified (principal); D64.9 Anemia, unspecified; D72.819 Decreased white blood cell count, unspecified; C20 Malignant neoplasm of rectum
CPT/HCPCS: 36415; 74176; 80053; 81003; 81025; 83690; 85025; Z7502

== ENCOUNTER 2018-10-06 21:09 | Emergency (ER) | payer OTHER ==
[~2018-10-06] VITALS: Wt 95.6 kg
[~2018-10-06 21:09] MED LIST changes: +BISA-57 PR; +NA P230E RC; +POLY17PO6 PO
--- NOTE | 2018-10-06 23:20 | ERD ---
ER Documentation Chief Complaint Chief Complaint CONSTIPATION HPI The patient is a 43-year-old female, presenting to the ER because of constipation for 10 days, has had similar symptoms previously, had history of small bowel obstruction but only treated conservatively, never had any surgery for small bowel obstruction. She was seen in the ER 3 days ago and had an abdominal pelvic CT that was unremarkable, was discharged with Dulcolax, Fleet enema, MiraLAX. According to her that there are not working. She denies fever, chills, headache, neck pain, chest pain, dyspnea, vomiting, dysuria. She does not smoke, drinks socially Past medical history: History of colorectal cancer treated with radiation, ongoing with chemotherapy Past surgical history: None ROS All systems reviewed and are negative except as per history of present illness. Medications Home Meds Active Scripts Na Phos,M-B/Na Phos,Di-Ba (Fleet Enema Extra) 230 Ml Enema, 230 ML RC ONCE, #1 ENEMA Prov:LUCIANA WHEELER MD 10/03/18 Bisacodyl* (Dulcolax*) 5 Mg Tablet.dr, 10 MG NV DAILY PRN for CONSTIPATION for 2 Days, TAB Prov:LUCIANA WHEELER MD 10/03/18 Polyethylene Glycol* (Miralax*) 17 Gm Powd.pack, 17 GM PO qid for constipation, #20 Prov:LUCIANA WHEELER MD 10/03/18 Ferrous Sulfate* (Ferrous Sulfate*) 325 Mg Tabec, 325 MG PO DAILY for 30 Days, #30 TAB Prov:DINO DAWN 08/31/18 Pantoprazole* (Pantoprazole*) 40 Mg Tablet.dr, 40 MG PO BID for 30 Days, #60 TAB 2 Refills Prov:HAYLEE MERLOS MD 08/12/18 Sucralfate* (Carafate*) 1 Gm Tab, 1 GM PO AC MEALS AND BEDTIME for 30 Days, #90 TAB Prov:HAYLEE MERLOS MD 08/12/18 Simethicone (Mi-Acid) 80 Mg Tab.chew, 80 MG PO Q6H PRN for DISTENSION/GAS/BLOATING for 30 Days, #120 TAB.CHEW 6 Refills Prov:HAYLEE MERLOS MD 08/12/18 Loperamide Hcl* (Loperamide Hcl*) 2 Mg Cap, 2 MG PO TID PRN for diarrhea for 30 Days, #120 CAP 1 Refill Prov:HAYLEE MERLOS MD 08/12/18 Reported Medications Pantoprazole* (Pantoprazole*) 40 Mg Tablet.dr, 40 MG PO DAILY, TAB 10/07/18 Capecitabine* (Xeloda*) 500 Mg Tablet, 1500 MG PO BID, TBS 07/27/18 Discontinued Scripts Ondansetron (Ondansetron Odt) 4 Mg Tab.rapdis, 4 MG PO Q6H PRN for NAUSEA AND/OR VOMITING, #24 TAB Prov:DINO DAWN 08/31/18 Allergies Allergies: Coded Allergies: No Known Allergy (Unverified , 10/07/18) PMhx/Soc History of Surgery: No Anesthesia Reaction: No Hx Neurological Disorder: No Hx Respiratory Disorders: No Hx Cardiac Disorders: No Hx Psychiatric Problems: No Hx Miscellaneous Medical Probl: Yes (COLORECTAL CANCER, MULTIPLE SBO) Hx Alcohol Use: Yes (gardenia) Hx Substance Use: No Hx Tobacco Use: No Physical Exam Vitals Vital Signs Date Temp Pulse Resp B/P (MAP) Pulse Ox O2 O2 Flow FiO2 Time Delivery Rate 10/07/18 97 11 113/94 100 Room Air 01:25 (100) 10/06/18 97.3 110 18 109/67 99 21:37 (81) Physical Exam Const: No acute distress. Head: Atraumatic. Eyes: Normal Conjunctiva. ENT: Normal External Ears, Nose and Mouth. Neck: Full range of motion. No meningismus. Resp: Clear to auscultation bilaterally. Cardio: Regular rate and rhythm. Abd: Soft, non distended, normal bowel sounds, minimal left lower quadrant discomfort, no rigidity/rebound/CVA tenderness Skin: No petechiae or rashes. Back: No midline or flank tenderness. Ext: No cyanosis, or edema. Neur: Awake and alert. No focal deficit Psych: Normal Mood and Affect. Result Diagram: 10/06/18 3697 10/06/18 6226 Results 24 hrs Laboratory Tests Test 10/06/18 23:39 10/06/18 23:50 10/06/18 23:51 White Blood Count 5.4 10^3/ul Red Blood Count 3.68 10^6/ul Hemoglobin 10.7 g/dl Hematocrit 33.5 % Mean Corpuscular Volume 91.0 fl Mean Corpuscular Hemoglobin 29.1 pg Mean Corpuscular Hemoglobin Concent 31.9 g/dl Red Cell Distribution Width 18.3 % Platelet Count 348 10^3/UL Mean Platelet Volume 9.4 fl Immature Granulocytes % 0.200 % Neutrophils % 65.3 % Lymphocytes % 18.6 % Monocytes % 12.3 % Eosinophils % 2.9 % Basophils % 0.7 % Nucleated Red Blood Cells % 0.0 /100WBC Immature Granulocytes # 0.010 10^3/ul Neutrophils # 3.5 10^3/ul Lymphocytes # 1.0 10^3/ul Monocytes # 0.7 10^3/ul Eosinophils # 0.2 10^3/ul Basophils # 0.0 10^3/ul Nucleated Red Blood Cells # 0.0 10^3/ul Sodium Level 142 mmol/L Potassium Level 4.3 mmol/L Chloride Level 103 mmol/L Carbon Dioxide Level 26 mmol/L Anion Gap 13 Blood Urea Nitrogen 20 mg/dl Creatinine 1.22 mg/dl Est Glomerular Filtrat Rate mL/min 48 mL/min Glucose Level 117 mg/dl Calcium Level 10.0 mg/dl Total Bilirubin 0.3 mg/dl Direct Bilirubin 0.00 mg/dl Indirect Bilirubin 0.3 mg/dl Aspartate Amino Transf (AST/SGOT) 19 IU/L Alanine Aminotransferase (ALT/SGPT) < 6 IU/L Alkaline Phosphatase 101 IU/L Total Protein 8.2 g/dl Albumin 4.3 g/dl Globulin 3.90 g/dl Albumin/Globulin Ratio 1.10 Lipase 73 U/L Bedside Urine pH (LAB) 6.0 Bedside Urine Protein (LAB) 1+ Bedside Urine Glucose (UA) Negative Bedside Urine Ketones (LAB) Trace Bedside Urine Blood Negative Bedside Urine Nitrite (LAB) Negative Bedside Urine Leukocyte Esterase (L Negative POC Beta HCG, Qualitative NEGATIVE Current Medications Medications Dose Sig/Reba Start Time Status Last (Trade) Ordered Route PRN Stop Time Admin Dose Reason Admin Bisacodyl 10 mg ONCE ONCE 10/06/18 DC 10/06/18 (Dulcolax NV 23:30 10/06/18 23:58 Supp) 23:31 Sodium 133 ml ONCE ONCE 10/06/18 DC 10/06/18 Biphosphate/ NV 23:30 10/06/18 23:58 Sodium 23:31 Phosphate (Fleet Enema) Procedures/MDM MEDICAL MAKING DECISION: The patient is a 43-year-old female, presenting with chronic constipation, was treated with Dulcolax Suppository then Fleet enema with good response, she felt much better after her BM, is stable for outpatient follow-up The differential diagnoses considered include but are not limited to cholelithiasis, cholecystitis, choledocholithiasis, cholangitis, pancreatitis, hepatitis, gastritis, peptic ulcer disease, gastric ulcer, appendicitis, cystitis, diverticulitis, partial small bowel obstruction. Departure Diagnosis: Primary Impression: Constipation Additional Impression: Anemia Condition: Good Comments I discussed the findings with the patient. I advised the patient to follow-up with the primary physician in about 2-3 days, sooner if needed and return if any concern. Disclaimer: Inadvertent spelling and grammatical errors are likely due to EHR/dictation software use and do not reflect on the overall quality of patient care. Also, please note that the electronic time recorded on this note does not necessarily reflect the actual time of the patient encounter. LUCIANA WHEELER MD Oct 06, 2018 23:20
[2018-10-06] MEDS ORDERED: NA PHOSPHATE/BIPHOS 133 ML ENEMA PR ONE (23:30)
[2018-10-06] MEDS ORDERED: BISACODYL 10 MG SUPP PR ONE (23:30)
[2018-10-07] MEDS ORDERED: PANT40TA4 PO (01:43)
[2018-10-07 02:45] VITALS: BP 113/77; PULSE 90; RESP 18
== END 2018-10-07 03:03 | disposition home or self-care (01) ==
LOC: E/R 21:09
DX: K59.00 Constipation, unspecified (principal); D64.9 Anemia, unspecified; Z85.038 Personal history of other malignant neoplasm of large intestine
CPT/HCPCS: 36415; 80053; 81003; 81025; 83690; 85025; Z7502; Z7610; 99283